=== PATIENT | male | born 1940 | race Caucasian/White ===

== ENCOUNTER → 2016-09-10 | Outpatient (CLI) | payer BC ==
[~2016-09-10] MED LIST: ASCA500 PO; ASCO500T3 PO; ASPEC81 PO; ASPI81TA28 PO; CELE1CAP30 PO; CEPH500C PO; DOCU100C31 PO; FINA5TAB PO; FLX10 PO; GLUCTAB7 PO; HYDC25 PO; HYDR12.56 PO; LACTCHW3 PO; METO100T44 PO; MULT-513 PO; OXYC-57 PO; OXYC1TAB3 PO; POLYSOL4 OPB; PRLSR20 PO; SENN8.6T94 PO; SIMV20TA2 PO; SULF800T23 PO; TMPOPS2510 OPB; TRAV0.00 OPB; VSC/10 PO
--- NOTE | 2016-09-10 11:11 | DIAGNOSTIC IMAGING REPORT ---
[facility] CLINICAL HISTORY: URINARY SYMPTOMS COMPARISON STUDY: 09/18/2007 FINDINGS: Degenerative changes are present within the spine. There is no pathologic bowel dilatation. 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 No urinary tract calculi are visualized on conventional radiographic imaging. IMPRESSION: No calculi identified. Electronically signed by: Jae Valencia M.D. 09/10/2016 11:09 AM Dictated Date/Time: 09/10/2016 11:07 AM
== END | disposition home or self-care (01) ==
LOC: C.RADBC 10:56
PROVIDERS: ATTEND Nurse Practitioner Family
DX: R39.9 Unspecified symptoms and signs involving the genitourinary system (principal)

== ENCOUNTER → 2016-10-14 | Outpatient (CLI) | payer BC | END | disposition home or self-care (01) | LOC: C.LABSPEC 17:25 | PROVIDERS: ATTEND Nurse Practitioner Family | DX: R39.9 Unspecified symptoms and signs involving the genitourinary system (principal) ==

== ENCOUNTER 2017-01-10 14:28 | Emergency (ER) | payer BC ==
[~2017-01-10] VITALS: Ht 180.3 cm; Wt 119.0 kg
[~2017-01-10 14:28] MED LIST changes: -ASCO500T3 PO; -ASPI81TA28 PO; -CELE1CAP30 PO; -CEPH500C PO; -FLX10 PO; -HYDR12.56 PO; -LACTCHW3 PO; -METO100T44 PO; +METO1TAB69 PO; -OXYC-57 PO; -OXYC1TAB3 PO; -SULF800T23 PO; -TMPOPS2510 OPB
[2017-01-10 14:38] VITALS: TEMP 37.3; Ht 180.3 cm; Wt 119.0 kg
[2017-01-10] MEDS ORDERED: ONDANSETRON INJ 2 MG/ML 2 ML VIAL IV STA (14:52)
[2017-01-10] MEDS ORDERED: SODIUM CHLORIDE 0.9% 1000ML 1,000 ML IV STA (14:52)
[2017-01-10] MEDS ORDERED: SODIUM CHLORIDE 0.9% 500ML 500 ML IV STA (14:52)
[2017-01-10] MEDS ORDERED: FENTANYL CITRATE INJ 50 MCG/1 ML 2 ML VIAL IV STA (15:00)
[2017-01-10] MEDS ORDERED: CELE1CAP30 PO (15:21)
[2017-01-10] MEDS ORDERED: FLX10 PO (15:24)
[2017-01-10] MEDS ORDERED: TMPOPS2510 OPB (15:25)
--- NOTE | 2017-01-10 15:42 | EMERGENCY ROOM VISIT NOTE ---
History Report prepared by Crow: Chery Hart Under the Supervision of: Dr. Viridiana Armando M.D. First contact with patient: 14:48 Chief Complaint: OTHER COMPLAINT Stated Complaint: NAUSEA/VOMITING History of Present Illness The patient is a 76 year old male who presents to the Emergency Room with complaints of constant nausea for the past 5 hours. The patient ate breakfast this morning and was feeling fine afterwards. He went to [employer] with his and while he was standing in the check-out line he developed diffuse abdominal pain and became very nauseated and shaky. He was able to drive home. Once he got home he was still feeling nauseated and shaky. He started feeling very weak. He then had 3 episodes of vomiting. After the third episode his nausea started to improve. His called an ambulance and the patient was brought to the ED via BLS. The patient states that he started to develop a headache in the ambulance. He is still complaining of abdominal pain but attributes this to "nerves" as he does not like being in the hospital. The patient rates his current pain as a 4/10 in severity. He does not think that he had any chest pain with his symptoms. He denies any current arm pain or jaw pain. He does report some lower back pain. The patient also denies any diarrhea or personal history of stroke. He takes a daily baby aspirin and denies any other blood thinners. The patient's daughter is concerned that he has been under more stress lately. The patient's second daughter several years ago and he and his have been caring for their 3 grandchildren. 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 A total of 10 systems reviewed and were otherwise negative. Past Medical & Surgical Medical Problems: (1) History of small bowel obstruction (2) Hx of renal calculi Family History Heart disease Hypertension Social History Smoking Status: Former Smoker Marital Status: Housing Status: lives with family Occupation Status: retired Current/Historical Medications Scheduled Ascorbic Acid (Vitamin C *), 500 MG PO QAM Aspirin Enteric Coated (Ecotrin Or Generic *), 81 MG PO QPM Celecoxib (Celecoxib), 200 MG PO BID Cephalexin Monohydrate (Keflex), 500 MG PO TID Cyclobenzaprine HCl (Cyclobenzaprine HCl), 10 MG PO QPM Finasteride (Proscar), 5 MG PO QAM Carqzirvohs-Hrivaqaiugz-Xcj C- (Glucosamine Chondroitin), 2 TAB PO QPM Hydrochlorothiazide (Hctz *), 12.5 MG PO QAM Metoprolol Succ (Toprol Xl) (Toprol-Xl ), 100 MG PO QPM Multivitamins/Minerals (Mvi With Minerals), 1 TAB PO QAM Omeprazole (Prilosec Otc *), 20 MG PO QAM Polyethylene Glycol-Propylene (Systane), 1 DROPS OPB QAM Sennosides (Sennosides), 8.6 MG PO HS Simvastatin (Zocor), 20 MG PO QPM Solifenacin Succinate (Vesicare), 10 MG PO QPM Timolol Maleate (Timolol Maleate), 1 DROP OPB QAM Allergies Coded Allergies: No Known Allergies (Verified , 01/10/17) Physical Exam Vital Signs Date Time Temp Pulse Resp B/P (MAP) Pulse Ox O2 Delivery O2 Flow Rate FiO2 01/10/17 20:26 93 16 123/63 94 01/10/17 19:32 93 01/10/17 19:19 96 16 115/66 92 Room Air 01/10/17 18:09 95 21 99/64 95 Room Air 01/10/17 17:01 95 25 104/62 93 Room Air 01/10/17 16:35 96 20 90/58 94 Room Air 01/10/17 15:27 96 01/10/17 14:38 37.3 101 23 108/77 97 Room Air Physical Exam Vital signs reviewed. General: Well-appearing elderly male, in no significant distress. HEENT: No scleral icterus, PERRLA, neck supple. Atraumatic. Cardiovascular: Regular rate and rhythm, no extra sounds. Pulmonary: Clear to auscultation bilaterally, normal work of breathing. Abdomen: Soft, nontender, nondistended, positive bowel sounds. Musculoskeletal: Atraumatic, no peripheral edema. Neurologic: Patient awake alert and oriented x 3, full strength in all 4 extremities. Cranial nerves 2 through 12 grossly intact. Skin: Warm, dry, no rash Medical Decision & Procedures ER Provider Diagnostic Interpretation: Radiology results as stated below per my review and radiologist interpretation: CT OF THE HEAD WITHOUT CONTRAST CLINICAL HISTORY: Headache. COMPARISON STUDY: MRI of the brain April 25, 2012. CT DOSE: 537.48 mGy.cm TECHNIQUE: Helical axial images of the head were obtained without IV contrast. Automated exposure control was utilized for the study. A dose lowering technique was utilized adhering to the principles of ALARA. FINDINGS: No acute intracranial hemorrhage, midline shift or mass effect is present. Ventricular system is normal. Basilar cisterns are patent. There are no extra-axial collections. White matter hypodensity suggests small vessel disease. There are no findings to suggest acute dural sinus thrombosis or acute territorial infarct. Visualized portions of the sinuses and the mastoid air cells are clear. There are no significant calvarial abnormalities. IMPRESSION: No acute intracranial findings. Electronically signed by: Tiago Guerra M.D. 01/10/2017 3:55 PM Dictated Date/Time: 01/10/2017 3:53 PM Laboratory Results 01/10/17 15:15 Red Blood Count 4.58, Mean Corpuscular Volume 88.2, Mean Corpuscular Hemoglobin 30.6, Mean Corpuscular Hemoglobin Concent 34.7, Mean Platelet Volume , Neutrophils (%) (Auto) 95.9, Lymphocytes (%) (Auto) 1.9, Monocytes (%) (Auto) 1.6, Eosinophils (%) (Auto) 0.0, Basophils (%) (Auto) 0.1, Neutrophils # (Auto) 7.59, Lymphocytes # (Auto) 0.15, Monocytes # (Auto) 0.13, Eosinophils # (Auto) 0.00, Basophils # (Auto) 0.01 01/10/17 15:15 Test 01/10/17 15:15 01/10/17 15:20 01/10/17 18:59 White Blood Count 7.92 K/uL (4.8-10.8) Red Blood Count 4.58 M/uL (4.7-6.1) Hemoglobin 14.0 g/dL (14.0-18.0) Hematocrit 40.4 % (42-52) Mean Corpuscular Volume 88.2 fL (80-100) Mean Corpuscular Hemoglobin 30.6 pg (25-34) Mean Corpuscular Hemoglobin Concent 34.7 g/dl (32-36) Platelet Count K/uL (130-400) Mean Platelet Volume fL (7.4-10.4) Neutrophils (%) (Auto) 95.9 % Lymphocytes (%) (Auto) 1.9 % Monocytes (%) (Auto) 1.6 % Eosinophils (%) (Auto) 0.0 % Basophils (%) (Auto) 0.1 % Neutrophils # (Auto) 7.59 K/uL (1.4-6.5) Lymphocytes # (Auto) 0.15 K/uL (1.2-3.4) Monocytes # (Auto) 0.13 K/uL (0.11-0.59) Eosinophils # (Auto) 0.00 K/uL (0-0.5) Basophils # (Auto) 0.01 K/uL (0-0.2) RDW Standard Deviation 45.7 fL (36.4-46.3) RDW Coefficient of Variation 14.1 % (11.5-14.5) Immature Granulocyte % (Auto) 0.5 % Immature Granulocyte # (Auto) 0.04 K/uL (0.00-0.02) Red Blood Cell Morphology Unremarkable Anion Gap 9.0 mmol/L (3-11) Est Creatinine Clear Calc Drug Dose 44.4 ml/min Estimated GFR () 40.9 Estimated GFR (Non- 35.3 BUN/Creatinine Ratio 18.0 (10-20) Calcium Level 8.7 mg/dl (8.5-10.1) Magnesium Level 1.5 mg/dl (1.8-2.4) Total Bilirubin 0.8 mg/dl (0.2-1) Direct Bilirubin 0.3 mg/dl (0-0.2) Aspartate Amino Transf (AST/SGOT) 24 U/L (15-37) Alanine Aminotransferase (ALT/SGPT) 25 U/L (12-78) Alkaline Phosphatase 59 U/L (45-117) Total Protein 6.3 gm/dl (6.4-8.2) Albumin 3.3 gm/dl (3.4-5.0) Lipase 233 U/L (73-393) Bedside Troponin I < 0.030 ng/ml (0-0.045) Urine Color YELLOW Urine Appearance CLEAR (CLEAR) Urine pH 5.0 (4.5-7.5) Urine Specific [place] 1.018 (1.000-1.030) Urine Protein NEG (NEG) Urine Glucose (UA) NEG (NEG) Urine Ketones NEG (NEG) Urine Occult Blood 2+ (NEG) Urine Nitrite POS (NEG) Urine Bilirubin NEG (NEG) Urine Urobilinogen NEG (NEG) Urine Leukocyte Esterase MODERATE (NEG) Urine WBC (Auto) 10-30 /hpf (0-5) Urine RBC (Auto) 0-4 /hpf (0-4) Urine Hyaline Casts (Auto) 0 /lpf (0-5) Urine Epithelial Cells (Auto) 10-20 /lpf (0-5) Urine Bacteria (Auto) 3+ (NEG) Laboratory results per my review. Medications Administered Medications (Trade) Dose Ordered Sig/Sienna Route Start Time Stop Time Status Last Admin Dose Admin Sodium Chloride 500 ml @ 999 mls/hr Q31M STAT IV 01/10/17 14:52 01/10/17 15:22 DC 01/10/17 15:29 999 MLS/HR Sodium Chloride 1,000 ml @ 200 mls/hr Q5H STAT IV 01/10/17 14:52 01/10/17 19:51 DC 01/10/17 16:16 200 MLS/HR Ondansetron HCl (Zofran Inj) 4 mg NOW STAT IV 01/10/17 14:52 01/10/17 14:54 DC 01/10/17 15:30 4 MG Fentanyl Citrate (Fentanyl Inj) 50 mcg NOW STAT IV 01/10/17 15:00 01/10/17 15:01 DC 01/10/17 15:30 50 MCG Hydromorphone HCl (Dilaudid Inj) 1 mg NOW STAT IV 01/10/17 16:49 01/10/17 16:50 DC 01/10/17 17:02 1 MG Acetaminophen (Tylenol Tab) 650 mg NOW STAT PO 01/10/17 19:01 01/10/17 19:02 DC 01/10/17 19:19 650 MG Ceftriaxone Sodium (Rocephin Inj) 1 gm NOW STAT IV 01/10/17 19:32 01/10/17 19:33 DC 01/10/17 19:44 1 GM ECG Indication: nausea Rate (beats per minute): 95 Rhythm: normal sinus Findings: LAFB, left axis deviation ED Course 1448: Past medical records reviewed. The patient was evaluated in room C7. A complete history and physical examination was performed. 1452: Zofran 4 mg IV, NSS 1000 ml @ 200 mls/hr IV, NSS 500 ml @ 999 mls/hr IV 1500: Fentanyl 50 mcg IV 164: Dilaudid 1 mg IV 174: I updated the patient. He is doing well and resting more comfortably. 1858: I reevaluated the patient and he is doing well. 1900: Tylenol 650 mg PO 1931: Rocephin 1 gm IV 1958: I reassessed the patient at this time. He is feeling better and resting comfortably. I discussed the results and treatment plan with the patient. I answered all pertaining questions that he had. He expressed understanding and verbalized agreement. The patient will be discharged home. Medical Decision Differential diagnosis: Etiologies such as gastroenteritis, food borne illness, infections, appendicitis , diverticulitis, inflammatory bowel disease, obstruction, GI bleed, biliary pathology, as well as others were entertained. This patient was evaluated and appeared to be in no significant distress. IV access was obtained and laboratory work was drawn. The patient was placed on the court monitor. Patient was hydrated with normal saline solution, given IV Zofran and fentanyl for complaints of headache. CT scan of the head was performed and is negative for acute intracranial abnormality. EKG reveals no evidence of acute ischemic change. Patient did require IV Dilaudid for additional pain. He complained of being hungry, was given a by mouth fluid trial of Gatorade for which he tolerated well. The patient was tolerating crackers. He was feeling improved. He was given oral Tylenol for a mild continued headache. 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 He may also be suffering from a viral illness. The patient was advised to hold the Celebrex in particular. The patient takes Prilosec daily. He'll follow-up with his PCP particular regarding the mild renal insufficiency which may also be secondary to NSAID use. He will return to the ER for worsening of symptoms or any medical concerns. Medication Reconcilliation Current Medication List: was personally reviewed by me Blood Pressure Screening Patient's blood pressure: Low blood pressure Impression Primary Impression: Renal insufficiency Additional Impressions: Urinary tract infection Headache Vomiting Scribe Attestation The scribe's documentation has been prepared under my direction and personally reviewed by me in its entirety. I confirm that the note above accurately reflects all work, treatment, procedures, and medical decision making performed by me. Departure Information Dispostion Home / Self-Care Prescriptions Cephalexin Monohydrate (Keflex) 500 Mg Cap 500 MG PO TID, #21 CAP Prov: Viridiana Armando M.D. 01/10/17 Referrals Amanuel Ellison M.D. (PCP) Forms HOME CARE DOCUMENTATION FORM, IMPORTANT VISIT INFORMATION, WORK / SCHOOL INSTRUCTIONS Patient Instructions My [facility] Additional Instructions Diagnosis: Vomiting, headache, UTI, renal insufficiency Drink plenty of clear fluids. Minimize use of Aleve, ibuprofen and Celebrex. Continue your aspirin as prescribed for now. Keflex 500 mg 3 times a day for 7 days. Start tomorrow. Follow-up with your PCP this week for reevaluation. Maintain a bland diet. Return to the ER for worsening of symptoms or any medical concerns. Problem Qualifiers Additional Impressions: Urinary tract infection Urinary tract infection type: site unspecified Hematuria presence: with hematuria Qualified Codes: N39.0 - Urinary tract infection, site not specified ; R31.9 - Hematuria, unspecified Headache Headache type: unspecified Headache chronicity pattern: acute headache Intractability: not intractable Qualified Codes: R51 - Headache Vomiting Vomiting type: unspecified Vomiting Intractability: non-intractable Nausea presence: with nausea Qualified Codes: R11.2 - Nausea with vomiting, unspecified
[2017-01-10 15:46] LABS: CALCIUM 8.7 mg/dl (8.5-10.1); CREATININE 1.8 mg/dl (0.60-1.40); MAGNESIUM 1.5 mg/dl (1.8-2.4); POTASSIUM 3.4 mmol/L (3.5-5.1)
--- NOTE | 2017-01-10 15:57 | DIAGNOSTIC IMAGING REPORT ---
CT OF THE HEAD WITHOUT CONTRAST CLINICAL HISTORY: Headache. COMPARISON STUDY: MRI of the brain April 25, 2012. CT DOSE: 537.48 mGy.cm TECHNIQUE: Helical axial images of the head were obtained without IV contrast. Automated exposure control was utilized for the study. A dose lowering technique was utilized adhering to the principles of ALARA. FINDINGS: No acute intracranial hemorrhage, midline shift or mass effect is present. Ventricular system is normal. Basilar cisterns are patent. There are no extra-axial collections. White matter hypodensity suggests small vessel disease. There are no findings to suggest acute dural sinus thrombosis or acute territorial infarct. Visualized portions of the sinuses and the mastoid air cells are clear. There are no significant calvarial abnormalities. IMPRESSION: No acute intracranial findings. Electronically signed by: Tiago Guerra M.D. 01/10/2017 3:55 PM Dictated Date/Time: 01/10/2017 3:53 PM
[2017-01-10 16:37] LABS: BASO % 0.1 %; BASO ABS # 0.01 K/uL (0-0.2); COMPLETE YES; HEMATOCRIT 40.4 % (42-52); IG% 0.5 %; LYMPH % 1.9 %; LYMPH ABS # 0.15 K/uL (1.2-3.4); MEAN CELL VOLUME 88.2 fL (80-100); MEAN CORPUSCULAR HEMOGLOBIN 30.6 pg (25-34); MEAN CORPUSCULAR HGB CONC 34.7 g/dl (32-36); MONO % 1.6 %; NEUT % 95.9 %; RED BLOOD COUNT 4.58 M/uL (4.7-6.1); WHITE BLOOD COUNT 7.92 K/uL (4.8-10.8)
[2017-01-10] MEDS ORDERED: HYDROmorphone INJ 1 MG/ML SYR IV STA (16:49)
[2017-01-10] MEDS ORDERED: ACETAMINOPHEN 325 MG TAB PO STA (19:01)
[2017-01-10 19:25] LABS: URINE APPEARANCE CLEAR (CLEAR); URINE BILIRUBIN NEG (NEG); URINE COLOR YELLOW; URINE NITRITE POS (NEG); URINE SPECIFIC GRAVITY 1.018 (1.000-1.030); UROBILINOGEN NEG (NEG); ZZUR CULT IF INDIC CLEAN CATCH YES
[2017-01-10 19:26] LABS: MANUAL MICROSCOPIC REQUIRED? NO; REVIEW REQ? NO
[2017-01-10] MEDS ORDERED: CEFTRIAXONE SOD INJ 1 GM ADDVIAL IV STA (19:32)
[2017-01-10] MEDS ORDERED: CEPH500C PO (19:36)
[2017-01-10 20:26] VITALS: BP 123/63; PULSE 93; O2SAT 94
[2017-01-11] MEDS ORDERED: ASPI81TA28 PO (13:52)
[2017-01-11] MEDS ORDERED: HYDR12.56 PO (13:52)
[2017-01-11] MEDS ORDERED: PRLSR20 PO (13:52)
[2017-01-11] MEDS ORDERED: ASCO500T3 PO (13:52)
[2017-01-16] MEDS ORDERED: SULF800T23 PO (09:46)
[2017-01-16] MEDS ORDERED: METO1TAB69 PO (09:46)
[2017-01-16] MEDS ORDERED: LACTCHW3 PO (09:46)
[2017-01-31] MEDS ORDERED: OXYC-57 PO (08:07)
== END 2017-01-10 20:28 | disposition home or self-care (01) ==
LOC: EDBD 14:28 → C.EDC 14:29
DX: N39.0 Urinary tract infection, site not specified (principal); R51 Headache; N28.9 Disorder of kidney and ureter, unspecified; Z79.82 Long term (current) use of aspirin; Z87.442 Personal history of urinary calculi; Z82.49 Family history of ischemic heart disease and other diseases of the circulatory system; Z79.899 Other long term (current) drug therapy

== ENCOUNTER 2017-01-11 11:12 | Inpatient (IN) | payer BC, OTHER ==
[2017-01-11] VITALS (15 sets, daily range): BP systolic 100–130; BP diastolic 49–83; PULSE 93–103; TEMP 37.2; O2SAT 91–97; Ht 180.3 cm; Wt 124.7 kg
[~2017-01-11] VITALS: Ht 180.3 cm; Wt 124.7 kg
[~2017-01-11 11:12] MED LIST changes: +CELE1CAP30 PO; +CEPH500C PO; -DOCU100C31 PO; +FLX10 PO; +TMPOPS2510 OPB; -TRAV0.00 OPB
[2017-01-11] MEDS ORDERED: ACETAMINOPHEN 325 MG TAB PO STA (12:21)
[2017-01-11] MEDS ORDERED: SODIUM CHLORIDE 0.9% 500ML 500 ML IV STA (12:21)
[2017-01-11] MEDS ORDERED: METOCLOPRAMIDE HCL INJ 5 MG/ML 2 ML VIAL IV STA (12:21)
--- NOTE | 2017-01-11 12:40 | DIAGNOSTIC IMAGING REPORT ---
CHEST ONE VIEW PORTABLE HISTORY: Short of breath COMPARISON: Chest 10/11/2014. FINDINGS: Bibasilar linear densities consistent with subsegmental atelectasis. The lungs are otherwise clear. The heart is normal in size. No pleural effusions. No pneumothorax. Right shoulder prosthesis. IMPRESSION: Bibasilar linear densities. This favors subsegmental atelectasis. Electronically signed by: Naeem Keith M.D. 01/11/2017 12:39 PM Dictated Date/Time: 01/11/2017 12:37 PM
--- NOTE | 2017-01-11 12:48 | EMERGENCY ROOM VISIT NOTE ---
History Report prepared by Crow: Carey Miller Under the Supervision of: Dr. Aquiles Rosenbaum M.D. First contact with patient: 11:52 Chief Complaint: HEADACHE Stated Complaint: CHILLS, BORRERO, RIB AND BACK NEAR KIDNEY AREA PAIN History of Present Illness The patient is a 76 year old male who presents to the Emergency Room with complaints of an episode of a headache starting three hours ago. The patient states he was here at the ED for similar symptoms yesterday. He states that his symptoms had resolved last night and he awoke without them this morning. He reports that they started to come back three hours ago. The patient notes that the headache is in the front of his head and at his temples. He states that he took two Tylenol with little relief. He currently rates his pain as a 7/10 in severity. The patient complains of nausea, dry heaving, chills, back pain, weakness, and shortness of breath. The patient denies any recent falls, numbness , tingling, chest pain, leg swelling, fever, and cough. The patient notes he is currently being treated for a UTI and is on a baby Aspirin daily. Source of History: patient Onset: three hours ago Position: head Symptom Intensity: 7/10 Timing: other (episode) Modifying Factors (Relieving): tylenol Associated Symptoms: + chills, + SOB, + nausea, + back pain, + weakness, No fevers, No cough, No chest pain, No numbness Note: The patient complains of dry heaving. The patient denies recent falls, tingling , and leg swelling. Review of Systems See HPI for pertinent positives and negatives. A total of ten systems were reviewed and were otherwise negative. Past Medical & Surgical Medical Problems: (1) History of small bowel obstruction (2) Hx of renal calculi (3) Sepsis Surgical Problems: (1) H/O hernia repair (2) History of cataract surgery Family History Heart disease Hypertension Social History Smoking Status: Never Smoker Alcohol Use: none Drug Use: none Marital Status: Housing Status: lives with family Occupation Status: retired Current/Historical Medications Scheduled Ascorbic Acid (Vitamin C), 500 MG PO DAILY Aspirin (Aspirin Ec), 81 MG PO QPM Cephalexin Monohydrate (Keflex), 500 MG PO TID Cyclobenzaprine HCl (Cyclobenzaprine HCl), 10 MG PO QPM Finasteride (Proscar), 5 MG PO QAM Okmsfiketvl-Pplzvqhqxqw-Sed C- (Glucosamine Chondroitin), 2 TAB PO QPM Hydrochlorothiazide (Hctz), 12.5 MG PO QAM Metoprolol Succ (Toprol Xl) (Toprol-Xl ), 100 MG PO QPM Multivitamins/Minerals (Mvi With Minerals), 1 TAB PO QAM Omeprazole (Prilosec), 20 MG PO DAILY Polyethylene Glycol-Propylene (Systane), 1 DROPS OPB QAM Sennosides (Sennosides), 8.6 MG PO HS Simvastatin (Zocor), 20 MG PO QPM Solifenacin Succinate (Vesicare), 10 MG PO QPM Timolol Maleate (Timolol Maleate), 1 DROP OPB QAM Allergies Coded Allergies: No Known Allergies (Verified , 01/11/17) Physical Exam Vital Signs Date Time Temp Pulse Resp B/P (MAP) Pulse Ox O2 Delivery O2 Flow Rate FiO2 01/11/17 17:01 106/51 01/11/17 17:00 101 98 01/11/17 16:56 106/55 01/11/17 16:55 104 98 01/11/17 16:51 104/67 01/11/17 16:50 102 97 01/11/17 16:46 112/68 01/11/17 16:45 102 98 01/11/17 16:45 37.2 99 19 110/62 97 Nasal Cannula 2.0 01/11/17 16:41 120/64 01/11/17 16:40 102 97 01/11/17 16:35 104 97/68 97 01/11/17 16:31 102/75 01/11/17 16:30 103 98 01/11/17 16:26 101 24 101/74 97 01/11/17 16:21 100 24 108/75 97 Nasal Cannula 4.0 01/11/17 16:15 100 24 107/77 97 Nasal Cannula 4.0 01/11/17 16:10 100 24 98/66 97 Nasal Cannula 4.0 01/11/17 16:00 108 24 89/63 98 Nasal Cannula 4.0 01/11/17 15:51 106 24 80/58 97 Nasal Cannula 4.0 01/11/17 15:45 107 24 84/59 100 Nasal Cannula 4.0 8/8/17 15:41 106 24 90/59 100 Nasal Cannula 4.0 /8/17 15:30 101 /8/17 15:30 98 24 79/55 97 Nasal Cannula 4.0 /8/17 15:25 102 24 77/52 98 Nasal Cannula 4.0 /8/17 15:20 102 76/49 8/8/17 15:13 99 61/41 96 Nasal Cannula 4.0 8/ 15:03 Nasal Cannula 4.0 /8/17 15:03 104 24 60/42 94 8/8/17 14:56 101 24 97/63 8/8/17 14:51 100 28 93/50 95 Room Air /8/17 14:48 102 28 82/61 96 Room Air 8/17 14:39 106 30 97/61 95 Room Air /8/17 14:25 102 28 81/58 94 Room Air //17 14:15 100 25 86/63 92 Room Air 01/11/17 14:08 98 24 81/59 95 Room Air 8/17 13:55 100 28 80/54 96 Room Air 8/17 13:45 97 29 73/51 94 Room Air /8/17 13:40 99 29 81/55 94 Room Air /8/17 13:35 99 24 82/55 96 Room Air /8/17 13:30 100 31 92/55 94 Room Air /8/17 13:27 99 26 94 01/11/ 13:23 49/29 01/11/17 13:22 104 33 94 01/11/17 13:20 75/44 17 13:17 105 32 94 8/ 13:12 103 31 94 01/11/17 13:07 110 29 96 8/ 13:04 102/62 01/11/17 13:02 99 30 93 8 13:00 96/57 01/11/17 12:57 102 31 93 8/17 12:52 105 33 93 01/11/17 12:49 83/51 01/11/ 12:47 108 28 93 01/11/17 12:42 106 30 93 01/11/17 12:37 107 30 93 01/11/17 12:32 111 25 94 01/11/17 12:27 103 29 92 01/11/17 12:22 102 28 91 01/11/17 12:17 103 28 92 01/11/17 12:12 106 39 92 01/11/17 12:07 111 26 89 01/11/17 12:02 106 26 92 01/11/17 11:57 114 36 92 01/11/17 11:52 111 32 01/11/17 11:47 111 30 01/11/17 11:42 111 32 01/11/17 11:37 113 36 01/11/17 11:35 113 01/11/17 11:32 118 22 01/11/17 11:27 112 37 01/11/17 11:24 113/72 01/11/17 11:14 37.2 119 22 130/69 95 Room Air Physical Exam GENERAL: Awake, alert, well-appearing, NAD HENT: Normocephalic, atraumatic. Dry MM. EYES: Normal conjunctiva. Sclera non-icteric. NECK: Supple. No nuchal rigidity. FROM. RESPIRATORY: Short shallow breaths, mildly tachypneic, mild left crackles at the base. no rhonchi, wheezing CARDIAC: RRR, no MRG ABDOMEN: Soft, NTND, BS+ MSK: No chest wall TTP, no LE edema. Negative Benton sign. NEURO: GCS 15, CN 2-12 intact, moves all 4s on command SKIN: No rash or jaundice noted. Multiple surgical scars consistent with prior procedures. Medical Decision & Procedures ER Provider Diagnostic Interpretation: Radiology results as stated below per my review and radiologist interpretation: CHEST ONE VIEW PORTABLE HISTORY: Short of breath COMPARISON: Chest 10/11/2014. FINDINGS: Bibasilar linear densities consistent with subsegmental atelectasis. The lungs are otherwise clear. The heart is normal in size. No pleural effusions. No pneumothorax. Right shoulder prosthesis. IMPRESSION: Bibasilar linear densities. This favors subsegmental atelectasis. Electronically signed by: Naeem Keith M.D. 01/11/2017 12:39 PM Dictated Date/Time: 01/11/2017 12:37 PM CHEST ONE VIEW PORTABLE CLINICAL HISTORY: Central Line Placement tube position COMPARISON STUDY: 01/11/2017 FINDINGS: Placement of a central line in superior vena cava. No evidence pneumothorax. Study is otherwise unchanged. IMPRESSION: Central line placed in the superior vena cava. No evidence pneumothorax. The above report was generated using voice recognition software. It may contain grammatical, syntax or spelling errors. Electronically signed by: Juanjo Velarde M.D. 01/11/2017 4:05 PM Dictated Date/Time: 01/11/2017 4:04 PM Laboratory Results Test 01/11/17 11:30 01/11/17 12:30 01/11/17 13:31 01/11/17 14:20 Total Creatine Kinase 113 U/L (39-308) Bedside Troponin I < 0.030 ng/ml (0-0.045) Venous Blood pH 7.36 (7.36-7.41) Venous Blood Partial Pressure CO2 36 mmHg (38.0-50.0) Venous Blood Partial Pressure O2 32 mmHg Venous Blood HCO3 20 mmol/L Venous Blood Oxygen Saturation < 60.0 % Venous Blood Base Excess -5.0 mEq/L Urine Color DK YELLOW Urine Appearance CLOUDY (CLEAR) Urine pH 5.0 (4.5-7.5) Urine Specific [place] 1.023 (1.000-1.030) Urine Protein 1+ (NEG) Urine Glucose (UA) NEG (NEG) Urine Ketones NEG (NEG) Urine Occult Blood 2+ (NEG) Urine Nitrite NEG (NEG) Urine Bilirubin NEG (NEG) Urine Urobilinogen NEG (NEG) Urine Leukocyte Esterase MODERATE (NEG) Urine WBC (Auto) >30 /hpf (0-5) Urine RBC (Auto) 5-10 /hpf (0-4) Urine Hyaline Casts (Auto) 1-5 /lpf (0-5) Urine Epithelial Cells (Auto) >30 /lpf (0-5) Urine Bacteria (Auto) NEG (NEG) Urine Renal Epithelial Cells 0-5 /lpf (0-5) Urine Crystals AMORPHOUS SEDIMENT (NONE Urine Pathogenic Casts /lpf (0) Test 01/11/17 15:26 01/11/17 17:01 Bedside Glucose 84 mg/dl (70-99) Bedside Lactic Acid Venous 2.65 mmol/L (0.90-1.70) Laboratory results reviewed by me Medications Administered Medications (Trade) Dose Ordered Sig/[place] Route Start Time Stop Time Status Last Admin Dose Admin Metoclopramide HCl (Reglan Inj) 10 mg NOW STAT IV 01/11/17 12:21 01/11/17 12:25 DC 01/11/17 12:33 10 MG Acetaminophen (Tylenol Tab) 650 mg NOW STAT PO 01/11/17 12:21 01/11/17 12:25 DC 01/11/17 13:02 650 MG Sodium Chloride 500 ml @ 500 mls/hr Q1H STAT IV 01/11/17 12:21 01/11/17 13:20 DC 01/11/17 12:32 500 MLS/HR Sodium Chloride 1,000 ml @ 200 mls/hr Q5H IV 01/11/17 13:15 01/11/17 18:34 DC 01/11/17 13:19 200 MLS/HR Vancomycin HCl 1000 mg/Sodium Chloride 270 ml @ 125 mls/hr NOW STAT IV 01/11/17 13:28 01/11/17 15:37 DC 01/11/17 14:38 125 MLS/HR Cefepime HCl 1000 mg/Dextrose 111.3 ml @ 200 mls/hr ONE STAT IV 01/11/17 13:28 01/11/17 14:01 DC 01/11/17 14:06 200 MLS/HR Metronidazole (Flagyl / Nss) 500 mg NOW STAT IV 01/11/17 13:28 01/11/17 13:30 DC 01/11/17 13:40 500 MG Sodium Chloride 1,000 ml @ 999 mls/hr Q1H1M IV 01/11/17 15:15 01/11/17 18:30 DC 01/11/17 15:15 999 MLS/HR Norepinephrine Bitartrate 8 mg/ Dextrose 508 ml @ 0 mls/hr Q0M STAT IV 01/11/17 15:09 01/11/17 15:10 DC 01/11/17 15:09 47 MLS/HR Lorazepam (Ativan Tab) 0.5 mg Q4H PRN PO 01/11/17 17:00 02/10/17 16:59 01/11/17 23:28 0.5 MG Morphine Sulfate (MoRPHine SULFATE INJ) 2 mg Q2H PRN IV 01/11/17 17:00 01/25/17 16:59 01/12/17 02:05 2 MG Procedure Central Venous Catheter Indication: Hypotension, Septic Shock Catheter type: Triple Lumen Location: Right IJ Verbal consent was obtained after the risks and benefits were explained, including but not limited to pneumothorax, hemothorax, vessel injury, bleeding, scarring, infection, pain, and bone/joint/nerve damage. At this time, the risks of the procedure are less than the risks of NOT performing the procedure. A time out was taken and the correct patient and site identified. The patient was placed in the Trendelenburg position and the skin was prepped in the standard fashion with chlorhexidine and full sterile drapes applied. The proper landmarks were identified with ultrasound, anesthetized with 1% lidocaine without epinephrine, and the needle was inserted through the skin in the standard fashion. The needle was carefully advanced into blood vessel lumen under ultrasound guidance. The guidewire was placed uneventfully. The vessel is dilated and the catheter was placed. It was sutured into position. There was good blood return from all ports. The patient tolerated the procedure well and there were no complications. Post procedure x-ray was normal. ECG Indication: other (headache) Rate (beats per minute): 112 Rhythm: sinus tachycardia Findings: other (normal MS QRS QTC, no STS or TWI, left anterior fasculiar block, abnormal) ED Course 1201: The patient was evaluated in room C3. A complete history and physical exam was performed. 1221: Ordered NSS 500 ml @ 500 mls/hr IV, Tylenol Tab 650 mg PO, Reglan Inj 10 mg IV. 1315: Ordered NSS 1000 ml @ 200 mls/hr IV. 1328: Ordered Flagyl/ Nss 500 mg IV, Cefepime HCl 1000 mg/ Dextrose 111.3 ml @ 200 mls/hr IV, Vancomycin HCl 1000 mg/ Sodium Chloride 270 ml @ 125 mls/hr IV. 1355: I reevaluated the patient and his symptoms are improving. He is still hypotensive and is neutropenic. 1506: I reevaluated the patient and he is feeling short of breath. The patient is on his fourth liter and is going to have a central line placed. 1508: Discussed the patient's case with Dr. Barton. The patient will be evaluated for further treatment and disposition after I discuss the case with a hospitalist. 1509: Ordered Norepinephrine Bitartrate 8 mg/ Dextrose 508 ml @ 0 mls/hr Protocol IV. 1515: Ordered NSS 1000 ml @ 999 mls/hr IV. 1639: Discussed the patient's case with Dr. Allred. The patient will be evaluated for further treatment and disposition. Medical Decision The patient is a 76 year old male who presents to the Emergency Room with complaints of an episode of a headache starting three hours ago. The patient has a history of hernia surgery and cataract surgery. Differential diagnoses anxiety, CHF, PNA, renal colic, UTI, pyelonephritis. Upon initial presentation patient does not look in a fair amount of distress, however, patient did have episodes of hypotension. Patient was given fluids and blood work was drawn in addition to cultures. Given patient's worsening blood pressure a code substance was called patient was given multiple liters of fluid without resolution of his hypotension. Patient was deemed to be in septic shock likely related to his urosepsis or pyelonephritis. Patient never had any altered mental status. Patient's lactate initially was 3.5 with a white count of 1100 and was neutropenic but without any true fever. Given the fact the patient wasn't septic shock and his blood pressure did not respond to 4 L of fluid patient had a right CVC IJ catheter placed emergently for hypotension. Patient had a repeat lactate that did not show any improvement. Patient had received all of his antibiotics. Patient was deemed very ill and required inpatient intensive care treatment. I spoke with the ICU physician in addition to the hospitalist who agreed that the patient would benefit from ICU level of care. Medication Reconcilliation Current Medication List: was personally reviewed by me Blood Pressure Screening Patient's blood pressure: Elevated blood pressure Blood pressure disposition: Referred to PCP Consults Time Called: 1353 Consulting Physician: Dr. Barton- ICU Returned Call: [phone] Discussed the patient's case with Dr. Barton. The patient will be evaluated for further treatment and disposition after I discuss the case with a hospitalist. Additional Consults: Time Called: [phone] Consulted Physician: Dr. Allred Returned Call: [phone] Additional Comments: Discussed the patient's case with Dr. Allred. The patient will be evaluated for further treatment and disposition. Impression Primary Impression: Severe sepsis Additional Impressions: Lactic acidosis Neutropenia LINDA (acute kidney injury) HTN (hypertension) Septic shock Critical Care I have personally spent greater than 82 minutes of critical care time in the direct management of this patient. This includes bedside care, interpretation of diagnostic studies, and testing, discussion with consultants, patient, and family members, and other required patient management activities. This 82 minutes is in excess of all separately billable procedures. Scribe Attestation The scribe's documentation has been prepared under my direction and personally reviewed by me in its entirety. I confirm that the note above accurately reflects all work, treatment, procedures, and medical decision making performed by me. Departure Information Dispostion Being Evaluated By Hospitalist Referrals Amanuel Ellison M.D. (PCP) Patient Instructions My [facility] Problem Qualifiers
[2017-01-11 13:00] LABS: BUN/CREATININE RATIO 13.8 (10-20); CALCIUM 8.3 mg/dl (8.5-10.1); CREATININE 2.7 mg/dl (0.60-1.40); POTASSIUM 3.7 mmol/L (3.5-5.1)
[2017-01-11 13:08] LABS: INR 1.1 (0.9-1.1); PARTIAL THROMBOPLASTIN RATIO 1.2; PROTHROMBIN TIME (PATIENT) 11.4 SECONDS (9.0-12.0)
[2017-01-11] MEDS ORDERED: SODIUM CHLORIDE 0.9% 1000ML 1,000 ML IV SCH (13:15)
[2017-01-11] MEDS ORDERED: VANCOMYCIN INJ 1,000 MG in SODIUM CHLORIDE 0.9% 250ML 250 ML IV STA (13:28)
[2017-01-11] MEDS ORDERED: CEFEPIME IV 1,000 MG in DEXTROSE 5% 100ML 100 ML IV STA (13:28)
[2017-01-11] MEDS ORDERED: METRONIDAZOLE 500MG / 100ML NSS IV STA (13:28)
[2017-01-11 13:39] LABS: HEMATOCRIT 41.1 % (42-52); MEAN CELL VOLUME 89.7 fL (80-100); MEAN CORPUSCULAR HEMOGLOBIN 30.6 pg (25-34); MEAN CORPUSCULAR HGB CONC 34.1 g/dl (32-36); MEAN PLATELET VOLUME 10.3 fL (7.4-10.4); PLATELET COUNT 68 K/uL (130-400); RED BLOOD COUNT 4.58 M/uL (4.7-6.1); WHITE BLOOD COUNT 1.15 K/uL (4.8-10.8)
[2017-01-11 13:44] LABS: VENOUS BLOOD GAS PCO2 36 mmHg (38.0-50.0); VENOUS BLOOD GAS PO2 32 mmHg
[2017-01-11 13:45] LABS: VEN BLD GAS O2 SATURATION < 60.0 %
[2017-01-11] MEDS ORDERED: ASPI81TA28 PO (13:52)
[2017-01-11] MEDS ORDERED: ASCO500T3 PO (13:52)
[2017-01-11] MEDS ORDERED: HYDR12.56 PO (13:52)
[2017-01-11] MEDS ORDERED: PRLSR20 PO (13:52)
[2017-01-11 14:16] LABS: VACUOLIZATION 2+
[2017-01-11 14:17] LABS: COMPLETE YES; LYMPH ABS # 0.19 K/uL (1.2-3.4); LYMPHOCYTE % 16.4 %; META ABS # 0.15 K/uL (0-0); METAMYELOCYTE % 12.7 %
[2017-01-11 14:38] LABS: URINE APPEARANCE CLOUDY (CLEAR); URINE BILIRUBIN NEG (NEG); URINE COLOR DK YELLOW; URINE EPITHELIAL CELL AUTO >30 /lpf (0-5); URINE NITRITE NEG (NEG); URINE SPECIFIC GRAVITY 1.023 (1.000-1.030); UROBILINOGEN NEG (NEG); ZZURINE CULT IF INDIC CATH YES
[2017-01-11 14:45] LABS: MANUAL MICROSCOPIC REQUIRED? NO; REVIEW REQ? YES
[2017-01-11] MEDS ORDERED: NOREPINEPHRINE BIT INJ 8 MG in DEXTROSE 5% 500ML 500 ML IV STA (15:09)
[2017-01-11] MEDS: SODIUM CHLORIDE 0.9% 1000ML 1,000 ML IV SCH ×4 (15:15→19:22)
--- NOTE | 2017-01-11 16:06 | DIAGNOSTIC IMAGING REPORT ---
CHEST ONE VIEW PORTABLE CLINICAL HISTORY: Central Line Placement tube position COMPARISON STUDY: 01/11/2017 FINDINGS: Placement of a central line in superior vena cava. No evidence pneumothorax. Study is otherwise unchanged. IMPRESSION: Central line placed in the superior vena cava. No evidence pneumothorax. The above report was generated using voice recognition software. It may contain grammatical, syntax or spelling errors. Electronically signed by: Juanjo Velarde M.D. 01/11/2017 4:05 PM Dictated Date/Time: 01/11/2017 4:04 PM
[2017-01-11] MEDS ORDERED: NOREPINEPHRINE BIT INJ 8 MG in DEXTROSE 5% 500ML 500 ML IV PRN (16:55)
[2017-01-11] MEDS ORDERED: LORAZEPAM 2 MG/ML 1 ML VIAL IV PRN (17:00)
[2017-01-11] MEDS ORDERED: VANCOMYCIN CONSULT ACTIVE PRN (17:15)
[2017-01-11] MEDS ORDERED: VANCOMYCIN INJ 1,750 MG in SODIUM CHLORIDE 0.9% 500ML 500 ML IV ONE (17:30)
[2017-01-11] MEDS ORDERED: LORAZEPAM INJ 0.5 MG in SYRINGE 0.75 ML IV PRN (17:45)
--- NOTE | 2017-01-11 17:46 | History and Physical ---
History & Physical Date & Time of Service: Jan 11, 2017 at 17:37 Chief Complaint: Chills, Toribio, Rib And Back Near Kidney Area Pain Primary Care Physician: Amanuel Ellison M.D. History of Present Illness Source: patient 68-year-old male who presents with sepsis. Patient was seen in the ER on January 10, diagnosed with UTI sent home on Keflex. Presents today after having vomiting at home weakness chills, found to be marked hypotensive, initially urine culture from January 10 shows gram-negative bacilli. Patient did not respond initially to volume resuscitation had elevated lactic acid and subsequently a central line was placed and instituted on levo fed. The patient is maintaining MEP greater than 65 he is awake and alert that we transferred to the ICU. His only complaints revolve around some difficulty urinating of which she does have BPH. He says it's worse over the last few days. He has no other focal signs or symptoms other than the nausea vomiting and dry heaves. His vomitus was clear mucous. He said no other changes in his bowel habits other than loss of appetite over the last 2 days. His family is present at bedside and updated the patient himself confirmed he has DO NOT RESUSCITATE Past Medical/Surgical History Medical Problems: (1) History of small bowel obstruction Status: Chronic (2) Hx of renal calculi Status: Chronic Family History Heart disease Hypertension Social History Smoking Status: Never Smoker Drug Use: none Marital Status: Occupational Status: retired Immunizations History of Influenza Vaccine: Yes Influenza Vaccine Date: Mar 31, 2008 History of Tetanus Vaccine?: Unknown History of Pneumococcal: Yes History of Hepatitis B Vaccine: No Multi-Drug Resistant Organisms History of MDRO: No Allergies Coded Allergies: No Known Allergies (Verified , 01/11/17) Home Medications Scheduled Ascorbic Acid (Vitamin C), 500 MG PO DAILY Aspirin (Aspirin Ec), 81 MG PO QPM Cephalexin Monohydrate (Keflex), 500 MG PO TID Cyclobenzaprine HCl (Cyclobenzaprine HCl), 10 MG PO QPM Finasteride (Proscar), 5 MG PO QAM Idextpfoorx-Fvqpfbykmic-Lgg C- (Glucosamine Chondroitin), 2 TAB PO QPM Hydrochlorothiazide (Hctz), 12.5 MG PO QAM Metoprolol Succ (Toprol Xl) (Toprol-Xl ), 100 MG PO QPM Multivitamins/Minerals (Mvi With Minerals), 1 TAB PO QAM Omeprazole (Prilosec), 20 MG PO DAILY Polyethylene Glycol-Propylene (Systane), 1 DROPS OPB QAM Sennosides (Sennosides), 8.6 MG PO HS Simvastatin (Zocor), 20 MG PO QPM Solifenacin Succinate (Vesicare), 10 MG PO QPM Timolol Maleate (Timolol Maleate), 1 DROP OPB QAM Review of Systems ROS: well nourished well developed No double vision blurry vision No problems with speech or swallowing No palpitations, chest pain or pressure No Wheezing was short of breath while hypotensive No abdominal pain nausea vomiting diarrhea changes in appetite or weight No burning urine but difficulty urinating and some foul smell to his urine No focal joint pain or muscle pain No skin rashes or oral lesions No unusual bruising or bleeding No focused back pain the patient has had left leg radicular numbness for a few months No changes in memory or confusion Physical Exam Vital Signs Date Time Temp Pulse Resp B/P (MAP) Pulse Ox O2 Delivery O2 Flow Rate FiO2 01/11/17 17:10 107 20 108/69 98 Nasal Cannula 2.0 01/11/17 17:06 90/56 01/11/17 17:05 106 98 01/11/17 17:01 106/51 01/11/17 17:00 101 98 01/11/17 16:56 106/55 01/11/17 16:55 104 98 01/11/17 16:51 104/67 01/11/17 16:50 102 97 01/11/17 16:46 112/68 01/11/17 16:45 102 98 01/11/17 16:41 120/64 01/11/17 16:40 102 97 01/11/17 16:35 104 97/68 97 01/11/17 16:31 102/75 01/11/17 16:30 103 98 01/11/17 16:26 101 24 101/74 97 01/11/17 16:21 100 24 108/75 97 Nasal Cannula 4.0 01/11/17 16:15 100 24 107/77 97 Nasal Cannula 4.0 01/11/17 16:10 100 24 98/66 97 Nasal Cannula 4.0 01/11/17 16:00 108 24 89/63 98 Nasal Cannula 4.0 817 15:51 106 24 80/58 97 Nasal Cannula 4.0 8/17 15:45 107 24 84/59 100 Nasal Cannula 4.0 817 15:41 106 24 90/59 100 Nasal Cannula 4.0 /8/17 15:30 101 /8/17 15:30 98 24 79/55 97 Nasal Cannula 4.0 817 15:25 102 24 77/52 98 Nasal Cannula 4.0 8/17 15:20 102 76/49 8/17 15:13 99 61/41 96 Nasal Cannula 4.0 01/11/17 15:03 Nasal Cannula 4.0 01/11/17 15:03 104 24 60/42 94 8 14:56 101 24 97/63 17 14:51 100 28 93/50 95 Room Air 8/ 14:48 102 28 82/61 96 Room Air 01/11/17 14:39 106 30 97/61 95 Room Air 01/11/17 14:25 102 28 81/58 94 Room Air 01/11/17 14:15 100 25 86/63 92 Room Air 8/17 14:08 98 24 81/59 95 Room Air 8/17 13:55 100 28 80/54 96 Room Air 01/11/ 13:45 97 29 73/51 94 Room Air 8/17 13:40 99 29 81/55 94 Room Air 8/17 13:35 99 24 82/55 96 Room Air 01/11/17 13:30 100 31 92/55 94 Room Air 01/11/17 13:27 99 26 94 8/17 13:23 49/29 01/11/17 13:22 104 33 94 /8/17 13:20 75/44 17 13:17 105 32 94 8/17 13:12 103 31 94 01/11/17 13:07 110 29 96 8 13:04 102/62 01/11/17 13:02 99 30 93 8/17 13:00 96/57 01/11/17 12:57 102 31 93 01/11/ 12:52 105 33 93 01/11/17 12:49 83/51 01/11/17 12:47 108 28 93 01/11/17 12:42 106 30 93 01/11/17 12:37 107 30 93 01/11/17 12:32 111 25 94 01/11/17 12:27 103 29 92 01/11/17 12:22 102 28 91 01/11/17 12:17 103 28 92 01/11/17 12:12 106 39 92 01/11/17 12:07 111 26 89 01/11/17 12:02 106 26 92 01/11/17 11:57 114 36 92 01/11/17 11:52 111 32 01/11/17 11:47 111 30 01/11/17 11:42 111 32 01/11/17 11:37 113 36 01/11/17 11:35 113 01/11/17 11:32 118 22 01/11/17 11:27 112 37 01/11/17 11:24 113/72 01/11/17 11:14 37.2 119 22 130/69 95 Room Air General Appearance: WD/WN, + moderate distress Head: normocephalic, atraumatic Eyes: PERRL, EOMI ENT: hearing grossly normal, pharynx normal Neck: supple, no adenopathy, thyroid normal, no JVD Respiratory/Chest: chest non-tender, lungs clear, normal breath sounds, no respiratory distress Cardiovascular: regular rate, rhythm, no murmur Abdomen/GI: normal bowel sounds, non tender, soft, + pertinent finding (mild suprapubic tenderness) Back: normal inspection, no CVA tenderness, no muscle spasm Extremities/Musculoskelatal: no pedal edema, normal range of motion, + pertinent finding (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) Neurologic/Psych: alert, oriented x 3 Skin: normal color, warm/dry, no rash Diagnostics Laboratory Results Results Past 24 Hours Test 01/11/17 11:30 01/11/17 12:30 01/11/17 13:31 01/11/17 13:39 Range/Units White Blood Count 1.15 4.8-10.8 K/uL Red Blood Count 4.58 4.7-6.1 M/uL Hemoglobin 14.0 14.0-18.0 g/dL Hematocrit 41.1 42-52 % Mean Corpuscular Volume 89.7 80-100 fL Mean Corpuscular Hemoglobin 30.6 25-34 pg Mean Corpuscular Hemoglobin Concent 34.1 32-36 g/dl Platelet Count 68 130-400 K/uL Mean Platelet Volume 10.3 7.4-10.4 fL RDW Standard Deviation 48.8 36.4-46.3 fL RDW Coefficient of Variation 15.0 11.5-14.5 % Neutrophils % (Manual) 70.0 % Lymphocytes % (Manual) 16.4 % Monocytes % (Manual) 0.9 % Metamyelocytes % 12.7 % Neutrophils # (Manual) 0.81 1.4-6.5 K/uL Total Absolute Neutrophils 0.81 1.4-6.5 K/uL Lymphocytes # (Manual) 0.19 1.2-3.4 K/uL Total Absolute Lymphocytes 0.19 1.2-3.4 K/uL Monocytes # (Manual) 0.01 0.11-0.59 K/uL Metamyelocytes # 0.15 0-0 K/uL Toxic Vacuolation 2+ Prothrombin Time 11.4 9.0-12.0 SECONDS Prothromb Time International Ratio 1.1 0.9-1.1 Activated Partial Thromboplast Time 30.2 21.0-31.0 SECONDS Partial Thromboplastin Ratio 1.2 Sodium Level 136 136-145 mmol/L Potassium Level 3.7 3.5-5.1 mmol/L Chloride Level 104 98-107 mmol/L Carbon Dioxide Level 21 21-32 mmol/L Anion Gap 11.0 3-11 mmol/L Blood Urea Nitrogen 37 7-18 mg/dl Creatinine 2.70 0.60-1.40 mg/dl Est Creatinine Clear Calc Drug Dose 29.5 ml/min Estimated GFR () 25.0 Estimated GFR (Non- 21.6 BUN/Creatinine Ratio 13.8 10-20 Random Glucose 84 70-99 mg/dl Calcium Level 8.3 8.5-10.1 mg/dl Total Creatine Kinase 113 39-308 U/L Bedside Troponin I < 0.030 0-0.045 ng/ml Venous Blood pH 7.36 7.36-7.41 Venous Blood Partial Pressure CO2 36 38.0-50.0 mmHg Venous Blood Partial Pressure O2 32 mmHg Venous Blood HCO3 20 mmol/L Venous Blood Oxygen Saturation < 60.0 % Venous Blood Base Excess -5.0 mEq/L Bedside Lactic Acid Venous 3.57 0.90-1.70 mmol/L Test 01/11/17 14:20 01/11/17 15:29 01/11/17 17:01 Range/Units Urine Color DK YELLOW Urine Appearance CLOUDY CLEAR Urine pH 5.0 4.5-7.5 Urine Specific [place] 1.023 1.000-1.030 Urine Protein 1+ NEG Urine Glucose (UA) NEG NEG Urine Ketones NEG NEG Urine Occult Blood 2+ NEG Urine Nitrite NEG NEG Urine Bilirubin NEG NEG Urine Urobilinogen NEG NEG Urine Leukocyte Esterase MODERATE NEG Urine WBC (Auto) >30 0-5 /hpf Urine RBC (Auto) 5-10 0-4 /hpf Urine Hyaline Casts (Auto) 1-5 0-5 /lpf Urine Epithelial Cells (Auto) >30 0-5 /lpf Urine Bacteria (Auto) NEG NEG Urine Renal Epithelial Cells 0-5 0-5 /lpf Urine Crystals AMORPHOUS SEDIMENT NONE PRSENT Urine Pathogenic Casts 0 /lpf Bedside Lactic Acid Venous 3.48 2.65 0.90-1.70 mmol/L Microbiology Results 01/11/17 Blood Culture, Received Pending 01/11/17 Blood Culture, Received Pending 01/11/17 Urine Culture, Received Pending Diagnostic Radiology Repeat chest x-ray shows right IJ line in good position no pneumothorax other (chest x-ray shows mild vascular congestion) other (sinus tachycardia and no acute changes) Impression Assessment and Plan 68-year-old man with sepsis from urinary source initial identification of gram- negative bacteria Patient was given vancomycin and cefepime in the ER will continue the cefepime and vancomycin likely not need to be redosed until tomorrow by the time he may have a identification of the bacteria. He was volume resuscitated will be maintained on saline at 100 hour levo fed to maintain MAP greater than 65 and a Jacobsen catheter to evaluate urine output. The intensive care unit doctor was notified upon his transfer to use ICU. The patient's lactic acid improved from 3.5 2.6 Regarding previous history of hypertension his metoprolol will be held, his timolol eyedrops will also be held. Regarding his BPH is Vesicare will be held at this time in lieu of the Jacobsen catheter Patient does not be neutropenic with an ANC of 810 and from cytopenic with a platelet count of 68 these are markedly different from his labs of January 10 therefore we'll repeat these. In the meantime we'll not employed chemoprophylaxis for DVT opting for SCDs was his platelet count is confirmed to be improved will likewise have him on neutropenic precautions unless his ANC improves Patient is a DO NOT RESUSCITATE Resuscitation Status DO NOT RESUSCITATE VTE Prophylaxis VTE Risk Assessment Done? Y/N: Yes Risk Level: Moderate Given or contraindicated: SCD's
[2017-01-11] MEDS ORDERED: CEFEPIME IV 1,000 MG in DEXTROSE 5% 100ML IV STA (18:43)
--- NOTE | 2017-01-11 18:45 | Critical Care Consultation ---
Critical Care Consultation Date of Consultation: Jan 11, 2017. Attending Physician: Dameon Allred M.D. Reason for Consultation: sepsis History of Present Illness 76, yo, m, with hx of recurrent UTI, presented to the ED on 01/10 with headache and NV. the pt was treated for UTI with Keflex and sent home, he was brought by his family today with persistent symptoms and chest pain that was resolved in the ED. he was found to have chills, fever, positive urine sediment, started on Abx in the ED with vanco and cefepime. received 4 liters of NS and started on Levo, also, given CVL right IJ placed by the ED ( appreciate it). in the ICU, he was fully mentating , pleasant , following commands , denies pain or sob, no fever, and Bp supported by 0.1 mcg/kg/min of Levo. 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 hx of HTn. took last med today. Family History Heart disease Hypertension not contributary. Social History Smoking Status: Never Smoker Drug Use: none Marital Status: Housing Status: lives with family Occupation Status: retired Allergies Coded Allergies: No Known Allergies (Verified , 01/11/17) Home Medications Scheduled Ascorbic Acid (Vitamin C), 500 MG PO DAILY Aspirin (Aspirin Ec), 81 MG PO QPM Cephalexin Monohydrate (Keflex), 500 MG PO TID Cyclobenzaprine HCl (Cyclobenzaprine HCl), 10 MG PO QPM Finasteride (Proscar), 5 MG PO QAM Vhpgmgrydhh-Rqjrrvbnmpj-Qlc C- (Glucosamine Chondroitin), 2 TAB PO QPM Hydrochlorothiazide (Hctz), 12.5 MG PO QAM Metoprolol Succ (Toprol Xl) (Toprol-Xl ), 100 MG PO QPM Multivitamins/Minerals (Mvi With Minerals), 1 TAB PO QAM Omeprazole (Prilosec), 20 MG PO DAILY Polyethylene Glycol-Propylene (Systane), 1 DROPS OPB QAM Sennosides (Sennosides), 8.6 MG PO HS Simvastatin (Zocor), 20 MG PO QPM Solifenacin Succinate (Vesicare), 10 MG PO QPM Timolol Maleate (Timolol Maleate), 1 DROP OPB QAM Current Inpatient Medications Current Inpatient Medications Medications (Trade) Dose Ordered Sig/[place] Route Start Time Stop Time Status Last Admin Dose Admin Sodium Chloride 1,000 ml @ 200 mls/hr Q5H IV 01/11/17 13:15 02/10/17 13:14 01/11/17 13:19 200 MLS/HR Sodium Chloride 1,000 ml @ 999 mls/hr Q1H1M IV 01/11/17 15:15 02/10/17 15:14 01/11/17 15:15 999 MLS/HR Finasteride (Proscar Tab) 5 mg QAM PO 01/12/17 09:00 02/11/17 08:59 UNV Acetaminophen (Tylenol Tab) 650 mg Q4H PRN PO 01/11/17 17:00 02/10/17 16:59 Lorazepam (Ativan Tab) 0.5 mg Q4H PRN PO 01/11/17 17:00 02/10/17 16:59 Lorazepam (Ativan Inj) 0.5 mg Q4H PRN IV 01/11/17 17:00 02/10/17 16:59 Norepinephrine Bitartrate 8 mg/ Dextrose 508 ml @ 0 mls/hr Q0M STAT IV 01/11/17 16:55 01/11/17 16:56 UNV Pantoprazole Sodium 40 mg/ Syringe 10 ml @ 5 mls/min DAILY IV 01/12/17 09:00 02/11/17 08:59 UNV Morphine Sulfate (MoRPHine SULFATE INJ) 2 mg Q2H PRN IV 01/11/17 17:00 01/25/17 16:59 Cefepime HCl 2000 mg/Dextrose 112.5 ml @ 200 mls/hr Q8 IV 01/11/17 22:00 01/16/17 21:59 UNV Vancomycin HCl (Consult) 1 ea UD PRN N/A 01/11/17 17:15 02/10/17 17:14 Sodium Chloride 1,000 ml @ 100 mls/hr Q10H IV 01/11/17 17:15 02/10/17 17:14 UNV Vancomycin HCl 1750 mg/Sodium Chloride 535 ml @ 200 mls/hr 1730 ONCE IV 01/11/17 17:30 01/11/17 20:10 01/11/17 17:30 200 MLS/HR Lorazepam 0.5 mg/ Syringe 1 ml @ 1 mls/min Q4H PRN IV 01/11/17 17:45 02/10/17 17:44 Review of Systems Constitutional: + fever, + chills Eyes: No worsening of vision, No eye pain, No redness, No discharge, No diplopia, No problem reported ENT: No hearing loss, No unusual epistaxis, No nasal symptoms, No sore throat, No tinnitus, No dental problems, No trouble swallowing, No problem reported Respiratory: No cough, No sputum, No wheezing, No shortness of breath, No dyspnea on exertion, No dyspnea at rest, No hemoptysis, No problem reported Cardiovascular: + chest pain, No orthopnea, No PND, No edema, No claudication, No palpitations, No problem reported Abdomen: + pain, + nausea, + vomiting, No diarrhea, No constipation, No GI bleeding, No problem reported Genitourinary - Male: + dysuria, + urinary frequency, + urinary urgency Neurologic: No memory loss, No paralysis, No weakness, No numbness/tingling, No vertigo, No balance problems, No problem reported Psychiatric: No depression symptoms, No anhedonism, No anxiety, No insomnia, No substance abuse, No problem reported Integumentary: No rash, No itch, No new/changing skin lesions, No color change , No bleeding, No problem reported Allergic / Immunologic: No environmental allergies, No seasonal allergies, No pet sensitivities, No food allergies, No hives, No frequent infections, No poor healing, No prolonged convalescence, No problem reported Physical Exam Date Time Temp Pulse Resp B/P (MAP) Pulse Ox O2 Delivery O2 Flow Rate FiO2 01/11/17 18:00 37.2 100 19 110/62 97 01/11/17 17:50 100 99/63 97 01/11/17 17:35 100 97 01/11/17 17:30 103 103/62 96 01/11/17 17:25 101 96 01/11/17 17:21 97/62 01/11/17 17:20 102 96 01/11/17 17:15 106 102/67 96 01/11/17 17:10 107 20 108/69 98 Nasal Cannula 2.0 01/11/17 17:06 90/56 01/11/17 17:05 106 98 01/11/17 17:01 106/51 01/11/17 17:00 101 98 01/11/17 16:56 106/55 01/11/17 16:55 104 98 01/11/17 16:51 104/67 01/11/17 16:50 102 97 01/11/17 16:46 112/68 01/11/17 16:45 102 98 01/11/17 16:41 120/64 01/11/17 16:40 102 97 01/11/17 16:35 104 97/68 97 01/11/17 16:31 102/75 01/11/17 16:30 103 98 01/11/17 16:26 101 24 101/74 97 01/11/17 16:21 100 24 108/75 97 Nasal Cannula 4.0 01/11/17 16:15 100 24 107/77 97 Nasal Cannula 4.0 01/11/17 16:10 100 24 98/66 97 Nasal Cannula 4.0 01/11/17 16:00 108 24 89/63 98 Nasal Cannula 4.0 01/11/17 15:51 106 24 80/58 97 Nasal Cannula 4.0 01/11/17 15:45 107 24 84/59 100 Nasal Cannula 4.0 01/11/17 15:41 106 24 90/59 100 Nasal Cannula 4.0 01/11/17 15:30 101 01/11/17 15:30 98 24 79/55 97 Nasal Cannula 4.0 01/11/17 15:25 102 24 77/52 98 Nasal Cannula 4.0 01/11/17 15:20 102 76/49 01/11/17 15:13 99 61/41 96 Nasal Cannula 4.0 01/11/17 15:03 Nasal Cannula 4.0 01/11/17 15:03 104 24 60/42 94 01/11/17 14:56 101 24 97/63 01/11/17 14:51 100 28 93/50 95 Room Air 01/11/17 14:48 102 28 82/61 96 Room Air 01/11/17 14:39 106 30 97/61 95 Room Air 01/11/17 14:25 102 28 81/58 94 Room Air 01/11/17 14:15 100 25 86/63 92 Room Air 01/11/17 14:08 98 24 81/59 95 Room Air 01/11/17 13:55 100 28 80/54 96 Room Air 01/11/17 13:45 97 29 73/51 94 Room Air 01/11/17 13:40 99 29 81/55 94 Room Air 01/11/17 13:35 99 24 82/55 96 Room Air 01/11/17 13:30 100 31 92/55 94 Room Air 01/11/17 13:27 99 26 94 01/11/17 13:23 49/29 01/11/17 13:22 104 33 94 01/11/17 13:20 75/44 01/11/17 13:17 105 32 94 01/11/17 13:12 103 31 94 01/11/17 13:07 110 29 96 01/11/17 13:04 102/62 01/11/17 13:02 99 30 93 01/11/17 13:00 96/57 01/11/17 12:57 102 31 93 01/11/17 12:52 105 33 93 01/11/17 12:49 83/51 01/11/17 12:47 108 28 93 01/11/17 12:42 106 30 93 01/11/17 12:37 107 30 93 01/11/17 12:32 111 25 94 01/11/17 12:27 103 29 92 01/11/17 12:22 102 28 91 01/11/17 12:17 103 28 92 01/11/17 12:12 106 39 92 01/11/17 12:07 111 26 89 01/11/17 12:02 106 26 92 01/11/17 11:57 114 36 92 01/11/17 11:52 111 32 01/11/17 11:47 111 30 01/11/17 11:42 111 32 01/11/17 11:37 113 36 01/11/17 11:35 113 01/11/17 11:32 118 22 01/11/17 11:27 112 37 01/11/17 11:24 113/72 01/11/17 11:14 37.2 119 22 130/69 95 Room Air General Appearance: well-appearing, WD/WN, no apparent distress Head: normocephalic, atraumatic Eyes: PERRLA, no discharge, EOMI ENT: normal ear exam, other Neck: normal range of motion, no lymphadenopathy Respiratory: breath sounds normal, clear to auscultation, clear to percussion Cardiovasular: regular rate/rhythm, normal S1S2, no M/G/R, no murmur, no gallop Abdomen: hypoactive bowel sounds, other Back: normal inspection Upper Extremities: no edema, other Lower Extremities: edema Neuro: alert, oriented x 3, normal motor exam, normal sensation Psychiatric: normal affect Laboratory Results Last 24 Hours Test 01/11/17 11:30 01/11/17 12:30 01/11/17 13:31 01/11/17 13:39 White Blood Count 1.15 K/uL Red Blood Count 4.58 M/uL Hemoglobin 14.0 g/dL Hematocrit 41.1 % Mean Corpuscular Volume 89.7 fL Mean Corpuscular Hemoglobin 30.6 pg Mean Corpuscular Hemoglobin Concent 34.1 g/dl Platelet Count 68 K/uL Mean Platelet Volume 10.3 fL RDW Standard Deviation 48.8 fL RDW Coefficient of Variation 15.0 % Neutrophils % (Manual) 70.0 % Lymphocytes % (Manual) 16.4 % Monocytes % (Manual) 0.9 % Metamyelocytes % 12.7 % Neutrophils # (Manual) 0.81 K/uL Total Absolute Neutrophils 0.81 K/uL Lymphocytes # (Manual) 0.19 K/uL Total Absolute Lymphocytes 0.19 K/uL Monocytes # (Manual) 0.01 K/uL Metamyelocytes # 0.15 K/uL Toxic Vacuolation 2+ Prothrombin Time 11.4 SECONDS Prothromb Time International Ratio 1.1 Activated Partial Thromboplast Time 30.2 SECONDS Partial Thromboplastin Ratio 1.2 Sodium Level 136 mmol/L Potassium Level 3.7 mmol/L Chloride Level 104 mmol/L Carbon Dioxide Level 21 mmol/L Anion Gap 11.0 mmol/L Blood Urea Nitrogen 37 mg/dl Creatinine 2.70 mg/dl Est Creatinine Clear Calc Drug Dose 29.5 ml/min Estimated GFR () 25.0 Estimated GFR (Non- 21.6 BUN/Creatinine Ratio 13.8 Random Glucose 84 mg/dl Calcium Level 8.3 mg/dl Total Creatine Kinase 113 U/L Bedside Troponin I < 0.030 ng/ml Venous Blood pH 7.36 Venous Blood Partial Pressure CO2 36 mmHg Venous Blood Partial Pressure O2 32 mmHg Venous Blood HCO3 20 mmol/L Venous Blood Oxygen Saturation < 60.0 % Venous Blood Base Excess -5.0 mEq/L Bedside Lactic Acid Venous 3.57 mmol/L Test 01/11/17 14:20 01/11/17 15:26 01/11/17 15:29 01/11/17 17:01 Urine Color DK YELLOW Urine Appearance CLOUDY Urine pH 5.0 Urine Specific [place] 1.023 Urine Protein 1+ Urine Glucose (UA) NEG Urine Ketones NEG Urine Occult Blood 2+ Urine Nitrite NEG Urine Bilirubin NEG Urine Urobilinogen NEG Urine Leukocyte Esterase MODERATE Urine WBC (Auto) >30 /hpf Urine RBC (Auto) 5-10 /hpf Urine Hyaline Casts (Auto) 1-5 /lpf Urine Epithelial Cells (Auto) >30 /lpf Urine Bacteria (Auto) NEG Urine Renal Epithelial Cells 0-5 /lpf Urine Crystals AMORPHOUS SEDIMENT Urine Pathogenic Casts /lpf Bedside Glucose 84 mg/dl Bedside Lactic Acid Venous 3.48 mmol/L 2.65 mmol/L Diagnostic Results abdominal ct is pending. will review, neutropenia noted but likely consumptive or lab discrepancy . Assessment & Plan 1- septic shock, due to recurrent UTI, from previous , no evidence of ESBL, mostly was E Coli with almost shetty sensitive except Gent, responding slowly to IVF, 2- Leukopenia, related to UTI, ? hydronephrosis . 3- doubt infected prosthesis. Plan: 1- CVP monitoring for IVF. 2- Cefepime , renally adjusted dose ( from previous antibiogram , the pt has great sensitivity to it. 3- urgent Ct abdomen and pelvis. r/o hydro. 4- Shetty culture. 5- repeat cbc to r/o labs discrepancy. 6- daily labs. 7- DVT and GI prophylaxis. 8- hold all his BP meds. 9- Levo for Map> 65. 10- discussed with the staff and with the pt in details. CCT 45 min.
--- NOTE | 2017-01-11 19:13 | DIAGNOSTIC IMAGING REPORT ---
ABD/PELVIS NO IV OR ORAL CONT HISTORY: 76 years-old Male hydronephrosis COMPARISON: CT abdomen and pelvis 10/18/2015 TECHNIQUE: Multiple axial CT images of the abdomen and pelvis were obtained without IV contrast. FINDINGS: There is a small right and trace left pleural effusion present. A thin-walled subpleural cyst of the right lung base is seen, 1.4 x 0.8 cm, unchanged. There is no pneumoperitoneum identified. Trace pericardial effusion is noted in addition to coronary arterial calcifications. There is a low attenuating 1.1 x 1.3 cm circumscribed lesion of the right hepatic lobe which is unchanged. A 1.0 cm low attenuating lesion of the central liver is also unchanged. These are nonspecific however would statistically favor cysts or hemangiomas. Focal area of lobulation/undulation of the posterior right hepatic lobe is again seen measuring up to 3.1 cm, less apparent than comparison study, likely of no significant etiology. There is an adherent stone along the nondependent aspect of the gallbladder lumen. Layering gallbladder sludge is present in the gallbladder lumen. There is mild amount of nonspecific pericholecystic edema/fluid. Spleen, pancreas and adrenal glands are unremarkable. Moderate amount of perinephric stranding is present bilaterally. There are multiple low attenuating lesions of the left kidney, many of which are exophytic measuring up to 3.6 x 3.2 cm suggesting cysts and appear unchanged from comparison. Largest in the right measures up to 2.1 cm. There is a 5 x 4 x 6 mm calculus of the proximal right ureter which causes mild obstructive uropathy. Jacobsen catheter is noted within a partially collapsed or bladder lumen. There is air within the urinary bladder as well, likely from instrumentation. Prostate is again enlarged measuring up to 5.7 cm transversely. Nonspecific edema is noted within the retroperitoneum. There is atherosclerotic plaquing and tortuosity of the abdominal aorta. No bulky adenopathy. A duodenal diverticulum is incidentally noted. There is no bowel obstruction. Scattered noninflamed colonic diverticula are present. Soft tissues are unremarkable. The bones are moderately demineralized. Right hip arthroplasty noted. Multilevel degenerative changes are seen throughout the spine. Hemangioma noted at the T10 level. IMPRESSION: 1. Mild right-sided obstructive uropathy secondary to a 5 x 4 x 6 mm calculus of the proximal right ureter. 2. Adherent stone along the nondependent gallbladder wall is noted in conjunction with gallbladder sludge and mild amount of pericholecystic edema. These findings could be correlated with right upper quadrant ultrasound if clinically indicated. 3. Small right and trace left pleural effusions. 4. Additional incidental findings as above. The above report was generated using voice recognition software. It may contain grammatical, syntax or spelling errors. Electronically signed by: Los Cr M.D. 01/11/2017 7:12 PM Dictated Date/Time: 01/11/2017 7:00 PM
[2017-01-11 19:45] LABS: HEMATOCRIT 34.4 % (42-52); MEAN CELL VOLUME 89.8 fL (80-100); MEAN CORPUSCULAR HEMOGLOBIN 31.1 pg (25-34); MEAN CORPUSCULAR HGB CONC 34.6 g/dl (32-36); PLATELET COUNT 55 K/uL (130-400); RED BLOOD COUNT 3.83 M/uL (4.7-6.1); WHITE BLOOD COUNT 20.03 K/uL (4.8-10.8)
[2017-01-11 19:48] LABS: COMPLETE YES; DOHLE BODIES 2+; ECHINOCYTES 1+; MYELOCYTE % 0.9 %; NEUTROPHILS % 91.2 %; OVALOCYTES 1+; PLT ESTIMATE DECREASED; VACUOLIZATION 1+
--- NOTE | 2017-01-11 19:59 | Pharmacy Progress Note ---
Pharmacy Abx Initial Consult Date of Service Jan 11, 2017. Pharmacy Dosing Scope Date of Consult: 01/11/17 Consultation requested by: Dr. Allred Pharmacy is consulted to initiate Vancomycin IV dosing therapy, order appropriate labs and adjust drug dose/frequency. Subjective The patient is a 76 year old male admitted on Jan 11, 2017 at 17:03. Objective Height (Feet): 5 Height (Inches): 11.00 Weight (Kilograms): 118.000 Vital Signs (Past 12Hrs) Vital Signs Past 12 Hours Date Time Temp Pulse Resp B/P (MAP) Pulse Ox O2 Delivery O2 Flow Rate FiO2 01/11/17 18:00 37.2 100 19 110/62 97 01/11/17 17:50 100 99/63 97 01/11/17 17:35 100 97 01/11/17 17:30 103 103/62 96 01/11/17 17:25 101 96 01/11/17 17:21 97/62 01/11/17 17:20 102 96 01/11/17 17:15 106 102/67 96 01/11/17 17:10 107 20 108/69 98 Nasal Cannula 2.0 01/11/17 17:06 90/56 01/11/17 17:05 106 98 01/11/17 17:01 106/51 01/11/17 17:00 101 98 01/11/17 16:56 106/55 01/11/17 16:55 104 98 01/11/17 16:51 104/67 01/11/17 16:50 102 97 01/11/17 16:46 112/68 01/11/17 16:45 102 98 01/11/17 16:41 120/64 01/11/17 16:40 102 97 01/11/17 16:35 104 97/68 97 01/11/17 16:31 102/75 01/11/17 16:30 103 98 01/11/17 16:26 101 24 101/74 97 01/11/17 16:21 100 24 108/75 97 Nasal Cannula 4.0 01/11/17 16:15 100 24 107/77 97 Nasal Cannula 4.0 01/11/17 16:10 100 24 98/66 97 Nasal Cannula 4.0 01/11/17 16:00 108 24 89/63 98 Nasal Cannula 4.0 01/11/17 15:51 106 24 80/58 97 Nasal Cannula 4.0 01/11/17 15:45 107 24 84/59 100 Nasal Cannula 4.0 01/11/17 15:41 106 24 90/59 100 Nasal Cannula 4.0 01/11/17 15:30 101 /8/17 15:30 98 24 79/55 97 Nasal Cannula 4.0 01/11/17 15:25 102 24 77/52 98 Nasal Cannula 4.0 01/11/17 15:20 102 76/49 01/11/17 15:13 99 61/41 96 Nasal Cannula 4.0 01/11/17 15:03 Nasal Cannula 4.0 01/11/17 15:03 104 24 60/42 94 01/11/17 14:56 101 24 97/63 01/11/17 14:51 100 28 93/50 95 Room Air 01/11/17 14:48 102 28 82/61 96 Room Air 01/11/17 14:39 106 30 97/61 95 Room Air 01/11/17 14:25 102 28 81/58 94 Room Air 01/11/17 14:15 100 25 86/63 92 Room Air 01/11/17 14:08 98 24 81/59 95 Room Air 01/11/17 13:55 100 28 80/54 96 Room Air 01/11/17 13:45 97 29 73/51 94 Room Air 01/11/17 13:40 99 29 81/55 94 Room Air 01/11/17 13:35 99 24 82/55 96 Room Air 01/11/17 13:30 100 31 92/55 94 Room Air 01/11/17 13:27 99 26 94 01/11/17 13:23 49/29 01/11/17 13:22 104 33 94 01/11/17 13:20 75/44 01/11/17 13:17 105 32 94 01/11/17 13:12 103 31 94 01/11/17 13:07 110 29 96 01/11/17 13:04 102/62 01/11/17 13:02 99 30 93 01/11/17 13:00 96/57 01/11/17 12:57 102 31 93 01/11/17 12:52 105 33 93 01/11/17 12:49 83/51 01/11/17 12:47 108 28 93 01/11/17 12:42 106 30 93 01/11/17 12:37 107 30 93 01/11/17 12:32 111 25 94 01/11/17 12:27 103 29 92 01/11/17 12:22 102 28 91 01/11/17 12:17 103 28 92 01/11/17 12:12 106 39 92 01/11/17 12:07 111 26 89 01/11/17 12:02 106 26 92 01/11/17 11:57 114 36 92 01/11/17 11:52 111 32 01/11/17 11:47 111 30 01/11/17 11:42 111 32 01/11/17 11:37 113 36 01/11/17 11:35 113 01/11/17 11:32 118 22 01/11/17 11:27 112 37 01/11/17 11:24 113/72 01/11/17 11:14 37.2 119 22 130/69 95 Room Air Lab Results (24Hrs) Laboratory Tests (24 Hours) Test 01/11/17 11:30 01/11/17 19:03 Total Creatine Kinase 113 U/L (39-308) Lactic Acid Level 2.8 mmol/L (0.4-2.0) *H Micro Results Date/Time Source Procedure Growth Status 01/11/17 13:33 Blood Blood Culture Pending Received 01/11/17 11:30 Blood Blood Culture Pending Received 01/11/17 18:45 Nasal MRSA DNA Surveillance Screen Pending Received 01/11/17 14:20 Urine,Catheterized Urine Culture Pending Received SPEC #: [id number] KAYLEY: 01/10/17 STATUS: RES REQ #: [id number] RECD: 01/10/[address]: Viridiana Armando M.D. SOURCE: UR, CC ENTR: 01/10/[address]: Amanuel Ellison M.D. [facility]: ORDERED: CULTURE URCLEAN Procedure Result Verified Site URINE CULTURE Preliminary 01/11/17-1055 Organism 1 GRAM NEGATIVE BACILLI COLONY COUNT >100,000 CFU/ml SENS SENSITIVITY TO FOLLOW Risk Factors for Resistance * History of infection with a multidrug-resistant organism * E.coli UTI (resistant to cipro, levaquin, gent, unasyn, and amp - intermediate to tobra) * Antimicrobial use within the last 90 days * given rx for Keflex in ER on 01/10 Assessment & Plan Assessment 76 year old male admitted to the ICU with sepsis secondary to recurrent UTI, preliminary urine culture from ER visit on 01/10 is growing GNB * hypotensive despite fluid resuscitation - started on norepinephrine * elevated lactic acid (3.57) - trending down * LINDA, Scr 2.7 mg/dL, baseline ~ 1.2-1.4 mg/dL Plan Cefepime + Vancomycin for treatment of sepsis, UTI Vancomycin IV * 1000 mg IV given in ER @ 1438 * Ordered additional 1750 mg IV @ 1730 (total dose = 23 mg/kg) * Further dosing will be based on random level/renal function due to LINDA * Goal trough level for sepsis : 15 to 20 mcg/mL * Random level ordered for 8/9 am * If urine is the only suspected source of infection, consider discontinuation of gram positive coverage since urine culture is growing GNB. Pt has h/o of recurrent UTI with E.coli. Cefepime - not a pharmacy consult Pharmacy will continue to follow and will adjust dose/frequency as necessary. Thank you.
--- NOTE | 2017-01-11 20:26 | Urology Consultation ---
History General Date of Service: Jan 11, 2017. Primary Care Physician: Amanuel Ellison M.D. History of Present Illness Patient is a 76-year-old white male admitted through the emergency room of urosepsis secondary to an obstructing stone in the proximal right ureter. He is currently on levophed for pressure support. He is having some mild right flank pain. Laboratory Current Inpatient Medications Medications (Trade) Dose Ordered Sig/Sienna Route Start Time Stop Time Status Last Admin Dose Admin Finasteride (Proscar Tab) 5 mg QAM PO 01/12/17 09:00 02/11/17 08:59 Acetaminophen (Tylenol Tab) 650 mg Q4H PRN PO 01/11/17 17:00 02/10/17 16:59 Lorazepam (Ativan Tab) 0.5 mg Q4H PRN PO 01/11/17 17:00 02/10/17 16:59 Lorazepam (Ativan Inj) 0.5 mg Q4H PRN IV 01/11/17 17:00 02/10/17 16:59 Norepinephrine Bitartrate 8 mg/ Dextrose 508 ml @ 0 mls/hr Q0M PRN IV 01/11/17 16:55 02/10/17 16:54 Pantoprazole Sodium 40 mg/ Syringe 10 ml @ 5 mls/min DAILY IV 01/12/17 09:00 02/11/17 08:59 Morphine Sulfate (MoRPHine SULFATE INJ) 2 mg Q2H PRN IV 01/11/17 17:00 01/25/17 16:59 Vancomycin HCl (Consult) 1 ea UD PRN N/A 01/11/17 17:15 02/10/17 17:14 Sodium Chloride 1,000 ml @ 100 mls/hr Q10H IV 01/11/17 17:15 02/10/17 17:14 01/11/17 19:22 100 MLS/HR Lorazepam 0.5 mg/ Syringe 1 ml @ 1 mls/min Q4H PRN IV 01/11/17 17:45 02/10/17 17:44 Cefepime HCl 2000 mg/Dextrose 112.5 ml @ 200 mls/hr Q24H IV 01/12/17 14:00 01/16/17 13:59 Last Vital Signs Documentation Date Time Temp Pulse Resp B/P (MAP) Pulse Ox O2 Delivery O2 Flow Rate FiO2 01/11/17 18:00 37.2 100 19 110/62 97 01/11/17 17:10 2.0 Date/Time Source Procedure Growth Status 01/11/17 13:33 Blood Blood Culture Pending Received 01/11/17 11:30 Blood Blood Culture Pending Received 01/11/17 18:45 Nasal MRSA DNA Surveillance Screen Pending Received 01/11/17 14:20 Urine,Catheterized Urine Culture Pending Received Last 24 Hours Test 01/11/17 11:30 01/11/17 12:30 01/11/17 13:31 01/11/17 13:39 White Blood Count 1.15 K/uL Red Blood Count 4.58 M/uL Hemoglobin 14.0 g/dL Hematocrit 41.1 % Mean Corpuscular Volume 89.7 fL Mean Corpuscular Hemoglobin 30.6 pg Mean Corpuscular Hemoglobin Concent 34.1 g/dl Platelet Count 68 K/uL Mean Platelet Volume 10.3 fL RDW Standard Deviation 48.8 fL RDW Coefficient of Variation 15.0 % Neutrophils % (Manual) 70.0 % Lymphocytes % (Manual) 16.4 % Monocytes % (Manual) 0.9 % Metamyelocytes % 12.7 % Neutrophils # (Manual) 0.81 K/uL Total Absolute Neutrophils 0.81 K/uL Lymphocytes # (Manual) 0.19 K/uL Total Absolute Lymphocytes 0.19 K/uL Monocytes # (Manual) 0.01 K/uL Metamyelocytes # 0.15 K/uL Toxic Vacuolation 2+ Prothrombin Time 11.4 SECONDS Prothromb Time International Ratio 1.1 Activated Partial Thromboplast Time 30.2 SECONDS Partial Thromboplastin Ratio 1.2 Sodium Level 136 mmol/L Potassium Level 3.7 mmol/L Chloride Level 104 mmol/L Carbon Dioxide Level 21 mmol/L Anion Gap 11.0 mmol/L Blood Urea Nitrogen 37 mg/dl Creatinine 2.70 mg/dl Est Creatinine Clear Calc Drug Dose 29.5 ml/min Estimated GFR () 25.0 Estimated GFR (Non- 21.6 BUN/Creatinine Ratio 13.8 Random Glucose 84 mg/dl Calcium Level 8.3 mg/dl Total Creatine Kinase 113 U/L Bedside Troponin I < 0.030 ng/ml Venous Blood pH 7.36 Venous Blood Partial Pressure CO2 36 mmHg Venous Blood Partial Pressure O2 32 mmHg Venous Blood HCO3 20 mmol/L Venous Blood Oxygen Saturation < 60.0 % Venous Blood Base Excess -5.0 mEq/L Bedside Lactic Acid Venous 3.57 mmol/L Test 01/11/17 14:20 01/11/17 15:26 01/11/17 15:29 01/11/17 17:01 Urine Color DK YELLOW Urine Appearance CLOUDY Urine pH 5.0 Urine Specific [place] 1.023 Urine Protein 1+ Urine Glucose (UA) NEG Urine Ketones NEG Urine Occult Blood 2+ Urine Nitrite NEG Urine Bilirubin NEG Urine Urobilinogen NEG Urine Leukocyte Esterase MODERATE Urine WBC (Auto) >30 /hpf Urine RBC (Auto) 5-10 /hpf Urine Hyaline Casts (Auto) 1-5 /lpf Urine Epithelial Cells (Auto) >30 /lpf Urine Bacteria (Auto) NEG Urine Renal Epithelial Cells 0-5 /lpf Urine Crystals AMORPHOUS SEDIMENT Urine Pathogenic Casts /lpf Bedside Glucose 84 mg/dl Bedside Lactic Acid Venous 3.48 mmol/L 2.65 mmol/L Test 01/11/17 19:03 White Blood Count 20.03 K/uL Red Blood Count 3.83 M/uL Hemoglobin 11.9 g/dL Hematocrit 34.4 % Mean Corpuscular Volume 89.8 fL Mean Corpuscular Hemoglobin 31.1 pg Mean Corpuscular Hemoglobin Concent 34.6 g/dl Platelet Count 55 K/uL Mean Platelet Volume 10.0 fL RDW Standard Deviation 49.4 fL RDW Coefficient of Variation 15.1 % Neutrophils % (Manual) 91.2 % Lymphocytes % (Manual) 0.0 % Monocytes % (Manual) 0.9 % Metamyelocytes % 7.0 % Myelocytes % 0.9 % Neutrophils # (Manual) 18.27 K/uL Total Absolute Neutrophils 18.27 K/uL Total Absolute Lymphocytes 0.00 K/uL Monocytes # (Manual) 0.18 K/uL Metamyelocytes # 1.40 K/uL Myelocytes # 0.18 K/uL Toxic Vacuolation 1+ Dohle Bodies 2+ Platelet Estimate DECREASED Ovalocytes 1+ Echinocytes 1+ Lactic Acid Level 2.8 mmol/L 8-Hour Column 01/11/17 01/12/17 01/12/17 16:00 00:00 08:00 Intake Total 4700 ml 500 ml Output Total 100 ml 200 ml Balance 4600 ml 300 ml 24-Hour Column 01/12/17 08:00 Intake Total 5200 ml Output Total 300 ml Balance 4900 ml Labs were reviewed and are within normal limits unless listed below. Labs are available in the chart and at [facility] Problem List Medical Problems: (1) LINDA (acute kidney injury) Status: Acute (2) Headache Status: Acute (3) HTN (hypertension) Status: Acute (4) Hx of renal calculi Status: Chronic (5) Lactic acidosis Status: Acute (6) Neutropenia Status: Acute (7) Renal insufficiency Status: Acute (8) Severe sepsis Status: Acute (9) Urinary tract infection Status: Acute (10) Vomiting Status: Acute Family History Heart disease Hypertension Social History Hx Tobacco Use In Past Year?: No (QUIT 48 YEARS AGO) Marital status: Occupation status: retired Immunizations History of Influenza Vaccine: Yes Influenza Vaccine Date: Mar 31, 2008 History of Tetanus Vaccine?: Unknown History of Pneumococcal: Yes History of Hepatitis B Vaccine: No History of MDRO No Allergies Coded Allergies: No Known Allergies (Verified , 01/11/17) Medications Home Medications: Home Meds and Scripts Medications Dose Route/Sig Max Daily Dose Days Date Category Vitamin C (Ascorbic Acid) 500 Mg Tab 500 Mg PO DAILY 01/11/17 Reported Aspirin Ec (Aspirin) 81 Mg Tab 81 Mg PO QPM 01/11/17 Reported Hctz (Hydrochlorothiazide) 12.5 Mg Cap 12.5 Mg PO QAM 01/11/17 Reported Prilosec (Omeprazole) 20 Mg Capcr 20 Mg PO DAILY 01/11/17 Reported Keflex (Cephalexin Monohydrate) 500 Mg Cap 500 Mg PO TID 01/10/17 Rx Timolol Maleate 148 Drops/10 Ml Soln 1 Drop OPB QAM 01/10/17 Reported Cyclobenzaprine HCl 10 Mg Tab 10 Mg PO QPM 01/10/17 Reported Systane (Polyethylene Glycol-Propylene) 1 Alana Alana 1 Drops OPB QAM 02/18/16 Reported Glucosamine Chondroitin (Jvkitudapzf-Ihsyxfcslil-Nkj C-) 1 Tab Tab 2 Tab PO QPM 10/11/14 Reported Sennosides 8.6 Mg Tab 8.6 Mg PO HS 10/11/14 Reported Zocor (Simvastatin) 20 Mg Tab 20 Mg PO QPM 10/11/14 Reported Vesicare (Solifenacin Succinate) 10 Mg Tab 10 Mg PO QPM 06/06/12 Reported Proscar (Finasteride) 5 Mg Tab 5 Mg PO QAM 02/16/09 Reported Mvi With Minerals (Multivitamins/Minerals) Tab 1 Tab PO QAM 02/16/09 Reported Toprol-Xl (Metoprolol Succinate) 100 Mg Tabcr 100 Mg PO QPM 02/16/09 Reported Inpatient Medications: Current Inpatient Medications Medications (Trade) Dose Ordered Sig/Sienna Route Start Time Stop Time Status Last Admin Dose Admin Finasteride (Proscar Tab) 5 mg QAM PO 01/12/17 09:00 02/11/17 08:59 Acetaminophen (Tylenol Tab) 650 mg Q4H PRN PO 01/11/17 17:00 02/10/17 16:59 Lorazepam (Ativan Tab) 0.5 mg Q4H PRN PO 01/11/17 17:00 02/10/17 16:59 Lorazepam (Ativan Inj) 0.5 mg Q4H PRN IV 01/11/17 17:00 02/10/17 16:59 Norepinephrine Bitartrate 8 mg/ Dextrose 508 ml @ 0 mls/hr Q0M PRN IV 01/11/17 16:55 02/10/17 16:54 Pantoprazole Sodium 40 mg/ Syringe 10 ml @ 5 mls/min DAILY IV 01/12/17 09:00 02/11/17 08:59 Morphine Sulfate (MoRPHine SULFATE INJ) 2 mg Q2H PRN IV 01/11/17 17:00 01/25/17 16:59 Vancomycin HCl (Consult) 1 ea UD PRN N/A 01/11/17 17:15 02/10/17 17:14 Sodium Chloride 1,000 ml @ 100 mls/hr Q10H IV 01/11/17 17:15 02/10/17 17:14 01/11/17 19:22 100 MLS/HR Lorazepam 0.5 mg/ Syringe 1 ml @ 1 mls/min Q4H PRN IV 01/11/17 17:45 02/10/17 17:44 Cefepime HCl 2000 mg/Dextrose 112.5 ml @ 200 mls/hr Q24H IV 01/12/17 14:00 01/16/17 13:59 Review of Systems Review of Systems Additional Comments: Review of systems were reviewed from his admitting history and physical Physical Exam Vital Signs: Vital Signs Past 12 Hours Date Time Temp Pulse Resp B/P (MAP) Pulse Ox O2 Delivery O2 Flow Rate FiO2 01/11/17 18:00 37.2 100 19 110/62 97 01/11/17 17:50 100 99/63 97 01/11/17 17:35 100 97 01/11/17 17:30 103 103/62 96 01/11/17 17:25 101 96 01/11/17 17:21 97/62 01/11/17 17:20 102 96 01/11/17 17:15 106 102/67 96 01/11/17 17:10 107 20 108/69 98 Nasal Cannula 2.0 01/11/17 17:06 90/56 01/11/17 17:05 106 98 01/11/17 17:01 106/51 01/11/17 17:00 101 98 01/11/17 16:56 106/55 01/11/17 16:55 104 98 01/11/17 16:51 104/67 01/11/17 16:50 102 97 01/11/17 16:46 112/68 01/11/17 16:45 102 98 01/11/17 16:45 37.2 99 19 110/62 97 Nasal Cannula 2.0 01/11/17 16:41 120/64 01/11/17 16:40 102 97 01/11/17 16:35 104 97/68 97 01/11/17 16:31 102/75 01/11/17 16:30 103 98 01/11/17 16:26 101 24 101/74 97 01/11/17 16:21 100 24 108/75 97 Nasal Cannula 4.0 01/11/17 16:15 100 24 107/77 97 Nasal Cannula 4.0 01/11/17 16:10 100 24 98/66 97 Nasal Cannula 4.0 01/11/17 16:00 108 24 89/63 98 Nasal Cannula 4.0 01/11/17 15:51 106 24 80/58 97 Nasal Cannula 4.0 01/11/17 15:45 107 24 84/59 100 Nasal Cannula 4.0 01/11/17 15:41 106 24 90/59 100 Nasal Cannula 4.0 01/11/17 15:30 101 01/11/17 15:30 98 24 79/55 97 Nasal Cannula 4.0 8/8/17 15:25 102 24 77/52 98 Nasal Cannula 4.0 8/8/17 15:20 102 76/49 8/8/17 15:13 99 61/41 96 Nasal Cannula 4.0 /8/17 15:03 Nasal Cannula 4.0 8/8/17 15:03 104 24 60/42 94 8/8/17 14:56 101 24 97/63 8/8/17 14:51 100 28 93/50 95 Room Air 8/8/17 14:48 102 28 82/61 96 Room Air 8/8/17 14:39 106 30 97/61 95 Room Air 8/8/17 14:25 102 28 81/58 94 Room Air /8/17 14:15 100 25 86/63 92 Room Air /8/17 14:08 98 24 81/59 95 Room Air 8/8/17 13:55 100 28 80/54 96 Room Air /8/17 13:45 97 29 73/51 94 Room Air 8/8/17 13:40 99 29 81/55 94 Room Air 8/8/17 13:35 99 24 82/55 96 Room Air 8/8/17 13:30 100 31 92/55 94 Room Air /8/17 13:27 99 26 94 /8/17 13:23 49/29 01/11/17 13:22 104 33 94 /8/17 13:20 75/44 /8/17 13:17 105 32 94 /8/17 13:12 103 31 94 8/17 13:07 110 29 96 8/17 13:04 102/62 8/17 13:02 99 30 93 8/8/17 13:00 96/57 8/17 12:57 102 31 93 /8/17 12:52 105 33 93 /8/17 12:49 83/51 8/17 12:47 108 28 93 /8/17 12:42 106 30 93 8/8/17 12:37 107 30 93 /8/17 12:32 111 25 94 /8/17 12:27 103 29 92 /8/17 12:22 102 28 91 8/17 12:17 103 28 92 8/8/17 12:12 106 39 92 8/8/17 12:07 111 26 89 01/11/17 12:02 106 26 92 01/11/17 11:57 114 36 92 01/11/17 11:52 111 32 01/11/17 11:47 111 30 01/11/17 11:42 111 32 01/11/17 11:37 113 36 01/11/17 11:35 113 01/11/17 11:32 118 22 01/11/17 11:27 112 37 01/11/17 11:24 113/72 01/11/17 11:14 37.2 119 22 130/69 95 Room Air Physical Exam: General Appearance: WD/WN, no apparent distress ENT: hearing grossly normal Neck: no adenopathy Respiratory/Chest: chest non-tender, normal breath sounds, no respiratory distress, no accessory muscle use Cardiovascular: regular rate, rhythm Skin: normal color, warm/dry Assessment & Plan Assessment & Plan Assessment Urosepsis secondary to obstructing right ureteral stone Discussed options including observation which I would not recommend Procedure the operative room for stent placement He transferred to another facility for nephrostomy tube Patient would like to have it attempted stent placement so he'll be taken to the operating room tonight for emergent stent placement the procedure was described in detail including the risks of bleeding infection injury to surrounding structures failure to get a stent and requiring transfer for nephrostomy tube and anesthetic risks all of his questions were answered and he would like to proceed
[2017-01-11] MEDS ORDERED: NURSING VERBAL MED ORDER ONE (20:30)
[2017-01-11] MEDS ORDERED: MIDAZOLAM HCL 1 MG/ML 2ML VIAL ONE (20:32)
[2017-01-11] MEDS ORDERED: ETOMIDATE 2 MG/ML 20 ML VIAL IV ONE (20:32)
[2017-01-11] MEDS ORDERED: FENTANYL CITRATE INJ 50 MCG/1 ML 2 ML VIAL ONE (20:32)
[2017-01-11] MEDS ORDERED: CONRAY 30% 150ML BOTTLE ONE (21:41)
[2017-01-11] MEDS ORDERED: CEFEPIME IV 2,000 MG in DEXTROSE 5% 100ML 100 ML IV SCH (22:00)
--- NOTE | 2017-01-11 22:20 | [facility] Operative Report ---
Operative Report Operative Date Jan 11, 2017. Pre-Operative Diagnosis Urosepsis secondary to obstructing right ureteral stone Post-Operative Diagnosis Urosepsis secondary to obstructing right ureteral stone Procedure(s) Performed cystoscopy; rigth ureteral stent placement; and retrograde Surgeon Dr. Ramos Manager Of Financial Surgeon(s) none Estimated Blood Loss 0mL Findings Cystoscopic exam showed a normal anterior urethra prostatic was moderately obstructing with kissing lateral lobes and elevated median lobe bladder showed 2 + trabeculation with cellules right ureter was tortuous in the distal portion with a lot of J hooking there was mild hydronephrosis Specimens none per surgeon Drains [id number] RIGHT STENT Anesthesia GENERAL Complication(s) None Disposition Surgical ICU Indications 76-year-old white male with a proximal obstructing right ureteral stone and urosepsis Description of Procedure Patient was brought to the operating room and placed on the operating table in the supine position after the induction of an adequate general anesthetic and appropriate timeout patient was placed in the dorsolithotomy position lower abdomen and genitalia were prepped with Hibiclens and draped in a sterile fashion. Using a 22 [place] cystoscope routine cystoscopic exam was performed the above-noted findings with 30 and 70 lenses next a 0.038 guidewire was passed into the distal right ureter and over this a 5 [place] open-ended catheter was advanced patient had some J hooking of his ureter. Contrast was injected up the right ureter to confirm placement within the ureter which was confirmed the guidewire was then advanced through the open-ended catheter up the right ureter to position the renal pelvis confirmed by fluoroscopy. The open-ended catheter was removed and a 6 [place] multi-link stent was passed up the right ureter under fluoroscopic guidance to position the renal pelvis confirmed by fluoroscopy the guidewire was removed and there was a good curl at the bladder level. Cystoscope and sheath removed Jacobsen cath inserted and hooked to gravity drainage. All needle sponges counts are correct end of the case. The patient tolerated the procedure well and was taken to the ICU in stable condition I attest to the content of the Intraoperative Record and any orders documented therein. Any exceptions are noted below.
--- NOTE | 2017-01-11 22:45 | DIAGNOSTIC IMAGING REPORT ---
RETROGRADE INCLUDES KUB HISTORY: 76 years-old Male RT STENT CYSTO COMPARISON: CT abdomen and pelvis of same day TECHNIQUE: 2 spot fluoroscopic images of the right upper abdomen were obtained utilizing 58.6 seconds of fluoroscopy time. FINDINGS: Guidewire or stent is present within the right renal pelvis and imaged right ureter. Renal collecting system is opacified with contrast. The previously noted calculus of the proximal right ureter is not definitely seen on these images. IMPRESSION: Status post retrograde cystourethrogram as above. Please see procedural report for further details. The above report was generated using voice recognition software. It may contain grammatical, syntax or spelling errors. Electronically signed by: Los Cr M.D. 01/11/2017 10:44 PM Dictated Date/Time: 01/11/2017 10:41 PM
[2017-01-11] MEDS: MoRPHine SULFATE 2 MG/ML CARP IV PRN (23:27)
[2017-01-11] MEDS: LORAZEPAM 0.5 MG TAB PO PRN (23:28)
--- NOTE | 2017-01-11 23:54 | Anesthesiology Progress Note ---
Anesthesia Post Op Note Date & Time Jan 11, 2017 at 23:53 Vital Signs Pain Intensity: 5.0 Vital Signs Past 12 Hours Date Time Temp Pulse Resp B/P (MAP) Pulse Ox O2 Delivery O2 Flow Rate FiO2 01/11/17 23:45 95 20 120/75 (84) 93 01/11/17 23:30 97 31 120/75 (84) 91 01/11/17 23:15 94 26 108/49 01/11/17 23:00 98 36 118/76 (92) 93 01/11/17 22:41 122/84 01/11/17 22:40 99 24 01/11/17 22:40 98 24 92 01/11/17 22:38 36.7 95 22 141/93 94 Oxymask 4 01/11/17 22:36 141/93 01/11/17 22:35 96 28 94 01/11/17 22:35 96 28 01/11/17 22:31 145/98 01/11/17 22:31 36.6 103 22 145/98 95 Oxymask 8 01/11/17 22:30 104 23 01/11/17 22:30 100 23 94 01/11/17 22:25 96 22 130/96 94 01/11/17 22:25 97 22 01/11/17 22:21 128/80 01/11/17 22:20 101 22 01/11/17 22:20 98 24 93 01/11/17 22:18 136/92 01/11/17 22:16 139/90 01/11/17 22:15 92 22 01/11/17 22:15 93 Oxymask 8 01/11/17 22:15 97 31 89 01/11/17 22:11 149/90 01/11/17 22:10 26 01/11/17 22:10 103 26 01/11/17 22:08 153/98 01/11/17 22:05 36.7 106 24 136/89 89 Oxymask 4 01/11/17 20:30 93 24 123/83 (100) 01/11/17 20:15 96 24 130/79 (93) 96 01/11/17 20:00 102 24 100/65 (70) 93 01/11/17 20:00 Nasal Cannula 2.0 01/11/17 19:45 93 26 110/73 (85) 94 8/8/17 19:31 97 24 125/76 (99) 95 88/17 19:30 100 28 94 8/17 19:16 101 27 108/66 (75) 95 8/17 19:15 97 24 8/17 19:02 103 24 116/68 (80) 93 8/17 18:00 37.2 100 19 110/62 97 8/17 17:50 100 99/63 97 8/17 17:35 100 97 8/17 17:30 103 103/62 96 8/17 17:25 101 96 8/17 17:21 97/62 01/11/17 17:20 102 96 17 17:15 106 102/67 96 01/11/17 17:10 107 20 108/69 98 Nasal Cannula 2.0 01/11/17 17:06 90/56 01/11/17 17:05 106 98 17 17:01 106/51 17 17:00 101 98 17 16:56 106/55 17 16:55 104 98 17 16:51 104/67 01/11/17 16:50 102 97 17 16:46 112/68 17 16:45 102 98 17 16:45 37.2 99 19 110/62 97 Nasal Cannula 2.0 17 16:41 120/64 01/11/17 16:40 102 97 17 16:35 104 97/68 97 817 16:31 102/75 17 16:30 103 98 8/17 16:26 101 24 101/74 97 8/17 16:21 100 24 108/75 97 Nasal Cannula 4.0 17 16:15 100 24 107/77 97 Nasal Cannula 4.0 17 16:10 100 24 98/66 97 Nasal Cannula 4.0 8/17 16:00 108 24 89/63 98 Nasal Cannula 4.0 8/17 15:51 106 24 80/58 97 Nasal Cannula 4.0 17 15:45 107 24 84/59 100 Nasal Cannula 4.0 8/8/17 15:41 106 24 90/59 100 Nasal Cannula 4.0 8/8/17 15:30 101 8/8/17 15:30 98 24 79/55 97 Nasal Cannula 4.0 8/8/17 15:25 102 24 77/52 98 Nasal Cannula 4.0 /8/17 15:20 102 76/49 8/8/17 15:13 99 61/41 96 Nasal Cannula 4.0 /8/17 15:03 Nasal Cannula 4.0 /8/17 15:03 104 24 60/42 94 8/8/17 14:56 101 24 97/63 /8/17 14:51 100 28 93/50 95 Room Air /8/17 14:48 102 28 82/61 96 Room Air 8/17 14:39 106 30 97/61 95 Room Air /8/17 14:25 102 28 81/58 94 Room Air /8/17 14:15 100 25 86/63 92 Room Air /8/17 14:08 98 24 81/59 95 Room Air /8/17 13:55 100 28 80/54 96 Room Air /8/17 13:45 97 29 73/51 94 Room Air /8/17 13:40 99 29 81/55 94 Room Air /8/17 13:35 99 24 82/55 96 Room Air /8/17 13:30 100 31 92/55 94 Room Air /8/17 13:27 99 26 94 8/17 13:23 49/29 01/11/17 13:22 104 33 94 8/17 13:20 75/44 01/11/17 13:17 105 32 94 8/17 13:12 103 31 94 8/17 13:07 110 29 96 8/17 13:04 102/62 01/11/ 13:02 99 30 93 /8/ 13:00 96/57 01/11/17 12:57 102 31 93 8/17 12:52 105 33 93 8/17 12:49 83/51 01/11/17 12:47 108 28 93 8/17 12:42 106 30 93 8/17 12:37 107 30 93 01/11/ 12:32 111 25 94 01/11/17 12:27 103 29 92 01/11/17 12:22 102 28 91 01/11/17 12:17 103 28 92 01/11/17 12:12 106 39 92 01/11/17 12:07 111 26 89 01/11/17 12:02 106 26 92 01/11/17 11:57 114 36 92 Notes Mental Status: alert / awake / arousable, participated in evaluation Pt Amnestic to Procedure: Yes Nausea / Vomiting: adequately controlled Pain: adequately controlled Airway Patency, RR, SpO2: stable & adequate BP & HR: stable & adequate Hydration State: stable & adequate Anesthetic Complications: no major complications apparent doing well. still on levophed per ICU team. Awake, VSS
[2017-01-12] VITALS (16 sets, daily range): BP systolic 103–137; BP diastolic 63–88; PULSE 82–102; TEMP 36.7–37; O2SAT 91–97
[2017-01-12] MEDS ORDERED: NURSING VERBAL MED ORDER ONE (02:00)
[2017-01-12] MEDS: MoRPHine SULFATE 2 MG/ML CARP IV PRN (02:05)
[2017-01-12] MEDS ORDERED: NITROGLYCERIN 0.4 MG SL PER TAB CHARGE SL PRN (02:15)
[2017-01-12] MEDS: SODIUM CHLORIDE 0.9% 1000ML 1,000 ML IV SCH ×3 (03:15→19:16)
[2017-01-12 05:30] LABS: HEMATOCRIT 32.7 % (42-52); MEAN CELL VOLUME 90.6 fL (80-100); MEAN CORPUSCULAR HGB CONC 34.3 g/dl (32-36); RED BLOOD COUNT 3.61 M/uL (4.7-6.1); WHITE BLOOD COUNT 17.22 K/uL (4.8-10.8)
[2017-01-12 05:31] LABS: MEAN PLATELET VOLUME 10.1 fL (7.4-10.4); PLATELET COUNT 43 K/uL (130-400)
[2017-01-12 05:44] LABS: INR 1.2 (0.9-1.1); PARTIAL THROMBOPLASTIN RATIO 1.4; PROTHROMBIN TIME (PATIENT) 13.2 SECONDS (9.0-12.0)
[2017-01-12 06:10] LABS: ALB/GLOB RATIO 0.7 (0.9-2); BUN/CREATININE RATIO 15.9 (10-20); CREATININE 2.6 mg/dl (0.60-1.40); POTASSIUM 3.7 mmol/L (3.5-5.1)
[2017-01-12 06:21] LABS: CALCIUM 6.9 mg/dl (8.5-10.1)
[2017-01-12 06:24] LABS: BASO ABS # 0.15 K/uL (0-0.2); BASOPHIL % 0.9 % (0-2); COMPLETE YES; DOHLE BODIES 2+; ECHINOCYTES 1+; LYMPH ABS # 0.45 K/uL (1.2-3.4); LYMPHOCYTE % 2.6 %; NEUTROPHILS % 94.7 %; VACUOLIZATION 2+
[2017-01-12] MEDS: FINASTERIDE 5 MG TAB PO SCH (08:03)
[2017-01-12] MEDS: PANTOprazole INJ 40 MG in SYRINGE 0 ML IV SCH (08:03)
--- NOTE | 2017-01-12 08:19 | Progress Note ---
Subjective Date of Service: Jan 12, 2017. (Michaela Wright CRNP) Subjective Pt evaluation today including: conversation w/ patient, chart review, lab review Voiding: posada catheter in place (patent, draining clear, yellow urine with some sediment) 76 yo male s/p right ureteral stent placement last evening for suspected sepsis and hypotension. Pt reports he feels tired this morning. Denies n/v. Noted some chest pain earlier this morning. Improved with nitroglycerin. Reports some SOB as well. On nasal cannula O2. [employer] aware. BP of 188/66 this morning. Remains on Levophed. Pt reports some back discomfort when he feels as though he needs to void. No previous hx of stones or stent placement. White count improved slightly overnight to 17.22 from 20.03 yesterday. Cr improved slightly since stent placement to 2.6 from 2.7. Blood and urine cultures pending. (Michaela Wright CRNP) Problem List Medical Problems: (1) LINDA (acute kidney injury) Status: Acute (2) Headache Status: Acute (3) HTN (hypertension) Status: Acute (4) Hx of renal calculi Status: Chronic (5) Lactic acidosis Status: Acute (6) Neutropenia Status: Acute (7) Renal insufficiency Status: Acute (8) Severe sepsis Status: Acute (9) Urinary tract infection Status: Acute (10) Vomiting Status: Acute (Michaela Wright CRNP) Review of Systems Constitutional: No fever, No chills Respiratory: + see HPI, + shortness of breath Cardiac: No chest pain Abdomen: No pain, No nausea, No vomiting Male : No hematuria Heme: No abnormal bleeding/bruising (Michaela Wright CRNP) Objective Vital Signs Date Time Temp Pulse Resp B/P (MAP) Pulse Ox O2 Delivery O2 Flow Rate FiO2 01/12/17 06:00 96 26 118/66 (83) 93 Nasal Cannula 01/12/17 04:00 36.8 94 25 106/63 (77) 91 Nasal Cannula 4.0 01/12/17 04:00 94 Nasal Cannula 4.0 01/12/17 02:00 92 23 112/69 (83) 93 Nasal Cannula 4.0 01/12/17 01:00 96 29 111/74 (83) 94 01/12/17 00:45 96 29 107/72 (81) 93 01/12/17 00:30 96 31 119/77 (83) 94 01/12/17 00:16 96 33 103/78 (84) 94 01/12/17 00:15 97 35 94 01/12/17 00:01 36.8 95 26 123/77 (92) 93 Nasal Cannula 4.0 01/12/17 00:00 95 31 123/77 (94) 93 01/11/17 23:59 94 Nasal Cannula 4.0 01/11/17 23:45 95 20 120/75 (84) 93 01/11/17 23:30 97 31 120/75 (84) 91 01/11/17 23:15 94 26 108/49 01/11/17 23:00 98 36 118/76 (92) 93 01/11/17 22:41 122/84 01/11/17 22:40 99 24 01/11/17 22:40 98 24 92 01/11/17 22:38 36.7 95 22 141/93 94 Oxymask 4 01/11/17 22:36 141/93 01/11/17 22:35 96 28 94 01/11/17 22:35 96 28 01/11/17 22:31 145/98 01/11/17 22:31 36.6 103 22 145/98 95 Oxymask 8 01/11/17 22:30 104 23 01/11/17 22:30 100 23 94 01/11/17 22:25 96 22 130/96 94 01/11/17 22:25 97 22 01/11/17 22:21 128/80 01/11/17 22:20 101 22 01/11/17 22:20 98 24 93 01/11/17 22:18 136/92 01/11/17 22:16 139/90 01/11/17 22:15 92 22 01/11/17 22:15 93 Oxymask 8 01/11/17 22:15 97 31 89 01/11/17 22:11 149/90 01/11/17 22:10 26 01/11/17 22:10 103 26 01/11/17 22:08 153/98 01/11/17 22:05 36.7 106 24 136/89 89 Oxymask 4 01/11/17 20:30 93 24 123/83 (100) 8/8/17 20:15 96 24 130/79 (93) 96 88/17 20:00 102 24 100/65 (70) 93 8/17 20:00 Nasal Cannula 2.0 01/11/17 19:45 93 26 110/73 (85) 94 88/17 19:31 97 24 125/76 (99) 95 88/17 19:30 100 28 94 8/17 19:16 101 27 108/66 (75) 95 8/17 19:15 97 24 8/17 19:02 103 24 116/68 (80) 93 8/17 18:00 37.2 100 19 110/62 97 8/17 17:50 100 99/63 97 01/11/17 17:35 100 97 01/11/17 17:30 103 103/62 96 01/11/17 17:25 101 96 01/11/17 17:21 97/62 17 17:20 102 96 01/11/17 17:15 106 102/67 96 17 17:10 107 20 108/69 98 Nasal Cannula 2.0 17 17:06 90/56 01/11/17 17:05 106 98 01/11/17 17:01 106/51 17 17:00 101 98 17 16:56 106/55 01/11/17 16:55 104 98 17 16:51 104/67 01/11/17 16:50 102 97 8/17 16:46 112/68 01/11/17 16:45 102 98 01/11/17 16:45 37.2 99 19 110/62 97 Nasal Cannula 2.0 17 16:41 120/64 8/17 16:40 102 97 8/17 16:35 104 97/68 97 8/17 16:31 102/75 8/17 16:30 103 98 8/17 16:26 101 24 101/74 97 8/17 16:21 100 24 108/75 97 Nasal Cannula 4.0 8/17 16:15 100 24 107/77 97 Nasal Cannula 4.0 8/17 16:10 100 24 98/66 97 Nasal Cannula 4.0 01/11/17 16:00 108 24 89/63 98 Nasal Cannula 4.0 01/11/17 15:51 106 24 80/58 97 Nasal Cannula 4.0 01/11/17 15:45 107 24 84/59 100 Nasal Cannula 4.0 01/11/17 15:41 106 24 90/59 100 Nasal Cannula 4.0 01/11/17 15:30 101 01/11/17 15:30 98 24 79/55 97 Nasal Cannula 4.0 01/11/17 15:25 102 24 77/52 98 Nasal Cannula 4.0 01/11/17 15:20 102 76/49 01/11/17 15:13 99 61/41 96 Nasal Cannula 4.0 01/11/17 15:03 Nasal Cannula 4.0 01/11/17 15:03 104 24 60/42 94 01/11/17 14:56 101 24 97/63 01/11/17 14:51 100 28 93/50 95 Room Air 01/11/17 14:48 102 28 82/61 96 Room Air 01/11/17 14:39 106 30 97/61 95 Room Air 01/11/17 14:25 102 28 81/58 94 Room Air 01/11/17 14:15 100 25 86/63 92 Room Air 01/11/17 14:08 98 24 81/59 95 Room Air 01/11/17 13:55 100 28 80/54 96 Room Air 01/11/17 13:45 97 29 73/51 94 Room Air 01/11/17 13:40 99 29 81/55 94 Room Air 01/11/17 13:35 99 24 82/55 96 Room Air 01/11/17 13:30 100 31 92/55 94 Room Air 01/11/17 13:27 99 26 94 01/11/17 13:23 49/29 01/11/17 13:22 104 33 94 01/11/17 13:20 75/44 01/11/17 13:17 105 32 94 01/11/17 13:12 103 31 94 01/11/17 13:07 110 29 96 01/11/17 13:04 102/62 01/11/17 13:02 99 30 93 01/11/17 13:00 96/57 01/11/17 12:57 102 31 93 01/11/17 12:52 105 33 93 01/11/17 12:49 83/51 01/11/17 12:47 108 28 93 01/11/17 12:42 106 30 93 01/11/17 12:37 107 30 93 01/11/17 12:32 111 25 94 01/11/17 12:27 103 29 92 01/11/17 12:22 102 28 91 01/11/17 12:17 103 28 92 01/11/17 12:12 106 39 92 01/11/17 12:07 111 26 89 01/11/17 12:02 106 26 92 01/11/17 11:57 114 36 92 01/11/17 11:52 111 32 01/11/17 11:47 111 30 01/11/17 11:42 111 32 01/11/17 11:37 113 36 01/11/17 11:35 113 01/11/17 11:32 118 22 01/11/17 11:27 112 37 01/11/17 11:24 113/72 01/11/17 11:14 37.2 119 22 130/69 95 Room Air (Michaela Wright CRNP) Physical Exam General Appearance: no apparent distress Eyes: normal inspection ENT: hearing grossly normal Neck: no JVD Respiratory/Chest: no respiratory distress, no accessory muscle use Cardiovascular: no JVD Extremities: normal inspection Neurologic/Psychiatric: alert, normal mood/affect, oriented x 3 Skin: normal color (Michaela Wright CRNP) Laboratory Results Last 24 Hours Test 01/11/17 11:30 01/11/17 12:30 01/11/17 13:31 01/11/17 13:39 White Blood Count 1.15 K/uL Red Blood Count 4.58 M/uL Hemoglobin 14.0 g/dL Hematocrit 41.1 % Mean Corpuscular Volume 89.7 fL Mean Corpuscular Hemoglobin 30.6 pg Mean Corpuscular Hemoglobin Concent 34.1 g/dl Platelet Count 68 K/uL Mean Platelet Volume 10.3 fL RDW Standard Deviation 48.8 fL RDW Coefficient of Variation 15.0 % Neutrophils % (Manual) 70.0 % Lymphocytes % (Manual) 16.4 % Monocytes % (Manual) 0.9 % Metamyelocytes % 12.7 % Neutrophils # (Manual) 0.81 K/uL Total Absolute Neutrophils 0.81 K/uL Lymphocytes # (Manual) 0.19 K/uL Total Absolute Lymphocytes 0.19 K/uL Monocytes # (Manual) 0.01 K/uL Metamyelocytes # 0.15 K/uL Toxic Vacuolation 2+ Prothrombin Time 11.4 SECONDS Prothromb Time International Ratio 1.1 Activated Partial Thromboplast Time 30.2 SECONDS Partial Thromboplastin Ratio 1.2 Sodium Level 136 mmol/L Potassium Level 3.7 mmol/L Chloride Level 104 mmol/L Carbon Dioxide Level 21 mmol/L Anion Gap 11.0 mmol/L Blood Urea Nitrogen 37 mg/dl Creatinine 2.70 mg/dl Est Creatinine Clear Calc Drug Dose 29.5 ml/min Estimated GFR () 25.0 Estimated GFR (Non- 21.6 BUN/Creatinine Ratio 13.8 Random Glucose 84 mg/dl Calcium Level 8.3 mg/dl Total Creatine Kinase 113 U/L Bedside Troponin I < 0.030 ng/ml Venous Blood pH 7.36 Venous Blood Partial Pressure CO2 36 mmHg Venous Blood Partial Pressure O2 32 mmHg Venous Blood HCO3 20 mmol/L Venous Blood Oxygen Saturation < 60.0 % Venous Blood Base Excess -5.0 mEq/L Bedside Lactic Acid Venous 3.57 mmol/L Test 01/11/17 14:20 01/11/17 15:26 01/11/17 15:29 01/11/17 17:01 Urine Color DK YELLOW Urine Appearance CLOUDY Urine pH 5.0 Urine Specific [place] 1.023 Urine Protein 1+ Urine Glucose (UA) NEG Urine Ketones NEG Urine Occult Blood 2+ Urine Nitrite NEG Urine Bilirubin NEG Urine Urobilinogen NEG Urine Leukocyte Esterase MODERATE Urine WBC (Auto) >30 /hpf Urine RBC (Auto) 5-10 /hpf Urine Hyaline Casts (Auto) 1-5 /lpf Urine Epithelial Cells (Auto) >30 /lpf Urine Bacteria (Auto) NEG Urine Renal Epithelial Cells 0-5 /lpf Urine Crystals AMORPHOUS SEDIMENT Urine Pathogenic Casts /lpf Bedside Glucose 84 mg/dl Bedside Lactic Acid Venous 3.48 mmol/L 2.65 mmol/L Test 01/11/17 19:03 01/12/17 00:45 01/12/17 05:20 01/12/17 05:21 White Blood Count 20.03 K/uL 17.22 K/uL Red Blood Count 3.83 M/uL 3.61 M/uL Hemoglobin 11.9 g/dL 11.2 g/dL Hematocrit 34.4 % 32.7 % Mean Corpuscular Volume 89.8 fL 90.6 fL Mean Corpuscular Hemoglobin 31.1 pg 31.0 pg Mean Corpuscular Hemoglobin Concent 34.6 g/dl 34.3 g/dl Platelet Count 55 K/uL 43 K/uL Mean Platelet Volume 10.0 fL 10.1 fL RDW Standard Deviation 49.4 fL 51.6 fL RDW Coefficient of Variation 15.1 % 15.5 % Neutrophils % (Manual) 91.2 % 94.7 % Lymphocytes % (Manual) 0.0 % 2.6 % Monocytes % (Manual) 0.9 % 1.8 % Metamyelocytes % 7.0 % Myelocytes % 0.9 % Neutrophils # (Manual) 18.27 K/uL 16.31 K/uL Total Absolute Neutrophils 18.27 K/uL 16.31 K/uL Total Absolute Lymphocytes 0.00 K/uL 0.45 K/uL Monocytes # (Manual) 0.18 K/uL 0.31 K/uL Metamyelocytes # 1.40 K/uL Myelocytes # 0.18 K/uL Toxic Vacuolation 1+ 2+ Dohle Bodies 2+ 2+ Platelet Estimate DECREASED Ovalocytes 1+ Echinocytes 1+ 1+ Lactic Acid Level 2.8 mmol/L Troponin I 0.269 ng/ml Prothrombin Time 13.2 SECONDS Prothromb Time International Ratio 1.2 Activated Partial Thromboplast Time 36.9 SECONDS Partial Thromboplastin Ratio 1.4 Basophils % (Manual) 0.9 % Lymphocytes # (Manual) 0.45 K/uL Basophils # (Manual) 0.15 K/uL Sodium Level 142 mmol/L Potassium Level 3.7 mmol/L Chloride Level 112 mmol/L Carbon Dioxide Level 21 mmol/L Anion Gap 9.0 mmol/L Blood Urea Nitrogen 41 mg/dl Creatinine 2.60 mg/dl Est Creatinine Clear Calc Drug Dose 30.6 ml/min Estimated GFR () 26.2 Estimated GFR (Non- 22.6 BUN/Creatinine Ratio 15.9 Random Glucose 80 mg/dl Calcium Level 6.9 mg/dl Total Bilirubin 1.7 mg/dl Aspartate Amino Transf (AST/SGOT) 20 U/L Alanine Aminotransferase (ALT/SGPT) 18 U/L Alkaline Phosphatase 70 U/L Total Protein 5.4 gm/dl Albumin 2.3 gm/dl Globulin 3.1 gm/dl Albumin/Globulin Ratio 0.7 Random Vancomycin Level 16.9 mcg/ml (Michaela Wright CRNP) Assessment and Plan POD #1 s/p right ureteral stent placement for sepsis Continue IV abx pending culture sensitivities. TOV in 1-2 days prior to d/c home. Will plan for definitive management of stone as an outpatient once his infection has been adequately treated. Will continue to follow along with primary service at this time. Continued [facility] stay due to: multiple IV medications needed (iMchaela Wright CRNP) Pt seen and examined States he feels better since stent placed Agree with above (Samy Ramos MD)
--- NOTE | 2017-01-12 11:56 | Clinical Documentation Query ---
LAURA Ryder : CLINICAL DOCUMENTATION QUERY QUERY 1 OF 2 Patient is a 68 year old male admitted for "sepsis from urinary source". Patient was fluid resuscitated, administered IV antibiotics, cultured, and has required vasopressor support to maintain MAP > 65 mmHg. Central line placed in ED. He is being monitored in ICU with cardiac hardwire, serial labs, vitals, ongoing antibiotics, and Levophed. Consider documentation as suggested below in order to capture the severity of illness and risk of mortality associated with ICU admission requiring vasopressor support. In your clinical opinion is this patient being managed for: ( ) Septic shock due to UTI ( ) Other explanation of clinical findings (Please Explain) ( ) Unable to determine (Please Define) ( ) Need to Discuss ( ) Not Agree The medical record reflects the following clinical findings, treatment, and risk factors. Clinical Indicators: As above Treatment:Patient was fluid resuscitated, administered IV antibiotics, cultured, and has required vasopressor support to maintain MAP > 65 mmHg. Central line placed in ED. He is being monitored in ICU with cardiac hardwire, serial labs, vitals, ongoing antibiotics, and Levophed. Risk Factors: obstructing right ureteral stone QUERY 2 OF 2 Admission BUN, creatinine, and estimated GFR were 37 mg/dl, 2.70 mg/dl, and 22 ml/min. Historical EMR review demonstrates an estimated GFR range of 40-60 ml/min from 09/03/14 up to present admission. As appropriate, consider clarificaiton as suggested below. Thank you. In your clinical opinion is this patient being managed for: ( ) LINDA (POA) on CKD III ( ) Other explanation of clinical findings (Please Explain) ( ) Unable to determine (Please Define) ( ) Need to Discuss ( ) Not Agree The medical record reflects the following clinical findings, treatment, and risk factors. Clinical Indicators: As above Treatment: IVF, serial chemistries Risk Factors: Septic shock Please clarify and document your clinical opinion in the progress notes and discharge summary. Terms such as "probable", "suspected", "likely", "questionable", "possible", or "still to be ruled out" are acceptable. IF IN AGREEMENT, YOU MUST DOCUMENT ABOVE DIAGNOSTIC STATEMENT IN DAILY PROGRESS NOTES AND DISCHARGE SUMMARY. This document is not part of the patient's record. Thank You, Jose Luis Velazquez RN [phone]
--- NOTE | 2017-01-12 12:12 | Critical Care Progress Note ---
Critical Care Progress Note Date of Service Jan 12, 2017. ICU Day ICU Day Number: [address] Barton Subjective [place] urine overnight. Patient feeling better in general. He reports urethral discomfort with catheterization however he denies abdominal pain, flank pain, N/ V chills. Objective GENERAL: alert, well appearing, well nourished, no distress EYE EXAM: normal conjunctiva, PERRL and EOM's grossly intact OROPHARYNX: no exudate, no erythema, lips, buccal mucosa, and tongue normal and mucous membranes are moist LUNGS: Clear to auscultation. Normal chest wall mechanics HEART: no murmurs, S1 normal and S2 normal ABDOMEN: abdomen soft, non-tender, normo-active bowel sounds, no masses, no rebound or guarding. SKIN: no rashes and no bruising UPPER EXTREMITIES: upper extremities are grossly normal. LOWER EXTREMITIES: No pitting edema. NEURO EXAM: Normal sensorium, cranial nerves II-XII grossly intact, normal speech, no gross weakness of arms, no gross weakness of legs. 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 This favors subsegmental atelectasis. Respiratory prophylaxis: Albuterol Cardiovascular: CV drips: Norepi Rhythm: Sinus EKG Sinus tachycardia, L Ant. Fascicular block Elevated Troponin: likely secondary to septic shock, Renal insufficiency Fluids/Renal: Sepsis in setting of Rt obstructing ureteral stone s/p cystoscopy /stent placement IV Fluids: IV NS 100mls/hr 5.93 L in, 1L out, Net Urine: Increased output today, UO improved but not at .5 ml.kg.hr Jacobsen: Present Cr: 2.6 secondary to obstructive ureteral stone, Continue to follow PRP GI/Nutrition: Feeding: AHA Diet Prophylaxis: On PPI (Protonix) Bowel movements: None since arrival. denies constipation Endocrine: Last 24 hour glucose: Ranging 80 to 84 Insulin protocol: Yes; Drip: NO Hematology: Hemoglobin 11.2 DVT prophylaxis: Heparin 5000 3 times a day Infectious Disease/Immunology: Sepsis in setting of UTI Urine cx's , Blood cx's pending Tmax: 37.0 Antimicrobials: Vancomycin d/c'd Cefepime Day 2 Cultures: Blood: pending Urine: pending attending note, seen , examined separately, chart reviewed with the staff on rounds. 76, m, hx of nephrolithiasis , presented with septic shock requiring Levo and Abx, found to have kidney stones and taken by urology for ureteral stent placement. improved overnight dramatically, now minimally sob , no abdominal or chest pain, off pressors. on IVF, tolerating oral intake. PE: VSS, low grade fever, no JVP, S1S2 RRR, lungs are clear, abdomen is benign, no edema. Imaging and labs reviewed, with Positive GNR in the blood. A/P: 1- sepsis secondary to infected kidney stone. 2- hx of HTN. 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 Plan: 1- continue Cefepime. 2- IVF. 3- oral intake. 4- although trop is elevated this is likely in the face of worsening renal function. 5- DVT prophylaxis. 6- appreciate urology input. 7- disposition plan per Dr. Allred, much appreciated. CCT 35 min. Consults & Procedures Consultants: Urology Procedures: s/p cystoscopy, stenting Data Medications: Current Inpatient Medications Medications (Trade) Dose Ordered Sig/[place] Route Start Time Stop Time Status Last Admin Dose Admin Finasteride (Proscar Tab) 5 mg QAM PO 01/12/17 09:00 02/11/17 08:59 01/12/17 08:03 5 MG Acetaminophen (Tylenol Tab) 650 mg Q4H PRN PO 01/11/17 17:00 02/10/17 16:59 Lorazepam (Ativan Tab) 0.5 mg Q4H PRN PO 01/11/17 17:00 02/10/17 16:59 01/11/17 23:28 0.5 MG Lorazepam (Ativan Inj) 0.5 mg Q4H PRN IV 01/11/17 17:00 02/10/17 16:59 Norepinephrine Bitartrate 8 mg/ Dextrose 508 ml @ 0 mls/hr Q0M PRN IV 01/11/17 16:55 02/10/17 16:54 Pantoprazole Sodium 40 mg/ Syringe 10 ml @ 5 mls/min DAILY IV 01/12/17 09:00 02/11/17 08:59 01/12/17 08:03 5 MLS/MIN Morphine Sulfate (MoRPHine SULFATE INJ) 2 mg Q2H PRN IV 01/11/17 17:00 01/25/17 16:59 01/12/17 02:05 2 MG Sodium Chloride 1,000 ml @ 100 mls/hr Q10H IV 01/11/17 17:15 02/10/17 17:14 01/12/17 08:04 100 MLS/HR Lorazepam 0.5 mg/ Syringe 1 ml @ 1 mls/min Q4H PRN IV 01/11/17 17:45 02/10/17 17:44 Cefepime HCl 2000 mg/Dextrose 112.5 ml @ 200 mls/hr Q24H IV 01/12/17 14:00 01/16/17 13:59 Heparin Sodium (Porcine) (Heparin 10 Unit/ ml 5 ml Flush) 5 ml PRN PRN FLUSH 01/11/17 23:45 02/10/17 23:44 Nitroglycerin (Nitrostat Tab) 0.4 mg UD PRN SL 01/12/17 02:15 02/11/17 02:14 01/12/17 02:39 0.4 MG Vital Signs: Date Time Temp Pulse Resp B/P (MAP) Pulse Ox O2 Delivery O2 Flow Rate FiO2 01/12/17 10:00 89 28 92 01/12/17 08:00 94 Nasal Cannula 4.0 01/12/17 08:00 37.0 102 18 107/67 (80) 97 Nasal Cannula 4.0 01/12/17 06:00 96 26 118/66 (83) 93 Nasal Cannula 01/12/17 04:00 36.8 94 25 106/63 (77) 91 Nasal Cannula 4.0 01/12/17 04:00 94 Nasal Cannula 4.0 01/12/17 02:00 92 23 112/69 (83) 93 Nasal Cannula 4.0 01/12/17 01:00 96 29 111/74 (83) 94 01/12/17 00:45 96 29 107/72 (81) 93 01/12/17 00:30 96 31 119/77 (83) 94 01/12/17 00:16 96 33 103/78 (84) 94 01/12/17 00:15 97 35 94 01/12/17 00:01 36.8 95 26 123/77 (92) 93 Nasal Cannula 4.0 01/12/17 00:00 95 31 123/77 (94) 93 01/11/17 23:59 94 Nasal Cannula 4.0 01/11/17 23:45 95 20 120/75 (84) 93 01/11/17 23:30 97 31 120/75 (84) 91 01/11/17 23:15 94 26 108/49 01/11/17 23:00 98 36 118/76 (92) 93 01/11/17 22:41 122/84 01/11/17 22:40 99 24 01/11/17 22:40 98 24 92 01/11/17 22:38 36.7 95 22 141/93 94 Oxymask 4 01/11/17 22:36 141/93 01/11/17 22:35 96 28 94 01/11/17 22:35 96 28 01/11/17 22:31 145/98 01/11/17 22:31 36.6 103 22 145/98 95 Oxymask 8 01/11/17 22:30 104 23 01/11/17 22:30 100 23 94 01/11/17 22:25 96 22 130/96 94 01/11/17 22:25 97 22 01/11/17 22:21 128/80 01/11/17 22:20 101 22 01/11/17 22:20 98 24 93 01/11/17 22:18 136/92 01/11/17 22:16 139/90 01/11/17 22:15 92 22 01/11/17 22:15 93 Oxymask 8 01/11/17 22:15 97 31 89 01/11/17 22:11 149/90 01/11/17 22:10 26 01/11/17 22:10 103 26 01/11/17 22:08 153/98 01/11/17 22:05 36.7 106 24 136/89 89 Oxymask 4 01/11/17 20:30 93 24 123/83 (100) 01/11/17 20:15 96 24 130/79 (93) 96 8/8/17 20:00 102 24 100/65 (70) 93 8/17 20:00 Nasal Cannula 2.0 17 19:45 93 26 110/73 (85) 94 8/17 19:31 97 24 125/76 (99) 95 8/17 19:30 100 28 94 8/17 19:16 101 27 108/66 (75) 95 8/17 19:15 97 24 01/11/17 19:02 103 24 116/68 (80) 93 8/17 18:00 37.2 100 19 110/62 97 8/17 17:50 100 99/63 97 17 17:35 100 97 17 17:30 103 103/62 96 17 17:25 101 96 01/11/17 17:21 97/62 17 17:20 102 96 17 17:15 106 102/67 96 17 17:10 107 20 108/69 98 Nasal Cannula 2.0 17 17:06 90/56 17 17:05 106 98 17 17:01 106/51 17 17:00 101 98 17 16:56 106/55 01/11/17 16:55 104 98 17 16:51 104/67 17 16:50 102 97 17 16:46 112/68 17 16:45 102 98 17 16:45 37.2 99 19 110/62 97 Nasal Cannula 2.0 17 16:41 120/64 17 16:40 102 97 817 16:35 104 97/68 97 8/17 16:31 102/75 17 16:30 103 98 8/17 16:26 101 24 101/74 97 8/17 16:21 100 24 108/75 97 Nasal Cannula 4.0 17 16:15 100 24 107/77 97 Nasal Cannula 4.0 17 16:10 100 24 98/66 97 Nasal Cannula 4.0 17 16:00 108 24 89/63 98 Nasal Cannula 4.0 817 15:51 106 24 80/58 97 Nasal Cannula 4.0 8/17 15:45 107 24 84/59 100 Nasal Cannula 4.0 817 15:41 106 24 90/59 100 Nasal Cannula 4.0 /8/17 15:30 101 /8/17 15:30 98 24 79/55 97 Nasal Cannula 4.0 817 15:25 102 24 77/52 98 Nasal Cannula 4.0 8/17 15:20 102 76/49 8/17 15:13 99 61/41 96 Nasal Cannula 4.0 01/11/17 15:03 Nasal Cannula 4.0 01/11/17 15:03 104 24 60/42 94 8 14:56 101 24 97/63 17 14:51 100 28 93/50 95 Room Air 8/ 14:48 102 28 82/61 96 Room Air 01/11/17 14:39 106 30 97/61 95 Room Air 01/11/17 14:25 102 28 81/58 94 Room Air 01/11/17 14:15 100 25 86/63 92 Room Air 8/17 14:08 98 24 81/59 95 Room Air 8/17 13:55 100 28 80/54 96 Room Air 01/11/ 13:45 97 29 73/51 94 Room Air 8/17 13:40 99 29 81/55 94 Room Air 8/17 13:35 99 24 82/55 96 Room Air 01/11/17 13:30 100 31 92/55 94 Room Air 01/11/17 13:27 99 26 94 8/17 13:23 49/29 01/11/17 13:22 104 33 94 /8/17 13:20 75/44 17 13:17 105 32 94 8/17 13:12 103 31 94 01/11/17 13:07 110 29 96 8 13:04 102/62 01/11/17 13:02 99 30 93 8/17 13:00 96/57 01/11/17 12:57 102 31 93 01/11/ 12:52 105 33 93 01/11/17 12:49 83/51 01/11/17 12:47 108 28 93 01/11/17 12:42 106 30 93 01/11/17 12:37 107 30 93 01/11/17 12:32 111 25 94 01/11/17 12:27 103 29 92 01/11/17 12:22 102 28 91 01/11/17 12:17 103 28 92 Laboratory Results: Last 24 Hours Test 01/11/17 12:30 01/11/17 13:31 01/11/17 13:39 01/11/17 14:20 Bedside Troponin I < 0.030 ng/ml Venous Blood pH 7.36 Venous Blood Partial Pressure CO2 36 mmHg Venous Blood Partial Pressure O2 32 mmHg Venous Blood HCO3 20 mmol/L Venous Blood Oxygen Saturation < 60.0 % Venous Blood Base Excess -5.0 mEq/L Bedside Lactic Acid Venous 3.57 mmol/L Urine Color DK YELLOW Urine Appearance CLOUDY Urine pH 5.0 Urine Specific [place] 1.023 Urine Protein 1+ Urine Glucose (UA) NEG Urine Ketones NEG Urine Occult Blood 2+ Urine Nitrite NEG Urine Bilirubin NEG Urine Urobilinogen NEG Urine Leukocyte Esterase MODERATE Urine WBC (Auto) >30 /hpf Urine RBC (Auto) 5-10 /hpf Urine Hyaline Casts (Auto) 1-5 /lpf Urine Epithelial Cells (Auto) >30 /lpf Urine Bacteria (Auto) NEG Urine Renal Epithelial Cells 0-5 /lpf Urine Crystals AMORPHOUS SEDIMENT Urine Pathogenic Casts /lpf Test 01/11/17 15:26 01/11/17 15:29 01/11/17 17:01 01/11/17 19:03 Bedside Glucose 84 mg/dl Bedside Lactic Acid Venous 3.48 mmol/L 2.65 mmol/L White Blood Count 20.03 K/uL Red Blood Count 3.83 M/uL Hemoglobin 11.9 g/dL Hematocrit 34.4 % Mean Corpuscular Volume 89.8 fL Mean Corpuscular Hemoglobin 31.1 pg Mean Corpuscular Hemoglobin Concent 34.6 g/dl Platelet Count 55 K/uL Mean Platelet Volume 10.0 fL RDW Standard Deviation 49.4 fL RDW Coefficient of Variation 15.1 % Neutrophils % (Manual) 91.2 % Lymphocytes % (Manual) 0.0 % Monocytes % (Manual) 0.9 % Metamyelocytes % 7.0 % Myelocytes % 0.9 % Neutrophils # (Manual) 18.27 K/uL Total Absolute Neutrophils 18.27 K/uL Total Absolute Lymphocytes 0.00 K/uL Monocytes # (Manual) 0.18 K/uL Metamyelocytes # 1.40 K/uL Myelocytes # 0.18 K/uL Toxic Vacuolation 1+ Dohle Bodies 2+ Platelet Estimate DECREASED Ovalocytes 1+ Echinocytes 1+ Lactic Acid Level 2.8 mmol/L Test 01/12/17 00:45 01/12/17 05:20 01/12/17 05:21 01/12/17 09:15 Troponin I 0.269 ng/ml 0.389 ng/ml Prothrombin Time 13.2 SECONDS Prothromb Time International Ratio 1.2 Activated Partial Thromboplast Time 36.9 SECONDS Partial Thromboplastin Ratio 1.4 White Blood Count 17.22 K/uL Red Blood Count 3.61 M/uL Hemoglobin 11.2 g/dL Hematocrit 32.7 % Mean Corpuscular Volume 90.6 fL Mean Corpuscular Hemoglobin 31.0 pg Mean Corpuscular Hemoglobin Concent 34.3 g/dl Platelet Count 43 K/uL Mean Platelet Volume 10.1 fL RDW Standard Deviation 51.6 fL RDW Coefficient of Variation 15.5 % Neutrophils % (Manual) 94.7 % Lymphocytes % (Manual) 2.6 % Monocytes % (Manual) 1.8 % Basophils % (Manual) 0.9 % Neutrophils # (Manual) 16.31 K/uL Total Absolute Neutrophils 16.31 K/uL Lymphocytes # (Manual) 0.45 K/uL Total Absolute Lymphocytes 0.45 K/uL Monocytes # (Manual) 0.31 K/uL Basophils # (Manual) 0.15 K/uL Toxic Vacuolation 2+ Dohle Bodies 2+ Echinocytes 1+ Sodium Level 142 mmol/L Potassium Level 3.7 mmol/L Chloride Level 112 mmol/L Carbon Dioxide Level 21 mmol/L Anion Gap 9.0 mmol/L Blood Urea Nitrogen 41 mg/dl Creatinine 2.60 mg/dl Est Creatinine Clear Calc Drug Dose 30.6 ml/min Estimated GFR () 26.2 Estimated GFR (Non- 22.6 BUN/Creatinine Ratio 15.9 Random Glucose 80 mg/dl Calcium Level 6.9 mg/dl Total Bilirubin 1.7 mg/dl Aspartate Amino Transf (AST/SGOT) 20 U/L Alanine Aminotransferase (ALT/SGPT) 18 U/L Alkaline Phosphatase 70 U/L Total Protein 5.4 gm/dl Albumin 2.3 gm/dl Globulin 3.1 gm/dl Albumin/Globulin Ratio 0.7 Random Vancomycin Level 16.9 mcg/ml Resident Tracking Resident Involvement: Resident Care Provided Care Provided: Adult Hospital Medicine
[2017-01-12] MEDS: CEFEPIME IV 2,000 MG in DEXTROSE 5% 100ML 100 ML IV SCH (13:59)
[2017-01-12] MEDS ORDERED: FONDAPARINUX 2.5 MG/0.5 ML SYR SQ SCH (16:45)
--- NOTE | 2017-01-12 17:55 | Progress Note ---
Subjective Date of Service: Jan 12, 2017. Subjective pt is much improved, no real complaints, some flank pain Problem List Medical Problems: (1) LINDA (acute kidney injury) Status: Acute (2) Headache Status: Acute (3) HTN (hypertension) Status: Acute (4) Hx of renal calculi Status: Chronic (5) Lactic acidosis Status: Acute (6) Neutropenia Status: Acute (7) Renal insufficiency Status: Acute (8) Septic shock Status: Acute (9) Severe sepsis Status: Acute (10) Urinary tract infection Status: Acute (11) Vomiting Status: Acute Review of Systems Constitutional: No fever, No chills Respiratory: No cough, No sputum Cardiac: No chest pain, No orthopnea, No edema Abdomen: No pain, No nausea, No vomiting, No diarrhea Male : No dysuria, No urinary frequency Objective Vital Signs Date Time Temp Pulse Resp B/P (MAP) Pulse Ox O2 Delivery O2 Flow Rate FiO2 01/12/17 15:30 Nasal Cannula 4.0 01/12/17 12:00 94 Nasal Cannula 4.0 01/12/17 12:00 36.9 82 20 111/79 (90) 92 Nasal Cannula 4.0 01/12/17 10:00 89 28 92 01/12/17 08:00 94 Nasal Cannula 4.0 01/12/17 08:00 37.0 102 18 107/67 (80) 97 Nasal Cannula 4.0 01/12/17 06:00 96 26 118/66 (83) 93 Nasal Cannula 01/12/17 04:00 36.8 94 25 106/63 (77) 91 Nasal Cannula 4.0 01/12/17 04:00 94 Nasal Cannula 4.0 01/12/17 02:00 92 23 112/69 (83) 93 Nasal Cannula 4.0 01/12/17 01:00 96 29 111/74 (83) 94 01/12/17 00:45 96 29 107/72 (81) 93 01/12/17 00:30 96 31 119/77 (83) 94 01/12/17 00:16 96 33 103/78 (84) 94 01/12/17 00:15 97 35 94 01/12/17 00:01 36.8 95 26 123/77 (92) 93 Nasal Cannula 4.0 01/12/17 00:00 95 31 123/77 (94) 93 01/11/17 23:59 94 Nasal Cannula 4.0 01/11/17 23:45 95 20 120/75 (84) 93 01/11/17 23:30 97 31 120/75 (84) 91 01/11/17 23:15 94 26 108/49 01/11/17 23:00 98 36 118/76 (92) 93 01/11/17 22:41 122/84 01/11/17 22:40 99 24 01/11/17 22:40 98 24 92 01/11/17 22:38 36.7 95 22 141/93 94 Oxymask 4 01/11/17 22:36 141/93 01/11/17 22:35 96 28 94 01/11/17 22:35 96 28 01/11/17 22:31 145/98 01/11/17 22:31 36.6 103 22 145/98 95 Oxymask 8 01/11/17 22:30 104 23 01/11/17 22:30 100 23 94 01/11/17 22:25 96 22 130/96 94 01/11/17 22:25 97 22 01/11/17 22:21 128/80 01/11/17 22:20 101 22 01/11/17 22:20 98 24 93 01/11/17 22:18 136/92 01/11/17 22:16 139/90 01/11/17 22:15 92 22 01/11/17 22:15 93 Oxymask 8 01/11/17 22:15 97 31 89 01/11/17 22:11 149/90 01/11/17 22:10 26 01/11/17 22:10 103 26 01/11/17 22:08 153/98 01/11/17 22:05 36.7 106 24 136/89 89 Oxymask 4 01/11/17 20:30 93 24 123/83 (100) 01/11/17 20:15 96 24 130/79 (93) 96 01/11/17 20:00 102 24 100/65 (70) 93 01/11/17 20:00 Nasal Cannula 2.0 01/11/17 19:45 93 26 110/73 (85) 94 01/11/17 19:31 97 24 125/76 (99) 95 01/11/17 19:30 100 28 94 01/11/17 19:16 101 27 108/66 (75) 95 01/11/17 19:15 97 24 01/11/17 19:02 103 24 116/68 (80) 93 01/11/17 18:00 37.2 100 19 110/62 97 Physical Exam General Appearance: WD/WN, + mild distress Neck: supple, no JVD Respiratory/Chest: chest non-tender, lungs clear, normal breath sounds, no respiratory distress Cardiovascular: regular rate, rhythm, no edema, no murmur Abdomen: normal bowel sounds, soft Neurologic/Psychiatric: alert, oriented x 3 Laboratory Results Last 24 Hours Test 01/11/17 19:03 01/12/17 00:45 01/12/17 05:20 01/12/17 05:21 White Blood Count 20.03 K/uL 17.22 K/uL Red Blood Count 3.83 M/uL 3.61 M/uL Hemoglobin 11.9 g/dL 11.2 g/dL Hematocrit 34.4 % 32.7 % Mean Corpuscular Volume 89.8 fL 90.6 fL Mean Corpuscular Hemoglobin 31.1 pg 31.0 pg Mean Corpuscular Hemoglobin Concent 34.6 g/dl 34.3 g/dl Platelet Count 55 K/uL 43 K/uL Mean Platelet Volume 10.0 fL 10.1 fL RDW Standard Deviation 49.4 fL 51.6 fL RDW Coefficient of Variation 15.1 % 15.5 % Neutrophils % (Manual) 91.2 % 94.7 % Lymphocytes % (Manual) 0.0 % 2.6 % Monocytes % (Manual) 0.9 % 1.8 % Metamyelocytes % 7.0 % Myelocytes % 0.9 % Neutrophils # (Manual) 18.27 K/uL 16.31 K/uL Total Absolute Neutrophils 18.27 K/uL 16.31 K/uL Total Absolute Lymphocytes 0.00 K/uL 0.45 K/uL Monocytes # (Manual) 0.18 K/uL 0.31 K/uL Metamyelocytes # 1.40 K/uL Myelocytes # 0.18 K/uL Toxic Vacuolation 1+ 2+ Dohle Bodies 2+ 2+ Platelet Estimate DECREASED Ovalocytes 1+ Echinocytes 1+ 1+ Lactic Acid Level 2.8 mmol/L Troponin I 0.269 ng/ml Prothrombin Time 13.2 SECONDS Prothromb Time International Ratio 1.2 Activated Partial Thromboplast Time 36.9 SECONDS Partial Thromboplastin Ratio 1.4 Basophils % (Manual) 0.9 % Lymphocytes # (Manual) 0.45 K/uL Basophils # (Manual) 0.15 K/uL Sodium Level 142 mmol/L Potassium Level 3.7 mmol/L Chloride Level 112 mmol/L Carbon Dioxide Level 21 mmol/L Anion Gap 9.0 mmol/L Blood Urea Nitrogen 41 mg/dl Creatinine 2.60 mg/dl Est Creatinine Clear Calc Drug Dose 30.6 ml/min Estimated GFR () 26.2 Estimated GFR (Non- 22.6 BUN/Creatinine Ratio 15.9 Random Glucose 80 mg/dl Calcium Level 6.9 mg/dl Total Bilirubin 1.7 mg/dl Aspartate Amino Transf (AST/SGOT) 20 U/L Alanine Aminotransferase (ALT/SGPT) 18 U/L Alkaline Phosphatase 70 U/L Total Protein 5.4 gm/dl Albumin 2.3 gm/dl Globulin 3.1 gm/dl Albumin/Globulin Ratio 0.7 Random Vancomycin Level 16.9 mcg/ml Test 01/12/17 09:15 Troponin I 0.389 ng/ml Assessment and Plan 68-year-old man with sepsic shock from urinary source initial identification of gram-negative bacteria sepsis from e coli urinary source associated with obstructive uropathy, s/p ureteral stent, cefepime renal dosing Regarding previous history of hypertension continue to hold his metoprolol and timolol eyedrops will look to restart soon Elevated troponin without chest pian, likely supply demand will trend linda associate with shock maybe atn, hydrate and renal dose medications Regarding his BPH continue Jacobsen catheter Pt's WBC did improve, he remains with some thrombocytopenia will follow Patient is a DO NOT RESUSCITATE Continued [facility] stay due to: multiple IV medications needed
[2017-01-12] MEDS ORDERED: HEPARIN SOD 5000 UNIT/0.5 ML CARP SQ SCH (21:00)
[2017-01-13] VITALS (8 sets, daily range): BP systolic 114–174; BP diastolic 60–96; PULSE 100–119; TEMP 36.5–37.3; O2SAT 94–97
[2017-01-13] MEDS: SODIUM CHLORIDE 0.9% 1000ML 1,000 ML IV SCH (05:17)
[2017-01-13 05:51] LABS: HEMATOCRIT 33.2 % (42-52); MEAN CORPUSCULAR HGB CONC 33.7 g/dl (32-36); RED BLOOD COUNT 3.73 M/uL (4.7-6.1); WHITE BLOOD COUNT 16.77 K/uL (4.8-10.8)
[2017-01-13 05:52] LABS: MEAN PLATELET VOLUME 9.9 fL (7.4-10.4); PLATELET COUNT 51 K/uL (130-400)
[2017-01-13 06:03] LABS: PARTIAL THROMBOPLASTIN RATIO 1.3; PROTHROMBIN TIME (PATIENT) 11.1 SECONDS (9.0-12.0)
[2017-01-13 06:18] LABS: BASO % 0.1 %; BASO ABS # 0.01 K/uL (0-0.2); COMPLETE YES; DOHLE BODIES 1+; ECHINOCYTES 1+; EOS % 0.3 %; IG% 0.5 %; LYMPH % 2.7 %; LYMPH ABS # 0.46 K/uL (1.2-3.4); MONO % 3.2 %; NEUT % 93.2 %
[2017-01-13 06:36] LABS: ALB/GLOB RATIO 0.6 (0.9-2); BUN/CREATININE RATIO 20.2 (10-20); CALCIUM 7.4 mg/dl (8.5-10.1); CREATININE 1.8 mg/dl (0.60-1.40); POTASSIUM 3.1 mmol/L (3.5-5.1)
[2017-01-13] MEDS ORDERED: FUROSEMIDE INJ 10 MG in SYRINGE 0 ML IV ONE (09:30)
[2017-01-13] MEDS: METOPROLOL TARTRATE 25 MG TAB PO SCH ×2 (10:15→19:32)
[2017-01-13] MEDS: FINASTERIDE 5 MG TAB PO SCH (10:16)
[2017-01-13] MEDS: POTASSIUM CHLR 10 MEQ / WTR 10 MEQ in PREMIXED WATER 100 ML IV SCH ×2 (10:16→11:54)
[2017-01-13] MEDS: ENOXAPARIN 30 MG/0.3 ML SYR SQ SCH (10:22)
[2017-01-13] MEDS: PANTOprazole INJ 40 MG in SYRINGE 0 ML IV SCH (10:32)
[2017-01-13] MEDS: CEFEPIME IV 2,000 MG in DEXTROSE 5% 100ML 100 ML IV SCH (14:36)
--- NOTE | 2017-01-13 14:56 | Progress Note ---
Subjective Date of Service: Jan 13, 2017. Subjective Pt evaluation today including: conversation w/ patient, chart review, lab review Voiding: posada catheter in place (patent, draining clear, yellow urine) 76 yo male s/p right ureteral stent for right ureteral stone with suspected sepsis. Pt reporting he feels much improved this afternoon. Denies pain. Denies n/v. Posada remains in place draining clear, yellow urine. UC&S preliminarily growing 10,000 colonies of gram negative bacilli. He remains on cefepime. Cr has improved to 1.8 from 2.6 yesterday. White count slightly improved to 16.77. He has been afebrile for 24hrs. Problem List Medical Problems: (1) LINDA (acute kidney injury) Status: Acute (2) Headache Status: Acute (3) HTN (hypertension) Status: Acute (4) Hx of renal calculi Status: Chronic (5) Lactic acidosis Status: Acute (6) Neutropenia Status: Acute (7) Renal insufficiency Status: Acute (8) Septic shock Status: Acute (9) Severe sepsis Status: Acute (10) Urinary tract infection Status: Acute (11) Vomiting Status: Acute Review of Systems Constitutional: No fever, No chills Respiratory: No shortness of breath Cardiac: No chest pain Abdomen: No pain, No nausea, No vomiting Male : No hematuria Heme: No abnormal bleeding/bruising Objective Vital Signs Date Time Temp Pulse Resp B/P (MAP) Pulse Ox O2 Delivery O2 Flow Rate FiO2 01/13/17 13:41 36.5 101 20 139/68 (91) 97 Nasal Cannula 2.0 01/13/17 12:00 Nasal Cannula 4.0 01/13/17 12:00 36.9 119 28 114/72 (86) 96 Nasal Cannula 4.0 01/13/17 08:00 96 Nasal Cannula 3.0 01/13/17 04:00 96 Nasal Cannula 3.0 01/13/17 04:00 36.9 119 28 114/72 (86) 96 Nasal Cannula 3.0 01/12/17 23:59 36.8 87 24 137/88 (104) 96 Nasal Cannula 4.0 01/12/17 23:59 96 Nasal Cannula 4.0 01/12/17 20:00 36.7 92 22 123/78 (93) 96 Nasal Cannula 4.0 01/12/17 20:00 Nasal Cannula 4.0 01/12/17 15:30 Nasal Cannula 4.0 01/12/17 15:30 36.7 88 20 135/84 (101) 96 Nasal Cannula 4.0 Physical Exam General Appearance: no apparent distress, + obese Eyes: normal inspection ENT: hearing grossly normal Neck: no JVD Respiratory/Chest: no respiratory distress, no accessory muscle use Cardiovascular: no JVD Extremities: normal inspection Neurologic/Psychiatric: alert, normal mood/affect, oriented x 3 Skin: normal color Laboratory Results Last 24 Hours Test 01/13/17 05:39 White Blood Count 16.77 K/uL Red Blood Count 3.73 M/uL Hemoglobin 11.2 g/dL Hematocrit 33.2 % Mean Corpuscular Volume 89.0 fL Mean Corpuscular Hemoglobin 30.0 pg Mean Corpuscular Hemoglobin Concent 33.7 g/dl Platelet Count 51 K/uL Mean Platelet Volume 9.9 fL Neutrophils (%) (Auto) 93.2 % Lymphocytes (%) (Auto) 2.7 % Monocytes (%) (Auto) 3.2 % Eosinophils (%) (Auto) 0.3 % Basophils (%) (Auto) 0.1 % Neutrophils # (Auto) 15.63 K/uL Lymphocytes # (Auto) 0.46 K/uL Monocytes # (Auto) 0.54 K/uL Eosinophils # (Auto) 0.05 K/uL Basophils # (Auto) 0.01 K/uL RDW Standard Deviation 50.3 fL RDW Coefficient of Variation 15.5 % Immature Granulocyte % (Auto) 0.5 % Immature Granulocyte # (Auto) 0.08 K/uL Dohle Bodies 1+ Echinocytes 1+ Prothrombin Time 11.1 SECONDS Prothromb Time International Ratio 1.0 Activated Partial Thromboplast Time 34.5 SECONDS Partial Thromboplastin Ratio 1.3 Sodium Level 142 mmol/L Potassium Level 3.1 mmol/L Chloride Level 112 mmol/L Carbon Dioxide Level 22 mmol/L Anion Gap 8.0 mmol/L Blood Urea Nitrogen 36 mg/dl Creatinine 1.80 mg/dl Est Creatinine Clear Calc Drug Dose 45.4 ml/min Estimated GFR () 40.9 Estimated GFR (Non- 35.3 BUN/Creatinine Ratio 20.2 Random Glucose 93 mg/dl Calcium Level 7.4 mg/dl Total Bilirubin 1.0 mg/dl Aspartate Amino Transf (AST/SGOT) 20 U/L Alanine Aminotransferase (ALT/SGPT) 17 U/L Alkaline Phosphatase 94 U/L Troponin I 0.163 ng/ml Total Protein 5.3 gm/dl Albumin 1.9 gm/dl Globulin 3.4 gm/dl Albumin/Globulin Ratio 0.6 Assessment and Plan POD #2 s/p right ureteral stent placement for sepsis AFVSS. BP has stabilized. No longer on Levophed. Continue IV abx pending culture sensitivities. Would then transition to 14 days of Bactrim or Cipro if sensitive. TOV in 1-2 days prior to d/c home. Will plan for definitive management of stone as an outpatient once his infection has been adequately treated. Will check a KUB while inpatient to see if ESWL can possibly be performed. Pt scheduled to f/u with Britta FELICIANO as an outpatient next week. Will keep as scheduled. Will continue to follow along with primary service at this time. Continued [facility] stay due to: multiple IV medications needed
[2017-01-13] MEDS: [UNRECOGNIZED DRUG - REMARK] SCH (16:00)
--- NOTE | 2017-01-13 16:00 | DIAGNOSTIC IMAGING REPORT ---
KUB CLINICAL HISTORY: right ureteral stone nephrocalcinosis. Stent. COMPARISON STUDY: 09/10/2016. CT 01/11/2017 FINDINGS: Placement of a right ureteral stent. A urinary tract calcification is not identified. Nonobstructive bowel pattern. IMPRESSION: Right ureteral stent. No well-defined calcification within the urinary tracts based on this exam. The above report was generated using voice recognition software. It may contain grammatical, syntax or spelling errors. Electronically signed by: Juanjo Velarde M.D. 01/13/2017 3:59 PM Dictated Date/Time: 01/13/2017 3:57 PM
--- NOTE | 2017-01-13 18:25 | Progress Note ---
Subjective Date of Service: Jan 13, 2017. Subjective pt feels fatigued and tired today, is in agreement that may need PT after discharge, improving renal function. some tachycardia that maybe secondary to b tennille withdrawal Problem List Medical Problems: (1) LINDA (acute kidney injury) Status: Acute (2) Headache Status: Acute (3) HTN (hypertension) Status: Acute (4) Hx of renal calculi Status: Chronic (5) Lactic acidosis Status: Acute (6) Neutropenia Status: Acute (7) Renal insufficiency Status: Acute (8) Septic shock Status: Acute (9) Severe sepsis Status: Acute (10) Urinary tract infection Status: Acute (11) Vomiting Status: Acute Review of Systems Constitutional: + weakness, + fatigue, No fever, No chills Respiratory: + shortness of breath, No cough, No sputum, No wheezing Cardiac: No chest pain, No edema Abdomen: No pain, No nausea, No diarrhea Musculoskeletal: + muscle pain, No joint pain Objective Vital Signs Date Time Temp Pulse Resp B/P (MAP) Pulse Ox O2 Delivery O2 Flow Rate FiO2 01/13/17 16:00 94 Nasal Cannula 2.0 01/13/17 15:00 37.3 18 174/60 (98) 97 01/13/17 13:41 36.5 101 20 139/68 (91) 97 Nasal Cannula 2.0 01/13/17 12:00 Nasal Cannula 4.0 01/13/17 12:00 36.9 119 28 114/72 (86) 96 Nasal Cannula 4.0 01/13/17 08:00 96 Nasal Cannula 3.0 01/13/17 04:00 96 Nasal Cannula 3.0 01/13/17 04:00 36.9 119 28 114/72 (86) 96 Nasal Cannula 3.0 01/12/17 23:59 36.8 87 24 137/88 (104) 96 Nasal Cannula 4.0 01/12/17 23:59 96 Nasal Cannula 4.0 01/12/17 20:00 36.7 92 22 123/78 (93) 96 Nasal Cannula 4.0 01/12/17 20:00 Nasal Cannula 4.0 Physical Exam General Appearance: WD/WN, + mild distress Neck: supple, + JVD Respiratory/Chest: chest non-tender, + decreased breath sounds, + accessory muscle use, + rales Cardiovascular: regular rate, rhythm, no murmur Abdomen: normal bowel sounds, non tender, soft Laboratory Results Last 24 Hours Test 01/13/17 05:39 White Blood Count 16.77 K/uL Red Blood Count 3.73 M/uL Hemoglobin 11.2 g/dL Hematocrit 33.2 % Mean Corpuscular Volume 89.0 fL Mean Corpuscular Hemoglobin 30.0 pg Mean Corpuscular Hemoglobin Concent 33.7 g/dl Platelet Count 51 K/uL Mean Platelet Volume 9.9 fL Neutrophils (%) (Auto) 93.2 % Lymphocytes (%) (Auto) 2.7 % Monocytes (%) (Auto) 3.2 % Eosinophils (%) (Auto) 0.3 % Basophils (%) (Auto) 0.1 % Neutrophils # (Auto) 15.63 K/uL Lymphocytes # (Auto) 0.46 K/uL Monocytes # (Auto) 0.54 K/uL Eosinophils # (Auto) 0.05 K/uL Basophils # (Auto) 0.01 K/uL RDW Standard Deviation 50.3 fL RDW Coefficient of Variation 15.5 % Immature Granulocyte % (Auto) 0.5 % Immature Granulocyte # (Auto) 0.08 K/uL Dohle Bodies 1+ Echinocytes 1+ Prothrombin Time 11.1 SECONDS Prothromb Time International Ratio 1.0 Activated Partial Thromboplast Time 34.5 SECONDS Partial Thromboplastin Ratio 1.3 Sodium Level 142 mmol/L Potassium Level 3.1 mmol/L Chloride Level 112 mmol/L Carbon Dioxide Level 22 mmol/L Anion Gap 8.0 mmol/L Blood Urea Nitrogen 36 mg/dl Creatinine 1.80 mg/dl Est Creatinine Clear Calc Drug Dose 45.4 ml/min Estimated GFR () 40.9 Estimated GFR (Non- 35.3 BUN/Creatinine Ratio 20.2 Random Glucose 93 mg/dl Calcium Level 7.4 mg/dl Total Bilirubin 1.0 mg/dl Aspartate Amino Transf (AST/SGOT) 20 U/L Alanine Aminotransferase (ALT/SGPT) 17 U/L Alkaline Phosphatase 94 U/L Troponin I 0.163 ng/ml Total Protein 5.3 gm/dl Albumin 1.9 gm/dl Globulin 3.4 gm/dl Albumin/Globulin Ratio 0.6 Assessment and Plan 68-year-old man with septic shock from urinary source initial identification of gram-negative bacteria sepsis from e coli urinary source associated with obstructive uropathy, s/p ureteral stent, cefepime renal dosing Regarding previous history of hypertension with current tachycardiam restart metoprolol at lower dose and timolol eyedrops will restart mild diastolic heart failure, low dose lasix, restart b tennille Elevated troponin without chest moore, supply demand trending downward linda associate with shock maybe atn, improving Regarding his BPH continue Jacobsen catheter, restart vesicare when available Pt's WBC did improve, he contineus to be thrombocytopenia will follow Patient is a DO NOT RESUSCITATE Continued [facility] stay due to: multiple IV medications needed
[2017-01-13] MEDS: SIMVASTATIN 20 MG TAB PO SCH (19:33)
[2017-01-13] MEDS: SENNA 8.6 MG TAB PO SCH (19:33)
[2017-01-13] MEDS: POTASSIUM CHLORIDE 20 MEQ TABCR PO SCH (19:33)
[2017-01-13] MEDS: ASPIRIN 81 MG ECTAB PO SCH (19:33)
[2017-01-13] MEDS: LORAZEPAM 0.5 MG TAB PO PRN (21:15)
[2017-01-14] VITALS (12 sets, daily range): BP systolic 137–170; BP diastolic 87–106; PULSE 81–100; TEMP 36.6–38; O2SAT 91–95
[2017-01-14] MEDS: LORAZEPAM 0.5 MG TAB PO PRN ×2 (01:42→22:44)
[2017-01-14] MEDS: ACETAMINOPHEN 325 MG TAB PO PRN ×2 (01:42→19:50)
[2017-01-14 05:28] LABS: HEMATOCRIT 33.8 % (42-52); MEAN CELL VOLUME 88.7 fL (80-100); MEAN CORPUSCULAR HEMOGLOBIN 30.4 pg (25-34); MEAN CORPUSCULAR HGB CONC 34.3 g/dl (32-36); RED BLOOD COUNT 3.81 M/uL (4.7-6.1); WHITE BLOOD COUNT 9.98 K/uL (4.8-10.8)
[2017-01-14 05:37] LABS: PLATELET COUNT 63 K/uL (130-400)
[2017-01-14 05:40] LABS: PROTHROMBIN TIME (PATIENT) 10.3 SECONDS (9.0-12.0)
[2017-01-14 06:06] LABS: CALCIUM 7.7 mg/dl (8.5-10.1); CREATININE 1.4 mg/dl (0.60-1.40); MAGNESIUM 1.6 mg/dl (1.8-2.4); POTASSIUM 3.4 mmol/L (3.5-5.1)
[2017-01-14 06:19] LABS: COMPLETE YES; DOHLE BODIES 1+; ECHINOCYTES 1+; EOSINOPHIL % 1.7 %; LYMPH ABS # 0.43 K/uL (1.2-3.4); LYMPHOCYTE % 4.3 %; NEUTROPHILS % 90.5 %
[2017-01-14] MEDS: PANTOprazole INJ 40 MG in SYRINGE 0 ML IV SCH (07:51)
[2017-01-14] MEDS: [UNRECOGNIZED DRUG - REMARK] SCH ×3 (07:51→22:41)
[2017-01-14] MEDS: FINASTERIDE 5 MG TAB PO SCH (07:52)
[2017-01-14] MEDS: ENOXAPARIN 30 MG/0.3 ML SYR SQ SCH (07:52)
[2017-01-14] MEDS: POTASSIUM CHLORIDE 20 MEQ TABCR PO SCH ×2 (07:52→19:50)
[2017-01-14] MEDS: TIMOLOL MALEATE 0.25% OP SOLN 5 ML BTL OPB SCH (07:52)
[2017-01-14] MEDS: METOPROLOL TARTRATE 25 MG TAB PO SCH ×2 (09:22→19:51)
[2017-01-14] MEDS ORDERED: MAGNESIUM SULFATE 1GM / D5W 1 GM in PREMIXED IN D5W 100 ML IV ONE (09:30)
[2017-01-14] MEDS ORDERED: POTASSIUM CHLORIDE 20 MEQ TABCR PO STA (09:57)
--- NOTE | 2017-01-14 11:31 | Progress Note ---
Subjective Date of Service: Jan 14, 2017. Subjective Pt evaluation today including: conversation w/ patient, conversation w/ family , physical exam, chart review, lab review 76 year old male s/p stent placement for urosepsis. Pt reports he feels very week. This is his biggest complaint. Physical therapy is working with him but he has been somewhat unsteady. May need rehab. PT to assess today. He is tolerating stent. Not overly bothered with stent discomfort. Tolerating diet. Reviewed KUB images- unable to visual stone along side the stent which is noted in good placement. Passed his TOV this am. Remains afebrile. VSS White count and creatinine have normalized. He is on IV cefepime. Urine culture positive for EColi. Problem List Medical Problems: (1) LINDA (acute kidney injury) Status: Acute (2) Headache Status: Acute (3) HTN (hypertension) Status: Acute (4) Hx of renal calculi Status: Chronic (5) Lactic acidosis Status: Acute (6) Neutropenia Status: Acute (7) Renal insufficiency Status: Acute (8) Septic shock Status: Acute (9) Severe sepsis Status: Acute (10) Urinary tract infection Status: Acute (11) Vomiting Status: Acute Review of Systems Constitutional: No fever, No chills ENT: No hearing loss Respiratory: No cough, No shortness of breath Cardiac: No chest pain Abdomen: No nausea Male : No dysuria Heme: No abnormal bleeding/bruising Endo: + fatigue Objective Vital Signs Date Time Temp Pulse Resp B/P (MAP) Pulse Ox O2 Delivery O2 Flow Rate FiO2 01/14/17 08:00 94 Nasal Cannula 2.0 01/14/17 07:53 36.9 90 22 141/87 (105) 94 01/14/17 04:05 95 Nasal Cannula 2.0 01/14/17 03:45 37.1 98 20 149/98 (115) 95 Nasal Cannula 3.0 01/14/17 00:10 95 Nasal Cannula 2.0 01/14/17 00:05 37.8 100 24 155/106 (122) 95 Nasal Cannula 2.0 170/101 (124) 01/13/17 20:00 96 Nasal Cannula 2.0 01/13/17 19:10 37.0 100 20 153/96 (115) 96 Nasal Cannula 2.0 01/13/17 16:00 94 Nasal Cannula 2.0 01/13/17 15:00 37.3 18 174/60 (98) 97 01/13/17 13:41 36.5 101 20 139/68 (91) 97 Nasal Cannula 2.0 01/13/17 12:00 Nasal Cannula 4.0 01/13/17 12:00 36.9 119 28 114/72 (86) 96 Nasal Cannula 4.0 Physical Exam General Appearance: WD/WN, no apparent distress ENT: hearing grossly normal Respiratory/Chest: no respiratory distress, no accessory muscle use Extremities: no pedal edema, no calf tenderness Neurologic/Psychiatric: alert, normal mood/affect, oriented x 3 Skin: normal color Laboratory Results Last 24 Hours Test 01/14/17 04:50 White Blood Count 9.98 K/uL Red Blood Count 3.81 M/uL Hemoglobin 11.6 g/dL Hematocrit 33.8 % Mean Corpuscular Volume 88.7 fL Mean Corpuscular Hemoglobin 30.4 pg Mean Corpuscular Hemoglobin Concent 34.3 g/dl Platelet Count 63 K/uL Mean Platelet Volume 10.0 fL RDW Standard Deviation 50.1 fL RDW Coefficient of Variation 15.6 % Neutrophils % (Manual) 90.5 % Lymphocytes % (Manual) 4.3 % Monocytes % (Manual) 3.5 % Eosinophils % (Manual) 1.7 % Neutrophils # (Manual) 9.03 K/uL Total Absolute Neutrophils 9.03 K/uL Lymphocytes # (Manual) 0.43 K/uL Total Absolute Lymphocytes 0.43 K/uL Monocytes # (Manual) 0.35 K/uL Eosinophils # (Manual) 0.17 K/uL Dohle Bodies 1+ Echinocytes 1+ Prothrombin Time 10.3 SECONDS Prothromb Time International Ratio 1.0 Sodium Level 142 mmol/L Potassium Level 3.4 mmol/L Chloride Level 112 mmol/L Carbon Dioxide Level 23 mmol/L Anion Gap 7.0 mmol/L Blood Urea Nitrogen 29 mg/dl Creatinine 1.40 mg/dl Est Creatinine Clear Calc Drug Dose 58.4 ml/min Estimated GFR () 55.4 Estimated GFR (Non- 47.8 BUN/Creatinine Ratio 21.0 Random Glucose 98 mg/dl Calcium Level 7.7 mg/dl Magnesium Level 1.6 mg/dl Assessment and Plan urosepsis urine culture positive for EColi- Currently on IV cefepime. Recommend sending home on 10-14 days of oral antibx such as Bactrim. KUB reviewed personally. Unable to visualize stone along course of ureter. Will most likely need to consider URS w/ LL to treat stone in the future as outpt. He has appt in our office on Tuesday. he will keep this unless he is d/c to rehab - if so we will reschedule to discuss surgical intervention. Ok to d/c from urology standpoint. Please recall prn issues. Thanks for the opportunity to participate in this pt's care. Continued [facility] stay due to: multiple IV medications needed
--- NOTE | 2017-01-14 12:09 | Clinical Documentation Query ---
MS. DESHPANDESIERRA : CLINICAL DOCUMENTATION QUERY Patient is a 68 year old male admitted for "sepsis from urinary source" per attending and "urosepsis" per healthcare management consultant. Patient was fluid resuscitated, administered IV antibiotics, cultured, and has required vasopressor support to maintain MAP > 65 mmHg. Central line placed in ED. He was monitored in ICU with cardiac hardwire, serial labs, vitals, ongoing antibiotics, and Levophed. Consider documentation as suggested below in order to capture the severity of illness and risk of mortality associated with ICU admission requiring vasopressor support. Urosepsis, in ICD-10 coding language, equates to nothing more than a UTI. The severity of illness associated with a diagnosis within the family of "sepsis" is ultimately lost. In your clinical opinion was this patient being managed for: ( ) Septic shock due to UTI, POA, resolved ( ) Other explanation of clinical findings (Please Explain) ( ) Unable to determine (Please Define) ( ) Need to Discuss ( ) Not Agree The medical record reflects the following clinical findings, treatment, and risk factors. Clinical Indicators: As above Treatment:Patient was fluid resuscitated, administered IV antibiotics, cultured, and has required vasopressor support to maintain MAP > 65 mmHg. Central line placed in ED. He was monitored in ICU with cardiac hardwire, serial labs, vitals, ongoing antibiotics, and Levophed. Cystoscopy. Right ureteral stent placement Risk Factors: obstructing right ureteral stone Please clarify and document your clinical opinion in the progress notes and discharge summary. Terms such as "probable", "suspected", "likely", "questionable", "possible", or "still to be ruled out" are acceptable. IF IN AGREEMENT, YOU MUST DOCUMENT ABOVE DIAGNOSTIC STATEMENT IN DAILY PROGRESS NOTES AND DISCHARGE SUMMARY. This document is not part of the patient's record. Thank You, Jose Luis Velazquez, RN [phone]
[2017-01-14] MEDS: CEFEPIME IV 2,000 MG in DEXTROSE 5% 100ML 100 ML IV SCH (14:04)
[2017-01-14] MEDS: SIMVASTATIN 20 MG TAB PO SCH (19:50)
[2017-01-14] MEDS: ASPIRIN 81 MG ECTAB PO SCH (19:50)
[2017-01-14] MEDS: SENNA 8.6 MG TAB PO SCH (19:50)
[2017-01-15] VITALS (9 sets, daily range): BP systolic 134–167; BP diastolic 83–102; PULSE 78–87; TEMP 36.7–38; O2SAT 93–95
[2017-01-15] MEDS: ACETAMINOPHEN 325 MG TAB PO PRN ×2 (04:03→19:59)
[2017-01-15 04:57] LABS: MEAN CELL VOLUME 88.1 fL (80-100); MEAN CORPUSCULAR HEMOGLOBIN 29.5 pg (25-34); MEAN CORPUSCULAR HGB CONC 33.5 g/dl (32-36); WHITE BLOOD COUNT 9.62 K/uL (4.8-10.8)
[2017-01-15 05:03] LABS: MEAN PLATELET VOLUME 9.7 fL (7.4-10.4); PLATELET COUNT 73 K/uL (130-400)
[2017-01-15 05:07] LABS: PROTHROMBIN TIME (PATIENT) 10.3 SECONDS (9.0-12.0)
[2017-01-15 05:28] LABS: BUN/CREATININE RATIO 18.4 (10-20); CALCIUM 8.3 mg/dl (8.5-10.1); CREATININE 1.3 mg/dl (0.60-1.40); POTASSIUM 3.8 mmol/L (3.5-5.1)
[2017-01-15 05:48] LABS: COMPLETE YES; DOHLE BODIES 1+; ECHINOCYTES 1+; EOSINOPHIL % 2.6 %; LYMPH ABS # 0.59 K/uL (1.2-3.4); LYMPHOCYTE % 6.1 %; META ABS # 0.09 K/uL (0-0); METAMYELOCYTE % 0.9 %; NEUTROPHILS % 83.4 %
[2017-01-15] MEDS: [UNRECOGNIZED DRUG - REMARK] SCH ×3 (07:44→22:50)
[2017-01-15] MEDS: METOPROLOL TARTRATE 25 MG TAB PO SCH (07:45)
[2017-01-15] MEDS: TIMOLOL MALEATE 0.25% OP SOLN 5 ML BTL OPB SCH (07:45)
[2017-01-15] MEDS: FINASTERIDE 5 MG TAB PO SCH (07:46)
[2017-01-15] MEDS: ENOXAPARIN 30 MG/0.3 ML SYR SQ SCH (07:46)
[2017-01-15] MEDS: PANTOprazole INJ 40 MG in SYRINGE 0 ML IV SCH (07:50)
--- NOTE | 2017-01-15 10:30 | Progress Note ---
Subjective Date of Service: Jan 15, 2017. Subjective Pt evaluation today including: conversation w/ patient Voiding: no voiding problems Improved voiding. Problem List Medical Problems: (1) LINDA (acute kidney injury) Status: Acute (2) Headache Status: Acute (3) HTN (hypertension) Status: Acute (4) Hx of renal calculi Status: Chronic (5) Lactic acidosis Status: Acute (6) Neutropenia Status: Acute (7) Renal insufficiency Status: Acute (8) Septic shock Status: Acute (9) Severe sepsis Status: Acute (10) Urinary tract infection Status: Acute (11) Vomiting Status: Acute Review of Systems All Other Systems: Reviewed and Negative (Patient weak, but improving. No other complaints. ) Objective Vital Signs Date Time Temp Pulse Resp B/P (MAP) Pulse Ox O2 Delivery O2 Flow Rate FiO2 01/15/17 08:00 Room Air 01/15/17 07:28 37.1 80 20 167/102 (123) 93 Room Air 01/15/17 05:30 37.0 01/15/17 04:13 Room Air 01/15/17 04:00 38.0 87 22 155/98 (117) 94 Room Air 01/15/17 00:00 37.3 81 18 139/95 (110) 95 Room Air 01/15/17 00:00 Room Air 01/14/17 21:30 36.7 01/14/17 20:00 Room Air 01/14/17 18:54 38.0 89 22 162/91 (114) 91 Room Air 01/14/17 16:00 94 Nasal Cannula 2.0 01/14/17 15:22 37.4 84 18 152/90 (110) 94 Nasal Cannula 01/14/17 12:00 94 Nasal Cannula 2.0 01/14/17 11:46 36.6 81 20 137/96 (110) 95 Room Air Physical Exam General Appearance: WD/WN Eyes: normal inspection ENT: normal ENT inspection Neck: supple Respiratory/Chest: chest non-tender, no accessory muscle use Cardiovascular: regular rate, rhythm Abdomen: non tender Extremities: normal range of motion Neurologic/Psychiatric: capacity planning analyst II-XII nml as tested Skin: normal color Laboratory Results Last 24 Hours Test 01/15/17 04:36 01/15/17 06:30 White Blood Count 9.62 K/uL Red Blood Count 4.20 M/uL Hemoglobin 12.4 g/dL Hematocrit 37.0 % Mean Corpuscular Volume 88.1 fL Mean Corpuscular Hemoglobin 29.5 pg Mean Corpuscular Hemoglobin Concent 33.5 g/dl Platelet Count 73 K/uL Mean Platelet Volume 9.7 fL RDW Standard Deviation 49.1 fL RDW Coefficient of Variation 15.2 % Neutrophils % (Manual) 83.4 % Lymphocytes % (Manual) 6.1 % Monocytes % (Manual) 7.0 % Eosinophils % (Manual) 2.6 % Metamyelocytes % 0.9 % Neutrophils # (Manual) 8.02 K/uL Total Absolute Neutrophils 8.02 K/uL Lymphocytes # (Manual) 0.59 K/uL Total Absolute Lymphocytes 0.59 K/uL Monocytes # (Manual) 0.67 K/uL Eosinophils # (Manual) 0.25 K/uL Metamyelocytes # 0.09 K/uL Dohle Bodies 1+ Echinocytes 1+ Prothrombin Time 10.3 SECONDS Prothromb Time International Ratio 1.0 Sodium Level 139 mmol/L Potassium Level 3.8 mmol/L Chloride Level 109 mmol/L Carbon Dioxide Level 23 mmol/L Anion Gap 7.0 mmol/L Blood Urea Nitrogen 24 mg/dl Creatinine 1.30 mg/dl Est Creatinine Clear Calc Drug Dose 62.9 ml/min Estimated GFR () 60.6 Estimated GFR (Non- 52.3 BUN/Creatinine Ratio 18.4 Random Glucose 125 mg/dl Calcium Level 8.3 mg/dl Bedside Glucose 111 mg/dl Assessment and Plan UTI with sepsis Patient continues to have weakness, but states improved over last day. Ambulating. Improving diet. Voiding without trouble. Denies hematuria at this time. Denies fevers. Will follow and plan to continue monitoring unless change in patient condition. Patient has follow up in place. Continued [facility] stay due to: multiple IV medications needed
[2017-01-15] MEDS: CEFEPIME IV 2,000 MG in DEXTROSE 5% 100ML 100 ML IV SCH (14:44)
--- NOTE | 2017-01-15 18:50 | Progress Note ---
Subjective Date of Service: Jan 15, 2017. Subjective Pt evaluation today including: conversation w/ patient, conversation w/ family (, daughter at bedside), physical exam, chart review, lab review, review of studies (CT abd/pelvis), review of inpatient medication list Pain: denies dysuria, flank pain, back pain PO Intake: improved Voiding: no voiding problems tele with occasional run of a. flutter he "feels good" feels stronger with more energy and better appetite no urinary symptoms walking well in hallways low-grade temp last evening noted by staff Problem List Medical Problems: (1) LINDA (acute kidney injury) Status: Acute (2) Headache Status: Acute (3) HTN (hypertension) Status: Acute (4) Hx of renal calculi Status: Chronic (5) Lactic acidosis Status: Acute (6) Neutropenia Status: Acute (7) Renal insufficiency Status: Acute (8) Septic shock Status: Acute (9) Severe sepsis Status: Acute (10) Urinary tract infection Status: Acute (11) Vomiting Status: Acute Review of Systems Respiratory: No shortness of breath Cardiac: No chest pain Abdomen: No pain Objective Vital Signs Date Time Temp Pulse Resp B/P (MAP) Pulse Ox O2 Delivery O2 Flow Rate FiO2 01/15/17 16:00 Room Air 01/15/17 15:09 37.5 84 18 162/97 (118) 93 Room Air 01/15/17 12:00 Room Air 01/15/17 11:19 36.7 78 20 134/83 (100) 95 Room Air 01/15/17 08:00 Room Air 01/15/17 07:28 37.1 80 20 167/102 (123) 93 Room Air 01/15/17 05:30 37.0 01/15/17 04:13 Room Air 01/15/17 04:00 38.0 87 22 155/98 (117) 94 Room Air 01/15/17 00:00 37.3 81 18 139/95 (110) 95 Room Air 01/15/17 00:00 Room Air 01/14/17 21:30 36.7 01/14/17 20:00 Room Air 01/14/17 18:54 38.0 89 22 162/91 (114) 91 Room Air Physical Exam General Appearance: no apparent distress ENT: pharynx normal Neck: no JVD Respiratory/Chest: lungs clear, no respiratory distress, no accessory muscle use Cardiovascular: regular rate, rhythm, no gallop, no murmur Abdomen: normal bowel sounds, non tender, soft, no organomegaly Extremities: no pedal edema Neurologic/Psychiatric: alert, oriented x 3 Skin: + pertinent finding (right IJ CVC clean) Laboratory Results Last 24 Hours Test 01/15/17 04:36 01/15/17 06:30 White Blood Count 9.62 K/uL Red Blood Count 4.20 M/uL Hemoglobin 12.4 g/dL Hematocrit 37.0 % Mean Corpuscular Volume 88.1 fL Mean Corpuscular Hemoglobin 29.5 pg Mean Corpuscular Hemoglobin Concent 33.5 g/dl Platelet Count 73 K/uL Mean Platelet Volume 9.7 fL RDW Standard Deviation 49.1 fL RDW Coefficient of Variation 15.2 % Neutrophils % (Manual) 83.4 % Lymphocytes % (Manual) 6.1 % Monocytes % (Manual) 7.0 % Eosinophils % (Manual) 2.6 % Metamyelocytes % 0.9 % Neutrophils # (Manual) 8.02 K/uL Total Absolute Neutrophils 8.02 K/uL Lymphocytes # (Manual) 0.59 K/uL Total Absolute Lymphocytes 0.59 K/uL Monocytes # (Manual) 0.67 K/uL Eosinophils # (Manual) 0.25 K/uL Metamyelocytes # 0.09 K/uL Dohle Bodies 1+ Echinocytes 1+ Prothrombin Time 10.3 SECONDS Prothromb Time International Ratio 1.0 Sodium Level 139 mmol/L Potassium Level 3.8 mmol/L Chloride Level 109 mmol/L Carbon Dioxide Level 23 mmol/L Anion Gap 7.0 mmol/L Blood Urea Nitrogen 24 mg/dl Creatinine 1.30 mg/dl Est Creatinine Clear Calc Drug Dose 62.9 ml/min Estimated GFR () 60.6 Estimated GFR (Non- 52.3 BUN/Creatinine Ratio 18.4 Random Glucose 125 mg/dl Calcium Level 8.3 mg/dl Bedside Glucose 111 mg/dl Assessment and Plan 76yo male: 1. septic shock 2nd to UTI in setting of obstructing renal stone - former resolved. 2. e. coli UTI - clinically resolving; day #5 of cefepime; consider transition to PO bactrim tomorrow for total 14 days. 3. obstructing renal stone on right - s/p emergent stent placement earlier this stay - no symptoms. Will need stone removal and stent retrieval after discharge. 4. thrombocytopenia - 2nd to #1 - resolving; cbc am. 5. sepsis-associated ATN - resolved. 6. intermittent a. flutter - beta tennille; observe. 7. DVT proph - lovenox. 8. BPH - finasteride. 9. HTN - uncontrolled - increase metoprolol to 25 BID anticipate d/c in am if temps are normal and feeling well will not need inpatient rehab Continued [facility] stay due to: multiple IV medications needed Discharge planning: home
[2017-01-15] MEDS: ASPIRIN 81 MG ECTAB PO SCH (19:59)
[2017-01-15] MEDS: SENNA 8.6 MG TAB PO SCH (20:00)
[2017-01-15] MEDS: SIMVASTATIN 20 MG TAB PO SCH (20:00)
[2017-01-15] MEDS ORDERED: METOPROLOL TARTRATE 25 MG TAB PO SCH (21:00)
[2017-01-16 04:15] VITALS: BP 157/93; PULSE 84; TEMP 37.3; O2SAT 93
[2017-01-16 06:35] LABS: HEMATOCRIT 35.3 % (42-52); MEAN CELL VOLUME 89.1 fL (80-100); MEAN CORPUSCULAR HEMOGLOBIN 30.6 pg (25-34); MEAN CORPUSCULAR HGB CONC 34.3 g/dl (32-36); RED BLOOD COUNT 3.96 M/uL (4.7-6.1); WHITE BLOOD COUNT 8.34 K/uL (4.8-10.8)
[2017-01-16 07:04] LABS: BUN/CREATININE RATIO 20.9 (10-20); CALCIUM 8.3 mg/dl (8.5-10.1); CREATININE 1.2 mg/dl (0.60-1.40); MAGNESIUM 1.6 mg/dl (1.8-2.4); POTASSIUM 3.7 mmol/L (3.5-5.1)
[2017-01-16 07:13] LABS: MEAN PLATELET VOLUME 9.4 fL (7.4-10.4); PLATELET COUNT 83 K/uL (130-400)
[2017-01-16 07:21] LABS: BASO % 0.1 %; BASO ABS # 0.01 K/uL (0-0.2); COMPLETE YES; ECHINOCYTES 1+; EOS % 1.7 %; IG% 5.5 %; LYMPH % 8.4 %; MONO % 13.4 %; NEUT % 70.9 %
[2017-01-16] MEDS: [UNRECOGNIZED DRUG - REMARK] SCH ×2 (07:27→08:03)
[2017-01-16 07:37] VITALS: BP 152/101; PULSE 81; TEMP 37.3; O2SAT 93
[2017-01-16] MEDS: FINASTERIDE 5 MG TAB PO SCH (07:53)
[2017-01-16] MEDS: ENOXAPARIN 30 MG/0.3 ML SYR SQ SCH (07:54)
[2017-01-16] MEDS: TIMOLOL MALEATE 0.25% OP SOLN 5 ML BTL OPB SCH (07:54)
[2017-01-16] MEDS: MAGNESIUM SULFATE 1GM / D5W 1 GM in PREMIXED IN D5W 100 ML IV SCH ×2 (08:03→09:01)
[2017-01-16] MEDS ORDERED: METOPROLOL TARTRATE 50 MG TAB PO SCH (09:00)
[2017-01-16] MEDS ORDERED: SULF800T23 PO (09:46)
[2017-01-16] MEDS ORDERED: METO1TAB69 PO (09:46)
[2017-01-16] MEDS ORDERED: LACTCHW3 PO (09:46)
[2017-01-16] MEDS ORDERED: CEFTRIAXONE SOD INJ 1 GM in DEXTROSE 5% ADD-VANTAGE 50ML 50 ML IV SCH (10:00)
--- NOTE | 2017-01-16 10:03 | Discharge Instructions ---
Discharge Instructions Date of Service Jan 16, 2017. Admission Reason for Admission: Sepsis Discharge Discharge Diagnosis / Problem: septic shock due to e. coli UTI and obstructing kidney stone Discharge Goals Goal(s): Improve disease control, Learn about illness, Diagnostic testing, Therapeutic intervention Activity Recommendations Activity Limitations: as noted below For the next 1-2 weeks please perform "light" duty - no heavy exertional activity such as yard work, heavy household duties, lifting over 20 pounds, going to the gym, etc. Home PT and OT will come to your home to do therapy. Light walks and light chores are fine. Instructions / Follow-Up Instructions / Follow-Up From Dr. Krishnan - 1. For your urinary tract infection - * take 8 days of bactrim (sulfa drug) starting TOMORROW AM on 01/17/17 * take 10 days of "lactinex" (probiotics) to prevent diarrhea from the bactrim 2. For your kidney stone/stent - * please see [facility] THIS WEEK to coordinate the stone removal and retrieval of the stent 3. Please note that we have made the following changes to your blood pressure pills - * Please cut in half the dose of your toprol xl (metoprolol) from 100mg to 50mg daily * we may need to go back to the larger dose in the near future * Please HOLD the HCTZ (hydrochlorothiazide) for now 4. Do NOT take any [id number] motrin, ibuprofen, naprosyn, alleve, goodie powders, BC powders, or aspirin since your platelets have not returned to normal AND because of your upcoming urological procedures. TYLENOL IS OK for minor aches and pains. 5. Return to [facility] if you have any of the following - * fever over 101 degrees * worsening/recurrent back pain, flank pain, or abdominal pain * vomiting, severe diarrhea, or inability to eat/drink 6. Rash on your back - * you may use [id number] maximum strength hydrocortisone 1% up to three times a day for about 1 week to the rash * this is a common rash in the hospital - often due to irritation from the bed sheets 7. Right neck dressing - * please leave the dressing on for 2 days; keep it clean and dry. * you may shower at this time but keep the dressing covered and dry. 8. See Dr. Ellison, your family doctor, THIS WEEK. Current Hospital Diet Patient's current hospital diet: AHA Diet (Heart Healthy) Discharge Diet Recommended Diet: AHA Diet (Heart Healthy) Procedures Procedures Performed: 1. cystoscopy; right ureteral stent placement. 2. CAT scan of abdomen showing an obstructing (blocking) kidney stone. It also showed "sludge" in your gall bladder. Pending Studies Studies pending at discharge: no Medical Emergencies . Who to Call and When: Medical Emergencies: If at any time you feel your situation is an emergency, please call 911 immediately. . Non-Emergent Contact Non-Emergency issues call your: Urologist Call Non-Emergent contact if: temperature is above 101, your pain is not controlled, your pain is worsening, your pain is unusual for you, your pain is concerning you, you have any medication questions . . "Provider Documentation" section prepared by Osman Krishnan. . VTE Core Measure Inpt VTE Proph given/why not?: SCD's
[2017-01-16 10:32] VITALS: BP 152/101; PULSE 81; TEMP 37.3; O2SAT 93
--- NOTE | 2017-01-16 16:15 | Discharge Summary ---
Discharge Summary Date of Service Jan 16, 2017. Discharge Summary Admission Date: Jan 11, 2017 at 17:03 Discharge Date: Jan 16, 2017 Discharge Disposition: Home with services Principal Diagnosis: septic shock 2nd to e coli UTI Problems/Secondary Diagnoses: 1. obstructing right-sided kidney stone s/p emergent stent placement 2. sepsis-associated ATN / acute kidney injury - resolved 3. thrombocytopenia - resolving; 2nd to sepsis 4. hypokalemia - resolved 5. hypomagnesemia - resolving 6. BPH 7. HTN 8. hyperlipidemia 9. glaucoma 10. probable short runs of atrial tachycardia seen on telemetry - asymptomatic 11. +troponin - likely myocardial demand ischemia in the setting of septic shock Immunizations: Have You Had Influenza Vaccine: Yes Influenza Vaccine Date: Mar 31, 2008 History of Tetanus Vaccine?: Unknown History of Pneumococcal: Yes History of Hepatitis B Vaccine: No Procedures: 1. CT abd/pelvis - IMPRESSION: 1. Mild right-sided obstructive uropathy secondary to a 5 x 4 x 6 mm calculus of the proximal right ureter. 2. Adherent stone along the nondependent gallbladder wall is noted in conjunction with gallbladder sludge and mild amount of pericholecystic edema. These findings could be correlated with right upper quadrant ultrasound if clinically indicated. 3. Small right and trace left pleural effusions. 2. right IJ Central venous catheter 3. cystoscopy, right ureteral stent placement, and retrograde pyelogram - Samy Ramos MD Consultations: critical care - Siddharth Barton MD urology - Samy Ramos MD PT, OT Medication Reconciliation New Medications: Lactobacillus (Lactinex) Chw 3 TAB PO TID for 10 Days, #90 CHW 0 Refills Sulfa/Trimethoprim (Bactrim Ds 800MG/160MG) Tab 1 TAB PO BID for 8 Days, #16 TAB 0 Refills start AM of 01/17/17 Changed Medications: Metoprolol Succ (Toprol Xl) (Toprol-Xl ) 100 Mg Tabcr 0.5 TAB PO QPM, #30 TAB 2 Refills (Changed from: 100 MG; Refills: 0) Continued Medications: Ascorbic Acid (Vitamin C) 500 Mg Tab 500 MG PO DAILY Cyclobenzaprine HCl (Cyclobenzaprine HCl) 10 Mg Tab 10 MG PO QPM Finasteride (Proscar) 5 Mg Tab 5 MG PO QAM Kfxttavophp-Ohdwvkjuxsh-Xep C- (Glucosamine Chondroitin) 1 Tab Tab 2 TAB PO QPM Multivitamins/Minerals (Mvi With Minerals) Tab 1 TAB PO QAM, 0 Refills Omeprazole (Prilosec) 20 Mg Capcr 20 MG PO DAILY Polyethylene Glycol-Propylene (Systane) 1 Alana Alana 1 DROPS OPB QAM, #30 ML 5 Refills Sennosides (Sennosides) 8.6 Mg Tab 8.6 MG PO HS Simvastatin (Zocor) 20 Mg Tab 20 MG PO QPM, TAB Solifenacin Succinate (Vesicare) 10 Mg Tab 10 MG PO QPM, TAB Timolol Maleate (Timolol Maleate) 148 Drops/10 Ml Soln 1 DROP OPB QAM, #5 Discontinued Medications: Aspirin (Aspirin Ec) 81 Mg Tab 81 MG PO QPM Cephalexin Monohydrate (Keflex) 500 Mg Cap 500 MG PO TID, #21 CAP Hydrochlorothiazide (Hctz) 12.5 Mg Cap 12.5 MG PO QAM, TAB Referrals At Discharge Follow up Referrals: Urologist Referral - 01/17/17 with Samy Ramos MD Discharge Exam Physical Exam: General Appearance: WD/WN, no apparent distress, + obese ENT: pharynx normal Neck: no JVD Respiratory/Chest: lungs clear, no respiratory distress, no accessory muscle use Cardiovascular: regular rate, rhythm, no gallop, no murmur, normal peripheral pulses Abdomen / GI: normal bowel sounds, non tender, soft, no organomegaly Extremities: no pedal edema Neurologic/Psychiatric: alert, oriented x 3 Hospital Course HISTORY OF PRESENT ILLNESS: 68-year-old male with prior history of kidney stones who presented with sepsis. Patient was seen in the ER on January 10, diagnosed with UTI, and sent home on Keflex. He presented 24 hours later on 01/11/17 after having emesis, weakness, anorexia, and chills at home. He also reported voiding difficulty for a few days. When he came back to the ER on January 11 he was markedly hypotensive and had elevated lactic acid level. He was given copious volume resuscitation, IV antibiotics were given for his UTI/sepsis, and a central line was placed. Pressors were instituted a short time later for refractory hypotension. He was admitted to the ICU and underwent CT of the abdomen & pelvis demonstrating an obstructing right-sided kidney stone. HOSPITAL COURSE: Due to the obstructing renal stone in the setting of his septic shock an urgent consult was placed to urology. Dr. Samy Ramos from [facility] brought Mr. Parikh to the OR on the night of hospital day #1 and emergently performed cystoscopy with right- sided stent placement. Post-operatively the patient's clinical course improved with resolution of hypotension, weaning off of pressors, and improvement in his renal function. He was transitioned from ICU to the telemetry unit. Urine culture ultimately grew MDR e. coli. The patient completed, in total, 6 days of IV antibiotic therapy. He will be transitioned to oral bactrim for 8 additional days following discharge. Of note - blood cultures were negative during this stay. The patient's renal function returned to normal with creatinine of 1.2 on day of discharge. Peak creatinine was 2.7. All electrolyte abnormalities were corrected as necessary. Other issues addressed - 1. thrombocytopenia - was due to his severe sepsis. Lowest count was 43 and platelets were 83 on day of discharge. He was advised to hold all NSAIDs including aspirin. He will need a repeat CBC within 3-5 days for stability and to ensure normalization of the platelet count. 2. HTN - his beta tennille and HCTZ were held most of his stay. At discharge he was advised to resume the metoprolol xl but at HALF his normal dose. His BPs will need to be followed and his BP meds adjusted as needed. 3. Right IJ central line was removed prior to discharge and site was intact. He was advised to keep the area covered, clean, and dry for 48 hours. The patient has scheduled follow[facility]. Timing of stone removal and stent retrieval will be discussed at that visit. Total Time Spent: Greater than 30 minutes This includes examination of the patient, discharge planning, medication reconciliation, and communication with other providers. Discharge Instructions Please refer to the electronic Patient Visit Report (Discharge Instructions) for additional information. Follow[facility]. [facility] on Tuesday01/17/[address] Amanuel Ellison, PCP, within 5 days Additional Copies To aSmy Ramos MD; Amanuel Ellison M.D.
[2017-01-31] MEDS ORDERED: OXYC-57 PO (08:07)
== END 2017-01-16 11:50 | disposition home health service (06) | DRG 871 ==
LOC: C.EDB 11:14 → C.MSICU 17:03 → ENRESERV 17:19 → C.2E 01-13 13:36
PROVIDERS: ADMIT Internal Medicine; ATTEND Internal Medicine
PROC: 0T9680Z Drainage of Right Ureter with Drainage Device, Via Natural or Artificial Opening Endoscopic (ICD-10-PCS; principal; 2017-01-11 20:25)
PROC: 0TJB8ZZ Inspection of Bladder, Via Natural or Artificial Opening Endoscopic (ICD-10-PCS; principal; 2017-01-11 20:25)
DX: R65.21 Severe sepsis with septic shock (principal); N39.0 Urinary tract infection, site not specified; N17.9 Acute kidney failure, unspecified; N18.3 Chronic kidney disease, stage 3 (moderate); D70.9 Neutropenia, unspecified; I12.9 Hypertensive chronic kidney disease with stage 1 through stage 4 chronic kidney disease, or unspecified chronic kidney disease; E87.6 Hypokalemia; E83.42 Hypomagnesemia; N40.0 Benign prostatic hyperplasia without lower urinary tract symptoms; Z79.82 Long term (current) use of aspirin; Z82.49 Family history of ischemic heart disease and other diseases of the circulatory system; R51 Headache; N28.9 Disorder of kidney and ureter, unspecified; Z87.442 Personal history of urinary calculi; Z79.899 Other long term (current) drug therapy

== ENCOUNTER → 2017-01-20 | Outpatient (CLI) | payer BC ==
[~2017-01-20] MED LIST changes: -ASCA500 PO; +ASCO500T3 PO; -ASPEC81 PO; -CELE1CAP30 PO; -CEPH500C PO; -HYDC25 PO; +LACTCHW3 PO; +OXYC-57 PO; +OXYC1TAB3 PO; +SULF800T23 PO
[2017-01-20 11:57] LABS: BASO % 0.6 %; BASO ABS # 0.04 K/uL (0-0.2); COMPLETE YES; EOS % 0.9 %; HEMATOCRIT 39.2 % (42-52); IG% 2.8 %; LYMPH % 17.2 %; LYMPH ABS # 1.17 K/uL (1.2-3.4); MEAN CELL VOLUME 89.3 fL (80-100); MEAN CORPUSCULAR HEMOGLOBIN 30.5 pg (25-34); MEAN CORPUSCULAR HGB CONC 34.2 g/dl (32-36); MEAN PLATELET VOLUME 9.4 fL (7.4-10.4); MONO % 7.5 %; PLATELET COUNT 260 K/uL (130-400); RED BLOOD COUNT 4.39 M/uL (4.7-6.1); WHITE BLOOD COUNT 6.79 K/uL (4.8-10.8)
== END | disposition home or self-care (01) ==
LOC: C.LAB1850 10:20
PROVIDERS: ATTEND Physician Assistant Medical
DX: D69.6 Thrombocytopenia, unspecified (principal); E83.42 Hypomagnesemia

== ENCOUNTER 2017-01-29 08:14 | Emergency (ER) | payer BC ==
[~2017-01-29] VITALS: Ht 180.3 cm; Wt 111.3 kg
[~2017-01-29 08:14] MED LIST changes: -OXYC-57 PO; -OXYC1TAB3 PO; -POLYSOL4 OPB; -SENN8.6T94 PO; -TMPOPS2510 OPB
[2017-01-29 08:21] VITALS: TEMP 36.8; Ht 180.3 cm; Wt 111.3 kg
--- NOTE | 2017-01-29 08:45 | EMERGENCY ROOM VISIT NOTE ---
History Report prepared by Crow: Umang Paul Under the Supervision of: Dr. Viridiana Armando M.D. First contact with patient: 08:23 Chief Complaint: ARM PAIN Stated Complaint: PAIN AND SWOLLEN L ARM History of Present Illness The patient is a 76 year old male who presents to the Emergency Room with complaints of constant, left wrist pain beginning last evening. The patient states that he was helping with an [employer] project yesterday, and he does not remember doing anything to he. He reports that he picked up a shovel a few times, but mainly watched. The patient notes that he woke up throughout the night with pain and edema. He reports that he has a history of terrible arthritis, and he sees [facility]. He denies beginning on blood thinners and having a fever. The patient states that he was discharged from [facility] 13 days ago. Source of History: patient Onset: last evening Position: wrist (left) Timing: constant Associated Symptoms: No fevers Note: Associated symptoms: edema to his wrist Review of Systems See HPI for pertinent positives & negatives. A total of 6 systems reviewed and were otherwise negative. Past Medical & Surgical Medical Problems: (1) History of small bowel obstruction (2) Hx of renal calculi (3) Kidney stone (4) Sepsis Surgical Problems: (1) H/O hernia repair (2) History of cataract surgery Family History Heart disease Hypertension Social History Smoking Status: Former Smoker Alcohol Use: none Drug Use: none Marital Status: Housing Status: lives with family Occupation Status: retired Current/Historical Medications Scheduled Ascorbic Acid (Vitamin C), 500 MG PO QAM Cyclobenzaprine HCl (Cyclobenzaprine HCl), 10 MG PO QPM Finasteride (Proscar), 5 MG PO QAM Ethxfyypmlb-Jrxkfjbbywy-Qve C- (Glucosamine Chondroitin), 2 TAB PO QPM Metoprolol Succ (Toprol Xl) (Toprol-Xl ), 0.5 TAB PO QPM Multivitamins/Minerals (Mvi With Minerals), 1 TAB PO QAM Omeprazole (Prilosec), 20 MG PO QAM Simvastatin (Zocor), 20 MG PO QPM Solifenacin Succinate (Vesicare), 10 MG PO QPM Scheduled PRN Oxycodone Immediate Rel Tab (Roxicodone Ir), 5 MG PO Q6H PRN for Pain Allergies Coded Allergies: No Known Allergies (Verified , 01/29/17) Physical Exam Vital Signs Date Time Temp Pulse Resp B/P (MAP) Pulse Ox O2 Delivery O2 Flow Rate FiO2 01/29/17 10:23 78 18 145/100 98 01/29/17 08:21 36.8 92 18 143/84 95 Room Air Physical Exam Vital signs reviewed. General: Well-appearing, 76 year old male, in no significant distress. Musculoskeletal: Edema to the dorsum of the left wrist, pain with flexion, tenderness to palpation over the left thenar eminence, tenderness to palpation over the the left distal radius. Neurologic: Patient awake alert and oriented x 3. Skin: Warm, dry, no rash Medical Decision & Procedures ER Provider Diagnostic Interpretation: X-ray results as stated below per interpretation by me and the radiologist: LEFT WRIST MIN 3 VIEWS ROUTINE CLINICAL HISTORY: 76 years-old Male presenting with L wrist pain, swelling. TECHNIQUE: Frontal, bilateral oblique and lateral views of the left wrist were obtained. COMPARISON: None. FINDINGS: Widening of the scapholunate interval with proximal displacement of the capitate. Evidence of significant joint loss in the radiocarpal articulation with the scaphoid. Subchondral sclerosis and cystic change evident both in the scaphoid and in the radius. The scaphoid is slightly tilted more pole are then normal. The lunate, however, maintains grossly normal angulation. Osseous fragmentation along the radial aspect of the distal scaphoid likely degenerative in etiology either rising from the scaphoid, radial styloid, or adjacent soft tissues. Degenerative change noted at the first carpometacarpal articulation, first metacarpophalangeal joint as well as suspected at the articulation of the hamate and triquetrum. 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 Additional degenerative changes as above. Electronically signed by: Vitaly Villareal M.D. 01/29/2017 9:12 AM Dictated Date/Time: 01/29/2017 9:07 AM Laboratory Results 01/29/17 08:45 Red Blood Count 4.40, Mean Corpuscular Volume 90.7, Mean Corpuscular Hemoglobin 30.2, Mean Corpuscular Hemoglobin Concent 33.3, Mean Platelet Volume 9.4, Neutrophils (%) (Auto) 74.2, Lymphocytes (%) (Auto) 15.8, Monocytes (%) (Auto) 8.1, Eosinophils (%) (Auto) 0.6, Basophils (%) (Auto) 0.6, Neutrophils # (Auto) 6.66, Lymphocytes # (Auto) 1.42, Monocytes # (Auto) 0.73, Eosinophils # (Auto) 0.05, Basophils # (Auto) 0.05 01/29/17 08:45 Test 01/29/17 08:45 White Blood Count 8.97 K/uL (4.8-10.8) Red Blood Count 4.40 M/uL (4.7-6.1) Hemoglobin 13.3 g/dL (14.0-18.0) Hematocrit 39.9 % (42-52) Mean Corpuscular Volume 90.7 fL (80-100) Mean Corpuscular Hemoglobin 30.2 pg (25-34) Mean Corpuscular Hemoglobin Concent 33.3 g/dl (32-36) Platelet Count 197 K/uL (130-400) Mean Platelet Volume 9.4 fL (7.4-10.4) Neutrophils (%) (Auto) 74.2 % Lymphocytes (%) (Auto) 15.8 % Monocytes (%) (Auto) 8.1 % Eosinophils (%) (Auto) 0.6 % Basophils (%) (Auto) 0.6 % Neutrophils # (Auto) 6.66 K/uL (1.4-6.5) Lymphocytes # (Auto) 1.42 K/uL (1.2-3.4) Monocytes # (Auto) 0.73 K/uL (0.11-0.59) Eosinophils # (Auto) 0.05 K/uL (0-0.5) Basophils # (Auto) 0.05 K/uL (0-0.2) RDW Standard Deviation 47.9 fL (36.4-46.3) RDW Coefficient of Variation 14.4 % (11.5-14.5) Immature Granulocyte % (Auto) 0.7 % Immature Granulocyte # (Auto) 0.06 K/uL (0.00-0.02) Erythrocyte Sedimentation Rate 43 mm/hr (0-14) Anion Gap 6.0 mmol/L (3-11) Est Creatinine Clear Calc Drug Dose 51.5 ml/min Estimated GFR () 51.0 Estimated GFR (Non- 44.0 BUN/Creatinine Ratio 19.3 (10-20) Uric Acid 6.5 mg/dl (2.6-7.2) Calcium Level 9.1 mg/dl (8.5-10.1) C-Reactive Protein 1.54 mg/dl (0-0.29) Chemistry Specimen Hemolysis Lyme Disease IgG Antibody POS (NEG) Laboratory results per my review. Medications Administered Medications (Trade) Dose Ordered Sig/Sienna Route Start Time Stop Time Status Last Admin Dose Admin Oxycodone/ Acetaminophen (Percocet 5-325mg Tab) 1 tab NOW ONCE PO 01/29/17 10:15 01/29/17 10:16 DC 01/29/17 10:19 1 TAB ED Course 0830: Past medical records reviewed. The patient was evaluated in room A03. A complete history and physical examination was performed. 1011: Upon reevaluation, the patient is resting. He states that he would like something for pain. I discussed findings with him. He verbalized agreement of the treatment plan. The patient will be discharged home once he receives his medication. 1015: Ordered Oxycodone/Acetaminophen 1tab PO Medical Decision Differential diagnosis: Etiologies such as fracture, dislocation, neurovascular compromise, compartment syndrome, soft tissue injury, as well as others were entertained. This patient was evaluated and appeared to be in no significant distress. Physical examination reveals swelling over the dorsum of the wrist. There is significant degenerative change noted on the x-ray. The patient was helping do some landscaping yesterday and may have aggravated the wrist. He also has recently been admitted for sepsis has been on multiple antibiotics. While I was possibility that this is traumatic, I felt more likely an overuse versus a reactive arthritis. Lyme titer is pending. Patient's sedimentation rate and CRP are both elevated with a white count is normal. Patient was placed in a wrist lacer. He was advised to follow-up with his orthopedic surgeon within the next week. I am unable to prescribe NSAIDs as he is due to have a urologic procedure done within the next several days. He was given a prescription for OxyIR at discharge, asked not to drive on this medication. He will otherwise use Tylenol for pain. Patient will ice and elevate and return to the emergency department for worsening of symptoms or any medical concerns. Medication Reconcilliation Current Medication List: was personally reviewed by me Blood Pressure Screening Patient's blood pressure: Elevated blood pressure Blood pressure disposition: Elevated BP felt to be situational Impression Primary Impression: Swelling of joint, wrist, left Scribe Attestation The scribe's documentation has been prepared under my direction and personally reviewed by me in its entirety. I confirm that the note above accurately reflects all work, treatment, procedures, and medical decision making performed by me. Departure Information Dispostion Home / Self-Care Prescriptions Oxycodone Immediate Rel Tab (ROXICODONE IR) 5 Mg Tab 5 MG PO Q6H Y for Pain, #20 TAB Prov: Viridiana Armando M.D. 01/29/17 Referrals Amanuel Ellison M.D. (PCP) Forms HOME CARE DOCUMENTATION FORM, IMPORTANT VISIT INFORMATION Patient Instructions My [facility] Additional Instructions Diagnosis: Left wrist swelling Tylenol 650 mg every 6 hours as needed for pain Oxy IR 5 mg every 6 hours as needed for severe pain, do not drive on this medication. Wear immobilizer during the day, it maybe removed for sleep and showers. Avoid repetitive movements with left left hand. Ice and elevate several times a day for the next 24-48 hours. Follow up with orthopaedics this week for reevaluation. Return to the ED for worsening of symptoms or any medical concerns.
--- NOTE | 2017-01-29 09:14 | DIAGNOSTIC IMAGING REPORT ---
LEFT WRIST MIN 3 VIEWS ROUTINE CLINICAL HISTORY: 76 years-old Male presenting with L wrist pain, swelling. TECHNIQUE: Frontal, bilateral oblique and lateral views of the left wrist were obtained. COMPARISON: None. FINDINGS: Widening of the scapholunate interval with proximal displacement of the capitate. Evidence of significant joint loss in the radiocarpal articulation with the scaphoid. Subchondral sclerosis and cystic change evident both in the scaphoid and in the radius. The scaphoid is slightly tilted more pole are then normal. The lunate, however, maintains grossly normal angulation. Osseous fragmentation along the radial aspect of the distal scaphoid likely degenerative in etiology either rising from the scaphoid, radial styloid, or adjacent soft tissues. Degenerative change noted at the first carpometacarpal articulation, first metacarpophalangeal joint as well as suspected at the articulation of the hamate and triquetrum. 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 Additional degenerative changes as above. Electronically signed by: Vitaly Villareal M.D. 01/29/2017 9:12 AM Dictated Date/Time: 01/29/2017 9:07 AM
[2017-01-29 09:21] LABS: BASO % 0.6 %; BASO ABS # 0.05 K/uL (0-0.2); COMPLETE YES; EOS % 0.6 %; HEMATOCRIT 39.9 % (42-52); IG% 0.7 %; LYMPH % 15.8 %; LYMPH ABS # 1.42 K/uL (1.2-3.4); MEAN CELL VOLUME 90.7 fL (80-100); MEAN CORPUSCULAR HEMOGLOBIN 30.2 pg (25-34); MEAN CORPUSCULAR HGB CONC 33.3 g/dl (32-36); MEAN PLATELET VOLUME 9.4 fL (7.4-10.4); MONO % 8.1 %; NEUT % 74.2 %; PLATELET COUNT 197 K/uL (130-400); WHITE BLOOD COUNT 8.97 K/uL (4.8-10.8)
[2017-01-29 09:32] LABS: BUN/CREATININE RATIO 19.3 (10-20); C-REACTIVE PROTEIN 1.54 mg/dl (0-0.29); CALCIUM 9.1 mg/dl (8.5-10.1); CREATININE 1.5 mg/dl (0.60-1.40); POTASSIUM 4.4 mmol/L (3.5-5.1); URIC ACID 6.5 mg/dl (2.6-7.2)
[2017-01-29] MEDS ORDERED: OXYC1TAB3 PO (10:14)
[2017-01-29] MEDS ORDERED: OXYCODONE/ACETAMINOPHEN 5-325 TAB PO ONE (10:15)
[2017-01-29 10:23] VITALS: BP 145/100; PULSE 78; O2SAT 98
[2017-01-29 11:10] LABS: LYME DISEASE AB IGM NEG (NEG)
[2017-01-29 11:12] LABS: LYME DISEASE AB IGG POS (NEG)
[2017-01-31] MEDS ORDERED: OXYC-57 PO (08:07)
[2017-02-05 11:08] LABS: 18KDIGG BAND NONREACTIVE (NONREACTIVE); 23KDIGG BAND REACTIVE (NONREACTIVE); 23KDIGM BAND NONREACTIVE (NONREACTIVE); 28KDIGG BAND NONREACTIVE (NONREACTIVE); 30KDIGG BAND NONREACTIVE (NONREACTIVE); 39KDIGG BAND NONREACTIVE (NONREACTIVE); 39KDIGM BAND NONREACTIVE (NONREACTIVE); 41KDIGG BAND REACTIVE (NONREACTIVE); 41KDIGM BAND NONREACTIVE (NONREACTIVE); 45KDIGG BAND NONREACTIVE (NONREACTIVE); 58KDIGG BAND REACTIVE (NONREACTIVE); 66KDIGG BAND NONREACTIVE (NONREACTIVE); 93KDIGG BAND NONREACTIVE (NONREACTIVE)
== END 2017-01-29 10:23 | disposition home or self-care (01) ==
LOC: C.EDB 08:14 → C.EDA 10:23
DX: M25.432 Effusion, left wrist (principal); Z87.442 Personal history of urinary calculi; Z82.49 Family history of ischemic heart disease and other diseases of the circulatory system; Z87.891 Personal history of nicotine dependence; Z79.899 Other long term (current) drug therapy

== ENCOUNTER 2017-01-31 04:59 | Day surgery (SDC) | payer BC, OTHER ==
[2017-01-20 12:47] VITALS: BMI 36.0
[~2017-01-31] VITALS: Ht 180.3 cm; Wt 114.0 kg
[~2017-01-31 04:59] MED LIST changes: -LACTCHW3 PO; +OXYC1TAB3 PO; -SULF800T23 PO
[2017-01-31] MEDS ORDERED: OXYC1TAB3 PO (05:38)
[2017-01-31 05:47] VITALS: BP 135/86; PULSE 89; TEMP 37; O2SAT 95; Ht 180.3 cm; Wt 114.0 kg
[2017-01-31] MEDS ORDERED: LACTATED RINGER'S 1000ML 1,000 ML IV SCH (06:00)
[2017-01-31] MEDS ORDERED: CIPROFLOXACIN / D5W 400 MG IV SCH (06:00)
[2017-01-31] MEDS ORDERED: MIDAZOLAM HCL 1 MG/ML 2ML VIAL ONE (06:41)
[2017-01-31] MEDS ORDERED: FENTANYL CITRATE INJ 50 MCG/1 ML 2 ML VIAL ONE ×2 (06:41→07:30)
[2017-01-31] MEDS ORDERED: LIDOCAINE HCL 2% 2 ML VIAL (20MG/ML) ONE (06:41)
[2017-01-31] MEDS ORDERED: PROPOFOL IV EMULSION 10 MG/ML 20 ML VIAL IV ONE ×2 (06:41→07:29)
--- NOTE | 2017-01-31 06:53 | History & Physical Bridge Note ---
H&P Re-Evaluation Bridge Note: I have examined the patient, reviewed the History & Physical and in the interval since the performance of the History & Physical I have noted the following changes of clinical significance: No changes noted
[2017-01-31] MEDS ORDERED: CONRAY 30% 150ML BOTTLE ONE (07:27)
[2017-01-31] MEDS ORDERED: ONDANSETRON INJ 2 MG/ML 2 ML VIAL ONE (07:29)
[2017-01-31] MEDS ORDERED: OXYC-57 PO (08:07)
--- NOTE | 2017-01-31 08:08 | Discharge Instructions ---
Discharge Instructions Date of Service Jan 31, 2017. Visit Reason for Visit: Stones; N20.0 Discharge Discharge Diagnosis / Problem: stone Discharge Goals Goal(s): Therapeutic intervention Activity Recommendations Activity Limitations: resume your previous activity (take it easy today) Anesthesia . Post Anesthesia Instructions: If you have had General Anesthesia or IV Sedation: * Do not drive today. * Resume driving when surgeon permits. * Do not make important decisions or sign legal documents today. * Call surgeon for: 1. Temperature elevations greater than 101 degrees F. 2. Uncontrollable pain. 3. Excessive bleeding. 4. Persistent nausea and vomiting. 5. Medication intolerance (nausea, vomiting or rash). * For nausea and vomiting use only clear liquids such as: tea, soda, bouillon until nausea subsides, then gradually increase diet as tolerated. * If you have any concerns or questions, call your surgeon's office. If physician is unavailable and it is an emergency, call 911 or go to the nearest emergency room. . Diet Recommendations Recommended Home Diet: resume previous diet Procedures Procedures Performed: Cystoscopy, Ureteroscopy, Retrograde Pyelogram, Laser Lithotripsy; Right Stent Exchange Pending Studies Studies pending at discharge: no Medical Emergencies . Who to Call and When: Medical Emergencies: If at any time you feel your situation is an emergency, please call 911 immediately. . Non-Emergent Contact Non-Emergency issues call your: Urologist Call Non-Emergent contact if: temperature is above 101.5, your pain is not controlled . . "Provider Documentation" section prepared by Samy Ramos. . [place] Drug Monitoring Program Search Results: patient reviewed within database
[2017-01-31] MEDS ORDERED: OXYCODONE/ACETAMINOPHEN 5-325 TAB PO PRN (08:15)
--- NOTE | 2017-01-31 08:21 | DIAGNOSTIC IMAGING REPORT ---
RETROGRADE INCLUDES KUB HISTORY: RIGHT LASER/LITHOTRIPSY AND STENT FLUOROSCOPY TIME: 41 seconds FINDINGS: 5 fluoroscopic spot images were submitted for review. Guidewire placed in the right ureter in a retrograde fashion and followed by injection of contrast. This is followed by placement of a right ureteral stent. IMPRESSION: Fluoroscopy provided for right ureteral stent placement. Electronically signed by: Naeem Keith M.D. 01/31/2017 8:19 AM Dictated Date/Time: 01/31/2017 8:18 AM
[2017-01-31] MEDS ORDERED: ATROPINE SULFATE 0.1 MG/ML 5ML SYR IV PRN (08:30)
[2017-01-31] MEDS ORDERED: EpHEDrine SULFATE INJ 50 MG/ML AMP IV PRN (08:30)
--- NOTE | 2017-01-31 08:35 | Anesthesiology Progress Note ---
Anesthesia Post Op Note Date & Time Jan 31, 2017 at 08:35 Vital Signs Pain Intensity: 0 Vital Signs Past 12 Hours Date Time Temp Pulse Resp B/P (MAP) Pulse Ox O2 Delivery O2 Flow Rate FiO2 01/31/17 08:30 81 16 122/80 96 Room Air 01/31/17 08:20 88 16 134/87 95 Room Air 01/31/17 08:10 77 16 138/83 100 Mask 10 01/31/17 08:01 37.2 89 16 141/89 100 Mask 10 01/31/17 05:47 37 89 20 135/86 (102) 95 Room Air Notes Mental Status: alert / awake / arousable, participated in evaluation Pt Amnestic to Procedure: Yes Nausea / Vomiting: adequately controlled Pain: adequately controlled Airway Patency, RR, SpO2: stable & adequate BP & HR: stable & adequate Hydration State: stable & adequate Anesthetic Complications: no major complications apparent
--- NOTE | 2017-01-31 08:48 | [facility] Operative Report ---
Operative Report Operative Date Jan 31, 2017. Pre-Operative Diagnosis Right Renal Pelvic Stone Post-Operative Diagnosis Right Renal Pelvic Stone Procedure(s) Performed Cystoscopy, Ureteroscopy, Retrograde Pyelogram, Laser Lithotripsy; Right Stent Exchange Surgeon Dr. Samy Ramos Blower And Compressor Assembler Surgeon(s) Dr. Maicol Rodrigues Estimated Blood Loss 0ML Findings Cystoscopic exam showed a normal anterior urethra. Prostatic fossa was moderately obstructing with an elevated median lobe kissing lateral lobes bladder showed some edema from the previously placed stent. There were no bladder tumors seen. Ureteroscopy confirmed a stone in the lower pole of the right kidney Specimens none per surgeons Dr. Ramos and Dr. Rodrigues Drains 6 New Zealander by multilength right ureteral stent Anesthesia Gen. Complication(s) None Disposition Recovery Room / PACU Indications Patient is a 76-year-old white male who is admitted to the hospital with urosepsis secondary to an obstructing stone. He had a right stent placed. His sepsis was treated and he was discharged home. He is being brought in now for treatment of the stone. Description of Procedure After the induction of an adequate general anesthetic and appropriate timeout patient was laced in the dorsal lithotomy position. Lower abdomen and genitalia were prepped with Hibiclens and draped in a sterile fashion. Next using a 22 [place] Zealander cystoscope routine cystoscopic exam was performed and then the previously placed stent was grasped and brought out to the meatus. Through this previously placed stent a 0.03 guidewire was passed up the right ureter until position in the pelvis under fluoroscopic guidance. The old stent was removed. Next using a 5 [place]ander Pollack catheter a right retrograde was performed and then through this a second point of 3 guidewire was passed up the right ureter to position in the renal pelvis again under fluoroscopic guidance. Cystoscope was removed along with the Pollack catheter flexible ureteroscope was then passed over a guidewire and fluoroscopic guidance and direct vision until position in the renal pelvis. Ureteroscopy was performed showing the stone in the lower pole calyx. Next using a 200 holmium laser fiber stone was fragmented into multiple small pieces. After fragmenting the stone into pieces small enough to pass the ureteroscope was removed. The guidewire was rethreaded through the cystoscope and a 6 [place] by multilength stent was passed up the right ureter under fluoroscopic guidance to position the renal pelvis guidewire was removed there was good curl at the bladder level. Patient' s bladder was then drained cystoscope and sheath were removed. All needle sponge and instrument counts were correct at the end of the case. Patient tolerated the procedure well and was taken to the recovery room in stable condition I attest to the content of the Intraoperative Record and any orders documented therein. Any exceptions are noted below.
[2017-01-31 09:10] VITALS: BP 139/73; PULSE 79; TEMP 36.8; O2SAT 97
[2017-01-31] MEDS ORDERED: PHENYLEPHRINE 100MCG/ML 5ML SYR ONE (09:32)
[2017-01-31 09:38] VITALS: BP 139/73; PULSE 83; O2SAT 95
[2017-01-31 09:55] VITALS: BP 128/74; PULSE 91; TEMP 36.5; O2SAT 96
== END 2017-01-31 10:00 | disposition home or self-care (01) ==
LOC: C.ACU 04:59
PROVIDERS: ATTEND Urology
DX: N20.0 Calculus of kidney (principal); N40.0 Benign prostatic hyperplasia without lower urinary tract symptoms; I10 Essential (primary) hypertension; E78.5 Hyperlipidemia, unspecified; K21.9 Gastro-esophageal reflux disease without esophagitis; H40.9 Unspecified glaucoma; Z79.899 Other long term (current) drug therapy

== ENCOUNTER → 2017-03-01 | Outpatient (CLI) | payer BC ==
[~2017-03-01] MED LIST changes: +OXYC-57 PO
--- NOTE | 2017-03-01 12:45 | DIAGNOSTIC IMAGING REPORT ---
KUB CLINICAL HISTORY: N20.0 [id number] nephrocalcinosis COMPARISON STUDY: 01/13/2017 FINDINGS: Interval removal of the right ureteral stent. No significant nephrocalcinosis. Nonobstructive bowel pattern. Posterior right hip arthroplasty. IMPRESSION: Interval removal of the right ureteral stent. No current evidence for nephrocalcinosis. The above report was generated using voice recognition software. It may contain grammatical, syntax or spelling errors. Electronically signed by: Juanjo Velarde M.D. 03/01/2017 12:44 PM Dictated Date/Time: 03/01/2017 12:37 PM
== END | disposition home or self-care (01) ==
LOC: C.RADBC 12:21
PROVIDERS: ATTEND Urology
DX: N20.0 Calculus of kidney (principal)

== ENCOUNTER → 2017-06-24 | Outpatient (CLI) | payer BC ==
[~2017-06-24] MED LIST changes: +METO100T44 PO; -METO1TAB69 PO
[2017-06-24 10:55] LABS: BASO % 0.5 %; BASO ABS # 0.03 K/uL (0-0.2); EOS % 2.2 %; EOS ABS # 0.13 K/uL (0-0.5); HEMATOCRIT 43.5 % (42-52); HEMOGLOBIN 15.2 g/dL (14.0-18.0); IG# 0.02 K/uL (0.00-0.02); LYMPH % 22.9 %; LYMPH ABS # 1.38 K/uL (1.2-3.4); MEAN CELL VOLUME 90.4 fL (80-100); MEAN CORPUSCULAR HEMOGLOBIN 31.6 pg (25-34); MEAN CORPUSCULAR HGB CONC 34.9 g/dl (32-36); MEAN PLATELET VOLUME 10.2 fL (7.4-10.4); NEUT % 64.1 %; NEUT ABS # 3.87 K/uL (1.4-6.5); PLATELET COUNT 163 K/uL (130-400); RED CELL DISTRIBUTION WIDTH CV 14.2 % (11.5-14.5); RED CELL DISTRIBUTION WIDTH SD 46.5 fL (36.4-46.3); WHITE BLOOD COUNT 6.03 K/uL (4.8-10.8)
[2017-06-24 11:18] LABS: ALBUMIN 3.7 gm/dl (3.4-5.0); ALT/SGPT 23 U/L (12-78); BLOOD UREA NITROGEN 34 mg/dl (7-18); CARBON DIOXIDE 25 mmol/L (21-32); CHOLESTEROL 166 mg/dl (0-200); CREATININE 1.32 mg/dl (0.60-1.40); GLUCOSE 105 mg/dl (70-99); POTASSIUM 3.9 mmol/L (3.5-5.1); SODIUM 141 mmol/L (136-145)
[2017-06-24 11:28] LABS: ALKALINE PHOSPHATASE 48 U/L (45-117); AST/SGOT 19 U/L (15-37); LDL CHOLESTEROL CALCULATED 78 mg/dl
== END | disposition home or self-care (01) ==
LOC: C.LABBC 08:37
PROVIDERS: ATTEND Internal Medicine Pulmonary Disease
DX: E78.5 Hyperlipidemia, unspecified (principal); I10 Essential (primary) hypertension; N40.1 Benign prostatic hyperplasia with lower urinary tract symptoms; M15.9 Polyosteoarthritis, unspecified; J06.9 Acute upper respiratory infection, unspecified

== ENCOUNTER → 2018-01-02 | Outpatient (CLI) | payer BC ==
[~2018-01-02] MED LIST changes: +METO50TA8 PO; -OXYC-57 PO; +OXYC-90 PO; -OXYC1TAB3 PO
--- NOTE | 2018-01-02 12:51 | DIAGNOSTIC IMAGING REPORT ---
MRI LUMBAR SPINE W/O CONTRAST CLINICAL HISTORY: M48.061,M51.36 BILATERAL LEG RADICULOPATHY. TECHNIQUE: Sagittal and axial T1, T2 and STIR images were obtained. COMPARISON STUDY: Conventional radiographic study the lumbar spine dated 12/21/2017 OBSERVATIONS: The vertebral bodies and posterior elements appear intact. There is no abnormal bony signal present to suggest a marrow replacement process. L1-2: There is a mild circumferential disc bulge. There is no significant spinal or foraminal stenosis L2-3: There is a circumferential disc bulge. There is facet joint arthropathy. There is mild to moderate spinal stenosis. There is mild bilateral foraminal narrowing. L3-4: There is a circumferential disc bulge. There is facet joint ligamentous hypertrophy. There is moderate to severe spinal stenosis. There is mild bilateral foraminal narrowing. L4-5: There is a circumferential disc bulge. There is mild spinal stenosis. There is minor foraminal narrowing. L5-S1: There is a circumferential disc bulge. There is facet joint arthropathy. There is no significant spinal stenosis. There is left-sided foraminal narrowing. The conus medullaris and cauda equina appear normal. There is right psoas atrophy. IMPRESSION: 1. Moderate multilevel spondylitic changes. 2. Mild spinal stenosis the L4-5 level, mild to moderate spinal stenosis the L2-3 level, and moderate to severe spinal stenosis at the L3-4 level. Electronically signed by: Jae Valencia M.D. 01/02/2018 12:50 PM Dictated Date/Time: 01/02/2018 12:43 PM
== END | disposition home or self-care (01) ==
LOC: C.MRIBC 11:34
PROVIDERS: ATTEND Orthopaedic Surgery Orthopaedic Surgery of the Spine
DX: M48.061 Spinal stenosis, lumbar region without neurogenic claudication (principal); M51.36 Other intervertebral disc degeneration, lumbar region

== ENCOUNTER → 2018-01-17 | Outpatient (CLI) | payer BC ==
[~2018-01-17] MED LIST changes: +ASPI-232 PO; +CLB/200 PO; +DOCU100C31 PO; +HYDR12.56 PO; -METO100T44 PO; +POLY335019 PO; +POLYSOL4 OP
[2018-01-17 12:19] LABS: BASO % 0.4 %; BASO ABS # 0.02 K/uL (0-0.2); EOS % 1.6 %; EOS ABS # 0.08 K/uL (0-0.5); HEMATOCRIT 43.3 % (42-52); IG# 0.03 K/uL (0.00-0.02); LYMPH ABS # 1.05 K/uL (1.2-3.4); MEAN CELL VOLUME 89.5 fL (80-100); MEAN CORPUSCULAR HGB CONC 34.6 g/dl (32-36); MEAN PLATELET VOLUME 9.6 fL (7.4-10.4); MONO ABS # 0.55 K/uL (0.11-0.59); NEUT % 65.4 %; NEUT ABS # 3.28 K/uL (1.4-6.5); PLATELET COUNT 148 K/uL (130-400); RED CELL DISTRIBUTION WIDTH CV 13.6 % (11.5-14.5); RED CELL DISTRIBUTION WIDTH SD 44.4 fL (36.4-46.3); WHITE BLOOD COUNT 5.01 K/uL (4.8-10.8)
[2018-01-17 12:20] LABS: PTT PATIENT 24.3 SECONDS (21.0-31.0)
--- NOTE | 2018-01-17 12:35 | DIAGNOSTIC IMAGING REPORT ---
TWO VIEW CHEST CLINICAL HISTORY: Preoperative examination. FINDINGS: PA and lateral chest radiographs are compared to study dated 01/11/2017. The heart is top normal for projection. The distal contour is within normal limits. Chronic interstitial thickening similar to previous. There is bibasilar scarring/atelectasis. No airspace consolidation or pleural effusion is identified. There is no pneumothorax. The skeletal structures are osteopenic. A right shoulder arthroplasty is in place. IMPRESSION: No active disease in the chest. Electronically signed by: Mathieu Sweeney M.D. 01/17/2018 12:33 PM Dictated Date/Time: 01/17/2018 12:33 PM
[2018-01-17 13:07] LABS: BLOOD UREA NITROGEN 28 mg/dl (7-18); CALCIUM 8.7 mg/dl (8.5-10.1); CARBON DIOXIDE 24 mmol/L (21-32); CREATININE 1.48 mg/dl (0.60-1.40); GLUCOSE 109 mg/dl (70-99); SODIUM 137 mmol/L (136-145)
== END | disposition home or self-care (01) ==
LOC: C.CPL 11:17
PROVIDERS: ATTEND Orthopaedic Surgery Orthopaedic Surgery of the Spine
DX: Z01.810 Encounter for preprocedural cardiovascular examination (principal); Z01.818 Encounter for other preprocedural examination

== ENCOUNTER 2023-01-03 06:14 | Observation (INO) ==
--- NOTE | 2022-11-23 14:10 | PAT Medication Instructions ---
Medication Instructions Date of Service November 23, 2022 Home Medications Medication Instructions Recorded metoprolol succinate 100 mg 100 mg PO DAILY #90 tabs 01/11/22 tablet,extended release 24 hr hydrocortisone 2.5 % topical cream See Rx Instructions .Route 02/11/22 with perineal applicator .COMPLEX #30 grams hydrochlorothiazide 12.5 mg tablet 12.5 mg PO DAILY #90 tabs 02/15/22 omeprazole 20 mg tablet,delayed 20 mg PO QAM #90 tabs 04/19/22 release calcitriol 0.25 mcg capsule 0.25 mcg PO .COMPLEX #36 caps 05/11/22 simvastatin 20 mg tablet 20 mg PO PM #90 tabs 09/29/22 solifenacin 10 mg tablet (Vesicare) 10 mg PO QPM #90 tabs 09/29/22 finasteride 5 mg tablet See Rx Instructions .Route 10/19/22 .COMPLEX #90 tabs multivitamin 1 cap PO QAM glucosamine 375 ag-qorjwtzez-oal no1 500 mg-C 15 mg-ana 0.5 mg tablet (Gluco wnxeqy-Aplttzxahuk-AHO Complex) 2 tab PO QPM ascorbic acid (vitamin C) 500 mg tablet (Vitamin C) 500 mg PO QAM aspirin 81 mg chewable tablet 81 mg PO QPM docusate sodium 100 mg tablet 100 mg PO QPM polyethylene glycol 3350 17 gram/dose oral powder (Miralax) 1 dose PO QPM brinzolamide 1 %-brimonidine 0.2 % eye drops,suspension (Simbrinza) 1 drp ophthalmic (eye) BID metoprolol succinate 100 mg tablet,extended release 24 hr 100 mg PO DAILY ] hydrocortisone 2.5 % topical cream with perineal applicator See Rx Instructions hydrochlorothiazide 12.5 mg tablet 12.5 mg PO DAILY peg 400-propylene glycol 0.4 %-0.3 % eye drops (Systane (propylene glycol)) 1 drp ophthalmic (eye) BID omeprazole 20 mg tablet,delayed release 20 mg PO QAM calcitriol 0.25 mcg capsule 0.25 mcg PO simvastatin 20 mg tablet 20 mg PO PM solifenacin 10 mg tablet (Vesicare) 10 mg PO QPM finasteride 5 mg tablet See Rx Instructions Continue as directed metoprolol succinate 100 mg tablet,extended release 24 hr 100 mg PO DAILY STOP taking 2 weeks before surgery glucosamine 375 dj-xpurlkqeg-qgl no1 500 mg-C 15 mg-ana 0.5 mg tablet (Vughihnpxaf-Wwcklszfsqn-WWQ Complex) 2 tab PO QPM STOP taking 24 hours before surgery hydrocortisone 2.5 % topical cream with perineal applicator See Rx Instructions DO NOT take the morning of surgery multivitamin 1 cap PO QAM ascorbic acid (vitamin C) 500 mg tablet (Vitamin C) 500 mg PO QAM hydrochlorothiazide 12.5 mg tablet 12.5 mg PO DAILY calcitriol 0.25 mcg capsule 0.25 mcg PO Take morning of surgery With a small sip of water, OTHERWISE NOTHING TO EAT OR DRINK AFTER MIDNIGHT: brinzolamide 1 %-brimonidine 0.2 % eye drops,suspension (Simbrinza) 1 drp ophthalmic (eye) BID peg 400-propylene glycol 0.4 %-0.3 % eye drops (Systane (propylene glycol)) 1 drp ophthalmic (eye) BID omeprazole 20 mg tablet,delayed release 20 mg PO QAM finasteride 5 mg tablet See Rx Instructions Take evening before surgery aspirin 81 mg chewable tablet 81 mg PO QPM (unless surgeon directed otherwise) docusate sodium 100 mg tablet 100 mg PO QPM polyethylene glycol 3350 17 gram/dose oral powder (Miralax) 1 dose PO QPM brinzolamide 1 %-brimonidine 0.2 % eye drops,suspension (Simbrinza) 1 drp ophthalmic (eye) BID peg 400-propylene glycol 0.4 %-0.3 % eye drops (Systane (propylene glycol)) 1 drp ophthalmic (eye) BID simvastatin 20 mg tablet 20 mg PO PM solifenacin 10 mg tablet (Vesicare) 10 mg PO QPM Other Notes If you have any questions please call us at [phone] or [phone] or [phone] or [phone]
--- NOTE | 2022-12-02 11:48 | Anesthesiology Consultation ---
Date of Service December 02, 2022 Assessment & Plan (1) Encounter for pre-operative examination: - possible difficult intubation: cervical spine degenerative disc disease with occasional neck discomfort with extension. Denies discomfort upon this action in PAT clinic today. Outpatient joint assessment: Patient is currently scheduled for inpatient pathway. If re-evaluated pending system levels during current pandemic/surgeon requests outpatient pathway, patient is acceptable candidate for outpatient joint program from anesthesia standpoint pending surgeon's office assessment of pt motivation/support/completion of same day joint program preop requirements. Chart Review Chart Review: Acceptable Risk for Surgery and Patient seen in Pre Admission Testing Teaching & Discussion Pre-Anesthesia Teaching/Discussion Notes: Instructed NPO after midnight before surgery, except medications with 15 cc of water. Medication instructions provided according to the PAT guidelines. History Surgery Operation Date: 01/03/23 07:15 Proposed Procedures p Left Reverse Total Shoulder Arthroplasty - Jose Luis Encarnacion DO Height/Weight Height: 5 ft 11 in Weight: 116.9 kg Allergies Allergy/AdvReac Type Severity Reaction Status Date / Time No Known Drug Allergies Allergy Verified 11/23/22 10:10 Medications Home Medications Medication Instructions Recorded Confirmed Last Taken multivitamin 1 cap PO QAM ##0 02/16/09 11/23/22 02/08/18 08:00 glucosamine 375 sx-kkizpdyse-bka 2 tab PO QPM ##0 10/11/14 11/23/22 01/26/18 no1 500 mg-C 15 mg-ana 0.5 mg tablet (Xqifyhfojgu-Hoduwrqmpxq-RIK Complex) ascorbic acid (vitamin C) 500 mg 500 mg PO QAM ##0 01/11/17 11/23/22 02/07/18 08:00 tablet (Vitamin C) aspirin 81 mg chewable tablet 81 mg PO QPM ##0 01/17/18 11/23/22 02/08/18 18:00 docusate sodium 100 mg tablet 100 mg PO QPM ##0 01/17/18 11/23/22 02/08/18 22:30 polyethylene glycol 3350 17 1 dose PO QPM ##0 01/17/18 11/23/22 02/08/18 21:30 gram/dose oral powder (Miralax) brinzolamide 1 %-brimonidine 0.2 % 1 drp ophthalmic (eye) BID 02/05/21 11/23/22 Unknown eye drops,suspension (Simbrinza) hydrocortisone 2.5 % topical cream See Rx Instructions .Route 02/11/22 11/23/22 Unknown with perineal applicator .COMPLEX #30 grams hydrochlorothiazide 12.5 mg tablet 12.5 mg PO DAILY #90 tabs 02/15/22 11/23/22 Unknown peg 400-propylene glycol 0.4 %-0.3 1 drp ophthalmic (eye) BID #0 mL 03/08/22 11/23/22 Unknown % eye drops (Systane (propylene glycol)) omeprazole 20 mg tablet,delayed 20 mg PO QAM #90 tabs 04/19/22 11/23/22 Unknown release calcitriol 0.25 mcg capsule 0.25 mcg PO .COMPLEX #36 caps 05/11/22 11/23/22 Unknown simvastatin 20 mg tablet 20 mg PO PM #90 tabs 09/29/22 11/23/22 Unknown solifenacin 10 mg tablet (Vesicare) 10 mg PO QPM #90 tabs 09/29/22 11/23/22 Unknown finasteride 5 mg tablet See Rx Instructions .Route 10/19/22 11/23/22 Unknown .COMPLEX #90 tabs metoprolol succinate 100 mg 100 mg PO QPM 12/02/22 12/02/22 Unknown tablet,extended release 24 hr Past Medical History Medical History (Updated 12/02/22 @ 12:03 by Eli Hudson PA-C) Bowel obstruction 2006, pt believes no surgical intervention was needed BPH (benign prostatic hyperplasia) Chronic kidney disease follows w/ Dr Sawyer GERD (gastroesophageal reflux disease) controlled, stable per pt Glaucoma s/p surgical intervention bilat H/O degenerative disc disease cervical spine History of blood transfusion left hip replacement Hyperlipidemia Hypertension controlled, stable per pt Kidney stone Hx of sepsis d/t obstructing stone 01/2017 Mild Creatinine increase Low back pain Obesity Patient denies h/o stroke, seizures, heart attack, heart failure, DM, or blood clots. Exercise / Class Metabolic Activity II 4-5 Yardwork/Stairs/Walk up hill (denies chest discomfort or shortness of breath with 1 FOS) Past Family History Family History Mother Tuberculosis Sister Breast cancer Father Cardiac disorder Myocardial infarction Brother Dementia Denies family history of Ovarian cancer Prostate cancer Colorectal cancer Past Surgical History Surgical History (Updated 12/02/22 @ 12:03 by Eli Hudson PA-C) H/O hernia repair left 1995, right 1997 H/O removal of cyst mandibular cyst removed 1975 History of carpal tunnel release of both wrists 1994 L, 1996 R History of cataract surgery RIGHT AND LEFT History of decompression of median nerve pt unsure which side History of laminectomy L2-L4 02/09/1818 Grade 2 view, MAC 3, ETT 8. 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 Patient denies chest pain, shortness of breath, dyspnea on exertion, fever, chills, cough, wheezing, or palpitations. Physical Exam Vital Signs Vitals BP 128/82 P 79 TEMP 98.1 SP02 96% on RA RESP 18 Physical Full cervical extension range of motion without pain TMD 3.5 finger breadths Mallampati Score 3 Dentition: edentulous, full upper and lower dentures Lungs: normal respiratory effort. Good air movement, clear throughout to auscultation, no adventitious breath sounds Cardiac: regular rate and rhythm, no murmurs noted Carotid arteries: negative bruit bilat Lab Results Anesthesia Preop Results Results Anesthesia Widget: WBC 5.72 K/ul (4.8-10.8) 12/02/22 Hgb 14.6 g/dl (14.0-18.0) 12/02/22 Hct 43.2 % (42.0-52.0) 12/02/22 Plt 152 K/uL (130-400) 12/02/22 Na 139 mmol/L (136-145) 12/02/22 K 4.3 mmol/L (3.5-5.1) 12/02/22 Cl 107 mmol/L (98-107) 12/02/22 CO2 28 mmol/L (21-32) 12/02/22 BUN 26 mg/dl (6-23) H 12/02/22 Creat 1.40 mg/dl (0.6-1.4) 12/02/22 Glucose Level 106 mg/dl (70-99(Fasting)) H 12/02/22 PT 10.6 Seconds (9.0-12.0) 12/02/22 PTT 26.6 Seconds (21.0-31.0) 12/02/22 INR 1.0 (0.9-1.1) 12/02/22 Blood Type AB Positive 12/02/22 Antibody Screen NEGATIVE 12/02/22 Testing Electrocardiogram Date: 12/02/22 Sinus rhythm with PACs, rate 73 bpm Left anterior fascicular block Chest X-Ray Date: 12/02/22 Right shoulder arthroplasty is seen COVID-19 Risk Screen Screening Information COVID-19 Screen Date: 12/02/22 Exposure 21 Days Family/Household +COVID Last 21 Days: No Exposure 10 Days Any COVID Exposure Last 10 Days: No Symptoms Last 10 Days Experienced COVID Sx Last 10 Days: No + COVID 0-90 Days COVID + in Last 0-90 Days: No
--- NOTE | 2022-12-30 10:19 | History & Physical Report ---
Date of Service December 30, 2022 Assessment & Plan (1) Rotator cuff arthropathy of left shoulder: We will proceed with a left reverse shoulder arthroplasty. Postoperatively he will be placed in a sling and kept overnight in the hospital for postop medical management. He plans to use energy physical therapy upon discharge. History of Present Illness Chief Complaint: Cuff tear arthropathy of the left shoulder. Primary Care Provider: Amanuel Ellison MD Rene is a pleasant 81-year-old male who has been dealing with chronic increasing left shoulder pain and weakness. He has a history of a left shoulder rotator cuff repair done by in 2004. Unfortunately, he hasgone on todevelop increased pain and weakness of the left shoulder. He recently had x- rays at an outside institution, which showed sings of rotator cuff arthroplasty.. His shoulder hurts him all the time. He has had injections in the past with minimal relief. He also has a history of a right reverse shoulder arthroplasty done by Dr. Strickland in 2014. He has fairly poor function with that. After failed extensive conservative treatment with his left shoulder, he has elected proceed with a left reverse shoulder arthroplasty. Allergies Allergy/AdvReac Type Severity Reaction Status Date / Time No Known Drug Allergies Allergy Verified 12/22/22 14:20 Home Medications Medication Instructions Recorded Confirmed Type multivitamin 1 cap PO QAM ##0 02/16/09 12/22/22 History glucosamine 375 pd-ikcggdmsk-hrj 2 tab PO QPM ##0 10/11/14 12/22/22 History no1 500 mg-C 15 mg-ana 0.5 mg tablet (Ybpehqtrwci-Mqhkyvgezpu-XNP Complex) ascorbic acid (vitamin C) 500 mg 500 mg PO QAM ##0 01/11/17 12/22/22 History tablet (Vitamin C) aspirin 81 mg chewable tablet 81 mg PO QPM ##0 01/17/18 12/22/22 History docusate sodium 100 mg tablet 100 mg PO QPM ##0 01/17/18 12/22/22 History polyethylene glycol 3350 17 1 dose PO QPM ##0 01/17/18 12/22/22 History gram/dose oral powder (Miralax) brinzolamide 1 %-brimonidine 0.2 % 1 drp ophthalmic (eye) BID 02/05/21 12/22/22 History eye drops,suspension (Simbrinza) hydrochlorothiazide 12.5 mg tablet 12.5 mg PO DAILY #90 tabs 02/15/22 12/22/22 Rx peg 400-propylene glycol 0.4 %-0.3 1 drp ophthalmic (eye) BID #0 mL 03/08/22 12/22/22 History % eye drops (Systane (propylene glycol)) omeprazole 20 mg tablet,delayed 20 mg PO QAM #90 tabs 04/19/22 12/22/22 Rx release calcitriol 0.25 mcg capsule 0.25 mcg PO .COMPLEX #36 caps 05/11/22 12/22/22 Rx simvastatin 20 mg tablet 20 mg PO PM #90 tabs 09/29/22 12/22/22 Rx solifenacin 10 mg tablet (Vesicare) 10 mg PO QPM #90 tabs 09/29/22 12/22/22 Rx finasteride 5 mg tablet See Rx Instructions .Route 10/19/22 12/22/22 Rx .COMPLEX #90 tabs metoprolol succinate 100 mg 100 mg PO QPM 12/02/22 12/22/22 History tablet,extended release 24 hr hydrocortisone 2.5 % topical cream See Rx Instructions .Route 12/13/22 12/22/22 Rx with perineal applicator .COMPLEX #30 grams Past Med/Surg History Medical History Bowel obstruction 2006, pt believes no surgical intervention was needed BPH (benign prostatic hyperplasia) Chronic kidney disease follows w/ Dr [place] GERD (gastroesophageal reflux disease) controlled, stable per pt Glaucoma s/p surgical intervention bilat H/O degenerative disc disease cervical spine History of blood transfusion left hip replacement Hyperlipidemia Hypertension controlled, stable per pt Kidney stone Hx of sepsis d/t obstructing stone 01/2017 Mild Creatinine increase Low back pain Obesity Surgical History H/O hernia repair left 1995, right 1997 H/O removal of cyst mandibular cyst removed 1974 History of carpal tunnel release of both wrists 1994 L, 1996 R History of cataract surgery RIGHT AND LEFT History of decompression of median nerve pt unsure which side History of laminectomy L2-L4 02/09/1818 Grade 2 view, MAC 3, ETT 8. History of total right hip arthroplasty 2001 Hx of arthroscopy of shoulder L, 2004; R, 2000 Hx of colonoscopy (2004) Hx of cystoscopy Hx of foot surgery RIGHT FOOT RECONSTRUCTION 2016 Hx of repair of rotator cuff R, likely 2000 Hx of tonsillectomy Hx of total shoulder replacement RIGHT 2015 Family History Mother Tuberculosis Sister Breast cancer Father Cardiac disorder Myocardial infarction Brother Dementia Denies family history of Ovarian cancer Prostate cancer Colorectal cancer Social History Smoking Status: Former smoker Tobacco Type: Cigarettes Age Started Using Tobacco: 17; Age Quit Using Tobacco: 30; packs per day: 2; Cigarettes Per Day: QUIT 51 YEARS AGO 2PPD WHILE IN SERVICE; Second Hand Exposure: No; Do You Dip or Chew Tobacco: No; Hx Alcohol Use: No Hx Substance Use: No Preferred Language: Jamaican Communication Ability: Effective Visual Impairment: Limited Hearing Ability: Normal Clinic Cma Required: No Beliefs That Will Affect Care: None marital status: Current Living Situation: Spouse Current Living Situation Comment: Spouse and Legal guardian of 2 grandsons current occupational status: retired 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 Feels Safe at Home: Yes Childhood Exposure to Second-Hand Smoke: Yes Diet: regular caffeine: Yes (one cup of coffee each day) during the past year weight has: decreased > 10 lbs Dental Care, Regularly: No Physical Activity Frequency: Daily Seatbelt Use: always Sunscreen Use: Yes (sometimes ) Assistive Devices: Denture - Upper, Denture - Lower and Glasses Review of Systems All systems reviewed & are unremarkable except as noted in HPI & below. Physical Exam On physical examination of his left shoulder, he has decreased range of motion. He has only 80 degrees forward elevation 80 degrees of abduction. He has 3 out of 5 motor strength throughout.. Constitutional WD/WN, vitals as above Eyes PERRL, conjunctivae normal, anicteric sclerae ENMT external ear and nose normal, oropharynx normal Neck trachea midline, no thyromegaly Respiratory normal respiratory effort, lungs clear to auscultation Cardiovascular RRR, no murmur, no edema Gastrointestinal (Abdomen) normal bowel sounds, soft, nontender, no hepatosplenomegaly Skin no rashes, warm and dry Psychiatric A+Ox3, euthymic affect Results & Data Results & Data Laboratory Results . Diagnostic Findings X-rays of the left shoulder show superior migration of the humeral head of the glenoid. 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 PG Care Time/CCT Total # of Minutes Spent Total Time Spent with Patient: Total time spent is greater than 50% in coordination of care (as documented) at patient's floor/unit and/or counseling patient: Coding Level of Care Code None Diagnoses Rotator cuff arthropathy of left shoulder M12.812
[~2023-01-03 06:14] MED LIST changes: +ACETAMINOPHEN 500 MG TAB PO SCH; -ASCO500T3 PO; -ASPI-232 PO; -CLB/200 PO; -DOCU100C31 PO; +FAMOTIDINE 20 MG TAB PO SCH; -FINA5TAB PO; -FLX10 PO; +GABAPENTIN 300 MG CAP PO SCH; -GLUCTAB7 PO; -HYDR12.56 PO; +LR 15ML/HR IV SCH; +LR 60ML/HR IV SCH; -METO50TA8 PO; -MULT-513 PO; +ORTHO JOINT MIX INFIL SCH; -OXYC-90 PO; -POLY335019 PO; -POLYSOL4 OP; -PRLSR20 PO; -SIMV20TA2 PO; +TRANEXAMIC ACID 1,000 MG **IV Intra-op IV SCH; +TRANEXAMIC ACID 1,000 MG **IV Pre-op IV SCH; -VSC/10 PO; +ceFAZolin 2000MG 2,000 MG/15 ML SYR IV SCH; +dexAMETHasone 4 MG TAB PO SCH
[2023-01-03] MEDS ORDERED: BUPIVACAINE 0.5 % 5 MG/1 ML PF 10ML VIAL ONE (06:24)
--- NOTE | 2023-01-03 08:00 | History & Physical Bridge Note ---
Date of Service January 03, 2023 History & Physical Bridge Note I have examined the patient, reviewed the History & Physical and in the interval since the performance of the History & Physical I have noted the following changes of clinical significance: no changes noted
[2023-01-03] MEDS ORDERED: fentaNYL citrate PF 100 MCG/2 ML VIAL ONE (08:04)
[2023-01-03] MEDS ORDERED: MIDAZOLAM HCL 1 MG/ML 2ML VIAL ONE (08:04)
[2023-01-03] MEDS ORDERED: MEPERIDINE HCL 25 MG/ML CARP/VIAL IV PRN (08:17)
[2023-01-03] MEDS ORDERED: ONDANSETRON INJ 2 MG/ML 2 ML VIAL IV PRN ×2 (08:17→12:14)
[2023-01-03] MEDS ORDERED: fentaNYL citrate PF 100 MCG/2 ML VIAL IV PRN (08:17)
[2023-01-03] MEDS ORDERED: ATROPINE SULFATE 0.1 MG/ML 10ML SYR IV PRN (08:17)
[2023-01-03] MEDS ORDERED: ePHEDrine sulfate 50 MG/ML AMP IV PRN (08:17)
[2023-01-03] MEDS ORDERED: LABETALOL HCL IV 5 MG/ML 20ML IV PRN (08:17)
[2023-01-03] MEDS ORDERED: MoRPHine SULFATE 10 MG/ML CARP/VIAL IV PRN (08:17)
[2023-01-03] MEDS ORDERED: ORTHO JOINT ANESTHETIC ONE (08:56)
[2023-01-03] MEDS ORDERED: hydrALAZINE HCL 20 MG/ML VIAL ONE (09:21)
[2023-01-03] MEDS ORDERED: ONDANSETRON INJ 2 MG/ML 2 ML VIAL ONE (09:54)
[2023-01-03] MEDS ORDERED: PROPOFOL IV EMULSION 10 MG/ML 20 ML VIAL IV ONE (09:54)
--- NOTE | 2023-01-03 10:11 | Operative Report ---
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 long head of the biceps tendon I identified the patient and participated in the time-out.: Yes Procedure Operation Date: 01/03/23 09:00 Actual Procedures p Left Reverse Total Shoulder Arthroplasty(Left) with open biceps tenodesis as a distinct and separate procedure (modifier 59)- Jose Luis Encarnacion DO Surgeon Jose Luis Encarnacion DO Composition Weatherboard Installer Jose Luis Kinsey PA-C Estimated Blood Loss 300 Findings Consistent with Post-Op Diagnosis Specimens Left humeral head Description of Procedure A CPT code modifier 59: The long head of the biceps tendon was enlarged and inflamed consistent with tendinopathy. A tenodesis was opted. This was a separate and distinct portion of the procedure. For these reasons, a CPT code modifier 59 will be added to this case. Implants used: I used a [employer] Comprehensive reverse total shoulder arthroplasty system with a size 15 press fit micro humeral stem, a +6 offset humeral tray and a standard humeral bearing, a 25 mm small augment baseplate with a 6.5 mm central screw and superior and inferior locking screws, and a size 40 mm eccentric glenosphere. Babar arrived at [facility] for the above procedure. He was seen in the preoperative holding area and the operative extremity was identified and signed. He was given a preoperative antibiotic, TXA, and an interscalene nerve block. He was taken back to the operating room, laid on table in supine position, and put under general anesthesia. He was then put into the beachchair position. The shoulder was then prepped and draped in sterile fashion. A timeout was done and the patient and the operative extremity was properly identified. A deltopectoral approach was used. Dissection was taken down through the fascia and the deltoid was retracted laterally and the conjoined tendon was retracted medially. The anterior shoulder was exposed. The biceps groove was opened up and the biceps tendon was examined extensively. The biceps tendon demonstrated enlargement and inflammatory changes consistent with longstanding inflammation in the context of osteoarthritis and cuff arthropathy. The long head of the biceps tendon was then tenodesed to the upper border of the pectoralis major. This was a separate and distinct portion of the procedure. The subscapularis was then directly released off the lesser tuberosity with a peel technique. The inferior capsule was released and the humeral head was dislocated. A canal finding reamer was sent down the center of the humeral canal. Sequential reaming up to a size 15 reamer was done. Off that reamer, a proximal humeral resection guide was placed. The proximal humerus was resected at 135 of inclination and 25 of retroversion. Osteophytes were then removed and the glenoid was exposed. Time was spent doing a complete capsular and labral release. The glenoid guide was then placed in the inferior aspect of the glenoid. A 3.2 mm Steinmann pin was then placed into the glenoid vault at 10 of inclination. The glenoid baseplate was then reamed. The final size 25 mm small augment baseplate was then impacted in the place. A 6.5 mm central screw was then placed followed by superior and inferior locking screws. A 40 mm eccentric glenosphere was then impacted into place. Surrounding soft tissues were then injected with 100 cc an orthopedic pain control cocktail. The proximal humerus was then exposed. Sequential broaching of the humerus up to a size 15 broach wa s done. Off that broach a +6 offset humeral tray was trialed. The shoulder was then reduced, brought through a full range of motion, and felt to be stable. The shoulder was then dislocated and the broach was removed. The final size 15 micro press-fit humeral stem was then impacted into place. A standard humeral bearing was then snapped onto a +6 offset humeral tray. The humeral tray was then impacted onto the humeral stem. The shoulder was once again reduced, brought through a full range of motion, and felt to be stable. The subscapularis was then tenodesed back to the lesser tuberosity with transosseous FiberWire sutures and side to side sutures with the arm in 45 of external rotation. A dilute betadyne lavage was then done for 3 minutes. The joint was then irrigated with normal saline solution. Hemostasis was obtained. The interval was closed with 2-0 Vicryl suture. The skin was then closed with 2-0 Vicryl and mary. A Silverlon dressing was placed and the arm was rested in a regular arm sling. He was then extubated and transferred to a hospital bed. He taken to the postanesthesia care unit in stable condition. He tolerated the procedure well. Jose Luis Kinsey PA-C, was present for the entire procedure. He was critical for patient positioning, prepping, draping, retraction exposure, wound closure and application of sterile dressing. I attest to the content of the Intraoperative Record and any orders documented therein. Any exceptions are noted below.
--- NOTE | 2023-01-03 11:29 | Anesthesiology Progress Note ---
Date of Service January 03, 2023 Anesthesia Post Procedure Vital Signs Vital Signs: Temp Pulse Resp BP Pulse Ox O2 Del Method O2 Flow Rate 01/03/23 11:10 36.4 C L 80 18 132/81 95 Nasal Cannula 2 01/03/23 11:00 80 18 129/82 96 Nasal Cannula 2 01/03/23 10:50 90 18 107/82 96 Oxymask 5 01/03/23 10:40 77 18 157/80 H 96 Oxymask 5 01/03/23 10:32 36.2 C L 77 18 144/77 H 96 Oxymask 5 01/03/23 06:45 36.7 C 74 20 179/102 H 96 Room Air Transfer of Care Handoff Completed per policy Notes Mental Status: alert / awake / arousable Patient Amnestic to Procedure: Yes Nausea / Vomiting: adequately controlled Pain: adequately controlled Airway Patency, RR, SpO2: stable & adequate BP & HR: stable & adequate Hydration State: stable & adequate Anesthetic Complications: no major complications apparent and Pt Satisfied with anesthetic care
[2023-01-03] MEDS ORDERED: NALOXONE HCL 0.4 MG/1 ML VIAL/CARP IV PRN (12:14)
[2023-01-03] MEDS ORDERED: HYDROCORTISONE HC 2.5% CRM 30GM TUBE EXT PRN (12:14)
[2023-01-03] MEDS ORDERED: oxyCODONE HCL IR 5 MG TAB (IMMEDIATE RELEASE) PO PRN (12:14)
[2023-01-03] MEDS ORDERED: bisacodyL 10 MG SUPP PR PRN (12:14)
[2023-01-03] MEDS ORDERED: CALCITRIOL 0.25 MCG CAPSULE PO SCH (12:14)
[2023-01-03] MEDS ORDERED: HYDROmorphone INJ 0.5 MG/0.5 ML SYR IV PRN (12:14)
[2023-01-03] MEDS ORDERED: MAGNESIUM HYDROXIDE SUSP 30 ML UDC PO PRN (12:14)
[2023-01-03] MEDS ORDERED: METOCLOPRAMIDE HCL INJ 5 MG/ML 2 ML VIAL IV PRN (12:14)
[2023-01-03] MEDS: SODIUM CHLORIDE 0.9% 1000ML 1,000 ML IV SCH ×2 (12:26→22:05)
[2023-01-03] MEDS: FINASTERIDE 5 MG TAB PO SCH (13:21)
[2023-01-03] MEDS: KETOROLAC TROMETHAMINE 15 MG/ML VIAL IV SCH ×3 (13:24→23:55)
[2023-01-03] MEDS: ACETAMINOPHEN 500 MG TAB PO SCH ×2 (13:25→22:05)
--- NOTE | 2023-01-03 13:56 | XRay Report ---
XR shoulder LT min 2V routine CLINICAL HISTORY: Post shoulder surgery COMPARISON: Left shoulder radiographs September 27, 2022. FINDINGS: Alignment of the reverse total left shoulder arthroplasty is anatomic. There is no peripro sthetic fracture. There are no unexpected radiopaque foreign bodies. Skin mary are present. IMPRESSION: Expected findings following reverse total left shoulder arthroplasty. ACT 112: Negative or not required by law. Electronically signed by: Tiago Guerra M.D. 01/03/2023 1:55 PM
[2023-01-03] MEDS: ceFAZolin 2000MG 2,000 MG/15 ML SYR IV SCH ×2 (16:06→23:54)
[2023-01-03] MEDS: DOCUSATE SODIUM 100 MG CAP PO SCH (20:26)
[2023-01-03] MEDS: BRINZOLAMIDE/BRIMONIDINE TART 119 DROPS/8 ML BTL OP SCH (20:27)
[2023-01-03] MEDS ORDERED: METOPROLOL SUCC 50MG EXT REL TAB PO SCH (21:00)
[2023-01-03] MEDS ORDERED: ASPIRIN 81 MG CHEW PO SCH (21:00)
[2023-01-03] MEDS ORDERED: OXYBUTYNIN CHLORIDE XL 5 MG TABCR PO SCH (21:00)
[2023-01-03] MEDS ORDERED: SIMVASTATIN 20 MG TAB PO SCH (21:00)
[2023-01-03] MEDS ORDERED: SENNA 8.6 MG TAB PO SCH (21:00)
[2023-01-04] MEDS: KETOROLAC TROMETHAMINE 15 MG/ML VIAL IV SCH (05:18)
[2023-01-04] MEDS: ACETAMINOPHEN 500 MG TAB PO SCH (05:18)
--- NOTE | 2023-01-04 07:10 | Orthopedic Progress Note ---
Date of Service January 04, 2023 Assessment & Plan (1) Status post reverse total replacement of left shoulder: Overall he is doing well. He is not having much pain in the left shoulder. He will be seen by physical therapy today for ambulation and range of motion exercises. The nursing staff can change the dressing. He can be discharged home later today. He will follow-up with orthopedics in 2 weeks. Matt López was seen and examined at bedside this morning. Overall he is doing very well. Is not having much pain in the left shoulder. He was able to get some sleep last night. He has no complaints.. Review of Systems All systems reviewed & are unremarkable except as noted in HPI & below. Physical Exam On physical examination of left shoulder, the dressing has a little bit of drainage coming out under his armpit. He has full motion of his hand and his wrist. He is wearing his sling as instructed.. Results & Data Results & Data Laboratory Results . Diagnostic Findings Postoperative x-rays of the left shoulder show the prosthesis to be in anatomic alignment without any evidence of fracture complication, or loosening. PG Care Time/CCT Total # of Minutes Spent Total Time Spent with Patient: Total time spent is greater than 50% in coordination of care (as documented) at patient's floor/unit and/or counseling patient: Coding Level of Care Code 10299 Post Operative Follow-Up Diagnoses Status post reverse total replacement of left shoulder Z96.612
--- NOTE | 2023-01-04 07:12 | Discharge Summary ---
Date of Service January 04, 2023 Admission HPI (Per Admitting) Rene is a pleasant 81-year-old male who has been dealing with chronic increasing left shoulder pain and weakness. He has a history of a left shoulder rotator cuff repair done by in 2004. Unfortunately, he hasgone on todevelop increased pain and weakness of the left shoulder. He recently had x- rays at an outside institution, which showed sings of rotator cuff arthroplasty.. His shoulder hurts him all the time. He has had injections in the past with minimal relief. He also has a history of a right reverse shoulder arthroplasty done by Dr. Strickland in 2014. He has fairly poor function with that. After failed extensive conservative treatment with his left shoulder, he has elected proceed with a left reverse shoulder arthroplasty. Admission Exam (Per Admitting) On physical examination of his left shoulder, he has decreased range of motion. He has only 80 degrees forward elevation 80 degrees of abduction. He has 3 out of 5 motor strength throughout.. Principal Diagnosis Same as "Discharge Diagnosis" noted below under Discharge Instructions. Discharge Exam On physical examination of left shoulder, the dressing has a little bit of drainage coming out under his armpit. He has full motion of his hand and his wrist. He is wearing his sling as instructed.. Discharge Data Procedures Performed Operation Date: 01/03/23 09:00 Actual Procedures p Left Reverse Total Shoulder Arthroplasty(Left) - Jose Luis Encarnacion DO Ordered Studies 01/03/23 05:00 US - OR guided needle placemen Routine Hospital Course (1) Status post reverse total replacement of left shoulder: On January 03, 2023 Rene arrived at [facility] and underwent a left reverse shoulder replacement without complication. He had a general anesthetic and a left interscalene nerve block. Postoperatively he was placed in an arm sling and transferred to the general orthopedic floors. His hospital course was uneventful. On postop day #1, his vital signs were stable and his pain was well controlled. He was able to participate well with physical therapy doing am bulation and range of motion exercises. He was then discharged home. He will follow-up with orthopedics in 2 weeks. PG Care Time/CCT Total # of Minutes Spent Total Time Spent with Patient: Total time spent is greater than 50% in coordination of care (as documented) at patient's floor/unit and/or counseling patient: Discharge Plan Discharge Items Patient Disposition: Home - Home Health Services Reason For Visit: DJD Left Shoulder Discharge Diagnosis: Left reverse shoulder replacement Activity: Per Instructions section Non-emergency contact: Surgeon Call non-emergency contact if: your wound has increased redness and your wound has increased drainage Follow-up/Referrals: Amanuel Ellison MD [Primary Care Provider] - Diet: Regular Addtl Attending Provider Instructions: Activity and Therapy Recommendations: * If you are using [facility] then therapy will be provided at your home until they feel you have accomplished all of your goals. * If you are using [facility] then Physical Therapy will be provided until they feel you are ready to start Outpatient Physical Therapy. * If you are not using home therapy then Outpatient Physical Therapy should start about 3-5 days from your day of surgery. Therapy will last about 8-12 weeks * Wear your sling for 3 weeks, unless otherwise instructed. You may remove your sling to shower and to dress, but otherwise, you should be in your sling at all times, including while sleeping * The shoulder replacement is very stable and you can use your hand while in the sling * You were shown a series of exercises in the hospital. Do these exercises daily including the exercises you were shown in physical therapy. Medications: * Narcotic You will likely be sent home from the hospital with a prescription for the narcotic pain medication that worked best throughout your stay. * Other medications may be prescribed for specific circumstances. If you have any questions, please call the office at . * Resume previous home medications unless otherwise instructed Dressing Care: Leave the Silverlon dressing in place for 7 days. After 7 days you may remove the dressing. If the incision is not draining then you may leave the mary open to air. If there is a little bit of drainage or if the mary are getting stuck on your clothing then cover the incision with a dry dressing. The mary will be removed at your 2 week follow-up appointment. Showering: You may shower with the Silverlon dressing in place. Do not let the shower spray hit the dressing directly. Pat the Silverlon dressing dry. If the dressing becomes wet underneath, then simply remove the dressing. Keep the incision dry until you are 7 days out from the day of surgery. After 7 days you may remove the Silverlon dressing and shower with the mary exposed. Let soapy water run over the mary and pat them dry. Do not scrub or soak the incision. Things To Watch For: * Drainage from the incision site that occurs more than one week after your surgery. * Increased redness at the incision site. * Fever above 102 degrees Fahrenheit. * Unusual chest pain or shortness of breath. * Call [facility] at with any of the above problems Follow-Up Visit: Follow-up with Dr. Encarnacion's PA (Jose Luis Kinsey) 2-3 weeks after your day of surgery. He will remove your mary and answer any questions. If you have any additional questions or concerns, Dr Encarnacion is usually in the office at the same time and will be available An appointment was probably scheduled when you signed-up for surgery in the office. If you have any questions call More detailed instructions as well as Frequently Asked Questions were provided in a folder by our office when you signed-up for surgery. Please review these instructions when you get home. If you have any further questions or concerns, please feel free to call the office at [phone] Pending Studies at Discharge: No Stand-Alone Forms: My [facility], Smoking Cessation Medications and DC Order Prescriptions: New oxycodone 5 mg Tablet 5 mg PO Q4H PRN (Reason: pain) Qty: 30 0RF Continued multivitamin Capsule 1 cap PO QAM Qty: 0 Evigatgkzfw-Kfzkl-GKT Complex [id number] mg Tablet 2 tab PO QPM Qty: 0 Rx Instructions: UNKNOWN DOSE ascorbic acid (vitamin C) [Vitamin C] 500 mg Tablet 500 mg PO QAM Qty: 0 aspirin 81 mg Tablet,Chewable 81 mg PO QPM Qty: 0 polyethylene glycol 3350 [Miralax] 17 gram/dose Powder 1 dose PO QPM Qty: 0 docusate sodium 100 mg Tablet 100 mg PO QPM Qty: 0 hydrochlorothiazide 12.5 mg tablet 12.5 mg PO DAILY Qty: 90 3RF Systane (propylene glycol) 0.4-0.3 % drops 1 drp OPHTHALMIC (EYE) BID Qty: 0 omeprazole 20 mg tablet,delayed release (DR/EC) 20 mg PO QAM Qty: 90 3RF calcitriol 0.25 mcg capsule 0.25 mcg PO .COMPLEX Qty: 36 3RF Rx Instructions: 0.25 mcg PO every tuesday, tuesday, tuesday; simvastatin 20 mg tablet 20 mg PO PM Qty: 90 3RF solifenacin [Vesicare] 10 mg tablet 10 mg PO QPM Qty: 90 3RF finasteride 5 mg tablet See Rx Instructions .ROUTE .COMPLEX Qty: 90 3RF Dose Instruction: TAKE 1 TABLET BY MOUTH DAILY IN THE MORNING Rx Instructions: TAKE 1 TABLET BY MOUTH DAILY IN THE MORNING hydrocortisone 2.5 % cream with perineal applicator See Rx Instructions .ROUTE .COMPLEX Qty: 30 5RF Dose Instruction: APPLY RECTALLY DAILY NEEDED FOR HEMORRHOIDS DIRECTED Rx Instructions: APPLY RECTALLY DAILY NEEDED FOR HEMORRHOIDS DIRECTED Simbrinza 1-0.2 % drops,suspension 1 drp OP BID metoprolol succinate 100 mg tablet extended release 24 hr 100 mg PO QPM Admission Data Admit Date/Time: 01/03/23 10:34 Attending Provider: Jose Luis Encarnacion Admit Provider: Jose Luis Encarnacion Primary Care Provider: Amanuel Ellison
[2023-01-04] MEDS ORDERED: dexAMETHasone 4 MG TAB PO SCH (08:00)
[2023-01-04] MEDS: FINASTERIDE 5 MG TAB PO SCH (08:55)
[2023-01-04] MEDS: BRINZOLAMIDE/BRIMONIDINE TART 119 DROPS/8 ML BTL OP SCH (08:56)
[2023-01-04] MEDS ORDERED: MULTIVITAMIN TAB PO SCH (09:00)
[2023-01-04] MEDS ORDERED: hydroCHLOROthiazide 25 MG TAB PO SCH (09:00)
[2023-01-04] MEDS: DOCUSATE SODIUM 100 MG CAP PO SCH (09:55)
== END 2023-01-04 12:17 | disposition home health service (06) ==
LOC: 3W 06:14 → ASU 06:14
DX: Z79.82 Long term (current) use of aspirin; H40.9 Unspecified glaucoma; Z87.891 Personal history of nicotine dependence; I12.9 Hypertensive chronic kidney disease with stage 1 through stage 4 chronic kidney disease, or unspecified chronic kidney disease; M12.812 Other specific arthropathies, not elsewhere classified, left shoulder; E78.5 Hyperlipidemia, unspecified; N18.9 Chronic kidney disease, unspecified; Z79.899 Other long term (current) drug therapy; K21.9 Gastro-esophageal reflux disease without esophagitis

== ENCOUNTER 2023-02-06 21:34 | Observation (INO) ==
[2023-02-06 22:34] LABS: Hematocrit (blood only) 33.8 % (42.0-52.0); Hemoglobin 11.1 g/dl (14.0-18.0); Mean Corpuscular Hemoglobin 29.9 pg (25.0-34.0); Mean Corpuscular Hgb Conc 32.8 g/dL (32.0-36.0); Mean Corpuscular Volume 91.1 fL (80.0-100.0); Mean Platelet Volume 10.3 fL (9.4-12.4); Platelet Count 187 K/uL (130-400); RDW Coefficient of Variation 14.8 % (11.5-14.5); Red Blood Count 3.71 M/uL (4.70-6.10); White Blood Count 10.58 K/ul (4.8-10.8)
[2023-02-06 22:54] LABS: Albumin Globulin Ratio 1.9 (0.9-2); Albumin Level 3.9 gm/dl (3.4-5.0); BUN Creatinine Ratio 43.8 (10-20); Bilirubin,Total 0.4 mg/dl (0.2-1.0); Calcium 9.6 mg/dl (8.6-10.3); Creatinine Clr Calc Pharmacy 55.4 ml/min; Est GFR (African American) 59.2 ml/min; Est GFR (Non-African American) 51.1 ml/min; Globulin 2.1 gm/dl (2.5-4.0); Potassium 3.7 mmol/L (3.5-5.1)
[2023-02-06 23:01] LABS: Troponin I High Sensitivity 7.6 pg/ml (0-20)
[2023-02-06 23:12] LABS: INR 0.9 (0.9-1.1); Partial Thromboplastin Ratio 0.9; Partial Thromboplastin Time 24.8 Seconds (21.0-31.0); Prothrombin Time 10.4 Seconds (9.0-12.0)
[2023-02-07] MEDS ORDERED: PANTOprazole 80 MG in DEXTROSE 5% 100 ML IV ONE (00:54)
[2023-02-07] MEDS ORDERED: SODIUM CHLORIDE 0.9% 500 ML IV ONE (00:54)
[2023-02-07] MEDS ORDERED: PANTOprazole 80 MG in DEXTROSE 5% 100 ML IV STA (00:54)
--- NOTE | 2023-02-07 00:57 | Emergency Department Note ---
Impression & Plan Acute upper gastrointestinal bleeding, Anemia ED Provider Note Name: ARNULFO MONTANO Age: 82 Sex: M Arrives Via: Walk-In Informant: Patient, ED Provider: Rivera Muñoz MD Chief Complaint: Lightheadedness Impression: As per impression above Medical Decision Making: An 82-year-old gentleman with a history of hyperlipidemia, hypertension, BPH arrives for evaluation of lightheadedness with standing and then black/bloody stools this afternoon. On evaluation patient is bit on the pale side though otherwise looks well. He does have heme positive black stools on rectal exam. Hemoglobin has dropped from his baseline and his BUN is significantly elevated. He is given a small bolus of fluid. There is no indication for transfusion at this time. He is on aspirin 81 mg daily as his only blood thinner. He has not been taking any NSAIDs. Did recently just have left shoulder surgery. He was given an empiric IV Protonix and will be hospitalized given his age amount of blood drop. Prior Medical Record and Triage/Nursing Notes reviewed by Me External chart reviewed by me including recent hospitalization records Differentials:Upper GI bleed, lower GI bleed, diverticulitis, anemia, bleeding dyscrasia, electrolyte imbalance, ACS, PE, many other pathologies considered. Vital Signs: reviewed and remarkable for no significant abnormalities Interventions: NS Bolus 500 mL IV, Protonix 80 mg IV Labs:Reviewed and remarkable for anemia EKG:As per my interpretation. Indication lightheadedness. Sinus rhythm at 95 bpm with multiple PACs/PVCs. He has a bifascicular block. QTc of 490. When compared to EKG from December 02, 2022 rate has increased the PVCs are new and he has a increased intraventricular block consistent with addition of right bundle fern block. Cardiac/Tele Monitoring: Cardiac Monitoring: An Order was placed for continuous cardiac monitoring. The monitor shows a rate of 90 with a normal sinus rhythm. Consults:Dr Ramón KOENIG Hospitalist Plan: Disposition:Hospitalization. Condition: Good History of Present Illness:82-year-old male arrives for evaluation of illness. Patient notes for the last days getting lightheaded and dizzy when he stands up. No specific spinning that he is feels he is about to pass out. He sits down things get better. This evening he noted that he was started to have black stools. Denies any specific abdominal pain some mild nausea earlier today. Has not been taking any NSAIDs. Does take aspirin once daily. He had surgery on his left shoulder about 4 weeks ago without problem. Denies any falls, trauma, injuries. Does not take any blood thinners other than aspirin. No previous abdominal bleeding. Is adamant no abdominal pain. Does have a history of hemorrhoids but denies any red blood in stool. Past History:See Below Home Medications:See Below Allergies:See Below Vitals:Blood Pressure: 138/82, Pulse 105, RR 16, T 36.8C, O2 97% on RA Physical Exam: GENERAL: Patient is dehydrated appearing and in mild distress. EYES: No scleral icterus, unremarkable pupils. Pale conjunctiva RESPIRATORY: No dyspnea. Clear to auscultation and equal bilaterally. No wheeze, no rhonchi. CARDIOVASCULAR: Regular rate and rhythm.No murmurs, rubs, gallops appreciated. GASTROINTESTINAL: Abdomen soft, non-tender, no peritonitis.Bowel sounds positive.No masses appreciated. BACK: No midline tenderness, no CVA tenderness RECTAL: Small hemorrhoids noted. Dark black heme positive stool on rectal exam. No tenderness palpation EXTREMITIES: Normal motion all extremities, no cyanosis, no edema. NEUROLOGIC: Alert and oriented, no focal neurologic deficit appreciated SKIN: No rash, no jaundice, no diaphoresis. PSYCH: Appropriate GCS: 15 ED Course: Times/Reassessments: Patient is stable no distress he is comfortable with plan for hospitalization Rivera Muñoz MD Past Med/Surg History Medical History Bowel obstruction BPH (benign prostatic hyperplasia) Chronic kidney disease GERD (gastroesophageal reflux disease) Glaucoma H/O degenerative disc disease History of blood transfusion Hyperlipidemia Hypertension Kidney stone Low back pain Obesity Surgical History H/O hernia repair H/O removal of cyst History of carpal tunnel release of both wrists History of cataract surgery History of decompression of median nerve History of laminectomy History of total right hip arthroplasty Hx of arthroscopy of shoulder Hx of colonoscopy (2004) Hx of cystoscopy Hx of foot surgery Hx of repair of rotator cuff Hx of tonsillectomy Hx of total shoulder replacement Family History Mother Tuberculosis Sister Breast cancer Father Cardiac disorder Myocardial infarction Brother Dementia Denies family history of Ovarian cancer Prostate cancer Colorectal cancer Social History Smoking Status: Never smoker Tobacco Type: Cigarettes Age Started Using Tobacco: 17; Age Quit Using Tobacco: 30; packs per day: 2; Cigarettes Per Day: QUIT 51 YEARS AGO 2PPD WHILE IN SERVICE; Second Hand Exposure: No; Do You Dip or Chew Tobacco: No; Hx Alcohol Use: No Hx Substance Use: No Preferred Language: Latvian Communication Ability: Effective Visual Impairment: Limited Hearing Ability: Normal Infantry Unit Leader Required: No Beliefs That Will Affect Care: None marital status: Current Living Situation: Spouse Current Living Situation Comment: Spouse and Legal guardian of 2 grandsons current occupational status: retired 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 Feels Safe at Home: Yes Childhood Exposure to Second-Hand Smoke: Yes Diet: regular caffeine: Yes (one cup of coffee each day) during the past year weight has: decreased > 10 lbs Dental Care, Regularly: No Physical Activity Frequency: Daily Seatbelt Use: always Sunscreen Use: Yes (sometimes ) Assistive Devices: None Allergies Allergies Allergy/AdvReac Type Severity Reaction Status Date / Time No Known Drug Allergies Allergy 0 Verified 02/07/23 02:02 Home Meds Home Medications Medication Instructions Recorded Confirmed multivitamin 1 cap PO QAM ##0 02/16/09 02/07/23 glucosamine 375 ah-ogfgbmyzp-ull 2 tab PO QPM ##0 10/11/14 02/07/23 no1 500 mg-C 15 mg-ana 0.5 mg tablet (Rydjxvzcwtl-Oyaajcwhqpw-GLH Complex) ascorbic acid (vitamin C) 500 mg 500 mg PO QAM ##0 01/11/17 02/07/23 tablet (Vitamin C) aspirin 81 mg chewable tablet 81 mg PO QPM ##0 01/17/18 02/07/23 docusate sodium 100 mg tablet 100 mg PO QPM ##0 01/17/18 02/07/23 polyethylene glycol 3350 17 1 dose PO QPM ##0 01/17/18 02/07/23 gram/dose oral powder (Miralax) brinzolamide 1 %-brimonidine 0.2 % 1 drp OPR TID 02/05/21 02/07/23 eye drops,suspension (Simbrinza) peg 400-propylene glycol 0.4 %-0.3 1 drp OPL BID #0 mL 03/08/22 02/07/23 % eye drops (Systane (propylene glycol)) acetaminophen 500 mg tablet 1,000 mg PO HS 02/07/23 02/07/23 (Tylenol Extra Strength) calcitriol 0.25 mcg capsule 0.25 mcg PO 3XWK 02/07/23 02/07/23 finasteride 5 mg tablet 5 mg PO QAM 02/07/23 02/07/23 Previous Rx's Medication Instructions Recorded hydrochlorothiazide 12.5 mg tablet 12.5 mg PO DAILY #90 tabs 02/15/22 omeprazole 20 mg tablet,delayed 20 mg PO QAM #90 tabs 04/19/22 release simvastatin 20 mg tablet 20 mg PO PM #90 tabs 09/29/22 solifenacin 10 mg tablet (Vesicare) 10 mg PO QPM #90 tabs 09/29/22 hydrocortisone 2.5 % topical cream See Rx Instructions .Route 12/13/22 with perineal applicator .COMPLEX #30 grams metoprolol succinate 100 mg 100 mg PO QPM #90 tabs 02/04/23 tablet,extended release 24 hr Results & Data (ED) Vital Signs Vital Signs - 24 hr 02/06/23 21:38 02/07/23 01:28 Temperature 36.8 C Temperature Source Temporal Artery Scan Pulse Rate 105 H Pulse Rate [Apical] 84 Respiratory Rate 16 20 Respiratory Effort / Characteristics Non-Labored Spontaneous Respiratory Depth Normal Blood Pressure 138/82 Blood Pressure [Left Arm] 123/77 Blood Pressure Mean 100 Blood Pressure Mean [Left Arm] 92 Pulse Oximetry 97 95 Oxygen Delivery Method Room Air Sepsis Recent Fever Within 48 Hours No Sepsis New/Unexplained Change in Mental Status N/A Sepsis Action Taken by Nursing No Action Required Laboratory Data 02/06/23 21:53 02/06/23 21:53 Lab Results 02/06/23 02/06/23 02/06/23 Range/Units 21:53 21:53 21:53 WBC 10.58 (4.8-10.8) K/ul RBC 3.71 L (4.70-6.10) M/uL Hgb 11.1 L (14.0-18.0) g/dl Hct 33.8 L (42.0-52.0) % MCV 91.1 (80.0-100.0) fL MCH 29.9 (25.0-34.0) pg MCHC 32.8 (32.0-36.0) g/dL RDW Std Deviation 49.0 H (36.4-46.3) fL RDW Coeff of Sharon 14.8 H (11.5-14.5) % Plt Count 187 (130-400) K/uL MPV 10.3 (9.4-12.4) fL PT 10.4 (9.0-12.0) Seconds INR 0.9 (0.9-1.1) APTT 24.8 (21.0-31.0) Seconds PTT Ratio 0.9 Sodium 137 (136-145) mmol/L Potassium 3.7 (3.5-5.1) mmol/L Chloride 104 (98-107) mmol/L Carbon Dioxide 25 (21-32) mmol/L Anion Gap 8 (3-11) BUN 56 H (6-23) mg/dl Creatinine 1.28 (0.6-1.4) mg/dl Est Cr Clr Drug Dosing 55.4 ml/min Est GFR ( Amer) 59.2 ml/min Est GFR (Non-Af Amer) 51.1 ml/min BUN/Creatinine Ratio 43.8 H (10-20) Glucose 128 H (70-99(Fasting)) mg/dl Calcium 9.6 (8.6-10.3) mg/dl Total Bilirubin 0.4 (0.2-1.0) mg/dl AST 14 (13-39) U/L ALT 9 (7-52) U/L Alkaline Phosphatase 55 (34-104) U/L Troponin I High Sens 7.6 (0-20) pg/ml Total Protein 6.0 (6.0-8.3) gm/dl Albumin 3.9 (3.4-5.0) gm/dl Globulin 2.1 L (2.5-4.0) gm/dl Albumin/Globulin Ratio 1.9 (0.9-2) Blood Type Antibody Screen 02/06/23 Range/Units 22:25 WBC (4.8-10.8) K/ul RBC (4.70-6.10) M/uL Hgb (14.0-18.0) g/dl Hct (42.0-52.0) % MCV (80.0-100.0) fL MCH (25.0-34.0) pg MCHC (32.0-36.0) g/dL RDW Std Deviation (36.4-46.3) fL RDW Coeff of Sharon (11.5-14.5) % Plt Count (130-400) K/uL MPV (9.4-12.4) fL PT (9.0-12.0) Seconds INR (0.9-1.1) APTT (21.0-31.0) Seconds PTT Ratio Sodium (136-145) mmol/L Potassium (3.5-5.1) mmol/L Chloride (98-107) mmol/L Carbon Dioxide (21-32) mmol/L Anion Gap (3-11) BUN (6-23) mg/dl Creatinine (0.6-1.4) mg/dl Est Cr Clr Drug Dosing ml/min Est GFR ( Amer) ml/min Est GFR (Non-Af Amer) ml/min BUN/Creatinine Ratio (10-20) Glucose (70-99(Fasting)) mg/dl Calcium (8.6-10.3) mg/dl Total Bilirubin (0.2-1.0) mg/dl AST (13-39) U/L ALT (7-52) U/L Alkaline Phosphatase (34-104) U/L Troponin I High Sens (0-20) pg/ml Total Protein (6.0-8.3) gm/dl Albumin (3.4-5.0) gm/dl Globulin (2.5-4.0) gm/dl Albumin/Globulin Ratio (0.9-2) Blood Type AB Positive Antibody Screen NEGATIVE Administered Medications Pantoprazole Sodium 40 mg/ (Dextrose) 100 mls @ 20 mls/hr IV Q5H CAMERON Stop: 03/09/23 01:14 Last Admin: 02/07/23 01:26 Dose: 8 mg/hr, 20 mls/hr Documented By: ARI Lactated Ringer's (Lr) 1,000 mls @ 125 mls/hr IV .Q8H CAMERON Stop: 02/07/23 20:22 Last Admin: 02/07/23 04:38 Dose: 125 mls/hr Documented By: ARI Discontinued Medications Pantoprazole Sodium 80 mg/ (Dextrose) 120 mls @ 480 mls/hr IV ONE STA Stop: 02/07/23 01:08 Last Admin: 02/07/23 01:53 Dose: Not Given Documented By: ARI Pantoprazole Sodium 80 mg/ (Dextrose) 120 mls @ 400 mls/hr IV NOW ONE Stop: 02/07/23 01:11 Last Infusion: 02/07/23 01:54 Dose: 0 mls/hr Documented By: Admin: 02/07/23 01:20 Dose: 400 mls/hr Documented By: ARI Sodium Chloride (Nss) 500 mls @ 999 mls/hr IV .Q31M ONE Stop: 02/07/23 01:24 Last Infusion: 02/07/23 01:55 Dose: 0 mls/hr Documented By: Admin: 02/07/23 01:23 Dose: 999 mls/hr Documented By: ARI Discharge Plan Visit Data Chief Complaint: Illness Stated Complaint: LOSS OF BALANCE ED Provider: Rivera Muñoz Discharge Problem: Acute upper gastrointestinal bleeding, Anemia Patient Disposition: Admitted As Inpatient Discharge Instructions Interventions: ED Discharge Assessment Last Done: 02/07/23 04:23 Anemia Qualifiers: Anemia type: other cause Other causes of anemia: acute posthemorrhagic Qualified Code(s): D62 - Acute posthemorrhagic anemia
[2023-02-07] MEDS: PANTOprazole 40 MG in DEXTROSE 5% 100 ML IV SCH ×5 (01:26→22:47)
--- NOTE | 2023-02-07 01:38 | History & Physical Report ---
Date of Service February 07, 2023 Assessment & Plan (1) Melena: Plan: -Hemoglobin 15.0 on December 14, now 11.1 in setting of melena yesterday. -Blood work otherwise unremarkable, vital signs stable. -No NSAID use but had recent shoulder surgery in early January in addition to aspirin use. -Started on pantoprazole bolus and drip in the ED, will continue on admission. -Consulted GI for potential upper GI bleed, will appreciate recs. -Will keep patient NPO for potential endoscopy. -Type and screen ordered, follow H&H with AM CBC. -Admit to PCU. (2) BPH with obstruction/lower urinary tract symptoms: Plan: -continue home solifenacin, finasteride (3) Hypertension: Plan: -continue home metoprolol, hydrochlorothiazide. (4) Chronic kidney disease: Plan: -Avoid nephrotoxic agents if possible. Creatinine at baseline. (5) Hyperlipidemia: Plan: -continue home simvastatin. Plan F/E/N/GI: NPO for potential EGD. DVT Prophylaxis: SCDs Code status: Full code. Dispo: PCU for further monitoring. History of Present Illness Chief Complaint: weak, hematochezia Primary Care Provider: Amanuel Ellison MD Babar is an 82 year old male with PmHx HTN, HLD, CKD, glaucoma, DJD, BPH, nephrolithiasis coming in to the emergency department for weakness and black, tarry stools. Patient states that for the past 3-4 days he's been feeling weaker and generally off. He then started to experience some dizziness over the past few days and noticed earlier yesterday that he had dark, tarry stools. He talked to his [employer] friend who is a retired doctor about it and they told him to go to the emergency room for further evaluation. He denies any fevers, chills, shortness of breath, chest pain, abdominal pain, nausea, vomiting, cough. He has not had melena before. He states he had a history of ulcers 30-40 years ago but has not had any issues since then. Patient does not use any NSAID products however uses aspirin. In the ED his hemoglobin was 11.1, coag studies normal, CMP unremarkable. He was started on a pantoprazole bolus and drip and given 500cc NSS bolus. Allergies Allergy/AdvReac Type Severity Reaction Status Date / Time No Known Drug Allergies Allergy 0 Verified 02/07/23 02:02 Home Medications Medication Instructions Recorded Confirmed Type multivitamin 1 cap PO QAM ##0 02/16/09 02/07/23 History glucosamine 375 uh-sjqfhergt-mxq 2 tab PO QPM ##0 10/11/14 02/07/23 History no1 500 mg-C 15 mg-ana 0.5 mg tablet (Pdymrqiifzm-Rrhsqbbelai-[facility] Complex) ascorbic acid (vitamin C) 500 mg 500 mg PO QAM ##0 01/11/17 02/07/23 History tablet (Vitamin C) aspirin 81 mg chewable tablet 81 mg PO QPM ##0 01/17/18 02/07/23 History docusate sodium 100 mg tablet 100 mg PO QPM ##0 01/17/18 02/07/23 History polyethylene glycol 3350 17 1 dose PO QPM ##0 01/17/18 02/07/23 History gram/dose oral powder (Miralax) brinzolamide 1 %-brimonidine 0.2 % 1 drp OPR TID 02/05/21 02/07/23 History eye drops,suspension (Simbrinza) hydrochlorothiazide 12.5 mg tablet 12.5 mg PO DAILY #90 tabs 02/15/22 02/07/23 Rx peg 400-propylene glycol 0.4 %-0.3 1 drp OPL BID #0 mL 03/08/22 02/07/23 History % eye drops (Systane (propylene glycol)) omeprazole 20 mg tablet,delayed 20 mg PO QAM #90 tabs 04/19/22 02/07/23 Rx release simvastatin 20 mg tablet 20 mg PO PM #90 tabs 09/29/22 02/07/23 Rx solifenacin 10 mg tablet (Vesicare) 10 mg PO QPM #90 tabs 09/29/22 02/07/23 Rx hydrocortisone 2.5 % topical cream See Rx Instructions .Route 12/13/22 02/07/23 Rx with perineal applicator .COMPLEX #30 grams metoprolol succinate 100 mg 100 mg PO QPM #90 tabs 02/04/23 02/07/23 Rx tablet,extended release 24 hr acetaminophen 500 mg tablet 1,000 mg PO HS 02/07/23 02/07/23 History (Tylenol Extra Strength) calcitriol 0.25 mcg capsule 0.25 mcg PO 3XWK 02/07/23 02/07/23 History finasteride 5 mg tablet 5 mg PO QAM 02/07/23 02/07/23 History Past Med/Surg History Medical History Bowel obstruction BPH (benign prostatic hyperplasia) Chronic kidney disease GERD (gastroesophageal reflux disease) Glaucoma H/O degenerative disc disease History of blood transfusion Hyperlipidemia Hypertension Kidney stone Low back pain Obesity Surgical History H/O hernia repair H/O removal of cyst History of carpal tunnel release of both wrists History of cataract surgery History of decompression of median nerve History of laminectomy History of total right hip arthroplasty Hx of arthroscopy of shoulder Hx of colonoscopy (2004) Hx of cystoscopy Hx of foot surgery Hx of repair of rotator cuff Hx of tonsillectomy Hx of total shoulder replacement Family History Mother Tuberculosis Sister Breast cancer Father Cardiac disorder Myocardial infarction Brother Dementia Denies family history of Ovarian cancer Prostate cancer Colorectal cancer Social History Smoking Status: Never smoker Tobacco Type: Cigarettes Age Started Using Tobacco: 17; Age Quit Using Tobacco: 30; packs per day: 2; Cigarettes Per Day: QUIT 51 YEARS AGO 2PPD WHILE IN SERVICE; Second Hand Exposure: No; Do You Dip or Chew Tobacco: No; Hx Alcohol Use: No Hx Substance Use: No Preferred Language: German Communication Ability: Effective Visual Impairment: Limited Hearing Ability: Normal Shell Grader Required: No Beliefs That Will Affect Care: None marital status: Current Living Situation: Spouse Current Living Situation Comment: Spouse and Legal guardian of 2 grandsons current occupational status: retired 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 Feels Safe at Home: Yes Childhood Exposure to Second-Hand Smoke: Yes Diet: regular caffeine: Yes (one cup of coffee each day) during the past year weight has: decreased > 10 lbs Dental Care, Regularly: No Physical Activity Frequency: Daily Seatbelt Use: always Sunscreen Use: Yes (sometimes ) Assistive Devices: None Review of Systems Review of Systems: As per HPI. Physical Exam Constitutional: WD/WN, vitals as above Eyes: PERRL, conjunctivae normal, anicteric sclerae Respiratory: normal respiratory effort, lungs clear to auscultation Cardiovascular: RRR, no murmur, no edema Gastrointestinal (Abdomen): normal bowel sounds, soft, nontender, no hepatosplenomegaly Skin: no rashes, warm and dry Psychiatric: A+Ox3, euthymic affect Results & Data Results & Data Vital Signs (Past 12 Hours) Vital Signs Temp Pulse Pulse Resp BP BP Pulse Ox 02/07/23 01:28 84 20 123/77 95 02/06/23 21:38 36.8 C 105 H 16 138/82 97 O2 Del Method 02/07/23 01:28 02/06/23 21:38 Room Air Supervising Physician Co-Signing Physician Notes Attending addendum: I have physically seen this patient, have supervised the medical residents activities, and agree with the H&P unless as otherwise noted. Assessment and Plan: Symptomatic anemia/likely upper GI bleed- The patient will be admitted to telemetry for serial cardiac enzymes, serial EKG's, cardiac rhythm monitoring and a 2-D echocardiogram with Dopplers. N.p.o. except essential medications Hemoglobin 11.1 on admission, with base 15.0 Given pantoprazole 80 mg IV in ED, and continued Protonix drip H&H every 6 hours Type and screen No history of alcohol use No history of NSAID use Patient does report history of peptic ulcer disease when he first moved to [place] about 47 years ago, had an EGD at that time Consult gastroenterology Hypertension- Hold metoprolol succinate, HCTZ due to relatively low blood pressure Of note, patient does not take aspirin regularly as as noted in med rec Remaining orders and notations as noted Resident Activity Tracking Resident Involvement: Resident Care Provided Care Provided: Adult Hospital Medicine
[2023-02-07] MEDS ORDERED: ONDANSETRON INJ 2 MG/ML 2 ML VIAL IV PRN ×2 (04:23→14:43)
[2023-02-07] MEDS ORDERED: ACETAMINOPHEN 325 MG TAB PO PRN (04:23)
[2023-02-07] MEDS: LACTATED RINGER'S 1,000 ML IV SCH ×2 (04:38→13:08)
--- NOTE | 2023-02-07 05:32 | Billing Data ---
Date of Service February 07, 2023 Coding Level of Care Code 93239 INT INP/OBS CARE
[2023-02-07 05:36] LABS: Basophils # (auto) 0.05 K/uL (0.00-0.20); Basophils % (auto) 0.7 %; Eosinophils # (auto) 0.18 K/uL (0.00-0.50); Eosinophils % (auto) 2.4 %; Hematocrit (blood only) 28.8 % (42.0-52.0); Hemoglobin 9.4 g/dl (14.0-18.0); Immature Granulocytes # (auto) 0.08 K/uL (0.01-0.20); Immature Granulocytes % (auto) 1.1 %; Lymphocytes # (auto) 1.44 K/uL (1.20-3.40); Lymphocytes % (auto) 19.5 %; Mean Corpuscular Hemoglobin 29.9 pg (25.0-34.0); Mean Corpuscular Hgb Conc 32.6 g/dL (32.0-36.0); Mean Corpuscular Volume 91.7 fL (80.0-100.0); Mean Platelet Volume 10.1 fL (9.4-12.4); Monocytes # (auto) 0.77 K/uL (0.11-0.59); Monocytes % (auto) 10.4 %; Neutrophils # (auto) 4.86 K/uL (1.40-6.50); Neutrophils % (auto) 65.9 %; Platelet Count 150 K/uL (130-400); RDW Coefficient of Variation 14.9 % (11.5-14.5); RDW Standard Deviation 49.6 fL (36.4-46.3); Red Blood Count 3.14 M/uL (4.70-6.10); White Blood Count 7.38 K/ul (4.8-10.8)
[2023-02-07 05:42] LABS: Albumin Level 3.3 gm/dl (3.4-5.0); BUN Creatinine Ratio 42.6 (10-20); Calcium 8.7 mg/dl (8.6-10.3); Creatinine Clr Calc Pharmacy 58.1 ml/min; Est GFR (African American) 62.7 ml/min; Est GFR (Non-African American) 54.1 ml/min; Phosphorus 3.9 mg/dl (2.5-4.9); Potassium 3.6 mmol/L (3.5-5.1)
[2023-02-07] MEDS: FINASTERIDE 5 MG TAB PO SCH (08:44)
[2023-02-07] MEDS: hydroCHLOROthiazide 25 MG TAB PO SCH (08:44)
--- NOTE | 2023-02-07 09:08 | Hospitalist Progress Note ---
Date of Service February 07, 2023 Assessment & Plan (1) Melena: Plan: -Hemoglobin 15.0 on December 14, now 11.1 ->9.4-> 10.0 -No NSAID use but had recent shoulder surgery in early January in addition to aspirin use. -Started on pantoprazole bolus and drip in the ED, will continue on admission. -Consulted GI for potential upper GI bleed, possible endoscopy (2) BPH with obstruction/lower urinary tract symptoms: Plan: -continue home solifenacin, finasteride (3) Hypertension: Plan: -continue home metoprolol, hydrochlorothiazide. (4) Chronic kidney disease: Plan: -Avoid nephrotoxic agents if possible. Creatinine at baseline. (5) Hyperlipidemia: Plan: -continue home simvastatin. Plan DVT Prophylaxis: SCDs Code status: Full code. Admission and Anticipated Discharge Date Admission Date: February 07, 2023 Subjective Pt offers no complaints or problems, has not had a colonoscopy for years, did have history of hemorrhoids in the past with one admission for bleeding Physical Exam Physical Exam: pt is hemodynamically stable abdomen exam is normal did not do rectal exam Results & Data Results & Data Vital Signs (Past 12 Hours) Vital Signs Temp Pulse Pulse Resp BP BP Pulse Ox 02/07/23 07:30 97.9 F 75 16 127/87 96 02/07/23 04:41 77 02/07/23 00:50 86 02/07/23 04:30 02/07/23 04:30 79 16 109/71 96 02/07/23 01:28 84 20 123/77 95 02/06/23 21:38 98.2 F 105 H 16 138/82 97 Pulse Ox O2 Del Method O2 Del Method 02/07/23 07:30 Room Air 02/07/23 04:41 02/07/23 00:50 02/07/23 04:30 96 Room Air 02/07/23 04:30 Room Air 02/07/23 01:28 02/06/23 21:38 Room Air PG Care Time/CCT Total # of Minutes Spent Total Time Spent with Patient: Total time spent is greater than 50% in coordination of care (as documented) at patient's floor/unit and/or counseling patient: Coding Level of Care Code 82617 SUB INP/OBS CARE 2/35MIN Diagnoses Melena K92.1 BPH with obstruction/lower urinary tract symptoms N40.1; N13.8 Hypertension I10 Chronic kidney disease N18.9 Hyperlipidemia E78.5
--- NOTE | 2023-02-07 13:55 | Gastrointestinal Consultation ---
Date of Consultation February 07, 2023 Assessment & Plan (1) Melena: Plan suspect possible ulcer bleeding or AVM as cause of melena recs: Proceed with EGD. risks/benefits and procedure discussed with patient, who agrees to proceed NPO continue PPI BID Thank you for allowing me to participate in the care of this patient. History of Present Illness Attending Physician: Dameon Allred MD History of Present Illness 82 yo male with hx HTN, CKD, glaucoma, DJD here with weakness and melena. Notes weakness lately and dizziness and dark tarry stools. Has hx PUD 30 plus years ago. denies NSAID use and no current alcohol use. labs reviewed. BUN elevated, hgb 10 currently was normal in december. Allergies Allergy/AdvReac Type Severity Reaction Status Date / Time No Known Drug Allergies Allergy 0 Verified 02/07/23 02:02 Home Medications Medication Instructions Recorded Confirmed Type multivitamin 1 cap PO QAM ##0 02/16/09 02/07/23 History glucosamine 375 ca-htkfkxoub-twy 2 tab PO QPM ##0 10/11/14 02/07/23 History no1 500 mg-C 15 mg-ana 0.5 mg tablet (Emzgdxfchwj-Rtrmeuoxxzq-PAH Complex) ascorbic acid (vitamin C) 500 mg 500 mg PO QAM ##0 01/11/17 02/07/23 History tablet (Vitamin C) aspirin 81 mg chewable tablet 81 mg PO QPM ##0 01/17/18 02/07/23 History docusate sodium 100 mg tablet 100 mg PO QPM ##0 01/17/18 02/07/23 History polyethylene glycol 3350 17 1 dose PO QPM ##0 01/17/18 02/07/23 History gram/dose oral powder (Miralax) brinzolamide 1 %-brimonidine 0.2 % 1 drp OPR TID 02/05/21 02/07/23 History eye drops,suspension (Simbrinza) hydrochlorothiazide 12.5 mg tablet 12.5 mg PO DAILY #90 tabs 02/15/22 02/07/23 Rx peg 400-propylene glycol 0.4 %-0.3 1 drp OPL BID #0 mL 03/08/22 02/07/23 History % eye drops (Systane (propylene glycol)) omeprazole 20 mg tablet,delayed 20 mg PO QAM #90 tabs 04/19/22 02/07/23 Rx release simvastatin 20 mg tablet 20 mg PO PM #90 tabs 09/29/22 02/07/23 Rx solifenacin 10 mg tablet (Vesicare) 10 mg PO QPM #90 tabs 09/29/22 02/07/23 Rx hydrocortisone 2.5 % topical cream See Rx Instructions .Route 12/13/22 02/07/23 Rx with perineal applicator .COMPLEX #30 grams metoprolol succinate 100 mg 100 mg PO QPM #90 tabs 02/04/23 02/07/23 Rx tablet,extended release 24 hr acetaminophen 500 mg tablet 1,000 mg PO HS 02/07/23 02/07/23 History (Tylenol Extra Strength) calcitriol 0.25 mcg capsule 0.25 mcg PO 3XWK 02/07/23 02/07/23 History finasteride 5 mg tablet 5 mg PO QAM 02/07/23 02/07/23 History Patient History Medical History Bowel obstruction 2006, pt believes no surgical intervention was needed BPH (benign prostatic hyperplasia) Chronic kidney disease follows w/ Dr Sawyer GERD (gastroesophageal reflux disease) controlled, stable per pt Glaucoma s/p surgical intervention bilat H/O degenerative disc disease cervical spine History of blood transfusion left hip replacement Hyperlipidemia Hypertension controlled, stable per pt Kidney stone Hx of sepsis d/t obstructing stone 01/2017 Mild Creatinine increase Low back pain Obesity Surgical History H/O hernia repair left 1995, right 1997 H/O removal of cyst mandibular cyst removed 1974 History of carpal tunnel release of both wrists 1994 L, 1997 R History of cataract surgery RIGHT AND LEFT History of decompression of median nerve pt unsure which side History of laminectomy L2-L4 02/09/1818 Grade 2 view, MAC 3, ETT 8. History of total right hip arthroplasty 2000 Hx of arthroscopy of shoulder L, 2003; R, 2000 Hx of colonoscopy (2004) Hx of cystoscopy Hx of foot surgery RIGHT FOOT RECONSTRUCTION 2016 Hx of repair of rotator cuff R, likely 2000 Hx of tonsillectomy Hx of total shoulder replacement RIGHT 2014 Family History Mother Tuberculosis Sister Breast cancer Father Cardiac disorder Myocardial infarction Brother Dementia Denies family history of Ovarian cancer Prostate cancer Colorectal cancer Social History Smoking Status: Never smoker Tobacco Type: Cigarettes Age Started Using Tobacco: 17; Age Quit Using Tobacco: 30; packs per day: 2; Cigarettes Per Day: QUIT 51 YEARS AGO 2PPD WHILE IN SERVICE; Second Hand Exposure: No; Do You Dip or Chew Tobacco: No; Hx Alcohol Use: No Hx Substance Use: No Preferred Language: Estonian Communication Ability: Effective Visual Impairment: Limited Hearing Ability: Normal Follow Up Clerk Required: No Beliefs That Will Affect Care: None marital status: Current Living Situation: Spouse Current Living Situation Comment: Spouse and Legal guardian of 2 grandsons current occupational status: retired 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 Feels Safe at Home: Yes Childhood Exposure to Second-Hand Smoke: Yes Diet: regular caffeine: Yes (one cup of coffee each day) during the past year weight has: decreased > 10 lbs Dental Care, Regularly: No Physical Activity Frequency: Daily Seatbelt Use: always Sunscreen Use: Yes (sometimes ) Assistive Devices: None Review of Systems Constitutional: no fever, no chills and no weight loss Eyes: as per Subjective / HPI Ear, Nose, Mouth, Throat: as per Subjective / HPI Respiratory: no dyspnea and no dyspnea on exertion Cardiovascular: no chest pain and no palpitations Gastrointestinal: as per Subjective / HPI Musculoskeletal: no joint pain and no swelling Integumentary: no rash and no lesions Neurologic: no numbness and no paresthesia Psychiatric: no depression and no anxiety Endocrine: no fatigue Hematologic / Lymphatic: no easy bleeding and no easy bruising Physical Exam Constitutional: WD/WN, vitals as above Eyes: EOM intact bilaterally Neck: normal visual inspection Respiratory: normal respiratory effort, lungs clear to auscultation Cardiovascular: RRR, no murmur, no edema Gastrointestinal (Abdomen): Inspection/Auscultation: abdomen normal to inspection; abdomen not distended Percussion/Palpation: abdomen soft; abdomen nontender and no hepatosplenomegaly Musculoskeletal: Head/Neck/Chest: normocephalic and head atraumatic Extremities: no cyanosis Skin: no rashes, warm and dry Neurologic: moves all extremities Psychiatric: Orientation: alert and cooperative Affect: euthymic affect Results & Data Vital Signs (Past 12 Hours) Vital Signs Temp Pulse Pulse Resp BP Pulse Ox Pulse Ox 02/07/23 07:30 36.6 C 75 16 127/87 96 02/07/23 04:41 77 02/07/23 04:30 96 02/07/23 04:30 79 16 109/71 96 O2 Del Method O2 Del Method 02/07/23 07:30 Room Air 02/07/23 04:41 02/07/23 04:30 Room Air 02/07/23 04:30 Room Air PG Care Time/CCT Total # of Minutes Spent Total Time Spent with Patient: Total time spent is greater than 50% in coordination of care (as documented) at patient's floor/unit and/or counseling patient: Coding Level of Care Code 12184 INT INP/OBS CARE 3/75MIN Diagnoses Melena K92.1
--- NOTE | 2023-02-07 14:05 | Anesthesiology Consultation ---
Date of Service February 07, 2023 Assessment & Plan Chart Review Chart Review: entry specialists initiated History Surgery Operation Date: 02/07/23 14:30 Proposed Procedures p EGD Hemostasis - Kevin Hernandez MD Height/Weight Height: 5 ft 11 in Weight: 115 kg Allergies Allergy/AdvReac Type Severity Reaction Status Date / Time No Known Drug Allergies Allergy 0 Verified 02/07/23 02:02 Medications Home Medications Medication Instructions Recorded Confirmed Last Taken multivitamin 1 cap PO QAM ##0 02/16/09 02/07/23 01/01/23 08:00 glucosamine 375 es-krotecngg-fjr 2 tab PO QPM ##0 10/11/14 02/07/23 12/20/22 no1 500 mg-C 15 mg-ana 0.5 mg tablet (Piwfzsoifml-Aaelsbtyduc-VQD Complex) ascorbic acid (vitamin C) 500 mg 500 mg PO QAM ##0 01/11/17 02/07/23 01/01/23 08:00 tablet (Vitamin C) aspirin 81 mg chewable tablet 81 mg PO QPM ##0 01/17/18 02/07/23 02/06/23 17:30 docusate sodium 100 mg tablet 100 mg PO QPM ##0 01/17/18 02/07/23 01/01/23 22:00 polyethylene glycol 3350 17 1 dose PO QPM ##0 01/17/18 02/07/23 01/01/23 20:00 gram/dose oral powder (Miralax) brinzolamide 1 %-brimonidine 0.2 % 1 drp OPR TID 02/05/21 02/07/23 02/06/23 17:30 eye drops,suspension (Simbrinza) hydrochlorothiazide 12.5 mg tablet 12.5 mg PO DAILY #90 tabs 02/15/22 02/07/23 02/06/23 08:00 peg 400-propylene glycol 0.4 %-0.3 1 drp OPL BID #0 mL 03/08/22 02/07/23 02/06/23 17:30 % eye drops (Systane (propylene glycol)) omeprazole 20 mg tablet,delayed 20 mg PO QAM #90 tabs 04/19/22 02/07/23 02/06/23 08:00 release simvastatin 20 mg tablet 20 mg PO PM #90 tabs 09/29/22 02/07/23 02/06/23 17:30 solifenacin 10 mg tablet (Vesicare) 10 mg PO QPM #90 tabs 09/29/22 02/07/23 02/05/23 17:30 hydrocortisone 2.5 % topical cream See Rx Instructions .Route 12/13/22 02/07/23 01/01/23 08:00 with perineal applicator .COMPLEX #30 grams metoprolol succinate 100 mg 100 mg PO QPM #90 tabs 02/04/23 02/07/23 02/06/23 17:30 tablet,extended release 24 hr acetaminophen 500 mg tablet 1,000 mg PO HS 02/07/23 02/07/23 Unknown (Tylenol Extra Strength) calcitriol 0.25 mcg capsule 0.25 mcg PO 3XWK 02/07/23 02/07/23 Unknown finasteride 5 mg tablet 5 mg PO QAM 02/07/23 02/07/23 02/06/23 08:00 Active Medications Generic Name Dose Route Start Last Admin Trade Name Freq PRN Reason Stop Dose Admin Finasteride 5 mg 02/07/23 09:00 02/07/23 08:44 Finasteride 5 Mg Tab PO 03/09/23 08:59 5 mg QAM CAMERON Administration Hydrochlorothiazide 12.5 mg 02/07/23 09:00 02/07/23 08:44 Hydrochlorothiazide 25 Mg Tab PO 03/09/23 08:59 12.5 mg DAILY CAMERON Administration Pantoprazole Sodium 40 mg/ 100 mls @ 20 mls/hr 02/07/23 01:15 02/07/23 11:43 Dextrose IV 03/09/23 01:14 8 mg/hr Q5H CAMERON 20 mls/hr Administration 8 MG/HR Lactated Ringer's 1,000 mls @ 125 mls/hr 02/07/23 04:23 02/07/23 13:08 Lr IV 02/07/23 20:22 125 mls/hr .Q8H CAMERON Administration Past Medical History Medical History Bowel obstruction 2006, pt believes no surgical intervention was needed BPH (benign prostatic hyperplasia) Chronic kidney disease follows w/ Dr Sawyer GERD (gastroesophageal reflux disease) controlled, stable per pt Glaucoma s/p surgical intervention bilat H/O degenerative disc disease cervical spine History of blood transfusion left hip replacement Hyperlipidemia Hypertension controlled, stable per pt Kidney stone Hx of sepsis d/t obstructing stone 01/2017 Mild Creatinine increase Low back pain Obesity Past Family History Family History Mother Tuberculosis Sister Breast cancer Father Cardiac disorder Myocardial infarction Brother Dementia Denies family history of Ovarian cancer Prostate cancer Colorectal cancer Past Surgical History Surgical History H/O hernia repair left 1995, right 1997 H/O removal of cyst mandibular cyst removed 1974 History of carpal tunnel release of both wrists 1994 L, 1996 R History of cataract surgery RIGHT AND LEFT History of decompression of median nerve pt unsure which side History of laminectomy L2-L4 02/09/1818 Grade 2 view, MAC 3, ETT 8. 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 IN SERVICE Do You Dip or Chew Tobacco: No Hx Alcohol Use: No Hx Substance Use: No substance use type: does not use Physical Exam Vital Signs Last Vital Signs Temp 97.9 F 02/07/23 07:30 Pulse 75 02/07/23 07:30 Resp 16 02/07/23 07:30 BP 127/87 02/07/23 07:30 Pulse Ox 96 02/07/23 07:30 O2 Del Method Room Air 02/07/23 07:30 Testing Laboratory Results 02/07/23 10:49 02/07/23 04:43 PT 10.4 Seconds (9.0-12.0) 02/06/23 21:53 INR 0.9 (0.9-1.1) 02/06/23 21:53 APTT 24.8 Seconds (21.0-31.0) 02/06/23 21:53 Blood Type AB Positive 02/06/23 22:25 Antibody Screen NEGATIVE 02/06/23 22:25 Electrocardiogram Date: 02/06/23 Sinus rhythm with occasional, rate 95 bpm Premature ventricular complexes and Premature atrial complexes Right bundle branch block Left anterior fascicular block Bifascicular block Abnormal ECG When compared with ECG of 02-DEC-2022 12:31, Premature ventricular complexes are now Present Right bundle branch block is now Present
[2023-02-07] MEDS ORDERED: fentaNYL citrate PF 100 MCG/2 ML VIAL IV PRN (14:43)
[2023-02-07] MEDS ORDERED: ePHEDrine sulfate 50 MG/ML AMP IV PRN (14:43)
[2023-02-07] MEDS ORDERED: ATROPINE SULFATE 0.1 MG/ML 10ML SYR IV PRN (14:43)
[2023-02-07] MEDS ORDERED: PROPOFOL IV EMULSION 10 MG/ML 20 ML VIAL IV ONE (14:55)
[2023-02-07] MEDS ORDERED: GLYCOPYRROLATE 0.2 MG/ML VIAL ONE (14:55)
[2023-02-07] MEDS ORDERED: LIDOCAINE 2% 2 ML VIAL/AMP(20MG/ML) INFIL ONE (14:55)
[2023-02-07] MEDS ORDERED: ONDANSETRON INJ 2 MG/ML 2 ML VIAL ONE (14:55)
--- NOTE | 2023-02-07 16:03 | Procedure Note ---
Procedure Note Date of Service February 07, 2023 Note Gi brief procedure note post op note egd findings: normal stomach, esophagus, duodenum, no blood throughout recs: d/c ppi supportive care, IVFs advance diet as tolerated trend h/h colonoscopy as an outpatient Thank you for allowing me to participate in the care of this patient Kevin Hernandez MD Gastroenterology Coding
--- NOTE | 2023-02-07 16:04 | GI REPORT ---
Patient Name: Babar Parikh Procedure Date: 02/07/2023 3:10 PM Date of : 1940 Admit Type: Inpatient Age: 82 Gender: Male Attending MD: Kevin Hernandez MD, Procedure: Upper GI endoscopy Providers: Kevin Hernandez MD Referring MD: Amanuel Ellison Indications: Melena Medicines: Monitored Anesthesia Care Complications: No immediate complications. Estimated blood loss: None. Estimated Blood Loss: Estimated blood loss: none. Procedure: Pre-Anesthesia Assessment: - Prior Anticoagulants: The patient has taken no anticoagulant or antiplatelet agents. - ASA Grade Assessment: II - A patient with mild systemic disease. After obtaining informed consent, the endoscope was passed under direct vision. Throughout the procedure, the patient's blood pressure, pulse, and oxygen saturations were monitored continuously. The Endoscope was introduced through the mouth, and advanced to the second part of duodenum. The upper GI endoscopy was accomplished without difficulty. The patient tolerated the procedure well. Findings: The examined esophagus was normal. The entire examined stomach was normal. The duodenal bulb and second portion of the duodenum were normal. Impression: - Normal esophagus. - Normal stomach. - Normal duodenal bulb and second portion of the duodenum. - No specimens collected. Recommendation: - Return patient to [facility] for ongoing care. discontinue ppi supportive care, IVFs advance diet as tolerated trend h/h colonoscopy as an outpatient Kevin Hernandez MD 02/07/2023 4:04:21 PM This report has been signed electronically. Note Initiated On: 02/07/2023 3:10 PM Number of Addenda: 0 I attest to the content of the Intraoperative Record and orders documented therein, exceptions below {[id number]}
--- NOTE | 2023-02-07 16:10 | Anesthesiology Progress Note ---
Date of Service February 07, 2023 Anesthesia Post Procedure Vital Signs Vital Signs: Temp Pulse Pulse Resp BP BP Pulse Ox 02/07/23 15:00 86 16 123/72 99 02/07/23 15:12 75 16 118/87 96 02/07/23 07:30 97.9 F 75 16 127/87 96 02/07/23 04:41 77 02/07/23 00:50 86 02/07/23 04:30 02/07/23 04:30 79 16 109/71 96 02/07/23 01:28 84 20 123/77 95 02/06/23 21:38 98.2 F 105 H 16 138/82 97 Pulse Ox O2 Del Method O2 Del Method 02/07/23 15:00 Room Air 02/07/23 15:12 Room Air 02/07/23 07:30 Room Air 02/07/23 04:41 02/07/23 00:50 02/07/23 04:30 96 Room Air 02/07/23 04:30 Room Air 02/07/23 01:28 02/06/23 21:38 Room Air Transfer of Care Handoff Completed per policy Notes Mental Status: alert / awake / arousable and participated in evaluation Patient Amnestic to Procedure: Yes Nausea / Vomiting: adequately controlled Pain: adequately controlled Airway Patency, RR, SpO2: stable & adequate BP & HR: stable & adequate Hydration State: stable & adequate Anesthetic Complications: no major complications apparent and Pt Satisfied with anesthetic care
[2023-02-07] MEDS ORDERED: SIMVASTATIN 20 MG TAB PO SCH (21:00)
[2023-02-07] MEDS ORDERED: METOPROLOL SUCC 50MG EXT REL TAB PO SCH (21:00)
[2023-02-07] MEDS ORDERED: OXYBUTYNIN CHLORIDE XL 5 MG TABCR PO SCH (21:00)
--- NOTE | 2023-02-07 23:32 | Electrocardiogram Report ---
Test Reason : Blood Pressure : / mmHG Vent. Rate : 095 BPM Atrial Rate : 095 BPM P-R Int : 128 ms QRS Dur : 128 ms QT Int : 390 ms P-R-T Axes : -02 -63 024 degrees QTc Int : 490 ms Sinus rhythm with occasional Premature atrial complexes Right bundle branch block Left anterior fascicular block Bifascicular block Abnormal ECG When compared with ECG of 02-DEC-2022 12:31, Right bundle branch block is now Present Confirmed by Charlie Rouse ([id number]) on 02/07/2023 11:32:18 PM Referred By: Amanuel Ellison Confirmed By:Charlie Rouse
[2023-02-08] MEDS: PANTOprazole 40 MG in DEXTROSE 5% 100 ML IV SCH ×2 (04:37→08:27)
[2023-02-08 06:32] LABS: Basophils # (auto) 0.05 K/uL (0.00-0.20); Basophils % (auto) 0.9 %; Eosinophils # (auto) 0.24 K/uL (0.00-0.50); Eosinophils % (auto) 4.5 %; Hematocrit (blood only) 28.2 % (42.0-52.0); Hemoglobin 9.2 g/dl (14.0-18.0); Immature Granulocytes # (auto) 0.06 K/uL (0.01-0.20); Immature Granulocytes % (auto) 1.1 %; Lymphocytes # (auto) 1.12 K/uL (1.20-3.40); Lymphocytes % (auto) 21.1 %; Mean Corpuscular Hemoglobin 30.2 pg (25.0-34.0); Mean Corpuscular Hgb Conc 32.6 g/dL (32.0-36.0); Mean Corpuscular Volume 92.5 fL (80.0-100.0); Mean Platelet Volume 9.9 fL (9.4-12.4); Monocytes # (auto) 0.55 K/uL (0.11-0.59); Monocytes % (auto) 10.4 %; Neutrophils # (auto) 3.29 K/uL (1.40-6.50); Platelet Count 147 K/uL (130-400); RDW Coefficient of Variation 15.2 % (11.5-14.5); RDW Standard Deviation 50.4 fL (36.4-46.3); Red Blood Count 3.05 M/uL (4.70-6.10); White Blood Count 5.31 K/ul (4.8-10.8)
[2023-02-08 06:45] LABS: Albumin Level 3.3 gm/dl (3.4-5.0); BUN Creatinine Ratio 23.2 (10-20); Calcium 8.8 mg/dl (8.6-10.3); Creatinine Clr Calc Pharmacy 50.2 ml/min; Est GFR (African American) 52.2 ml/min; Phosphorus 4.2 mg/dl (2.5-4.9); Potassium 4.3 mmol/L (3.5-5.1)
[2023-02-08] MEDS: hydroCHLOROthiazide 25 MG TAB PO SCH (08:35)
[2023-02-08] MEDS: FINASTERIDE 5 MG TAB PO SCH (08:35)
[2023-02-08] MEDS ORDERED: POLYETHYLENE (MIRALAX) 17 GM PACK PO ONE (09:57)
--- NOTE | 2023-02-08 13:50 | Hospitalist Progress Note ---
Date of Service February 08, 2023 Assessment & Plan (1) Melena: Plan: -Hemoglobin 15.0 on December 14, now 11.1 ->9.4-> 10.0 now 9.6 this is acute blood loss anemia -No NSAID use but had recent shoulder surgery in early January in addition to aspirin use. -On discharge will return to outpatient omeprazole, recommend stopping vitamin C -Consulted GI for potential upper GI bleed, upper endoscopy did not reveal source of bleeding. Patient will have outpatient colonoscopy. Patient is hemodynamically stable awaiting a bowel movement before discharging home (2) BPH with obstruction/lower urinary tract symptoms: Plan: -continue home solifenacin, finasteride (3) Hypertension: Plan: -continue home metoprolol, hydrochlorothiazide. (4) Chronic kidney disease: Plan: -Avoid nephrotoxic agents if possible. Creatinine at baseline. (5) Hyperlipidemia: Plan: -continue home simvastatin. Plan Code status: Full code. Admission and Anticipated Discharge Date Admission Date: February 07, 2023 Subjective Pt offers no complaints or problems, has not had a colonoscopy for years, did have history of hemorrhoids in the past with one admission for bleeding Endoscopy performed 02/08 is without stigmata of bleeding or ulcers Patient has not had a bowel movement since his initial presentation Physical Exam Physical Exam: pt is hemodynamically stable abdomen exam is normal did not do rectal exam Results & Data Results & Data Vital Signs (Past 12 Hours) Vital Signs Temp Pulse Pulse Resp BP Pulse Ox O2 Del Method 02/08/23 10:50 98.1 F 80 20 126/79 97 Room Air 02/08/23 09:46 74 02/08/23 07:26 97.7 F 71 18 118/72 94 Room Air 02/08/23 03:00 97.7 F 76 19 146/80 H 95 Room Air PG Care Time/CCT Total # of Minutes Spent Total Time Spent with Patient: Total time spent is greater than 50% in coordination of care (as documented) at patient's floor/unit and/or counseling patient: Coding Level of Care Code 13064 SUB INP/OBS CARE 2/35MIN Diagnoses Melena K92.1 BPH with obstruction/lower urinary tract symptoms N40.1; N13.8 Hypertension I10 Chronic kidney disease N18.9 Hyperlipidemia E78.5
--- NOTE | 2023-02-08 13:57 | Discharge Summary ---
Date of Service February 08, 2023 Admission HPI Per Admitting Provider Babar is an 82 year old male with PmHx HTN, HLD, CKD, glaucoma, DJD, BPH, nephrolithiasis coming in to the emergency department for weakness and black, tarry stools. Patient states that for the past 3-4 days he's been feeling weaker and generally off. He then started to experience some dizziness over the past few days and noticed earlier yesterday that he had dark, tarry stools. He talked to his Jewish friend who is a retired doctor about it and they told him to go to the emergency room for further evaluation. He denies any fevers, chills, shortness of breath, chest pain, abdominal pain, nausea, vomiting, cough. He has not had melena before. He states he had a history of ulcers 30-40 years ago but has not had any issues since then. Patient does not use any NSAID products however uses aspirin. In the ED his hemoglobin was 11.1, coag studies normal, CMP unremarkable. He was started on a pantoprazole bolus and drip and given 500cc NSS bolus. Principal Diagnosis acute blood loss anemia, suspect lower gi bleed Discharge Exam awake and alert, no abdominal pain Discharge Data Allergies Allergy/AdvReac Type Severity Reaction Status Date / Time No Known Drug Allergies Allergy 0 Verified 02/07/23 02:02 Consultations 02/07/23 01:07 ED Decision to Admit Stat 02/07/23 04:23 Consult Gastroenterology Routine Procedures Performed Operation Date: 02/07/23 14:30 Actual Procedures p EGD Hemostasis - Kevin Hernandez MD Hospital Course (1) Melena: -Hemoglobin 15.0 on December 14, now 11.1 ->9.4-> 10.0 now 9.6 this is acute blood loss anemia -No NSAID use but had recent shoulder surgery in early January in addition to aspirin use. -On discharge will return to outpatient omeprazole, recommend stopping vitamin C -Consulted GI for potential upper GI bleed, upper endoscopy did not reveal source of bleeding. Patient will have outpatient colonoscopy. since is painless suspect this is hemorrhoidal, avm seems to be self limited Patient is hemodynamically stable did have a bowel movement before discharging home (2) BPH with obstruction/lower urinary tract symptoms: -continue home solifenacin, finasteride (3) Hypertension: -continue home metoprolol, hydrochlorothiazide. (4) Chronic kidney disease: -Avoid nephrotoxic agents if possible. Creatinine at baseline. (5) Hyperlipidemia: -continue home simvastatin. Plan Code status: Full code. Total Time Total Time Spent Total Time Spent (In Minutes): It required greater than 30 minutes to prepare this patient for discharge Discharge Plan Discharge Items Patient Disposition: Home - Self-Care Reason For Visit: MELENA, DIZZINESS Discharge Diagnosis: rectal bleeding-normal upper endoscope blood loss anemia Activity: Resume your previous activity Non-emergency contact: Primary Care Provider Call non-emergency contact if: your symptoms worsen Follow-up/Referrals: Amanuel Ellison MD [Primary Care Provider] - Diet: Regular Addtl Attending Provider Instructions: Eat a health diet, you may consider taking iron supplements every other day or joe a multiple vitamin with iron daily follow up with your PCP to help schedule for an outpt Colonoscopy in the near future if your symptoms recur please return Pending Studies at Discharge: No Stand-Alone Forms: My Sayah, Smoking Cessation Medications and DC Order Prescriptions: Continued multivitamin Capsule 1 cap PO QAM Qty: 0 Oicxyhynpnt-Dqqaz-MLH Complex 055-832-08-0.5 mg Tablet 2 tab PO QPM Qty: 0 Rx Instructions: UNKNOWN DOSE polyethylene glycol 3350 [Miralax] 17 gram/dose Powder 1 dose PO QPM Qty: 0 docusate sodium 100 mg Tablet 100 mg PO QPM Qty: 0 hydrochlorothiazide 12.5 mg tablet 12.5 mg PO DAILY Qty: 90 3RF Systane (propylene glycol) 0.4-0.3 % drops 1 drp OPL BID Qty: 0 omeprazole 20 mg tablet,delayed release (DR/EC) 20 mg PO QAM Qty: 90 3RF simvastatin 20 mg tablet 20 mg PO PM Qty: 90 3RF solifenacin [Vesicare] 10 mg tablet 10 mg PO QPM Qty: 90 3RF hydrocortisone 2.5 % cream with perineal applicator See Rx Instructions .ROUTE .COMPLEX Qty: 30 5RF Dose Instruction: APPLY RECTALLY DAILY NEEDED FOR HEMORRHOIDS DIRECTED Rx Instructions: APPLY RECTALLY DAILY NEEDED FOR HEMORRHOIDS DIRECTED metoprolol succinate 100 mg tablet extended release 24 hr 100 mg PO QPM Qty: 90 3RF Simbrinza 1-0.2 % drops,suspension 1 drp OPR TID acetaminophen [Tylenol Extra Strength] 500 mg Tablet 1,000 mg PO HS calcitriol 0.25 mcg capsule 0.25 mcg PO 3XWK Rx Instructions: 0.25 mcg PO every tuesday, tuesday, tuesday; finasteride 5 mg tablet 5 mg PO QAM Rx Instructions: TAKE 1 TABLET BY MOUTH DAILY IN THE MORNING Held aspirin 81 mg Tablet,Chewable 81 mg PO QPM Qty: 0 Hold Instructions: Resume on 02/14/23. Discontinued ascorbic acid (vitamin C) [Vitamin C] 500 mg Tablet 500 mg PO QAM Qty: 0 Discharge Orders: Discharge Order (Routine); Ordered 02/08/23 Ordered By: Dameon Allred Admission Data Admit Date/Time: 02/07/23 02:18 Attending Provider: Dameon Allred Admit Provider: Armando Gaming Primary Care Provider: Amanuel Ellison Other Providers: Ronal Melgar ; Kevin Hernandez Coding Level of Care Code 27008 INP/OBS DISCH >30 MIN Diagnoses Melena K92.1 BPH with obstruction/lower urinary tract symptoms N40.1; N13.8 Hypertension I10 Chronic kidney disease N18.9 Hyperlipidemia E78.5
== END 2023-02-08 15:07 | disposition home or self-care (01) ==
LOC: ED 21:34 → SUATTDRO 02-07 02:18 → INTOOBSV 02-07 02:18 → EDINP 02-07 02:18 → 2S 02-07 16:58

== ENCOUNTER 2023-10-24 11:14 | Observation (INO) ==
--- NOTE | 2023-09-21 13:26 | PAT Medication Instructions ---
Medication Instructions Date of Service September 21, 2023 Home Medications Medication Instructions Recorded solifenacin 10 mg tablet (Vesicare) 10 mg PO QPM #90 tabs 09/29/22 metoprolol succinate 100 mg 100 mg PO QPM #90 tabs 02/04/23 tablet,extended release 24 hr hydrochlorothiazide 12.5 mg tablet 12.5 mg PO QAM #90 tabs 03/08/23 omeprazole 20 mg tablet,delayed 20 mg PO QAM #90 tabs 05/02/23 release calcitriol 0.25 mcg capsule 0.25 mcg PO 3XWK #36 caps 05/09/23 Medication List: multivitamin 1 cap PO QAM glucosamine 375 fw-dflocytfv-hyx no1 500 mg-C 15 mg-ana 0.5 mg tablet (Doqwycmyutg-Thajbxewido-DYI Complex) 2 tab PO QPM docusate sodium 100 mg tablet 100 mg PO QPM polyethylene glycol 3350 17 gram/dose oral powder (Miralax) 1 dose PO QPM brinzolamide 1 %-brimonidine 0.2 % eye drops,suspension (Simbrinza) 1 drp OPR BID peg 400-propylene glycol 0.4 %-0.3 % eye drops (Systane (propylene glycol)) 1 drp OPL BID PRN Dry Eyes solifenacin 10 mg tablet (Vesicare) 10 mg PO QPM metoprolol succinate 100 mg tablet,extended release 24 hr 100 mg PO QPM acetaminophen 500 mg tablet (Tylenol Extra Strength) 650 mg PO HS finasteride 5 mg tablet 5 mg PO QAM simvastatin 20 mg tablet 20 mg PO QPM hydrocortisone 2.5 % topical cream with perineal applicator 1 applic topical DAILY PRN Itching hydrochlorothiazide 12.5 mg tablet 12.5 mg PO QAM omeprazole 20 mg tablet,delayed release 20 mg PO QAM calcitriol 0.25 mcg capsule 0.25 mcg PO 3XWK sodium chloride 0.65 % nasal spray aerosol (Saline Mist) 1 spray intranasal Q4H PRN MEDICATION INSTRUCTIONS: Continue as directed brinzolamide 1 %-brimonidine 0.2 % eye drops,suspension (Simbrinza) 1 drp OPR BID sodium chloride 0.65 % nasal spray aerosol (Saline Mist) 1 spray intranasal Q4H PRN peg 400-propylene glycol 0.4 %-0.3 % eye drops (Systane (propylene glycol)) 1 drp OPL BID PRN Dry Eyes hydrocortisone 2.5 % topical cream with perineal applicator 1 applic topical DAILY PRN Itching STOP taking 2 weeks before surgery glucosamine 375 ti-qpvsifeeo-hxr no1 500 mg-C 15 mg-ana 0.5 mg tablet (Iwodapjzndn-Lhasvgkkzbe-ZHR Complex) 2 tab PO QPM DO NOT take the morning of surgery calcitriol 0.25 mcg capsule 0.25 mcg PO 3XWK hydrochlorothiazide 12.5 mg tablet 12.5 mg PO QAM multivitamin 1 cap PO QAM Take morning of surgery With a small sip of water, OTHERWISE NOTHING TO EAT OR DRINK AFTER MIDNIGHT: omeprazole 20 mg tablet,delayed release 20 mg PO QAM finasteride 5 mg tablet 5 mg PO QAM Take evening before surgery simvastatin 20 mg tablet 20 mg PO QPM docusate sodium 100 mg tablet 100 mg PO QPM polyethylene glycol 3350 17 gram/dose oral powder (Miralax) 1 dose PO QPM solifenacin 10 mg tablet (Vesicare) 10 mg PO QPM metoprolol succinate 100 mg tablet,extended release 24 hr 100 mg PO QPM acetaminophen 500 mg tablet (Tylenol Extra Strength) 650 mg PO HS Other Notes If you have any questions please call us at [phone] or [phone] or [phone] or [phone]
--- NOTE | 2023-09-28 11:14 | Anesthesiology Consultation ---
Date of Service September 28, 2023 Assessment & Plan (1) Encounter for pre-operative examination: Chart Review Chart Review: Acceptable Risk for Surgery and Patient seen in Pre Admission Testing - Patient is NOT an ideal OPJ candidate (currently 23 hour obs) Per PAT appt on 09/28/23, no recent illness/disease exposures, illness related symptoms, or recent illness/disease positive tests. Will leave to surgeon's discretion if preop Covid testing needed Left Reverse Total Shoulder Arthroplasty 01/03/23= Done under [facility] with LMA #5. Atraumatic attempt x 1 Teaching & Discussion Pre-Anesthesia Teaching/Discussion Notes: Instructed NPO after midnight before surgery,except medications with 15 cc of water. Medication instructions provided according to the [facility] guidelines. History Surgery Operation Date: 10/24/23 10:20 Proposed Procedures p Right Total Knee Arthroplasty - Jose Luis Encarnacion DO Height/Weight Height: 5 ft 10.5 in Weight: 121.6 kg Allergies Allergy/AdvReac Type Severity Reaction Status Date / Time No Known Drug Allergies Allergy Verified 09/15/23 13:42 Medications Home Medications Medication Instructions Recorded Confirmed Last Taken multivitamin 1 cap PO QAM ##0 02/16/09 09/15/23 02/27/23 glucosamine 375 sa-wsvmdgncl-unm 2 tab PO QPM ##0 10/11/14 09/15/23 02/26/23 no1 500 mg-C 15 mg-ana 0.5 mg tablet (Qqjlmbqjsrb-Ztbjnvfbwaf-CKR Complex) docusate sodium 100 mg tablet 100 mg PO QPM ##0 01/17/18 09/15/23 02/26/23 polyethylene glycol 3350 17 1 dose PO QPM ##0 01/17/18 09/15/23 02/26/23 gram/dose oral powder (Miralax) brinzolamide 1 %-brimonidine 0.2 % 1 drp OPR BID 02/05/21 09/15/23 02/27/23 eye drops,suspension (Simbrinza) peg 400-propylene glycol 0.4 %-0.3 1 drp OPL BID PRN Dry Eyes #0 mL 03/08/22 07/06/23 02/26/23 % eye drops (Systane (propylene glycol)) solifenacin 10 mg tablet (Vesicare) 10 mg PO QPM #90 tabs 09/29/22 09/15/23 02/26/23 metoprolol succinate 100 mg 100 mg PO QPM #90 tabs 02/04/23 09/15/23 02/26/23 tablet,extended release 24 hr acetaminophen 500 mg tablet 650 mg PO HS 02/07/23 09/15/23 02/26/23 (Tylenol Extra Strength) finasteride 5 mg tablet 5 mg PO QAM 02/07/23 09/15/23 02/27/23 simvastatin 20 mg tablet 20 mg PO QPM 02/10/23 09/15/23 02/26/23 hydrocortisone 2.5 % topical cream 1 applic topical DAILY PRN Itching 02/27/23 09/15/23 02/27/23 with perineal applicator hydrochlorothiazide 12.5 mg tablet 12.5 mg PO QAM #90 tabs 03/08/23 09/15/23 Unknown omeprazole 20 mg tablet,delayed 20 mg PO QAM #90 tabs 05/02/23 09/15/23 Unknown release calcitriol 0.25 mcg capsule 0.25 mcg PO 3XWK #36 caps 05/09/23 09/15/23 Unknown sodium chloride 0.65 % nasal spray 1 spray intranasal Q4H PRN 06/22/23 07/06/23 Unknown aerosol (Saline Mist) Past Medical History Medical History BPH (benign prostatic hyperplasia) Chronic kidney disease follows w/ Dr Sawyer Stable per patient GERD (gastroesophageal reflux disease) controlled, stable per pt H/O degenerative disc disease cervical spine, has full ROM History of blood transfusion (~2000) left hip replacement Hx of glaucoma s/p surgical intervention bilaterally no current issues Hx of intestinal obstruction (~2006) no surgical intervention per pt. Hx of septic shock (~2016) admit to [facility] x 6 days, kidney stone Hx of upper gastrointestinal hemorrhage (~02/2023) admit to [facility], EGD & Colon, per pt. source not found no current issues Hyperlipidemia Hypertension controlled, stable per pt Obesity Exercise / Class Metabolic Activity III < 4 Walking/Shop/Light housework (one flight of stairs - no chest pain, mild SOB ) Past Family History Family History Mother Tuberculosis Sister Breast cancer Father Cardiac disorder Myocardial infarction Brother Dementia Denies family history of Ovarian cancer Prostate cancer Colorectal cancer Past Surgical History Surgical History H/O hernia repair left 1995, right 1997 H/O removal of cyst (~1974) mandibular History of carpal tunnel release of both wrists 1994 L, 1996 R History of esophagogastroduodenoscopy (EGD) History of laminectomy L2-L4 02/09/1818 Grade 2 view, MAC 3, ETT 8. History of reverse total replacement of left shoulder joint (~01/03/23) History of total right hip arthroplasty (~2000) Hx of arthroscopy of shoulder L, 2003; R, 1999 Hx of bilateral cataract extraction Hx of colonoscopy with polypectomy Hx of cystoscopy Hx of foot surgery (~2015) rt foot reconstruction Hx of repair of rotator cuff R, likely 1999 Hx of tonsillectomy Hx of total shoulder replacement RIGHT 2014 LEFT 2022 Past Anesthesia History No Hx of Anesthesia Complications and No Family Hx of Anesthesia Complications History of PONV No Hx of PONV, No Hx of Motion Sickness and Other (vertigo - chronic hx- no aggravation with an anesthesia so far ) Social History Smoking Status: Former smoker Smoking cigarettes per day: 1 PPD Do You Dip or Chew Tobacco: No Smoking End Date: quit 54 years ago Hx Alcohol Use: No Hx Substance Use: No substance use type: does not use Review of Systems Patient denies chest pain, shortness of breath at rest, cough, wheezing, palpitations. No hx of seizures, stroke, [place], apnea/snoring. No hx of blood clots Physical Exam Vital Signs VITALS BP 148/93 P 72 TEMP 97.9 SP02 94% RESP 16 Constitutional no acute distress ENMT Mouth: no TMJ clicking Thyromental Distance: > or= 3.5 Finger Breadths (3.5) Mallampati Class: I Full dentures on top and bottom Neck neck extension not limited Respiratory normal respiratory effort; no respiratory distress Auscultation: lungs clear to auscultation bilaterally; no wheezes Cardiovascular Rate/Rhythm: regular rate and regular rhythm Heart Sounds: no murmur Vessels: no carotid bruit Musculoskeletal Spine: no pain with cervical ROM Extremities: extremities normal to inspection Psychiatric Orientation: alert Lab Results Anesthesia Preop Results Results Anesthesia Widget: WBC 4.83 K/ul (4.8-10.8) 09/28/23 Hgb 14.4 g/dl (14.0-18.0) 09/28/23 Hct 42.3 % (42.0-52.0) 09/28/23 Plt 146 K/uL (130-400) 09/28/23 Na 140 mmol/L (136-145) 09/28/23 K 4.3 mmol/L (3.5-5.1) 09/28/23 Cl 108 mmol/L (98-107) H 09/28/23 CO2 26 mmol/L (21-32) 09/28/23 BUN 30 mg/dl (6-23) H 09/28/23 Creat 1.30 mg/dl (0.6-1.4) 09/28/23 Glucose Level 107 mg/dl (70-99(Fasting)) H 09/28/23 PT 10.6 Seconds (9.0-12.0) 09/28/23 PTT 27 Seconds (21-31) 09/28/23 INR 1.0 (0.9-1.1) 09/28/23 Blood Type AB Positive 09/28/23 Antibody Screen NEGATIVE 09/28/23 Testing Electrocardiogram Date: 09/28/23 Findings: + NSR @ (70bpm ) Left axis deviation RBBB When compared to EKG from Jun 03, 2023- no significant change was found per cardio Chest X-Ray Date: 06/03/23 Findings: + NAD FINDINGS: A PA chest radiograph is compared to study dated 02/27/2023. The cardiomediastinal silhouette is unremarkable. There is mild bibasilar scarring/ atelectasis. The lungs and pleural spaces are otherwise clear. No pneumothorax is seen. The skeletal structures are osteopenic. The bony thorax is grossly intact. Bilateral shoulder arthroplasties are in place.
--- NOTE | 2023-10-24 10:50 | History & Physical Bridge Note ---
Date of Service October 24, 2023 History & Physical Bridge Note I have examined the patient, reviewed the History & Physical and in the interval since the performance of the History & Physical I have noted the following changes of clinical significance: no changes noted
[~2023-10-24 11:14] MED LIST changes: -ACETAMINOPHEN 500 MG TAB PO SCH; +BUPIVACAINE 0.25% PF 30 ML VIAL ONE; +BUPIVACAINE 0.5 % 5 MG/1 ML PF 10ML VIAL ONE; +DEXAMETHASONE SOD INJ 4 MG/ML VIAL ONE; +EPINEPHrine INJ 1 MG/ML AMP ONE; -FAMOTIDINE 20 MG TAB PO SCH; -GABAPENTIN 300 MG CAP PO SCH; -LR 15ML/HR IV SCH; -LR 60ML/HR IV SCH; -ORTHO JOINT MIX INFIL SCH; -TRANEXAMIC ACID 1,000 MG **IV Intra-op IV SCH; -TRANEXAMIC ACID 1,000 MG **IV Pre-op IV SCH; -ceFAZolin 2000MG 2,000 MG/15 ML SYR IV SCH; -dexAMETHasone 4 MG TAB PO SCH
[2023-10-24] MEDS ORDERED: ATROPINE SULFATE 0.1 MG/ML 10ML SYR IV PRN (11:39)
[2023-10-24] MEDS ORDERED: fentaNYL citrate PF 100 MCG/2 ML VIAL IV PRN (11:39)
[2023-10-24] MEDS ORDERED: ONDANSETRON INJ 2 MG/ML 2 ML VIAL IV PRN ×2 (11:39→16:06)
[2023-10-24] MEDS ORDERED: PROMETHAZINE HCL 6.25 MG in SODIUM CHLORIDE 0.9% 50 ML IV PRN (11:39)
[2023-10-24] MEDS ORDERED: ePHEDrine sulfate 50 MG/ML AMP IV PRN (11:39)
[2023-10-24] MEDS: LR 500ML BOLUS, THEN 15ML/HR IV SCH (12:15)
[2023-10-24] MEDS: ACETAMINOPHEN 500 MG TAB PO SCH ×2 (12:16→21:46)
[2023-10-24] MEDS: GABAPENTIN 300 MG CAP PO SCH (12:16)
[2023-10-24] MEDS: FAMOTIDINE 20 MG TAB PO SCH (12:16)
[2023-10-24] MEDS: dexAMETHasone**PF** 10 MG/ML VIAL IV SCH (12:16)
[2023-10-24] MEDS: LR 60ML/HR IV SCH (12:16)
[2023-10-24] MEDS ORDERED: fentaNYL citrate PF 100 MCG/2 ML VIAL ONE (12:50)
[2023-10-24] MEDS ORDERED: MIDAZOLAM HCL 1 MG/ML 2ML VIAL ONE (12:50)
[2023-10-24] MEDS ORDERED: PROPOFOL IV EMULSION 10 MG/ML 20 ML VIAL IV ONE ×2 (12:53→14:00)
[2023-10-24] MEDS: TRANEXAMIC ACID 1,000 MG **IV Pre-op IV SCH (13:04)
[2023-10-24] MEDS: ceFAZolin 3000MG 3,000 MG/72.5 ML BAG IV SCH (13:26)
[2023-10-24] MEDS ORDERED: DEXAMETHASONE SOD INJ 4 MG/ML VIAL ONE (13:36)
[2023-10-24] MEDS ORDERED: ONDANSETRON INJ 2 MG/ML 2 ML VIAL ONE (13:36)
[2023-10-24] MEDS: ORTHO JOINT ANESTHETIC ONE (14:05)
[2023-10-24] MEDS: ROPIV 0.5% 246mg, Ketorolac 30mg, EPINEPHrine 0.5mg in NSS INFIL SCH (14:05)
[2023-10-24] MEDS: TRANEXAMIC ACID 1,000 MG **IV Intra-op IV SCH (14:29)
--- NOTE | 2023-10-24 14:38 | Operative Report ---
PG Post Operative Report Pre & Post Diagnosis Operation Date: 10/24/23 13:40 Pre-Op Diagnosis: Osteoarthritis of Right Knee Post-Op Diagnosis: Osteoarthritis of Right Knee I identified the patient and participated in the time-out.: Yes Procedure Operation Date: 10/24/23 13:40 Actual Procedures p Right Total Knee Arthroplasty, Cemented(Right) - Jose Luis Encarnacion DO Surgeon Jose Luis Encarnacion DO [employer] Jose Luis Kinsey PA-C Estimated Blood Loss 30 Findings Consistent with Post-Op Diagnosis Specimens Right femoral and tibial bone Description of Procedure Implants used: I used a Zan Persona total knee arthroplasty system with a size 12 standard PS femur, H tibia, 34 oval patella, and a size 10 CPS polyethylene bearing. All components were cemented in place with Biomet cement. Babar arrived [facility] for the above procedure. He was seen in the preoperative holding area and the operative extremity was identified and signed. He was given a preoperative antibiotic, TXA, a spinal anesthetic and an adductor nerve block. He was taken back to the operating room and laid on the table in supine position. He was given basic sedation. The operative knee was then prepped and draped in sterile fashion. A timeout was done, and the patient and the operative extremity was properly identified. A midline incision was made directly over the patella. Dissection was taken down to the extensor mechanism. A medial parapatellar arthrotomy was used. The medial retinaculum was released and the fat pad was mostly excised. The knee was flexed and the ACL, PCL, and meniscus were removed. A drill was sent down the center of the femoral canal followed by an intramedullary senthil. Off that senthil a distal femoral cutting block was placed. 9 mm was resected off the distal femur at 5 of valgus. A posterior referencing AP sizing guide was then placed on the distal femur. The femur measured to be a size 12. 2 drill holes were placed in 3 of external rotation. A 4-in-1 cutting block was then impacted into place. Anterior, posterior, and chamfer cuts were then made. The proximal tibia was then exposed. An external tibial alignment guide was placed. A tibial cut guide was then anchored in place and the proximal tibia was then resected. The posterior aspect of the knee was then opened up and any additional meniscus fragments and osteophytes were removed. The tibia measured to be a size H. The tibial plate was then placed in the appropriate rotation and the tibia was drilled and punched. Trial components were then placed. I used a size 10 CPS polyethylene insert. The knee was brought through a full range of motion and felt to be stable. The peg holes for the femoral component were then drilled. The patella was then everted and 9 mm was resected off the posterior aspect of the patella. The patella measured to be a size 34 oval. 3 peg holes were then drilled. A trial patella was placed. The knee was once again brought through a full range of motion and felt to be stable. Trial components were then removed. The surrounding soft tissues were injected with 100 cc of an orthopedic pain control cocktail. All components were then cemented into place with Biomet cement. The final polyethylene insert was then snapped into place. Once cement was dry the tourniquet was deflated. Hemostasis was obtained. A dilute betadyne lavage was then done for 3 minutes. The joint was then irrigated with normal saline solution. The medial parap atellar arthrotomy was then closed with #1 Vicryl suture. The skin was closed with 2-0 Vicryl, 3-0V lock suture, and mary. A soft compressive dressing was placed. He was then transferred to a hospital bed and taken to the postanesthesia care unit in stable condition. He tolerated the procedure well. Jose Luis Kinsey PA-C, was present for the entire procedure. He was critical for patient positioning, prepping, draping, retraction exposure, wound closure and application of sterile dressing. I attest to the content of the Intraoperative Record and any orders documented t herein. Any exceptions are noted below.
--- NOTE | 2023-10-24 15:15 | XRay Report ---
XR knee RT 1 or 2V routine CLINICAL HISTORY: Surgical Post Op TECHNIQUE: 2 views of the right knee were obtained. Comparison: Comparison is made to knee radiographs 08/23/2023 FINDINGS: Patient is status post total knee arthroplasty with expected postsurgical changes including soft tiss ue swelling and subcutaneous emphysema. No periarticular lucency or hardware fracture is seen. IMPRESSION: Expected postoperative appearance status post placement of total knee arthroplasty. ACT 112: Negative or not required by law. Electronically signed by: Jean-Paul Oneal M.D. 10/24/2023 3:14 PM
--- NOTE | 2023-10-24 16:01 | Anesthesiology Progress Note ---
Date of Service October 24, 2023 Anesthesia Post Procedure Vital Signs Vital Signs: Temp Pulse Pulse Resp BP BP Pulse Ox 10/24/23 15:50 77 22 157/98 H 96 10/24/23 15:40 75 16 148/82 H 97 10/24/23 15:30 36.3 C L 74 19 145/88 H 93 10/24/23 15:20 81 17 140/86 92 10/24/23 15:10 74 13 136/86 95 10/24/23 15:00 74 16 132/83 100 10/24/23 14:53 36.1 C L 76 15 120/86 97 10/24/23 11:56 36.6 C 67 20 155/93 H 95 O2 Del Method O2 Flow Rate 10/24/23 15:50 Room Air 10/24/23 15:40 Room Air 10/24/23 15:30 Room Air 10/24/23 15:20 Room Air 10/24/23 15:10 Room Air 10/24/23 15:00 Oxymask 5 10/24/23 14:53 Oxymask 5 10/24/23 11:56 Room Air Transfer of Care Handoff Completed per policy Notes Mental Status: alert / awake / arousable and participated in evaluation Patient Amnestic to Procedure: Yes Nausea / Vomiting: adequately controlled Pain: adequately controlled Airway Patency, RR, SpO2: stable & adequate BP & HR: stable & adequate Hydration State: stable & adequate Anesthetic Complications: no major complications apparent
[2023-10-24] MEDS ORDERED: HYDROCORTISONE HC 2.5% CRM 30GM TUBE EXT PRN (16:06)
[2023-10-24] MEDS ORDERED: METOCLOPRAMIDE HCL INJ 5 MG/ML 2 ML VIAL IV PRN (16:06)
[2023-10-24] MEDS ORDERED: bisacodyL 10 MG SUPP PR PRN (16:06)
[2023-10-24] MEDS ORDERED: MAGNESIUM HYDROXIDE SUSP 30 ML UDC PO PRN (16:06)
[2023-10-24] MEDS ORDERED: SODIUM CHLORIDE 0.65% NA SOLN 45 ML (OCEAN) PRN (16:06)
[2023-10-24] MEDS ORDERED: NALOXONE HCL 0.4 MG/1 ML VIAL/CARP IV PRN (16:06)
[2023-10-24] MEDS ORDERED: HYDROmorphone INJ 0.5 MG/0.5 ML SYR IV PRN (16:06)
[2023-10-24] MEDS: SODIUM CHLORIDE 0.9% 1,000 ML IV SCH (16:30)
[2023-10-24] MEDS: oxyCODONE HCL IR 5 MG TAB (IMMEDIATE RELEASE) PO PRN (18:18)
[2023-10-24] MEDS: oxyBUTYnin chloride 5 MG TAB PO SCH (21:44)
[2023-10-24] MEDS: DOCUSATE SODIUM 100 MG CAP PO SCH (21:44)
[2023-10-24] MEDS: METOPROLOL SUCC 50MG EXT REL TAB PO SCH (21:44)
[2023-10-24] MEDS: POLYETHYLENE (MIRALAX) 17 GM PACK PO SCH (21:44)
[2023-10-24] MEDS: SENNA 8.6 MG TAB PO SCH (21:44)
[2023-10-24] MEDS: SIMVASTATIN 20 MG TAB PO SCH (21:45)
[2023-10-24] MEDS: BRINZOLAMIDE/BRIMONIDINE TART 119 DROPS/8 ML BTL OPR SCH (21:45)
[2023-10-24] MEDS: ASPIRIN 81 MG ECTAB PO SCH (21:45)
[2023-10-24] MEDS: ceFAZolin 2000MG 2,000 MG/15 ML SYR IV SCH (22:42)
--- NOTE | 2023-10-25 06:43 | Orthopedic Progress Note ---
Date of Service October 25, 2023 Assessment & Plan (1) Status post right knee replacement: Overall he is doing very well. He is not having much pain in the right knee. He will be seen by physical therapy today for ambulation and range of motion exercises. He is on aspirin for DVT prophylaxis. He can be discharged home later today. He will follow-up orthopedics in 2 weeks. Matt Eckert was seen and examined at bedside this morning. Overall he is doing well. He is not having much pain in the right knee. He has been up and ambulating to the bathroom. He has no complaints.. Review of Systems All systems reviewed & are unremarkable except as noted in HPI & below. Physical Exam On physical examination of the right knee, the dressing is clean and dry. His legs out full extension. He has active dorsiflexion plantarflexion of the right ankle.. Results & Data Results & Data Laboratory Results . Diagnostic Findings Postoperative x-rays of the right knee show the prosthesis to be in anatomic alignment without any evidence of fracture, desiccation, or loosening.. PG Care Time/CCT Total # of Minutes Spent Total Time Spent with Patient: Total time spent is greater than 50% in coordination of care (as documented) at patient's floor/unit and/or counseling patient: Coding Level of Care Code 94372 Post Operative Follow-Up Diagnoses Status post right knee replacement Z96.651
--- NOTE | 2023-10-25 06:44 | Discharge Summary ---
Date of Service October 25, 2023 Principal Diagnosis Same as "Discharge Diagnosis" noted below under Discharge Instructions. Discharge Exam On physical examination of the right knee, the dressing is clean and dry. His legs out full extension. He has active dorsiflexion plantarflexion of the right ankle.. Discharge Data Procedures Performed Operation Date: 10/24/23 13:40 Actual Procedures p Right Total Knee Arthroplasty, Cemented(Right) - Jose Luis Encarnacion DO Ordered Studies 10/24/23 05:00 US - OR guided needle placemen Routine Hospital Course (1) Status post right knee replacement: On October 24, 2023 Rene arrived at [facility] and underwent a right knee replacement without complication. He had a spinal anesthetic. Postoperatively he was started on aspirin for DVT prophylaxis and transferred to the general orthopedic floors. His hospital course was uneventful. On postop day #1, his vital signs were stable and his pain was well-controlled. He was able to participate well with physical therapy doing ambulation and range of motion exercises. He was then discharged home. He will follow-up with orthopedics in 2 weeks. PG Care Time/CCT Total # of Minutes Spent Total Time Spent with Patient: Total time spent is greater than 50% in coordination of care (as documented) at patient's floor/unit and/or counseling patient: Discharge Plan Discharge Items Patient Disposition: Home - Self-Care Reason For Visit: POST OP Discharge Diagnosis: Right knee replacement Activity: Per Instructions section Non-emergency contact: Surgeon Call non-emergency contact if: your wound has increased redness and your wound has increased drainage Follow-up/Referrals: July Ordonez DO [Primary Care Provider] - Diet: Regular Addtl Attending Provider Instructions: Activity and Therapy Recommendations: * If you are using [facility] then therapy will be provided at your home until they feel you have accomplished all of your goals. * If you are using [facility] then Physical Therapy will be provided until they feel you are ready to start Outpatient Physical Therapy. * If you are not using home therapy then Outpatient Physical Therapy should start about 3-5 days from your day of surgery. Therapy will last about 6-10 weeks * It is important not to put a pillow under your knee when you are relaxing or sleeping. It is just as important to make sure you are getting your knee perfectly straight as it is to regain your knee bend. * You were shown a series of exercises in the hospital. Do these exercises three times each day including the exercises you were shown in physical therapy. * Get up and walk several times each day. For the first four weeks, try not to stand or walk for more than one hour at a time. If you do stand or walk for more than one hour, you will not hurt anything, but your leg will likely swell. * As you feel comfortable, you may change from the walker or crutches to a cane and then to independent walking. Medications: * Narcotic You will likely be sent home from the hospital with a prescription for the narcotic pain medication that worked best throughout your stay. * Cefadroxil -take the antibiotic twice a day for 10 days to help with infection * Aspirin Most patients will be required to take Aspirin 81mg twice a day for 6 weeks after surgery. This is obtained [id number] and a prescription is not necessary. * Other medications may be prescribed for specific circumstances. If you have any questions, please call the office at . * Resume previous home medications unless otherwise instructed TEDs/Elastic Stockings: The white elastic stockings help limit swelling and prevent blood clots from forming in your legs.~ The more you wear them, the more they work. Wear them for six weeks. Dressing Care: The dressing can be changed after physical therapy on postop day #1. Daily dry dressing changes for a few days, especially if the incision is still draining some. If the incision is not draining then you may leave the mary open to air. If there is a little bit of drainage or if the mary are getting stuck on your clothing then cover the incision with a dry dressing. The mary will be removed at your 2 week follow-up appointment. Showering: You may shower 5 days from the day of surgery as long as the incision is no longer draining. You may shower with the mary exposed. Let soapy water run over the mary and pat them dry. Do not scrub or soak the incision. Things To Watch For: * Drainage from the incision site that occurs more than one week after your surgery. * Increased redness at the incision site. * Fever above 102 degrees Fahrenheit. * Unusual chest pain or shortness of breath. * Call [facility] at with any of the above problems Follow-Up Visit: Follow-up with Dr. Encarnacion's PA (Jose Luis Kinsey) 2-3 weeks after your day of surgery. He will remove your mary and answer any questions. If you have any additional questions or concerns, Dr Encarnacion is usually in the office at the same time and will be available An appointment was probably scheduled when you signed-up for surgery in the office. If you have any questions call Office Instructions: More detailed instructions as well as Frequently Asked Questions were provided in a folder by our office when you signed-up for surgery. Please review these instructions when you get home. If you have any further questions or concerns, please feel free to call the office at [phone] Pending Studies at Discharge: No Stand-Alone Forms: My [facility] Medications and DC Order Prescriptions: New cefadroxil 500 mg capsule 500 mg PO BID 10 Days Qty: 20 0RF aspirin [Adult Aspirin Regimen] 81 mg tablet,delayed release (DR/EC) 81 mg PO BID Qty: 84 0RF oxycodone 5 mg tablet 5 mg PO Q6H PRN (Reason: pain) Qty: 30 0RF Continued multivitamin Capsule 1 cap PO QAM Qty: 0 [id number] Complex 081-212-01-0.5 mg Tablet 2 tab PO QPM Qty: 0 polyethylene glycol 3350 [Miralax] 17 gram/dose Powder 1 dose PO QPM Qty: 0 docusate sodium 100 mg Tablet 100 mg PO QPM Qty: 0 Systane (propylene glycol) 0.4-0.3 % drops 1 drp OPL BID PRN (Reason: Dry Eyes) Qty: 0 solifenacin [Vesicare] 10 mg tablet 10 mg PO QPM Qty: 90 3RF metoprolol succinate 100 mg tablet extended release 24 hr 100 mg PO QPM Qty: 90 3RF hydrochlorothiazide 12.5 mg tablet 12.5 mg PO QAM Qty: 90 3RF omeprazole 20 mg tablet,delayed release (DR/EC) 20 mg PO QAM Qty: 90 3RF calcitriol 0.25 mcg capsule 0.25 mcg PO 3XWK Qty: 36 3RF Rx Instructions: 0.25 mcg PO every tuesday, tuesday, tuesday; Saline Mist 0.65 % aerosol,spray 1 spray intranasal Q4H PRN (Reason: Cold Symptoms) Simbrinza 1-0.2 % drops,suspension 1 drp OPR BID acetaminophen [Tylenol Extra Strength] 500 mg Tablet 650 mg PO HS finasteride [Proscar] 5 mg tablet 5 mg PO QAM Rx Instructions: TAKE 1 TABLET BY MOUTH DAILY IN THE MORNING simvastatin 20 mg tablet 20 mg PO QPM hydrocortisone 2.5 % cream with perineal applicator 1 applic topical DAILY PRN (Reason: Itching) Rx Instructions: APPLY RECTALLY DAILY NEEDED FOR HEMORRHOIDS DIRECTED Discharge Orders: Discharge Order (Routine); Ordered 10/25/23 Ordered By: Jose Luis Encarnacion Admission Data Admit Date/Time: 10/24/23 14:52 Attending Provider: Jose Luis Encarnacion Admit Provider: Jose Luis Encarnacion Primary Care Provider: July Ordonez
[2023-10-25] MEDS: dexAMETHasone 4 MG TAB PO SCH (07:45)
[2023-10-25] MEDS: hydroCHLOROthiazide 25 MG TAB PO SCH (07:46)
[2023-10-25] MEDS: FINASTERIDE 5 MG TAB PO SCH (07:46)
[2023-10-25] MEDS: MULTIVITAMIN TAB PO SCH (07:47)
== END 2023-10-25 11:46 | disposition home or self-care (01) ==
LOC: 3N 11:14 → ASU 11:14
DX: E66.9 Obesity, unspecified; Z87.891 Personal history of nicotine dependence; Z68.36 Body mass index [BMI] 36.0-36.9, adult; M17.11 Unilateral primary osteoarthritis, right knee; I10 Essential (primary) hypertension; Z79.899 Other long term (current) drug therapy

== ENCOUNTER 2024-01-31 09:03 | Inpatient (IN) ==
--- NOTE | 2024-01-31 09:16 | Emergency Department Note ---
Impression & Plan Pulmonary emboli, Pulmonary infarction, Left-sided chest pain ED Provider Note NAME: ARNULFO MONTANO AGE: 83 SEX: M : 1940 ARRIVES VIA: Walk-In INFORMANT: Patient ED PROVIDER(S): Xu Buckley MD CHIEF COMPLAINT: Chest pain, cough PLAN: Disposition: Admit MEDICAL DECISION MAKING: The patient is a pleasant 83-year-old gentleman with a past medical history of BPH, CKD, hypertension, hyperlipidemia who presents to the emergency department via walk-in clinic by his for evaluation of left-sided chest pain that began last night and lasted an hour or so and then developed dry cough that has persisted into today. Patient has any return of his chest pain. He denies any fevers, nausea, vomiting, diarrhea or urinary symptoms. Patient reports he has had generalized weakness/fatigue for over 2 months and has discussed with his primary care doctor and has started vitamin supplementation. On evaluation patient is no distress, afebrile with heart in the 90s and blood pressure 140s/70s and otherwise stable vital signs. He appears clinically dry. He has intermittent wheezes of bilateral lower lung simeon and is otherwise clear with normal respiratory effort. EKG without overt acute ischemia. CXR and adjacent demonstrates blunting of the left costophrenic angle is in the chest. Atelectasis/trace of pleural effusion, better characterized on CT of the chest. WBC and platelets within normal limits. H/H similar to prior. Chemistry without metabolic acidosis. Cr 1.2 similar to prior in setting of CKD. Electrolytes and LFTs without significant abnormality. HS troponin 7.4, within normal limits. Lipase is normal. Respiratory bio fire was negative. CTA of the chest was performed and demonstrates bilateral lower lobe lobar, segmental and subsegmental pulmonary emboli with likely bilateral basilar pulmonary infarcts. Trace pleural effusions present. Findings reviewed the patient and family at the bedside. Patient reports knee replacement in October of this year when he was on prophylactic aspirin at the time and completed his rehab therapy as expected. They agree with plan for admission and further management. Patient does report a remote history of peptic ulcer but has had no recurrence subsequently. He denies any other recent history of bleeding. Will proceed with treatment with heparin bolus and drip at this time. Case was discussed with RITA Everett PAC, with Dr. Ibrahim, [facility] hospitalist who will evaluate the patient for admission. Triage Nursing notes reviewed and agree them. Prior/external medical records reviewed Vital Signs: reviewed Differential diagnosis: Cardiac ischemia, aortic dissection, pulmonary embolism, pneumothorax, pneumonia, pericarditis, myocarditis, esophageal rupture, GERD, cholecystitis, pancreatitis, musculoskeletal, as well as other pathologies. ER treatment provided: See below. Diagnostics interpreted by me: ECG: Normal sinus rhythm, 88 bpm, no ectopy, right bundle branch block, left anterior block, no overt constipation of present QTc 469 QRS 142. Cardiac Monitoring: An order for continuous cardiac monitoring was placed and demonstrated Normal sinus rhythm, 88 bpm, no ectopy. Laboratory studies: See below Imaging studies: See below Consultation(s): Naeem Almendarez, [facility] PAC, with Dr. Ibrahim [facility] hospitalist HPI: The patient is a pleasant 83-year-old gentleman with a past medical history of BPH, CKD, hypertension, hyperlipidemia who presents to the emergency department via walk-in clinic by his for evaluation of left-sided chest pain that began last night and lasted an hour or so and then developed dry cough that has persisted into today. Patient has any return of his chest pain. He denies any fevers, nausea, vomiting, diarrhea or urinary symptoms. Patient reports he has had generalized weakness/fatigue for over 2 months and has discussed with his primary care doctor and has started vitamin supplementation. ROS: See above HPI for pertinent positives & negatives. A total of 10 systems reviewed and were otherwise negative. VITALS:See Below PHYSICAL EXAMINATION: GENERAL: Awake, alert, in no distress HENT: Normocephalic, atraumatic. Oropharynx with dry mucous membranes and otherwise unremarkable. EYES: Normal conjunctiva. Sclera non-icteric. NECK: Supple. No nuchal rigidity. FROM. No JVD. RESPIRATORY: Intermittent wheezes of bilateral lower lung simeon and is otherwise clear with normal respiratory effort. CARDIAC: Regular rate, normal rhythm. Extremities warm and well perfused. Pulses equal. ABDOMEN: Soft, non-distended. No tenderness to palpation. No rebound or guarding. No masses. RECTAL: Deferred. MUSCULOSKELETAL: Chest examination reveals no tenderness. The back is symmetrical on inspection without obvious abnormality. There is no CVA tenderness to palpation. No joint edema. LOWER EXTREMITIES: Calves are equal size bilaterally and non-tender. Mild BLE edema. No discoloration. NEURO: Normal sensorium. No sensory or motor deficits noted. SKIN: No rash or jaundice noted. ED COURSE: Critical Care: I have personally spent greater than 35 minutes of critical care time in the direct management of this patient. This includes bedside care, interpretation of diagnostic studies, and testing, discussion with consultants, patient, and family members, and other required patient management activities. This 35 minutes is in excess of all separately billable procedures. Xu Buckley MD Past Med/Surg History Problem List (Updated 01/31/24 @ 20:39 by Xu Buckley MD) Left-sided chest pain (Acute) Pulmonary infarction (Acute) Pulmonary emboli (Acute) Status post right knee replacement (~10/2023) Osteoarthritis of right knee Lower extremity edema Trigger finger of left hand BPH with obstruction/lower urinary tract symptoms (Acute) Degenerative joint disease, multiple joints on both sides of body (Acute) Disc degeneration, lumbar (Acute) Glaucoma (Acute) s/p surgical intervention bilat Insomnia (Acute) Nephrolithiasis (Acute) Solitary thyroid nodule (Acute) Osteoarthritis Hypertension controlled, stable per pt Chronic kidney disease (Acute) follows w/ Dr Sawyer Stable per patient Obesity Hyperlipidemia Medical History Hx of intestinal obstruction (~2006) no surgical intervention per pt. Hx of glaucoma s/p surgical intervention bilaterally no current issues Hx of upper gastrointestinal hemorrhage (~02/2023) admit to [facility], EGD & Colon, per pt. source not found no current issues Hx of septic shock (~2016) admit to [facility] x 6 days, kidney stone History of blood transfusion (~2000) left hip replacement H/O degenerative disc disease cervical spine, has full ROM BPH (benign prostatic hyperplasia) GERD (gastroesophageal reflux disease) controlled, stable per pt Surgical History Hx of bilateral cataract extraction Hx of colonoscopy with polypectomy History of esophagogastroduodenoscopy (EGD) History of reverse total replacement of left shoulder joint (~01/03/23) H/O removal of cyst (~1974) mandibular History of laminectomy L2-L4 02/09/1818 Grade 2 view, MAC 3, ETT 8. Hx of arthroscopy of shoulder L, 2003; R, 1999 History of carpal tunnel release of both wrists 1994 L, 1997 R Hx of repair of rotator cuff R, likely 2000 History of total right hip arthroplasty (~2000) Hx of foot surgery (~2015) rt foot reconstruction Hx of total shoulder replacement RIGHT 2014 LEFT 2022 Hx of cystoscopy Hx of tonsillectomy H/O hernia repair left 1995, right 1997 Family History Mother Tuberculosis Sister Breast cancer Father Cardiac disorder Myocardial infarction Brother Dementia Denies family history of Ovarian cancer Prostate cancer Colorectal cancer Social History Smoking Status: Former smoker Tobacco Type: Cigarettes Age Started Using Tobacco: 17; Age Quit Using Tobacco: 30; packs per day: 2; Cigarettes Per Day: 1 PPD; Second Hand Exposure: No; Do You Dip or Chew Tobacco: No; Hx Alcohol Use: No Hx Substance Use: No Preferred Language: Moroccan Communication Ability: Effective Visual Impairment: Limited Hearing Ability: Normal Dressing Machine Operator Required: No Beliefs That Will Affect Care: None marital status: Current Living Situation: Spouse Current Living Situation Comment: Spouse and Legal guardian of 2 grandsons current occupational status: retired 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 Feels Safe at Home: Yes Childhood Exposure to Second-Hand Smoke: Yes Diet: regular caffeine: Yes (one cup of coffee each day) during the past year weight has: decreased > 10 lbs Dental Care, Regularly: No Physical Activity Frequency: Daily Seatbelt Use: always Sunscreen Use: Yes (sometimes ) Assistive Devices: Walker Allergies Allergies Allergy/AdvReac Type Severity Reaction Status Date / Time No Known Drug Allergies Allergy Verified 01/03/24 10:49 Home Meds Home Medications Medication Instructions Recorded Confirmed multivitamin 1 cap PO QAM ##0 02/16/09 01/31/24 glucosamine 375 fq-jiiaswbdg-ttd 2 tab PO QPM ##0 10/11/14 01/31/24 no1 500 mg-C 15 mg-ana 0.5 mg tablet (Zgaylkosnlj-Ijjbnjuknwo-BPX Complex) docusate sodium 100 mg tablet 100 mg PO QPM ##0 01/17/18 01/31/24 polyethylene glycol 3350 17 1 dose PO QPM ##0 01/17/18 01/31/24 gram/dose oral powder (Miralax) brinzolamide 1 %-brimonidine 0.2 % 1 drp OPR TID 02/05/21 01/31/24 eye drops,suspension (Simbrinza) peg 400-propylene glycol 0.4 %-0.3 1 drp OPL BID PRN Dry Eyes #0 mL 03/08/22 01/31/24 % eye drops (Systane (propylene glycol)) acetaminophen 500 mg tablet 650 mg PO HS 02/07/23 01/31/24 (Tylenol Extra Strength) finasteride 5 mg tablet (Proscar) 5 mg PO QAM 02/07/23 01/31/24 simvastatin 20 mg tablet 20 mg PO QPM 02/10/23 01/31/24 hydrocortisone 2.5 % topical cream 1 applic topical DAILY PRN Itching 02/27/23 01/31/24 with perineal applicator sodium chloride 0.65 % nasal spray 1 spray intranasal Q4H PRN Cold 06/22/23 01/31/24 aerosol (Saline Mist) Symptoms gabapentin 100 mg capsule 100 mg PO DAILY 01/03/24 01/31/24 Previous Rx's Medication Instructions Recorded solifenacin 10 mg tablet (Vesicare) 10 mg PO QPM #90 tabs 09/29/22 metoprolol succinate 100 mg 100 mg PO QPM #90 tabs 02/04/23 tablet,extended release 24 hr hydrochlorothiazide 12.5 mg tablet 12.5 mg PO QAM #90 tabs 03/08/23 omeprazole 20 mg tablet,delayed 20 mg PO QAM #90 tabs 05/02/23 release calcitriol 0.25 mcg capsule 0.25 mcg PO 3XWK #36 caps 05/09/23 aspirin 81 mg tablet,delayed 81 mg PO BID #84 tabs 10/24/23 release (Adult Aspirin Regimen) oxycodone 5 mg tablet 5 mg PO Q6H PRN pain #30 tabs 11/07/23 nitrofurantoin 100 mg PO Q12H 7 days #14 caps 01/24/24 monohydrate/macrocrystals 100 mg capsule (Macrobid) Results & Data (ED) Vital Signs Vital Signs - 24 hr 01/31/24 09:06 01/31/24 09:14 01/31/24 09:14 Temperature 36.5 C Temperature Source Temporal Artery Scan Pulse Rate 93 H Pulse Rate [Apical] Pulse Rate from SpO2 Sensor Pulse Strength [Apical] Respiratory Rate 18 Respiratory Effort / Characteristics Non-Labored Non-Labored Spontaneous Respiratory Depth Normal Normal Respiratory Pattern Regular Blood Pressure 148/77 H Blood Pressure [Right Arm] Blood Pressure Mean 100 Blood Pressure Mean [Right Arm] Pulse Oximetry 95 92 Oxygen Delivery Method Room Air Room Air Oxygen Flow Rate 0 Sepsis Recent Fever Within 48 Hours No Sepsis New/Unexplained Change in Mental Status N/A Sepsis Action Taken by Nursing No Action Required Oxygen Flow Rate - Titration Pulse Oximetry Post Tiitration 01/31/24 09:14 01/31/24 09:30 01/31/24 09:33 Temperature Temperature Source Pulse Rate 85 Pulse Rate [Apical] Pulse Rate from SpO2 Sensor 85 Pulse Strength [Apical] Respiratory Rate 19 Respiratory Effort / Characteristics Respiratory Depth Respiratory Pattern Blood Pressure 127/88 Blood Pressure [Right Arm] Blood Pressure Mean 97 Blood Pressure Mean [Right Arm] Pulse Oximetry 92 93 Oxygen Delivery Method Room Air Oxygen Flow Rate Sepsis Recent Fever Within 48 Hours Sepsis New/Unexplained Change in Mental Status Sepsis Action Taken by Nursing Oxygen Flow Rate - Titration Pulse Oximetry Post Tiitration 01/31/24 09:34 01/31/24 09:48 01/31/24 10:00 Temperature Temperature Source Pulse Rate 87 83 Pulse Rate [Apical] Pulse Rate from SpO2 Sensor 83 Pulse Strength [Apical] Respiratory Rate 28 H Respiratory Effort / Characteristics Respiratory Depth Respiratory Pattern Blood Pressure 134/88 Blood Pressure [Right Arm] Blood Pressure Mean 115 Blood Pressure Mean [Right Arm] Pulse Oximetry 93 Oxygen Delivery Method Oxygen Flow Rate Sepsis Recent Fever Within 48 Hours Sepsis New/Unexplained Change in Mental Status Sepsis Action Taken by Nursing Oxygen Flow Rate - Titration Pulse Oximetry Post Tiitration 01/31/24 10:09 01/31/24 10:18 01/31/24 10:24 Temperature Temperature Source Pulse Rate 84 89 90 Pulse Rate [Apical] Pulse Rate from SpO2 Sensor 85 90 92 H Pulse Strength [Apical] Respiratory Rate 22 23 19 Respiratory Effort / Characteristics Respiratory Depth Respiratory Pattern Blood Pressure Blood Pressure [Right Arm] Blood Pressure Mean Blood Pressure Mean [Right Arm] Pulse Oximetry 99 93 93 Oxygen Delivery Method Oxygen Flow Rate Sepsis Recent Fever Within 48 Hours Sepsis New/Unexplained Change in Mental Status Sepsis Action Taken by Nursing Oxygen Flow Rate - Titration Pulse Oximetry Post Tiitration 01/31/24 10:30 01/31/24 10:30 01/31/24 10:30 Temperature Temperature Source Pulse Rate Pulse Rate [Apical] Pulse Rate from SpO2 Sensor Pulse Strength [Apical] Respiratory Rate Respiratory Effort / Characteristics Respiratory Depth Respiratory Pattern Blood Pressure 101/66 101/66 101/66 Blood Pressure [Right Arm] Blood Pressure Mean 82 82 82 Blood Pressure Mean [Right Arm] Pulse Oximetry Oxygen Delivery Method Oxygen Flow Rate Sepsis Recent Fever Within 48 Hours Sepsis New/Unexplained Change in Mental Status Sepsis Action Taken by Nursing Oxygen Flow Rate - Titration Pulse Oximetry Post Tiitration 01/31/24 10:30 01/31/24 10:33 01/31/24 10:42 Temperature Temperature Source Pulse Rate 94 H 96 H Pulse Rate [Apical] Pulse Rate from SpO2 Sensor 95 H 93 H Pulse Strength [Apical] Respiratory Rate 24 27 H Respiratory Effort / Characteristics Respiratory Depth Respiratory Pattern Blood Pressure 101/66 Blood Pressure [Right Arm] Blood Pressure Mean 82 Blood Pressure Mean [Right Arm] Pulse Oximetry 92 92 Oxygen Delivery Method Oxygen Flow Rate Sepsis Recent Fever Within 48 Hours Sepsis New/Unexplained Change in Mental Status Sepsis Action Taken by Nursing Oxygen Flow Rate - Titration Pulse Oximetry Post Tiitration 01/31/24 10:54 01/31/24 10:57 01/31/24 11:01 Temperature Temperature Source Pulse Rate 94 H 100 H Pulse Rate [Apical] Pulse Rate from SpO2 Sensor 95 H 98 H Pulse Strength [Apical] Respiratory Rate 28 H 25 H Respiratory Effort / Characteristics Respiratory Depth Respiratory Pattern Blood Pressure 111/57 L Blood Pressure [Right Arm] Blood Pressure Mean 70 Blood Pressure Mean [Right Arm] Pulse Oximetry 90 90 Oxygen Delivery Method Oxygen Flow Rate Sepsis Recent Fever Within 48 Hours Sepsis New/Unexplained Change in Mental Status Sepsis Action Taken by Nursing Oxygen Flow Rate - Titration Pulse Oximetry Post Tiitration 01/31/24 11:03 01/31/24 11:12 01/31/24 11:16 Temperature Temperature Source Pulse Rate 96 H 95 H Pulse Rate [Apical] 98 H Pulse Rate from SpO2 Sensor 93 H 94 H Pulse Strength [Apical] Respiratory Rate 32 H 28 H 20 Respiratory Effort / Characteristics Non-Labored Spontaneous Respiratory Depth Normal Respiratory Pattern Regular Blood Pressure Blood Pressure [Right Arm] 111/57 L Blood Pressure Mean Blood Pressure Mean [Right Arm] 75 Pulse Oximetry 90 92 92 Oxygen Delivery Method Nasal Cannula Oxygen Flow Rate 2 Sepsis Recent Fever Within 48 Hours Sepsis New/Unexplained Change in Mental Status Sepsis Action Taken by Nursing Oxygen Flow Rate - Titration Pulse Oximetry Post Tiitration 01/31/24 11:16 01/31/24 11:18 01/31/24 11:30 Temperature Temperature Source Pulse Rate 99 H Pulse Rate [Apical] Pulse Rate from SpO2 Sensor 84 Pulse Strength [Apical] Respiratory Rate 30 H Respiratory Effort / Characteristics Respiratory Depth Respiratory Pattern Blood Pressure 109/74 Blood Pressure [Right Arm] Blood Pressure Mean 98 Blood Pressure Mean [Right Arm] Pulse Oximetry 88 L 92 Oxygen Delivery Method Room Air Oxygen Flow Rate 0 Sepsis Recent Fever Within 48 Hours Sepsis New/Unexplained Change in Mental Status Sepsis Action Taken by Nursing Oxygen Flow Rate - Titration 2 Pulse Oximetry Post Tiitration 92 01/31/24 11:30 01/31/24 12:09 01/31/24 12:12 Temperature Temperature Source Pulse Rate 96 H 96 H Pulse Rate [Apical] Pulse Rate from SpO2 Sensor 97 H 90 Pulse Strength [Apical] Respiratory Rate 30 H 27 H Respiratory Effort / Characteristics Respiratory Depth Respiratory Pattern Blood Pressure 109/74 Blood Pressure [Right Arm] Blood Pressure Mean 98 Blood Pressure Mean [Right Arm] Pulse Oximetry 94 94 Oxygen Delivery Method Oxygen Flow Rate Sepsis Recent Fever Within 48 Hours Sepsis New/Unexplained Change in Mental Status Sepsis Action Taken by Nursing Oxygen Flow Rate - Titration Pulse Oximetry Post Tiitration 01/31/24 12:45 01/31/24 12:54 01/31/24 13:00 Temperature Temperature Source Pulse Rate 104 H Pulse Rate [Apical] 97 H Pulse Rate from SpO2 Sensor 96 H 105 H Pulse Strength [Apical] Normal Respiratory Rate 22 16 Respiratory Effort / Characteristics Non-Labored Spontaneous Respiratory Depth Normal Respiratory Pattern Regular Blood Pressure Blood Pressure [Right Arm] Blood Pressure Mean Blood Pressure Mean [Right Arm] Pulse Oximetry 95 94 93 Oxygen Delivery Method Room Air Oxygen Flow Rate Sepsis Recent Fever Within 48 Hours Sepsis New/Unexplained Change in Mental Status Sepsis Action Taken by Nursing Oxygen Flow Rate - Titration Pulse Oximetry Post Tiitration 01/31/24 13:24 01/31/24 13:36 01/31/24 13:40 Temperature Temperature Source Pulse Rate 97 H 92 H 94 H Pulse Rate [Apical] Pulse Rate from SpO2 Sensor 96 H 91 H Pulse Strength [Apical] Respiratory Rate 19 24 Respiratory Effort / Characteristics Respiratory Depth Respiratory Pattern Blood Pressure Blood Pressure [Right Arm] Blood Pressure Mean Blood Pressure Mean [Right Arm] Pulse Oximetry 93 93 Oxygen Delivery Method Oxygen Flow Rate Sepsis Recent Fever Within 48 Hours Sepsis New/Unexplained Change in Mental Status Sepsis Action Taken by Nursing Oxygen Flow Rate - Titration Pulse Oximetry Post Tiitration 01/31/24 13:42 01/31/24 13:51 01/31/24 14:00 Temperature Temperature Source Pulse Rate 91 H 98 H 95 H Pulse Rate [Apical] Pulse Rate from SpO2 Sensor 83 91 H 90 Pulse Strength [Apical] Respiratory Rate 19 22 29 H Respiratory Effort / Characteristics Respiratory Depth Respiratory Pattern Blood Pressure Blood Pressure [Right Arm] Blood Pressure Mean Blood Pressure Mean [Right Arm] Pulse Oximetry 94 93 93 Oxygen Delivery Method Oxygen Flow Rate Sepsis Recent Fever Within 48 Hours Sepsis New/Unexplained Change in Mental Status Sepsis Action Taken by Nursing Oxygen Flow Rate - Titration Pulse Oximetry Post Tiitration 01/31/24 14:18 01/31/24 14:27 01/31/24 14:30 Temperature Temperature Source Pulse Rate 94 H 94 H 93 H Pulse Rate [Apical] Pulse Rate from SpO2 Sensor Pulse Strength [Apical] Respiratory Rate 24 29 H 24 Respiratory Effort / Characteristics Respiratory Depth Respiratory Pattern Blood Pressure Blood Pressure [Right Arm] Blood Pressure Mean Blood Pressure Mean [Right Arm] Pulse Oximetry Oxygen Delivery Method Oxygen Flow Rate Sepsis Recent Fever Within 48 Hours Sepsis New/Unexplained Change in Mental Status Sepsis Action Taken by Nursing Oxygen Flow Rate - Titration Pulse Oximetry Post Tiitration 01/31/24 14:42 01/31/24 14:57 01/31/24 15:03 Temperature Temperature Source Pulse Rate 95 H 95 H 97 H Pulse Rate [Apical] Pulse Rate from SpO2 Sensor Pulse Strength [Apical] Respiratory Rate 34 H 26 H 30 H Respiratory Effort / Characteristics Respiratory Depth Respiratory Pattern Blood Pressure Blood Pressure [Right Arm] Blood Pressure Mean Blood Pressure Mean [Right Arm] Pulse Oximetry Oxygen Delivery Method Oxygen Flow Rate Sepsis Recent Fever Within 48 Hours Sepsis New/Unexplained Change in Mental Status Sepsis Action Taken by Nursing Oxygen Flow Rate - Titration Pulse Oximetry Post Tiitration 01/31/24 15:24 01/31/24 15:45 01/31/24 15:46 Temperature Temperature Source Pulse Rate 97 H 103 H Pulse Rate [Apical] Pulse Rate from SpO2 Sensor 102 H Pulse Strength [Apical] Respiratory Rate 30 H 30 H Respiratory Effort / Characteristics Respiratory Depth Respiratory Pattern Blood Pressure 137/87 Blood Pressure [Right Arm] Blood Pressure Mean 106 Blood Pressure Mean [Right Arm] Pulse Oximetry 91 Oxygen Delivery Method Oxygen Flow Rate Sepsis Recent Fever Within 48 Hours Sepsis New/Unexplained Change in Mental Status Sepsis Action Taken by Nursing Oxygen Flow Rate - Titration Pulse Oximetry Post Tiitration 01/31/24 15:46 01/31/24 15:46 01/31/24 15:46 Temperature Temperature Source Pulse Rate Pulse Rate [Apical] Pulse Rate from SpO2 Sensor Pulse Strength [Apical] Respiratory Rate Respiratory Effort / Characteristics Respiratory Depth Respiratory Pattern Blood Pressure 137/87 137/87 137/87 Blood Pressure [Right Arm] Blood Pressure Mean 106 106 106 Blood Pressure Mean [Right Arm] Pulse Oximetry Oxygen Delivery Method Oxygen Flow Rate Sepsis Recent Fever Within 48 Hours Sepsis New/Unexplained Change in Mental Status Sepsis Action Taken by Nursing Oxygen Flow Rate - Titration Pulse Oximetry Post Tiitration 01/31/24 15:46 01/31/24 15:48 01/31/24 16:00 Temperature Temperature Source Pulse Rate 98 H Pulse Rate [Apical] Pulse Rate from SpO2 Sensor 100 H Pulse Strength [Apical] Respiratory Rate 27 H Respiratory Effort / Characteristics Respiratory Depth Respiratory Pattern Blood Pressure 137/87 159/86 H Blood Pressure [Right Arm] Blood Pressure Mean 106 112 Blood Pressure Mean [Right Arm] Pulse Oximetry 94 Oxygen Delivery Method Oxygen Flow Rate Sepsis Recent Fever Within 48 Hours Sepsis New/Unexplained Change in Mental Status Sepsis Action Taken by Nursing Oxygen Flow Rate - Titration Pulse Oximetry Post Tiitration 01/31/24 16:00 01/31/24 16:03 01/31/24 16:21 Temperature Temperature Source Pulse Rate 99 H 96 H Pulse Rate [Apical] Pulse Rate from SpO2 Sensor 98 H 96 H Pulse Strength [Apical] Respiratory Rate 25 H 26 H Respiratory Effort / Characteristics Respiratory Depth Respiratory Pattern Blood Pressure 159/86 H Blood Pressure [Right Arm] Blood Pressure Mean 112 Blood Pressure Mean [Right Arm] Pulse Oximetry 92 93 Oxygen Delivery Method Oxygen Flow Rate Sepsis Recent Fever Within 48 Hours Sepsis New/Unexplained Change in Mental Status Sepsis Action Taken by Nursing Oxygen Flow Rate - Titration Pulse Oximetry Post Tiitration 01/31/24 16:30 01/31/24 16:36 01/31/24 17:00 Temperature Temperature Source Pulse Rate 98 H 100 H Pulse Rate [Apical] Pulse Rate from SpO2 Sensor 98 H Pulse Strength [Apical] Respiratory Rate 28 H 19 Respiratory Effort / Characteristics Respiratory Depth Respiratory Pattern Blood Pressure 140/107 H Blood Pressure [Right Arm] Blood Pressure Mean 120 Blood Pressure Mean [Right Arm] Pulse Oximetry 93 95 Oxygen Delivery Method Oxygen Flow Rate Sepsis Recent Fever Within 48 Hours Sepsis New/Unexplained Change in Mental Status Sepsis Action Taken by Nursing Oxygen Flow Rate - Titration Pulse Oximetry Post Tiitration 01/31/24 17:01 01/31/24 17:24 01/31/24 17:27 Temperature Temperature Source Pulse Rate 101 H 103 H Pulse Rate [Apical] Pulse Rate from SpO2 Sensor Pulse Strength [Apical] Respiratory Rate 27 H 25 H Respiratory Effort / Characteristics Respiratory Depth Respiratory Pattern Blood Pressure 155/85 H Blood Pressure [Right Arm] Blood Pressure Mean 120 Blood Pressure Mean [Right Arm] Pulse Oximetry 93 94 Oxygen Delivery Method Oxygen Flow Rate Sepsis Recent Fever Within 48 Hours Sepsis New/Unexplained Change in Mental Status Sepsis Action Taken by Nursing Oxygen Flow Rate - Titration Pulse Oximetry Post Tiitration 01/31/24 17:30 01/31/24 17:51 01/31/24 17:57 Temperature Temperature Source Pulse Rate 113 H 100 H Pulse Rate [Apical] Pulse Rate from SpO2 Sensor Pulse Strength [Apical] Respiratory Rate Respiratory Effort / Characteristics Respiratory Depth Respiratory Pattern Blood Pressure 158/105 H Blood Pressure [Right Arm] Blood Pressure Mean 114 Blood Pressure Mean [Right Arm] Pulse Oximetry 93 Oxygen Delivery Method Oxygen Flow Rate Sepsis Recent Fever Within 48 Hours Sepsis New/Unexplained Change in Mental Status Sepsis Action Taken by Nursing Oxygen Flow Rate - Titration Pulse Oximetry Post Tiitration 01/31/24 17:57 01/31/24 18:00 01/31/24 19:00 Temperature Temperature Source Pulse Rate 102 H 92 H Pulse Rate [Apical] Pulse Rate from SpO2 Sensor Pulse Strength [Apical] Respiratory Rate 23 22 Respiratory Effort / Characteristics Respiratory Depth Respiratory Pattern Blood Pressure 143/89 H 146/95 H Blood Pressure [Right Arm] Blood Pressure Mean 101 112 Blood Pressure Mean [Right Arm] Pulse Oximetry 92 90 Oxygen Delivery Method Room Air Oxygen Flow Rate Sepsis Recent Fever Within 48 Hours Sepsis New/Unexplained Change in Mental Status Sepsis Action Taken by Nursing Oxygen Flow Rate - Titration Pulse Oximetry Post Tiitration Laboratory Data Attestation: I reviewed the patient's lab results. 01/31/24 09:15 01/31/24 09:15 Lab Results 01/31/24 01/31/24 Range/Units 09:15 09:59 WBC 9.73 (4.8-10.8) K/ul RBC 4.81 (4.70-6.10) M/uL Hgb 13.8 L (14.0-18.0) g/dl Hct 42.1 (42.0-52.0) % MCV 87.5 (80.0-100.0) fL MCH 28.7 (25.0-34.0) pg MCHC 32.8 (32.0-36.0) g/dL RDW Std Deviation 44.5 (36.4-46.3) fL RDW Coeff of [place] 13.9 (11.5-14.5) % Plt Count 174 (130-400) K/uL MPV 8.9 L (9.4-12.4) fL Immature Gran % (Auto) 0.8 % Neut % (Auto) 88.1 % Lymph % (Auto) 2.9 % [place] % (Auto) 6.6 % Eos % (Auto) 1.3 % Baso % (Auto) 0.3 % Neut # (Auto) 8.57 H (1.40-6.50) K/uL Lymph # (Auto) 0.28 L (1.20-3.40) K/uL [place] # (Auto) 0.64 H (0.11-0.59) K/uL Eos # (Auto) 0.13 (0.00-0.50) K/uL Baso # (Auto) 0.03 (0.00-0.20) K/uL Immature Gran # (Auto) 0.08 (0.01-0.20) K/uL APTT 29 (21-31) Seconds PTT Ratio 1.1 Sodium 137 (136-145) mmol/L Potassium 4.1 (3.5-5.1) mmol/L Chloride 105 (98-107) mmol/L Carbon Dioxide 25 (21-32) mmol/L Anion Gap 7 (3-11) BUN 25 H (6-23) mg/dl Creatinine 1.22 (0.6-1.4) mg/dl Est Cr Clr Drug Dosing Not Reportable Est GFR ( Amer) 62.3 ml/min Est GFR (Non-Af Amer) 53.7 ml/min BUN/Creatinine Ratio 20.5 H (10-20) Glucose 138 H (70-99(Fasting)) mg/dl Calcium 9.6 (8.6-10.3) mg/dl Magnesium 1.9 (1.7-2.4) mg/dl Total Bilirubin 0.6 (0.2-1.0) mg/dl AST 12 L (13-39) U/L ALT 11 (7-52) U/L Alkaline Phosphatase 60 (34-104) U/L Troponin I High Sens 7.4 (0-20) pg/ml Total Protein 7.2 (6.0-8.3) gm/dl Albumin 4.0 (3.4-5.0) gm/dl Globulin 3.2 (2.5-4.0) gm/dl Albumin/Globulin Ratio 1.3 (0.9-2) Lipase 25 (11-82) U/L Adenovirus (PCR) Not Detected (NotDetected) B. pertussis DNA (PCR) Not Detected (NotDetected) B.parapertussis DNA PCR Not Detected (NotDetected) C. pneumoniae DNA (PCR) Not Detected (NotDetected) Coronavirus OC43 (PCR) Not Detected (NotDetected) Coronavirus HKU1 (PCR) Not Detected (NotDetected) Coronavirus 229E (PCR) Not Detected (NotDetected) SARS-CoV-2 (PCR) Not Detected (NotDetected) Coronavirus NL63 (PCR) Not Detected (NotDetected) Human Metapneumovir PCR Not Detected (NotDetected) Influenza Type A (PCR) Not Detected (NotDetected) Influenza Type B (PCR) Not Detected (NotDetected) M. pneumoniae (PCR) Not Detected (NotDetected) Parainfluenza 1 (PCR) Not Detected (NotDetected) Parainfluenza 2 (PCR) Not Detected (NotDetected) Parainfluenza 3 (PCR) Not Detected (NotDetected) Parainfluenza 4 (PCR) Not Detected (NotDetected) RSV (PCR) Not Detected (NotDetected) Entero/Rhino (PCR) Not Detected (NotDetected) Administered Medications Heparin Sodium/Dextrose (Heparin Sodium/Dextrose) 25,000 units in 500 mls @ 20 mls/hr IV .Q24H CAMERON; Protocol Stop: 03/01/24 15:44 Last Admin: 01/31/24 16:28 Dose: 1,000 units/hr, 20 mls/hr Documented By: MEL Co-signed By: AUDRA Discontinued Medications Albuterol (Albut/Ipratrop 3mg/0.5mg Neb 3 Ml Vial) 3 ml NEB NOW STA; Protocol Stop: 01/31/24 09:37 Last Admin: 01/31/24 09:54 Dose: 3 ml Documented By: JODIE Heparin Sodium (Porcine) (Heparin Sod (Porcine) 1000 Unit/Ml) 4,000 units IV NOW ONE Stop: 01/31/24 16:01 Last Admin: 01/31/24 16:29 Dose: 4,000 units Documented By: MEL Co-signed By: AUDRA Heparin Sodium/Dextrose (Heparin Iv Adult Wt-Based Low-Dose W/ Initial Bolus Protocol) 1 each IV NOW STA; Protocol Stop: 01/31/24 15:23 Last Admin: 01/31/24 16:29 Dose: Not Given Documented By: MEL Sodium Chloride (Nss) 500 mls @ 999 mls/hr IV .Q31M ONE Stop: 01/31/24 09:44 Last Infusion: 01/31/24 11:16 Dose: Infused Documented By: Admin: 01/31/24 09:55 Dose: 999 mls/hr Documented By: JODIE Ioversol (Optiray 320 125ml) 80 ml IV ONCE ONE Stop: 01/31/24 14:11 Last Admin: 01/31/24 14:11 Dose: 80 ml Documented By: VICTOR M Imaging Data Radiologist's Impression: Chest X-Ray 01/31/24 09:14 XR chest 1V portable CLINICAL HISTORY: Chest pain, nonspecific COMPARISON STUDY: Chest radiograph June 03, 2023. 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 There is no pneumothorax. Slight blunting of the left costophrenic angle is noted. This may reflect minimal atelectasis or a trace left pleural effusion. There is no evidence for pulmonary edema. There is no consolidation to suggest pne[place]. Cardiomediastinal silhouette is stable. IMPRESSION: Slight blunting of the left costophrenic angle. This may reflect subsegmental atelectasis or a trace left pleural effusion. ACT 112: Negative or not required by law. Electronically signed by: Tiago Guerra M.D. 01/31/2024 9:50 AM Chest CTA 01/31/24 13:30 CT ANGIOGRAPHY OF THE CHEST, PULMONARY EMBOLUS PROTOCOL CLINICAL HISTORY: Left-sided chest pain. Cough. Evaluate for pulmonary embolus. COMPARISON STUDY: Chest radiograph performed earlier today. TECHNIQUE: Following IV administration of 80 mL of Optiray, helical axial images of the chest were obtained utilizing the pulmonary embolus protocol. Maximal intensity projections and sagittal and coronal reformats were viewed on an independent 3D workstation. IV contrast was administered without complication. Automated exposure control was utilized for the study. A dose lowering technique was utilized adhering to the principles of ALARA. CT DOSE: 859.4 mGy.cm FINDINGS: There are multiple lobar, segmental and subsegmental pulmonary emboli within the bilateral lower lobes. There is no evidence for right heart strain. There is no pericardial effusion. No thoracic lymphadenopathy is present. There is no thoracic aortic dissection. There are trace bilateral pleural effusions. Interlobular septal thickening is noted. Subpleural airspace opacities are present. Numerous tiny pulmonary nodules measure up to 3 mm. These are indeterminate but likely benign. A nodular focus along the right hepatic lobe as shown on multiple prior abdominal CTs. This is benign given relative stability. There is a 1.8 cm segment 4 hepatic cyst. IMPRESSION: 1. Multiple lobar, segmental and subsegmental pulmonary emboli within the bilateral lower lobes. 2. Bilateral lower lobe airspace opacities suggestive of atelectasis with possible superimposed pulmonary infarcts. 3. Trace bilateral pleural effusions. 4. Mild interstitial pulmonary edema. ACT 112: Negative or not required by law. Electronically signed by: Tiago Guerra M.D. 01/31/2024 2:54 PM Discharge Plan Visit Data Chief Complaint: Chest Pain Stated Complaint: CHEST PAINS, SOB, WEAKNESS, FLANK PAIN ED Provider: Xu Buckley Discharge Problem: Pulmonary emboli, Pulmonary infarction, Left-sided chest pain Forms Stand Alone Forms: [employer]dex Prescriptions Prescriptions: No Action multivitamin Capsule 1 cap PO QAM Qty: 0 Rx Instructions: Unable to verify OTC meds at this date/time. Odmxzdarzkn-Smtmn-JUO Complex 241-211-09-0.5 mg Tablet 2 tab PO QPM Qty: 0 Rx Instructions: Unable to verify OTC meds at this date/time. polyethylene glycol 3350 [Miralax] 17 gram/dose Powder 1 dose PO QPM Qty: 0 Rx Instructions: Unable to verify OTC meds at this date/time. docusate sodium 100 mg Tablet 100 mg PO QPM Qty: 0 Rx Instructions: Unable to verify OTC meds at this date/time. Systane (propylene glycol) 0.4-0.3 % drops 1 drp OPL BID PRN (Reason: Dry Eyes) Qty: 0 Rx Instructions: Unable to verify OTC meds at this date/time. solifenacin [Vesicare] 10 mg tablet 10 mg PO QPM Qty: 90 3RF metoprolol succinate 100 mg tablet extended release 24 hr 100 mg PO QPM Qty: 90 3RF hydrochlorothiazide 12.5 mg tablet 12.5 mg PO QAM Qty: 90 3RF omeprazole 20 mg tablet,delayed release (DR/EC) 20 mg PO QAM Qty: 90 3RF calcitriol 0.25 mcg capsule 0.25 mcg PO 3XWK Qty: 36 3RF Rx Instructions: 0.25 mcg PO every tuesday, tuesday, tuesday; oxycodone 5 mg tablet 5 mg PO Q6H PRN (Reason: pain) Qty: 30 0RF nitrofurantoin monohyd/m-cryst [Macrobid] 100 mg capsule 100 mg PO Q12H 7 Days Qty: 14 0RF Rx Instructions: must administer with a meal/food. Start Date 01/24/24 x7 day supply Saline Mist 0.65 % aerosol,spray 1 spray intranasal Q4H PRN (Reason: Cold Symptoms) Rx Instructions: Unable to verify OTC meds at this date/time. Simbrinza 1-0.2 % drops,suspension 1 drp OPR TID gabapentin 100 mg capsule 100 mg PO DAILY acetaminophen [Tylenol Extra Strength] 500 mg Tablet 650 mg PO HS Rx Instructions: Unable to verify OTC meds at this date/time. finasteride [Proscar] 5 mg tablet 5 mg PO QAM Rx Instructions: TAKE 1 TABLET BY MOUTH DAILY IN THE MORNING simvastatin 20 mg tablet 20 mg PO QPM hydrocortisone 2.5 % cream with perineal applicator 1 applic topical DAILY PRN (Reason: Itching) Rx Instructions: APPLY RECTALLY DAILY NEEDED FOR HEMORRHOIDS DIRECTED aspirin [Adult Aspirin Regimen] 81 mg tablet,delayed release (DR/EC) 81 mg PO BID Qty: 84 0RF Rx Instructions: Unable to verify OTC meds at this date/time. Referrals Referrals: July Ordonez DO [Primary Care Provider] - Discharge Problem: Pulmonary emboli Qualifiers: Pulmonary embolism type: unspecified Chronicity: acute Acute cor pulmonale presence: without acute cor pulmonale Qualified Code(s): I26.99 - Other pulmonary embolism without acute cor pulmonale
[2024-01-31 09:39] LABS: Basophils # (auto) 0.03 K/uL (0.00-0.20); Basophils % (auto) 0.3 %; Eosinophils # (auto) 0.13 K/uL (0.00-0.50); Eosinophils % (auto) 1.3 %; Hematocrit (blood only) 42.1 % (42.0-52.0); Hemoglobin 13.8 g/dl (14.0-18.0); Immature Granulocytes # (auto) 0.08 K/uL (0.01-0.20); Immature Granulocytes % (auto) 0.8 %; Lymphocytes # (auto) 0.28 K/uL (1.20-3.40); Lymphocytes % (auto) 2.9 %; Mean Corpuscular Hemoglobin 28.7 pg (25.0-34.0); Mean Corpuscular Hgb Conc 32.8 g/dL (32.0-36.0); Mean Corpuscular Volume 87.5 fL (80.0-100.0); Mean Platelet Volume 8.9 fL (9.4-12.4); Monocytes # (auto) 0.64 K/uL (0.11-0.59); Monocytes % (auto) 6.6 %; Neutrophils # (auto) 8.57 K/uL (1.40-6.50); Neutrophils % (auto) 88.1 %; Platelet Count 174 K/uL (130-400); RDW Coefficient of Variation 13.9 % (11.5-14.5); RDW Standard Deviation 44.5 fL (36.4-46.3); Red Blood Count 4.81 M/uL (4.70-6.10); White Blood Count 9.73 K/ul (4.8-10.8)
--- NOTE | 2024-01-31 09:51 | XRay Report ---
XR chest 1V portable CLINICAL HISTORY: Chest pain, nonspecific COMPARISON STUDY: Chest radiograph June 03, 2023. 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 There is no pneumothorax. Slight blunting of the left costophrenic angle is noted. This may reflect minimal atelectasis or a trace lef t pleural effusion. There is no evidence for pulmonary edema. There is no consolidation to suggest pn e[place]. Cardiomediastinal silhouette is stable. IMPRESSION: Slight blunting of the left costophrenic angle. This may reflect subsegmental atelectasi s or a trace left pleural effusion. ACT 112: Negative or not required by law. Electronically signed by: Tiago Guerra M.D. 01/31/2024 9:50 AM
[2024-01-31] MEDS: ALBUT/IPRATROP 3MG/0.5MG NEB 3 ML VIAL NEB STA (09:54)
[2024-01-31] MEDS: SODIUM CHLORIDE 0.9% 500 ML IV ONE (09:55)
[2024-01-31 09:56] LABS: Anion Gap 7 (3-11); Blood Urea Nitrogen 25 mg/dl (6-23); Carbon Dioxide 25 mmol/L (21-32); Chloride 105 mmol/L (98-107); Est GFR (African American) 62.3 ml/min; Est GFR (Non-African American) 53.7 ml/min; Potassium 4.1 mmol/L (3.5-5.1); Sodium 137 mmol/L (136-145)
[2024-01-31 09:57] LABS: Alanine Aminotransferase 11 U/L (7-52); Albumin Globulin Ratio 1.3 (0.9-2); Alkaline Phosphatase 60 U/L (34-104); Aspartate Aminotransferase 12 U/L (13-39); BUN Creatinine Ratio 20.5 (10-20); Bilirubin,Total 0.6 mg/dl (0.2-1.0); Calcium 9.6 mg/dl (8.6-10.3); Globulin 3.2 gm/dl (2.5-4.0); Glucose 138 mg/dl (70-99(Fasting)); Lipase 25 U/L (11-82); Magnesium 1.9 mg/dl (1.7-2.4); Total Protein 7.2 gm/dl (6.0-8.3)
[2024-01-31 10:02] LABS: Troponin I High Sensitivity 7.4 pg/ml (0-20)
[2024-01-31 11:21] LABS: Adenovirus PCR Not Detected (NotDetected); Bordetella parapertussis PCR Not Detected (NotDetected); Bordetella pertussis PCR Not Detected (NotDetected); Chlamydia pneumoniae PCR Not Detected (NotDetected); Coronavirus 229E PCR Not Detected (NotDetected); Coronavirus CoV-2 (COVID19)PCR Not Detected (NotDetected); Coronavirus HKU1 PCR Not Detected (NotDetected); Coronavirus NL63 PCR Not Detected (NotDetected); Coronavirus OC43PCR Not Detected (NotDetected); Human Metapneumovirus PCR Not Detected (NotDetected); Influenza A PCR Not Detected (NotDetected); Influenza B PCR Not Detected (NotDetected); Mycoplasma pneumoniae PCR Not Detected (NotDetected); Parainfluenza Virus 1 PCR Not Detected (NotDetected); Parainfluenza Virus 2 PCR Not Detected (NotDetected); Parainfluenza Virus 3 PCR Not Detected (NotDetected); Parainfluenza Virus 4 PCR Not Detected (NotDetected); Respiratory Syncytial VirusPCR Not Detected (NotDetected); Rhinovirus/Enterovirus PCR Not Detected (NotDetected)
[2024-01-31] MEDS: OPTIRAY 320 125ml IV ONE (14:11)
--- OUTSIDE RECORDS SUMMARY | 2024-01-31 14:53 | External Medical Summary | Continuity of Care Document ---
Author Name Unknown Organization [address] Address [address] [place] [phone] Care Team Providers Care Hand Folder Name Role Phone July Ordonez Primary Care P hysician [phone] Encounter [facility] [id number] Date(s): 01/18/24 - 01/18/[address], [address] [phone] Encounter Diagnosis Body mass index [BMI] 36.0-36.9, adult(Discharge Diagnosis) - 01/18/24 Vitamin D deficiency(Discharge Diagnosis) - 01/18/24 Vertigo(Discharge Diagnosis) - 01/18/24 HTN (hypertension)(Discharge Diagnosis) - 01/18/24 Physical exam(Discharge Diagnosis) - 01/18/24 BPH (benign prostatic hyperplasia)(Discharge Diagnosis) - 01/18/24 Hx of lower gastrointestinal bleeding(Discharge Diagnosis) - 01/18/24 Hyperlipidemia(Discharge Diagnosis) - 01/18/24 Balance problem(Discharge Diagnosis) - 01/18/24 Neuropathy of leg(Discharge Diagnosis) - 01/18/24 Discharge Disposition: Home or Self Care Attending Physician: Sidra Rodriguez DO, Mariana Annette Referring Physician: Sidra Rodriguez DO, Mariana Annette Allergies, Adverse Reactions, Alerts No Known Allergies Assessment and Plan Extracted from: Title:Office Visit Note Author:Sidra Rodriguez DO, Mariana Annette Date:01/18/24 1.Physical exam - encouraged diet and exercise regimen appropriate for patient age and condition - routine dental and eye care per continuity - vaccinations reviewed and up to date per EHR -screening labs ordered -following with urology for chronic prostate disease 2.HTN (hypertension) STATUS:Chronic stable. DATA:Labs reviewed. GOAL:Maintain stability. PLAN:Cont HCTZ and metoprolol. 3.Hx of lower gastrointestinal bleeding Continue avoidance of NSAIDs no further bleeding check CBC 4.BPH (benign prostatic hyperplasia) STATUS:Chronic stable. DATA:specilist notereviewed. GOAL:Maintain stability. PLAN:Cont current monitoring. . 5.Hyperlipidemia STATUS:Chronic stable. DATA: labs reviewed GOAL:Maintain stability. PLAN:Cont simvastatin, check lipid panel 6.Balance problem Acute on chronic will place referral for PT for gait training and vestibular therapy 7.Neuropathy of leg STATUS:Chronic stable. DATA:Labs reviewed. GOAL:Maintain stability. PLAN:Cont gabapentin and vicks lotion f/u 6 months Immunizations Given and Recorded Vaccine Date Status Refusal Reason RSV vaccine preF3, recombinant 04/22/23 Recorded SARS-CoV-2 (COVID-19) mRNA-vacc - [id number] 03/23/23 Recorded pneumococcal 20-valent conjugate vaccine 03/16/23 Recorded SARS-CoV-2 mRNA (Pfizer 12+) bivalent 03/23/22 Rec orded SARS-CoV-2 (COVID-19) mRNA BNT-162b2 vax 03/30/21 Recorded SARS-CoV-2 (COVID-19) mRNA BNT-162b2 vax 08/01/20 Recorded SARS-CoV-2 (COVID-19) mRNA BNT-162b2 vax 07/11/20 Recorded tetanus/diphtheria/pertuss, acel (Tdap) 01/15/21 R ecorded zoster vaccine, inactivated 04/25/20 Recorded Zoster Vaccine Unspecified 02/13/20 Recorded pneumococcal 23-valent vaccine 12/08/05 Recorded Medications calcitriol 0.25 mcg oral capsule Start: 07/20/23 10:59:00 AM EST, 1 cap, PO, Daily Start Date: 07/20/23 Status: Ordered docusate sodium 100 mg oral capsule Start: 07/20/23 11:00:00 AM EST, 1 cap, PO, Daily, PRN: as needed for constipation Start Date: 07/20/23 Status: Ordered finasteride 5 mg oral tablet Start: 11/07/23 11:51:00 AM EDT, 1 tab, PO, Daily, Disp# 90 tab, Refills: 3, Pharmacy: [facility] Start Date: 11/07/23 Status: Ordered gabapentin 100 mg oral capsule Start: 01/04/24 5:46:00 PM EDT, 1 cap, PO, Daily, Disp# 30 cap, Refills: 1, Pharmacy: [facility] [id number] Start Date: 01/04/24 Status: Ordered glucosamine Start: 10/19/16 12:11:00 PM EDT, 1,500 mg = Start Date: 10/19/16 Status: Ordered hydroCHLOROthiazide Start: 10/19/16 12:09:00 PM EDT, 12.5 mg =, PO, Daily Start Date: 10/19/16 Status: Ordered ibuprofen Start: 07/20/23 10:59:00 AM EST Start Date: 07/20/23 Status: Ordered ketoconazole 2% topical cream Start: 01/18/24 10:35:00 AM EDT Start Date: 01/18/24 Status: Ordered metoprolol succinate 100 mg oral tablet, extended release Start: 07/20/23 11:00:00 AM EST, 0.5 tab, PO, Daily Start Date: 07/20/23 Status: Ordered MiraLax oral powder for reconstitution Start: 07/20/23 11:01:00 AM EST, 17 g =, PO, Daily Start Date: 07/20/23 Status: Ordered MVI-12 Start: 01/01/16 1:08:00 PM EDT Start Date: 01/01/16 Status: Ordered omeprazole Start: 10/19/16 12:07:00 PM EDT, 20 mg =, PO, Daily Start Date: 10/19/16 Status: Ordered Preparation H Start: 07/20/23 11:02:00 AM EST Start Date: 07/20/23 Status: Ordered Proctozone HC Start: 10/19/16 12:10:00 PM EDT, 1 appl, topical, Daily, PRN Start Date: 10/19/16 Status: Ordered Simbrinza 1%- 0.2% ophthalmic suspension Start: 07/20/23 11:01:00 AM EST Start Date: 07/20/23 Status: Ordered simvastatin 20 mg oral tablet Start: 10/10/23 5:58:00 PM EDT, 20 mg =, PO, qhs, Disp# 90 tab, Refills: 3, Pharmacy: [facility] Start Date: 10/10/23 Status: Ordered Systane Start: 10/19/16 12:10:00 PM EDT, Daily Start Date: 10/19/16 Status: Ordered Tylenol Start: 07/20/23 10:59:00 AM EST, i Start Date: 07/20/23 Status: Ordered VESIcare 10 mg oral tablet Start: 01/16/24 1:44:00 PM EDT, 1 tab, PO, Daily, Disp# 90 tab, Refills: 0, Pharmacy: [facility] Start Date: 01/16/24 Status: Ordered Vitamin C Start: 10/19/16 12:10:00 PM EDT, 500 mg =, PO, Daily Start Date: 10/19/16 Status: Ordered Mental Status 01/18/24 Barriers to Learning one year None evide nt Mandatory Health Literacy Documentation Yes Health Literacy Communication Barriers N ever Primary Language Citizen Of [place] Problem List Condition Confirmation Course Effective Dates Status H ealth Status Informant BPH (benign prostatic hyperplasia) Confirmed Active Former smoker Confirmed Active GERD (gastroesophageal reflux disease) Confirmed Active Hearing loss Confirmed Active Hx of lower gastrointestinal bleeding Confirmed Active Hyperlipidemia Confirmed Active HTN (hypertension) Confirmed Active Nephrolithiasis Confirmed Active Neuropathy of leg Confirmed Active Spinal stenosis Confirmed Active Weight disorder Confirmed Active Diagnosis Diagnosis Type Effective Dates Health Status Clinical Service Informant Hx of lower gastrointestinal bleeding Discharge Diagnosis 01/18/24 Non-Specified Hyperlipidemia Discharge Diagnosis 01/18/24 Non-Specified Balance problem Discharge Diagnosis 01/18/24 Non-Specified Vertigo Discharge Diagnosis 01/18/24 Non-Specified Body mass index [BMI] 36.0-36.9, adult Discharge Diagnosis 01/18/24 Non-Specified Vitamin D deficiency Discharge Diagnosis 01/18/24 Non-Specified HTN (hypertension) Discharge Diagnosis 01/18/24 Non-Specified BPH (benign prostatic hyperplasia) Discharge Diagnosis 01/18/24 Non-Specified Physical exam Discharge Diagnosis 01/18/24 Non-Specified Neuropathy of leg Discharge Diagnosis 01/18/24 Non-Specified Procedures Procedure Date Related Diagnosis Body Site Status RT TKA 10/24/23 Completed EGD (esophagogastroduodenosc opic) electrohydraulic lithotripsy of bezoar in stomach 02/17/23 Completed Colonoscopy 02/14/23 Completed Shoulder replacement 1 01/03/23 Co mpleted Spinal stenosis 02/09/18 Completed Cataract 2 11/19/16 Completed Cataract 3 10/26/16 Completed Tibia and fibula X-ray 4 01/01/16 Completed X-ray of right ankle 5 01/01/16 Co mpleted Foot 6 2015 Completed Shoulder 7 2014 Completed Hip bone 8 2000 Completed Hernia 9 1995 Completed Carpal tunnel release 10 1994 Completed CTS (carpal tunnel syndrome) 11 Completed Hernia Completed Hip 12 Completed Mandible Completed 1left 2left 3right 4No acute fractures identified 5Soft tissue swelling and chronic arthritic and post traumatic change. No acute fractures are visualized. The ankle mortise appears intact. 6right 7right 8right replacement 9left 10left 11bilateral 12right replacement Results Most recent to oldest [Reference Range]: 1 AST Outside 19 unit/L (06/16/23 2:22 PM) ALT Outside 14 unit/L (06/16/23 2:22 PM) Na Outside Ref Range 136-145 (06/16/23 2:22 PM) BUN Outside Ref Range 6-23 (06/16/23 2:22 PM) Cret Outside Ref Range 0.6-1.4 (06/16/23 2:22 PM) K Outside Ref Range 3.5-5.1 (06/16/23 2:22 PM) ALT Outside Ref Range 7-52 (06/16/23 2:22 PM) AST Outside Ref Range 13-39 (06/16/23 2:22 PM) Chol Outside Ref Range <200 (06/16/23 2:22 PM) HDL Outside Ref Range >50 (06/16/23 2:22 PM) TG Outside Ref Range <150 (06/16/23 2:22 PM) Non-HDL Chol Outside 140 (06/16/23 2:22 PM) Est GFR, non-Black Race Outside 46.6 (06/16/23 2:22 PM) Na Outside 140 (06/16/23 2:22 PM) K Outside 4.1 (06/16/23 2:22 PM) BUN Outside 28 (06/16/23 2:22 PM) Cret Outside 1.38 (06/16/23 2:22 PM) Chol Outside 185 (06/16/23 2:22 PM) HDL Outside 45 (06/16/23 2:22 PM) Triglycerides Outside 315 (06/16/23 2:22 PM) Vital Signs Most recent to oldest [Reference Range]: 1 Height 180 cm (01/18/24 10:37 AM) Patient Weight 117.5 kg (01/18/24 10:37 AM) Body Mass Index 36.27 kg/m2 (01/18/24 10:37 AM) Temperature [36.5-37.9 DegC] 35.9 DegC *LOW* (01/18/24 10:37 AM) Heart Rate 76 bpm (01/18/24 10:37 AM) Blood Pressure 128/80mmHg (01/18/24 10:37 AM) Cuff Pulse Pressure 48 mmHg (01/18/24 10:37 AM) Social History Social History Type Response Smoking Status Never smoked cigaret enrique Sex Male Sex Representation Male (finding) [facility]CM Outpt Note * Sidra Rodriguez DO, Mariana Annette: PERFORM Event Display: [facility]CM Outpt Note Authored Date: [id number] Chief Complaint CPE History of Present Illness Pt presents for physical PMH: GIbleed (hospitalized 01/2023), kidney stones, spinal stenosis, BPH, HTN, GERD, HLD, hearing loss, hx of septic shock due to kidney infection, lipomas, CKD. HTN - does not check often. CKD- follows with nephrology. Stable. RLE neuropathy - on gapentin 100mg qhs,also using vicks ointment with improvement BPH - Follows with Dr. Robertson (urology). Hearing loss - recently got hearing aids. Recently went to podiatry for toe nail care. Sometimes gets a "nerve pain" on the right chest by breast, he can pinpoint with his finger, betterafter massage. Feels like vertigo acting up more than usual, does note some balance issues. No falls. No hospitalizations in the last 12 months nor severe acute injuries not accounted for in chart. Routine dental care without complaint Routine eye care without issue presently,+veglasses/contacts Vaccination schedule reviewed in EHR Histories updated and reviewed with patient with changes reflected. Feeling safe at home and in relationships without concern. Health Maintenance: - Colon CA screening: colonoscopy at [facility] 02/14/23 - Hep C screening: unknown - DEXA scan: never done - Immunizations:unknown, willget records 10 system ROS completed and negative except as noted above. Physical Exam Vitals & Measurements T:35.9C HR:76(Monitored) BP:128/80 SpO2:96% HT:180cm WT:117.5kg WT:117.500kg(Dosing) BMI:36.27 PHQ2 Data(Data Documented on:01/18/2024 10:35) Emotional health assessment NEGATIVE General: _Alert and oriented, No acute distress HEENT: _ Normocephalic, Nl gross hearing, moist oral mucosa _ Cardiovascular: _Normal rate, Regular rhythm, No murmur, No gallop. Respiratory: _Lungs are clear to auscultation, Respirations are non-labored, Breath sounds are equal Gastrointestinal: _Soft, Non-tender, Non-distended, Normal bowel sounds. Musculoskeletal: _Normal range of motion,normal strength. Neurologic:Normal sensory, Normal motor function, CN II-XII grossly intact. Integumentary: _Warm, Dry, [place]. Psych: Mood-affect congruence. Reports no SI/HI. Speech is of normal pace and content Assessment/Plan 1.Physical exam - encouraged diet and exercise regimen appropriate for patient age and condition - routine dental and eye care per continuity -vaccinations reviewed and up to date per EHR -screening labs ordered -following with urology for chronic prostate disease 2.HTN (hypertension) STATUS:Chronic stable. DATA:Labs reviewed. GOAL:Maintain stability. PLAN:Cont HCTZ and metoprolol. 3.Hx of lower gastrointestinal bleeding Continue avoidance of NSAIDs no further bleeding check CBC 4.BPH (benign prostatic hyperplasia) STATUS:Chronic stable. DATA:specilist notereviewed. GOAL:Maintain stability. PLAN:Cont current monitoring. . 5.Hyperlipidemia STATUS:Chronic stable. DATA: labs reviewed GOAL:Maintain stability. PLAN:Cont simvastatin, check lipid panel 6.Balance problem Acute on chronic will place referral for PT for gait training and vestibular therapy 7.Neuropathy of leg STATUS:Chronic stable. DATA:Labs reviewed. GOAL:Maintain stability. PLAN:Cont gabapentin and vicks lotion f/u 6 months Problem List/Past Medical History Ongoing BPH (benign prostatic hyperplasia) Former smoker GERD (gastroesophageal reflux disease) Hearing loss HTN (hypertension) Hx of lower gastrointestinal bleeding Hyperlipidemia Nephrolithiasis Neuropathy of leg Spinal stenosis Weight disorder Procedure/Surgical History RT TKA| Service Date: 10/24/2023EGD (esophagogastroduodenoscopic) electrohydraulic lithotripsy of bezoar in stomach| Service Date: 02/17/2023olonoscopy| Service Date: 02/14/2023Shoulder replacement| Service Date: 01/03/2023Spinal stenosis| Service Date: 02/09/2018Cataract| Service Date: 11/19/2016Cataract| Service Date: 10/26/2016Tibia and fibula X-ray| Service Date: 01/01/2016X-ray of right ankle| Service Date: 01/01/2016Foot| Service Date: 2015Shoulder| Service Date: 2014Hip bone| Service Date: 2000Hernia| Service Date: 1995Carpal tunnel release| Service Date: 1994MandibleCTS (carpal tunnel syndrome)HerniaHip Medications acetaminophen(Tylenol), i ascorbic acid(Vitamin C), 500 mg, PO, Daily brimonidine-brinzolamide ophthalmic(Simbrinza 1%- 0.2% ophthalmic suspension) calcitriol(calcitriol 0.25 mcg oral capsule), 0.25 mcg= 1 cap, PO, Daily docusate(docusate sodium 100 mg oral capsule), 100 mg= 1 cap, PO, Daily, PRN finasteride(finasteride 5 mg oral tablet), 5 mg= 1 tab, PO, Daily, 3 refills gabapentin(gabapentin 100 mg oral capsule), 1 cap, PO, Daily glucosamine, 1500 mg hydroCHLOROthiazide, 12.5 mg, PO, Daily hydrocortisone topical(Proctozone HC), 1 appl, topical, Daily ibuprofen ketoconazole topical(ketoconazole 2% topical cream) metoprolol(metoprolol succinate 100 mg oral tablet, extended release), 50 mg= 0.5 tab, PO, Daily mineral oil/petrolatum/phenylephrine topical(Preparation H) multivitamin(MVI-12) ocular lubricant(Systane), Daily omeprazole, 20 mg, PO, Daily polyethylene glycol 3350(MiraLax oral powder for reconstitution), 17 g, PO, Daily simvastatin(simvastatin 20 mg oral tablet), 20 mg, PO, qhs, 3 refills solifenacin(VESIcare 10 mg oral tablet), 10 mg= 1 tab, PO, Daily Allergies NKA Social History Smoking Status Never smoked cigarettes Immunizations Vaccine Date Status RSV vaccine preF3, recombinant 04/22/2023 Recorded SARS-CoV-2 (COVID-19) mRNA-vacc - [id number] 03/23/2023 Recorded pneumococcal 20-valent conjugate vaccine 03/16/2023 Recorded SARS-CoV-2 mRNA (Pfizer 12+) bivalent 03/23/2022 Recorded SARS-CoV-2 (COVID-19) mRNA BNT-162b2 vax 03/30/2021 Recorded tetanus/diphtheria/pertuss, acel (Tdap) 01/15/2021 Recorded SARS-CoV-2 (COVID-19) mRNA BNT-162b2 vax 08/01/2020 Recorded SARS-CoV-2 (COVID-19) mRNA BNT-162b2 vax 07/11/2020 Recorded zoster vaccine, inactivated 04/25/2020 Recorded Zoster Vaccine Unspecified 02/13/2020 Recorded pneumococcal 23-valent vaccine 12/08/2005 Recorded Recommendations Health Maintenance Pending(in the next year) OverDue Adult Influenza Vaccine due12/04/23and every 1year Due Adult COVID-19 Vaccination due01/18/24Unknown Frequency Adult Social Determinants of Health Screening due01/18/24Unknown Frequency Medicare Annual Wellness Visit due01/18/24and every 1year Satisfied(in the past 1 year) Satisfied Body Mass Index on01/18/24.Satisfied by JOVON Ball Angela Lipid Screening on12/16/23.Satisfied by Contributor_system, [employer] Electronic Signature on File Electronically Reviewed/Signed by: July Rodriguez DO Author Signature Dt/Tm:01/18/2024 12:22 PM Department of Family Medicine [facility] Patient Care team information Care Team Personnel Name: Sidra Rodriguez DO, Mariana Annette Position: Physician - Family Med Member Role: Primary Care Provider Address: [address] [place] [address]
--- NOTE | 2024-01-31 14:55 | CT Scan Report ---
CT ANGIOGRAPHY OF THE CHEST, PULMONARY EMBOLUS PROTOCOL CLINICAL HISTORY: Left-sided chest pain. Cough. Evaluate for pulmonary embolus. COMPARISON STUDY: Chest radiograph performed earlier today. TECHNIQUE: Following IV administration of 80 mL of Optiray, helical axial images of the chest were ob tained utilizing the pulmonary embolus protocol. Maximal intensity projections and sagittal and ric nal reformats were viewed on an independent 3D workstation. IV contrast was administered without com plication. Automated exposure control was utilized for the study. A dose lowering technique was uti lized adhering to the principles of ALARA. CT DOSE: 859.4 mGy.cm FINDINGS: There are multiple lobar, segmental and subsegmental pulmonary emboli within the bilateral lower lobes. There is no evidence for right heart strain. There is no pericardial effusion. No thora cic lymphadenopathy is present. There is no thoracic aortic dissection. There are trace bilateral ple ural effusions. Interlobular septal thickening is noted. Subpleural airspace opacities are present. N umerous tiny pulmonary nodules measure up to 3 mm. These are indeterminate but likely benign. A nodul ar focus along the right hepatic lobe as shown on multiple prior abdominal CTs. This is benign given relative stability. There is a 1.8 cm segment 4 hepatic cyst. IMPRESSION: 1. Multiple lobar, segmental and subsegmental pulmonary emboli within the bilateral lower lobes. 2. Bilateral lower lobe airspace opacities suggestive of atelectasis with possible superimposed pulmo nary infarcts. 3. Trace bilateral pleural effusions. 4. Mild interstitial pulmonary edema. ACT 112: Negative or not required by law. Electronically signed by: Tiago Guerra M.D. 01/31/2024 2:54 PM
[2024-01-31] MEDS ORDERED: HEPARIN SOD (PORCINE) 1000 UNIT/ML IV ONE (15:37)
[2024-01-31] MEDS ORDERED: Heparin IV Adult Wt-Based Low-Dose w/ INITIAL Bolus Protocol IV SCH (15:45)
[2024-01-31 16:00] LABS: Partial Thromboplastin Ratio 1.1; Partial Thromboplastin Time 29 Seconds (21-31)
[2024-01-31] MEDS: HEPARIN SODIUM/DEXTROSE 25,000 UNITS/500 ML BAG IV SCH (16:28)
[2024-01-31] MEDS: HEPARIN SOD (PORCINE) 1000 UNIT/ML IV ONE (16:29)
[2024-01-31] MEDS: Heparin IV Adult Wt-Based Low-Dose w/ INITIAL Bolus Protocol IV STA (16:29)
--- NOTE | 2024-01-31 17:27 | History & Physical Report ---
Date of Service January 31, 2024 Assessment & Plan (1) Pulmonary emboli: Plan: - patient presented with left sided chest pain and sob - s/p right knee replacement in October 2023, discontinued post-op Aspirin in late November 2023 - Patient has had sedentary lifestyle recently due to ongoing fatigue - CXR showed slight blunting of left costophrenic angle possibly due to atelectasis or trace pleural effusion. - CTA demonstrated multiple lobar, segmental pulmonary emboli in B/L lower lobes with trace b/l pleural effusions. Mild pulmonary edema. - mildly tachycardic 102, BP elevated, O2 92% on RA - PTT within normal range - IV heparin drip (standard protocol) - bilateral doppler u/s pending (2) Chronic kidney disease: Plan: - stage II-III - avoid nephrotoxic drugs - Cr at baseline, 1.22 (3) Hypertension: Plan: - with hyperlipidemia - continue home metoprolol, HCTZ, and statin - monitor for hypotension with diagnosis of PE (4) BPH (benign prostatic hyperplasia): Plan: - continue home finasteride and solifenacin (5) Hx of glaucoma: Plan: - continue with home eye drops (6) GERD (gastroesophageal reflux disease): Plan: - continue home omeprazole Plan VTE ppx: Heparin Diet: heart healthy Code status: DNR/DNI PCU for further montioring. Admission and Anticipated Discharge Date Admission Date: 01/31/2024 History of Present Illness Chief Complaint: Chest pain Primary Care Provider: July Rodriguez DO Patient is an pleasant 83 year old male seen at bedside in the ED. He has a history of stage II CKD, hypertension, HLD, BPH, Osteoarthritis, DJD, glaucoma, GI bleed (02/26), neuropathy, and vertigo. He had his right knee replaced in October of this year in which he was prescribed aspirin post-operatively. He stopped this during the last week of November. He also use compression socks for 3 to 4 months post operatively and recently stopped wearing them due to them being too difficult to put on. He stated he began having lower left-sided chest pain and a dry cough that began last night. He chest pain has improved since ED visit, currently a 0/10 on pain scale. He stated that he has had fatigue and no strength for the past few months. He feels like he just cannot get up and do anything. Because of this he has been sedentary recently. He also stated that he was actually less of breath for the past few weeks on exertion, although has been improving recently. He occasionally shortness of breath at rest when sitting in his chair. He denies orthopnea. The patient stated that he has had bilateral calf pain for the past few days. He denies swelling and bruising of his lower extremities. He denies recent travel, history of malignancy, and history of clotting disorders, PE, or DVT. Patient was a former smoker but quit over 30 years ago. The patient stated that he did have difficulty urinating with dysuria today, wit h a history of BPH. He stated he did not yet have his medications for this today. The patient currently complains of a headache, although alludes it to being hungry. He denies dizziness and lightheadedness, although does have a history of vertigo. He denies blurry vision, double vision, sore throat, rhinorrhea, sputum production, hemoptysis, abdominal pain, nausea, vomiting, diarrhea, numbness, and tingling. The patient does not use oxygen at home. Patient's POA is his , Jennifer. He wishes to be DNR/DNI at this time. Allergies Allergy/AdvReac Type Severity Reaction Status Date / Time No Known Drug Allergies Allergy Verified 01/03/24 10:49 Home Medications Medication Instructions Recorded Confirmed Type multivitamin 1 cap PO QAM ##0 02/16/09 01/31/24 History glucosamine 375 dh-qjkfwlwvx-nui 2 tab PO QPM ##0 10/11/14 01/31/24 History no1 500 mg-C 15 mg-ana 0.5 mg tablet (Ouknewrjawc-Gkldqrwwluw-YPO Complex) docusate sodium 100 mg tablet 100 mg PO QPM ##0 01/17/18 01/31/24 History polyethylene glycol 3350 17 1 dose PO QPM ##0 01/17/18 01/31/24 History gram/dose oral powder (Miralax) brinzolamide 1 %-brimonidine 0.2 % 1 drp OPR TID 02/05/21 01/31/24 History eye drops,suspension (Simbrinza) peg 400-propylene glycol 0.4 %-0.3 1 drp OPL BID PRN Dry Eyes #0 mL 10/03/22 08/27/24 History % eye drops (Systane (propylene glycol)) solifenacin 10 mg tablet (Vesicare) 10 mg PO QPM #90 tabs 09/29/22 01/31/24 Rx metoprolol succinate 100 mg 100 mg PO QPM #90 tabs 02/04/23 01/31/24 Rx tablet,extended release 24 hr acetaminophen 500 mg tablet 650 mg PO HS 02/07/23 01/31/24 History (Tylenol Extra Strength) finasteride 5 mg tablet (Proscar) 5 mg PO QAM 02/07/23 01/31/24 History simvastatin 20 mg tablet 20 mg PO QPM 02/10/23 01/31/24 History hydrocortisone 2.5 % topical cream 1 applic topical DAILY PRN Itching 02/27/23 01/31/24 History with perineal applicator hydrochlorothiazide 12.5 mg tablet 12.5 mg PO QAM #90 tabs 03/08/23 01/31/24 Rx omeprazole 20 mg tablet,delayed 20 mg PO QAM #90 tabs 05/02/23 01/31/24 Rx release calcitriol 0.25 mcg capsule 0.25 mcg PO 3XWK #36 caps 05/09/23 01/31/24 Rx sodium chloride 0.65 % nasal spray 1 spray intranasal Q4H PRN Cold 06/22/23 01/31/24 History aerosol (Saline Mist) Symptoms aspirin 81 mg tablet,delayed 81 mg PO BID #84 tabs 10/24/23 01/31/24 Rx release (Adult Aspirin Regimen) oxycodone 5 mg tablet 5 mg PO Q6H PRN pain #30 tabs 11/07/23 01/31/24 Rx gabapentin 100 mg capsule 100 mg PO DAILY 01/03/24 01/31/24 History nitrofurantoin 100 mg PO Q12H 7 days #14 caps 01/24/24 01/31/24 Rx monohydrate/macrocrystals 100 mg capsule (Macrobid) Past Med/Surg History Problem List (Updated 01/31/24 @ 20:39 by Xu Buckley MD) Left-sided chest pain (Acute) Pulmonary infarction (Acute) Pulmonary emboli (Acute) Status post right knee replacement (~10/2023) Osteoarthritis of right knee Lower extremity edema Trigger finger of left hand BPH with obstruction/lower urinary tract symptoms (Acute) Degenerative joint disease, multiple joints on both sides of body (Acute) Disc degeneration, lumbar (Acute) Glaucoma (Acute) s/p surgical intervention bilat Insomnia (Acute) Nephrolithiasis (Acute) Solitary thyroid nodule (Acute) Osteoarthritis Hypertension controlled, stable per pt Chronic kidney disease (Acute) follows w/ Dr Sawyer Stable per patient Obesity Hyperlipidemia Medical History Hx of intestinal obstruction (~2006) no surgical intervention per pt. Hx of glaucoma s/p surgical intervention bilaterally no current issues Hx of upper gastrointestinal hemorrhage (~02/2023) admit to [facility], EGD & Colon, per pt. source not found no current issues Hx of septic shock (~2016) admit to [facility] x 6 days, kidney stone History of blood transfusion (~2000) left hip replacement H/O degenerative disc disease cervical spine, has full ROM BPH (benign prostatic hyperplasia) GERD (gastroesophageal reflux disease) controlled, stable per pt Surgical History Hx of bilateral cataract extraction Hx of colonoscopy with polypectomy History of esophagogastroduodenoscopy (EGD) History of reverse total replacement of left shoulder joint (~01/03/23) H/O removal of cyst (~1974) mandibular History of laminectomy L2-L4 02/09/1818 Grade 2 view, MAC 3, ETT 8. Hx of arthroscopy of shoulder L, 2003; R, 1999 History of carpal tunnel release of both wrists 1994 L, 1996 R Hx of repair of rotator cuff R, likely 1999 History of total right hip arthroplasty (~2000) Hx of foot surgery (~2015) rt foot reconstruction Hx of total shoulder replacement RIGHT 2014 LEFT 2022 Hx of cystoscopy Hx of tonsillectomy H/O hernia repair left 1995, right 1997 Family History Mother Tuberculosis Sister Breast cancer Father Cardiac disorder Myocardial infarction Brother Dementia Denies family history of Ovarian cancer Prostate cancer Colorectal cancer Social History Smoking Status: Former smoker Tobacco Type: Cigarettes Age Started Using Tobacco: 17; Age Quit Using Tobacco: 30; packs per day: 2; Cigarettes Per Day: 1 PPD; Second Hand Exposure: No; Do You Dip or Chew Tobacco: No; Hx Alcohol Use: No Hx Substance Use: No Preferred Language: Romansh Communication Ability: Effective Visual Impairment: Limited Hearing Ability: Normal Motion Picture Film Examiner Required: No Beliefs That Will Affect Care: None marital status: Current Living Situation: Spouse Current Living Situation Comment: Spouse and Legal guardian of 2 grandsons current occupational status: retired 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 Feels Safe at Home: Yes Childhood Exposure to Second-Hand Smoke: Yes Diet: regular caffeine: Yes (one cup of coffee each day) during the past year weight has: decreased > 10 lbs Dental Care, Regularly: No Physical Activity Frequency: Daily Seatbelt Use: always Sunscreen Use: Yes (sometimes ) Assistive Devices: Walker Review of Systems Review of Systems: see above Physical Exam Physical Exam: The patient is awake, alert and oriented 3, well developed and well nourished, normocephalic and atraumatic, lying in bed and in no acute distress. Non-toxic appearing. HEENT- mucous membranes and oropharynx moist. Atraumatic, normocephalic. Hearing grossly intact. Heart-normal S1 and S2. No murmurs, rubs or gallops. Lungs-clear bilaterally, no respiratory distress, no accessory muscle use. Abdomen-normal bowel sounds and soft. No bruising or ascites noted. Non-tender. Extremities-no cyanosis or clubbing. No edema. Scar noted on patients right knee. Dermatologic-normal skin turgor, normal color, no abnormal lymph nodes, no rash. Rheumatologic-normal range of motion. Psychiatric-normal affect. Results & Data Results & Data Vital Signs (Past 12 Hours) Vital Signs Temp Pulse Pulse Resp BP BP Pulse Ox 01/31/24 16:36 98 H 28 H 93 01/31/24 16:30 140/107 H 01/31/24 16:21 96 H 26 H 93 01/31/24 16:03 99 H 25 H 92 01/31/24 16:00 159/86 H 01/31/24 16:00 159/86 H 01/31/24 15:48 98 H 27 H 94 01/31/24 15:46 137/87 01/31/24 15:46 137/87 01/31/24 15:46 137/87 01/31/24 15:46 137/87 01/31/24 15:46 137/87 01/31/24 15:45 103 H 30 H 91 01/31/24 15:24 97 H 30 H 01/31/24 15:03 97 H 30 H 01/31/24 14:57 95 H 26 H 01/31/24 14:42 95 H 34 H 01/31/24 14:30 93 H 24 01/31/24 14:27 94 H 29 H 01/31/24 14:18 94 H 24 01/31/24 14:00 95 H 29 H 93 01/31/24 13:51 98 H 22 93 01/31/24 13:42 91 H 19 94 01/31/24 13:40 94 H 01/31/24 13:36 92 H 24 93 01/31/24 13:24 97 H 19 93 01/31/24 13:00 97 H 16 93 01/31/24 12:54 94 01/31/24 12:45 104 H 22 95 01/31/24 12:12 96 H 27 H 94 01/31/24 12:09 96 H 30 H 94 01/31/24 11:30 109/74 01/31/24 11:30 109/74 01/31/24 11:18 99 H 30 H 92 01/31/24 11:16 88 L 01/31/24 11:16 98 H 20 111/57 L 92 01/31/24 11:12 95 H 28 H 92 01/31/24 11:03 96 H 32 H 90 01/31/24 11:01 111/57 L 01/31/24 10:57 100 H 25 H 90 01/31/24 10:54 94 H 28 H 90 01/31/24 10:42 96 H 27 H 92 01/31/24 10:33 94 H 24 92 01/31/24 10:30 101/66 01/31/24 10:30 101/66 01/31/24 10:30 101/66 01/31/24 10:30 101/66 01/31/24 10:24 90 19 93 01/31/24 10:18 89 23 93 01/31/24 10:09 84 22 99 01/31/24 10:00 134/88 01/31/24 09:48 83 28 H 93 01/31/24 09:34 87 01/31/24 09:33 85 19 93 01/31/24 09:30 127/88 01/31/24 09:14 92 01/31/24 09:14 92 01/31/24 09:06 36.5 C 93 H 18 148/77 H 95 O2 Del Method O2 Flow Rate 01/31/24 16:36 01/31/24 16:30 01/31/24 16:21 01/31/24 16:03 01/31/24 16:00 01/31/24 16:00 01/31/24 15:48 01/31/24 15:46 01/31/24 15:46 01/31/24 15:46 01/31/24 15:46 01/31/24 15:46 01/31/24 15:45 01/31/24 15:24 01/31/24 15:03 01/31/24 14:57 01/31/24 14:42 01/31/24 14:30 01/31/24 14:27 01/31/24 14:18 01/31/24 14:00 01/31/24 13:51 01/31/24 13:42 01/31/24 13:40 01/31/24 13:36 01/31/24 13:24 01/31/24 13:00 Room Air 01/31/24 12:54 01/31/24 12:45 01/31/24 12:12 01/31/24 12:09 01/31/24 11:30 01/31/24 11:30 01/31/24 11:18 01/31/24 11:16 Room Air 0 01/31/24 11:16 Nasal Cannula 2 01/31/24 11:12 01/31/24 11:03 01/31/24 11:01 01/31/24 10:57 01/31/24 10:54 01/31/24 10:42 01/31/24 10:33 01/31/24 10:30 01/31/24 10:30 01/31/24 10:30 01/31/24 10:30 01/31/24 10:24 01/31/24 10:18 01/31/24 10:09 01/31/24 10:00 01/31/24 09:48 01/31/24 09:34 01/31/24 09:33 01/31/24 09:30 01/31/24 09:14 Room Air 01/31/24 09:14 Room Air 0 01/31/24 09:06 Room Air Laboratory Results Abnormal lab results 01/31/24 Range/Units 09:15 Hgb 13.8 L (14.0-18.0) g/dl MPV 8.9 L (9.4-12.4) fL Neut # (Auto) 8.57 H (1.40-6.50) K/uL Lymph # (Auto) 0.28 L (1.20-3.40) K/uL Ada # (Auto) 0.64 H (0.11-0.59) K/uL BUN 25 H (6-23) mg/dl BUN/Creatinine Ratio 20.5 H (10-20) Glucose 138 H (70-99(Fasting)) mg/dl AST 12 L (13-39) U/L Diagnostic Findings Chest X-Ray 01/31/24 09:14 XR chest 1V portable CLINICAL HISTORY: Chest pain, nonspecific COMPARISON STUDY: Chest radiograph June 03, 2023. 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 There is no pneumothorax. Slight blunting of the left costophrenic angle is noted. This may reflect minimal atelectasis or a trace left pleural effusion. There is no evidence for pulmonary edema. There is no consolidation to suggest pne[place]. Cardiomediastinal silhouette is stable. IMPRESSION: Slight blunting of the left costophrenic angle. This may reflect subsegmental atelectasis or a trace left pleural effusion. ACT 112: Negative or not required by law. Electronically signed by: Tiago Guerra M.D. 01/31/2024 9:50 AM Chest CTA 01/31/24 13:30 CT ANGIOGRAPHY OF THE CHEST, PULMONARY EMBOLUS PROTOCOL CLINICAL HISTORY: Left-sided chest pain. Cough. Evaluate for pulmonary embolus. COMPARISON STUDY: Chest radiograph performed earlier today. TECHNIQUE: Following IV administration of 80 mL of Optiray, helical axial images of the chest were obtained utilizing the pulmonary embolus protocol. Maximal intensity projections and sagittal and coronal reformats were viewed on an independent 3D workstation. IV contrast was administered without complication. Automated exposure control was utilized for the study. A dose lowering technique was utilized adhering to the principles of ALARA. CT DOSE: 859.4 mGy.cm FINDINGS: There are multiple lobar, segmental and subsegmental pulmonary emboli within the bilateral lower lobes. There is no evidence for right heart strain. There is no pericardial effusion. No thoracic lymphadenopathy is present. There is no thoracic aortic dissection. There are trace bilateral pleural effusions. Interlobular septal thickening is noted. Subpleural airspace opacities are present. Numerous tiny pulmonary nodules measure up to 3 mm. These are indeterminate but likely benign. A nodular focus along the right hepatic lobe as shown on multiple prior abdominal CTs. This is benign given relative stability. There is a 1.8 cm segment 4 hepatic cyst. IMPRESSION: 1. Multiple lobar, segmental and subsegmental pulmonary emboli within the bilateral lower lobes. 2. Bilateral lower lobe airspace opacities suggestive of atelectasis with possible superimposed pulmonary infarcts. 3. Trace bilateral pleural effusions. 4. Mild interstitial pulmonary edema. ACT 112: Negative or not required by law. Electronically signed by: Tiago Guerra M.D. 01/31/2024 2:54 PM Code Status & VTE Plan Code Status DNR/DNI VTE Prophylaxis Plan VTE Prophylaxis will be ordered: Yes Supervising Physician Co-Signing Physician Notes I personally saw and examined the patient. I independently reviewed the labs, EKG, imaging, problem list, medication list, past medical history and family history. I verified all crawford points and agree with Birdie Valdivia PA-C with the following exceptions and/or additions: 83 year old male presents to the ER with fatigue for 2 months and 2 days of shortness of breath. O/E HS RRR, no murmurs, Chest CTAB, Abdo SNT, Right calf > left with mild calf tenderness A/P Pulmonary emboli with right DVT - provoked from recent immobility and knee operation in October. IV heparin started. Recommend anticoagulation for 3-6 months but can be stopped after this time. Unclear if fatigue due to this as longer standing but plan on treating and seeing if fatigue resolves. No current infection suspected from history/exam/imaging. PG Care Time/CCT Total # of Minutes Spent Total Time Spent with Patient: Total time spent is greater than 50% in coordination of care (as documented) at patient's floor/unit and/or counseling patient: Coding Level of Care Code None Diagnoses Pulmonary emboli I26.99 Chronic kidney disease N18.9 Hypertension I10 BPH (benign prostatic hyperplasia) N40.0 Hx of glaucoma Z86.69 GERD (gastroesophageal reflux disease) K21.9
[2024-01-31] MEDS ORDERED: oxyCODONE HCL IR 5 MG TAB (IMMEDIATE RELEASE) PO PRN (20:50)
[2024-01-31] MEDS ORDERED: ARTIFICIAL TEARS OP PRN (22:12)
[2024-01-31] MEDS: DOCUSATE SODIUM 100 MG CAP PO SCH (23:00)
[2024-01-31] MEDS: METOPROLOL SUCC 50MG EXT REL TAB PO SCH (23:00)
[2024-01-31] MEDS: OXYBUTYNIN CHLORIDE XL 5 MG TABCR PO SCH (23:00)
[2024-01-31] MEDS: BRINZOLAMIDE (AZOPT) OPS 10 ML BTL OP SCH (23:01)
[2024-01-31] MEDS: ACETAMINOPHEN 325 MG TAB PO PRN (23:02)
[2024-01-31] MEDS: SIMVASTATIN 20 MG TAB PO SCH (23:14)
[2024-01-31] MEDS: POLYETHYLENE (MIRALAX) 17 GM PACK PO SCH (23:14)
--- NOTE | 2024-01-31 23:20 | Ultrasound Report ---
Exam(s): US VENOUS BILATERAL LOWER EXTREMITIES EXAM: US Duplex Bilateral Lower Extremities Veins CLINICAL HISTORY: PE. TECHNIQUE: Real-time duplex ultrasound scan of the bilateral lower extremity veins integrating B-mode two-dimensional vascular structure, Doppler spectral analysis, color flow Doppler imaging and compression. COMPARISON: No relevant prior studies available. FINDINGS: Right deep veins: Occlusive deep vein thrombosis of the right popliteal vein. No Deep vein thrombosis in the left common femoral, femoral or proximal deep femoral veins. Right superficial veins: Unremarkable. No thrombus in the visualized right great saphenous vein. Left deep veins: Unremarkable. No Deep vein thrombosis in the left common femoral, femoral, proximal deep femoral or popliteal veins. The veins demonstrate normal color flow, are normally compressible, with normal phasic flow and/or augmentation response. Left superficial veins: Unremarkable. No thrombus in the visualized left great saphenous vein. Soft tissues: No acute findings. No popliteal cyst. IMPRESSION: 1. Occlusive deep vein thrombosis of the right popliteal vein. 2. No deep vein thrombosis of the left lower extremity. Communications: Verify Receipt Electronically signed by: Sara Freedman MD 01/31/24 23:19 PM
[2024-01-31 23:32] LABS: ANTI-Xa, UFH(UnfractionatedHep 0.17 IU/ml (0.3-0.7)
[2024-01-31] MEDS ORDERED: Nursing to Pharmacy Communication SCH (23:45)
[2024-02-01] MEDS: HEPARIN SOD (PORCINE) 1000 UNIT/ML IV ONE (00:31)
[2024-02-01] MEDS: BRIMONIDINE TARTRATE 0.2% 5ML OP SCH (00:43)
[2024-02-01] MEDS ORDERED: Nursing to Pharmacy Communication SCH ×4 (00:45→15:15)
[2024-02-01 07:20] LABS: Basophils # (auto) 0.02 K/uL (0.00-0.20); Basophils % (auto) 0.3 %; Eosinophils # (auto) 0.26 K/uL (0.00-0.50); Eosinophils % (auto) 3.8 %; Hematocrit (blood only) 35.7 % (42.0-52.0); Hemoglobin 11.7 g/dl (14.0-18.0); Immature Granulocytes # (auto) 0.08 K/uL (0.01-0.20); Immature Granulocytes % (auto) 1.2 %; Lymphocytes # (auto) 0.55 K/uL (1.20-3.40); Mean Corpuscular Hemoglobin 28.7 pg (25.0-34.0); Mean Corpuscular Hgb Conc 32.8 g/dL (32.0-36.0); Mean Corpuscular Volume 87.7 fL (80.0-100.0); Mean Platelet Volume 9.2 fL (9.4-12.4); Monocytes # (auto) 0.81 K/uL (0.11-0.59); Monocytes % (auto) 11.7 %; Neutrophils # (auto) 5.18 K/uL (1.40-6.50); Platelet Count 161 K/uL (130-400); RDW Coefficient of Variation 14.3 % (11.5-14.5); RDW Standard Deviation 46.2 fL (36.4-46.3); Red Blood Count 4.07 M/uL (4.70-6.10)
[2024-02-01 07:38] LABS: BUN Creatinine Ratio 19.1 (10-20); Calcium 8.5 mg/dl (8.6-10.3); Creatinine Clr Calc Pharmacy 59.9 ml/min; Est GFR (African American) 66.9 ml/min; Est GFR (Non-African American) 57.7 ml/min; Potassium 3.5 mmol/L (3.5-5.1)
[2024-02-01 07:57] LABS: ANTI-Xa, UFH(UnfractionatedHep 0.26 IU/ml (0.3-0.7)
[2024-02-01] MEDS: PANTOprazole 40 MG TAB PO SCH (09:43)
[2024-02-01] MEDS: hydroCHLOROthiazide 25 MG TAB PO SCH (09:43)
[2024-02-01] MEDS: SIMVASTATIN 20 MG TAB PO SCH (09:43)
[2024-02-01] MEDS: GABAPENTIN 100 MG CAP PO SCH (09:44)
[2024-02-01] MEDS: CALCITRIOL 0.25 MCG CAPSULE PO SCH (09:44)
[2024-02-01] MEDS: FINASTERIDE 5 MG TAB PO SCH (09:44)
--- NOTE | 2024-02-01 10:19 | Billing Data ---
Date of Service January 31, 2024 Coding Level of Care Code 35439 INT INP/OBS CARE
[2024-02-01] MEDS: APIXABAN 5 MG TABLET PO SCH (11:17)
[2024-02-01] MEDS: APIXABAN 5 MG TABLET PO ONE (12:22)
[2024-02-01] MEDS: POLYETHYLENE (MIRALAX) 17 GM PACK PO SCH ×2 (12:23→20:06)
--- NOTE | 2024-02-01 12:52 | Hospitalist Progress Note ---
Date of Service February 01, 2024 Assessment & Plan (1) Pulmonary emboli: Plan: - patient presented with left sided chest pain and sob - s/p right knee replacement in October 2023, discontinued post-op Aspirin in late November 2023 - Patient has had sedentary lifestyle recently due to ongoing fatigue - CXR showed slight blunting of left costophrenic angle possibly due to atelectasis or trace pleural effusion. - CTA demonstrated multiple lobar, segmental pulmonary emboli in B/L lower lobes with trace b/l pleural effusions. Mild pulmonary edema. - mildly tachycardic 102, BP elevated, O2 92% on RA - Initially started on heparin by weight -Transitioned to PO Eliquis -Hopefully d/c home tomorrow (2) Chronic kidney disease: Plan: - stage II-III - avoid nephrotoxic drugs - Cr at baseline, 1.22 (3) Hypertension: Plan: - with hyperlipidemia - continue home metoprolol, HCTZ, and statin - monitor for hypotension with diagnosis of PE (4) BPH (benign prostatic hyperplasia): Plan: - continue home finasteride and solifenacin (5) Hx of glaucoma: Plan: - continue with home eye drops (6) GERD (gastroesophageal reflux disease): Plan: - continue home omeprazole Plan VTE ppx: Heparin Diet: heart healthy Code status: DNR/DNI PCU for further montioring. Admission and Anticipated Discharge Date Admission Date: January 31, 2024 Subjective patient seen and examined, denies chest pain, but has some sob, on oxygen Review of Systems Review of Systems: All systems reviewed are negative, apart from the ones contained in the history. Physical Exam Physical Exam: The patient is awake, alert and oriented 3, well developed and well nourished, normocephalic and atraumatic, lying in bed and in no acute distress. HEENT--PERRL, EOMI, mucous membranes and oropharynx mildly dry Neck--supple. No JVD. No bruits. Thyroid normal, trachea midline, no adenopathy. Heart--normal S1 and S2. No murmurs, rubs or gallops. Lungs--clear bilaterally, no respiratory distress, no accessory muscle use. Abdomen--normal bowel sounds and soft. Extremities--no cyanosis or clubbing. No edema. Dermatologic--normal skin turgor, normal color, no abnormal lymph nodes, no rash. Neurologic--cranial nerves II through XII grossly intact. Rheumatologic--normal range of motion. Psychiatric--normal affect. Results & Data Results & Data Vital Signs (Past 12 Hours) Vital Signs Temp Pulse Pulse Resp BP Pulse Ox O2 Del Method 02/01/24 11:15 97.7 F 68 19 118/75 96 Nasal Cannula 02/01/24 09:00 Nasal Cannula 02/01/24 07:31 81 02/01/24 07:19 98.6 F 75 19 134/81 95 Nasal Cannula 02/01/24 02:35 98.1 F 75 18 142/79 H 94 Nasal Cannula O2 Flow Rate 02/01/24 11:15 2 02/01/24 09:00 2 02/01/24 07:31 02/01/24 07:19 2 02/01/24 02:35 2 PG Care Time/CCT Total # of Minutes Spent Total Time Spent with Patient: Total time spent is greater than 50% in coordination of care (as documented) at patient's floor/unit and/or counseling patient: Coding Level of Care Code 02200 SUB INP/OBS CARE 2/35MIN Diagnoses Pulmonary emboli I26.99 Acute cor pulmonale presence: without acute cor pulmonale Chronicity: acute Pulmonary embolism type: unspecified Chronic kidney disease N18.9 Hypertension I10 BPH (benign prostatic hyperplasia) N40.0 Hx of glaucoma Z86.69 GERD (gastroesophageal reflux disease) K21.9 Time Spent (min) 35 (1) Pulmonary emboli Acute cor pulmonale presence: without acute cor pulmonale Chronicity: acute Pulmonary embolism type: unspecified Qualified Code(s): I26.99 - Other pulmonary embolism without acute cor pulmonale
[2024-02-01] MEDS: BRIMONIDINE TART OP SCH (14:43)
[2024-02-01] MEDS: BRINZOLAMIDE OP SCH (14:43)
--- NOTE | 2024-02-02 06:34 | Electrocardiogram Report ---
Test Reason : Blood Pressure : */* mmHG Vent. Rate : 88 BPM Atrial Rate : 88 BPM P-R Int : 132 ms QRS Dur : 142 ms QT Int : 388 ms P-R-T Axes : 8 -67 21 degrees QTcB Int : 469 ms Normal sinus rhythm Right bundle branch block Left anterior fascicular block Bifascicular block Abnormal ECG When compared with ECG of 28-Sep-2023 11:44, No significant change was found Confirmed by Charlie Rouse ([id number]) on 02/02/2024 6:33:58 AM Referred By: Confirmed By: Charlie Rouse
[2024-02-02 07:13] VITALS: BP 146/78; TEMP 97.7
[2024-02-02 07:25] LABS: Basophils # (auto) 0.02 K/uL (0.00-0.20); Basophils % (auto) 0.4 %; Eosinophils # (auto) 0.31 K/uL (0.00-0.50); Eosinophils % (auto) 5.8 %; Hematocrit (blood only) 35.6 % (42.0-52.0); Hemoglobin 11.8 g/dl (14.0-18.0); Immature Granulocytes # (auto) 0.08 K/uL (0.01-0.20); Immature Granulocytes % (auto) 1.5 %; Lymphocytes # (auto) 0.82 K/uL (1.20-3.40); Lymphocytes % (auto) 15.4 %; Mean Corpuscular Hemoglobin 29.1 pg (25.0-34.0); Mean Corpuscular Hgb Conc 33.1 g/dL (32.0-36.0); Mean Corpuscular Volume 87.7 fL (80.0-100.0); Mean Platelet Volume 9.3 fL (9.4-12.4); Monocytes # (auto) 0.74 K/uL (0.11-0.59); Monocytes % (auto) 13.9 %; Neutrophils # (auto) 3.36 K/uL (1.40-6.50); Platelet Count 168 K/uL (130-400); RDW Coefficient of Variation 14.4 % (11.5-14.5); RDW Standard Deviation 46.3 fL (36.4-46.3); Red Blood Count 4.06 M/uL (4.70-6.10); White Blood Count 5.33 K/ul (4.8-10.8)
[2024-02-02 08:05] LABS: BUN Creatinine Ratio 18.8 (10-20); Calcium 8.7 mg/dl (8.6-10.3); Creatinine Clr Calc Pharmacy 53.8 ml/min; Est GFR (African American) 58.8 ml/min; Est GFR (Non-African American) 50.7 ml/min; Potassium 3.9 mmol/L (3.5-5.1)
[2024-02-02 11:07] VITALS: PULSE 77; RESP 19; O2SAT 94
[2024-02-02] MEDS: PNEUMOCOCCAL VACCINE (PCV20) 20-VAL CONJ-DIP CRM/PF 0.5 ML SYR IM ONE (11:12)
--- NOTE | 2024-02-02 12:15 | Discharge Summary ---
Date of Service February 02, 2024 Admission HPI Per Admitting Provider Patient is an pleasant 83 year old male seen at bedside in the ED. He has a history of stage II CKD, hypertension, HLD, BPH, Osteoarthritis, DJD, glaucoma, GI bleed (02/26), neuropathy, and vertigo. He had his right knee replaced in October of this year in which he was prescribed aspirin post-operatively. He stopped this during the last week of November. He also use compression socks for 3 to 4 months post operatively and recently stopped wearing them due to them being too difficult to put on. He stated he began having lower left-sided chest pain and a dry cough that began last night. He chest pain has improved since ED visit, currently a 0/10 on pain scale. He stated that he has had fatigue and no strength for the past few months. He feels like he just cannot get up and do anything. Because of this he has been sedentary recently. He also stated that he was actually less of breath for the past few weeks on exertion, although has been improving recently. He occasionally shortness of breath at rest when sitting in his chair. He denies orthopnea. The patient stated that he has had bilateral calf pain for the past few days. He denies swelling and bruising of his lower extremities. He denies recent travel, history of malignancy, and history of clotting disorders, PE, or DVT. Patient was a former smoker but quit over 30 years ago. The patient stated that he did have difficulty urinating with dysuria today, with a history of BPH. He stated he did not yet have his medications for this today. The patient currently complains of a headache, although alludes it to being hungry. He denies dizziness and lightheadedness, although does have a history of vertigo. He denies blurry vision, double vision, sore throat, rhinorrhea, sputum production, hemoptysis, abdominal pain, nausea, vomiting, diarrhea, numbness, and tingling. The patient does not use oxygen at home. Patient's POA is his , Jennifer. He wishes to be DNR/DNI at this time. Admission Exam (Per Admitting) Constitutional The patient is awake, alert and oriented 3, well developed and well nourished, normocephalic and atraumatic, lying in bed and in no acute distress. HEENT--PERRL, EOMI, mucous membranes and oropharynx mildly dry Neck--supple. No JVD. No bruits. Thyroid normal, trachea midline, no adenopathy. Heart--normal S1 and S2. No murmurs, rubs or gallops. Lungs--clear bilaterally, no respiratory distress, no accessory muscle use. Abdomen--normal bowel sounds and soft. Extremities--no cyanosis or clubbing. No edema. Dermatologic--normal skin turgor, normal color, no abnormal lymph nodes, no rash. Neurologic--cranial nerves II through XII grossly intact. Rheumatologic--normal range of motion. Psychiatric--normal affect. Discharge Data Consultations 01/31/24 16:59 ED Decision to Admit Stat Hospital Course (1) Pulmonary emboli: - patient presented with left sided chest pain and sob - s/p right knee replacement in October 2023, discontinued post-op Aspirin in late November 2023 - Patient has had sedentary lifestyle recently due to ongoing fatigue - CXR showed slight blunting of left costophrenic angle possibly due to atelectasis or trace pleural effusion. - CTA demonstrated multiple lobar, segmental pulmonary emboli in B/L lower lobes with trace b/l pleural effusions. Mild pulmonary edema. - mildly tachycardic 102, BP elevated, O2 92% on RA - Initially started on heparin by weight -Transitioned to PO Eliquis 10mg bid for 7 days, then 5mg bid (2) Chronic kidney disease: - stage II-III - avoid nephrotoxic drugs - Cr at baseline, 1.22 (3) Hypertension: - with hyperlipidemia - continue home metoprolol, HCTZ, and statin - monitor for hypotension with diagnosis of PE (4) BPH (benign prostatic hyperplasia): - continue home finasteride and solifenacin (5) Hx of glaucoma: - continue with home eye drops (6) GERD (gastroesophageal reflux disease): - continue home omeprazole Plan VTE ppx: Heparin Diet: heart healthy Code status: DNR/DNI d/c home Coding Level of Care Code 77442 INP/OBS DISCH >30 MIN Diagnoses Pulmonary emboli I26.99 Acute cor pulmonale presence: without acute cor pulmonale Chronicity: acute Pulmonary embolism type: unspecified Chronic kidney disease N18.9 Hypertension I10 BPH (benign prostatic hyperplasia) N40.0 Hx of glaucoma Z86.69 GERD (gastroesophageal reflux disease) K21.9 Time Spent (min) 35
== END 2024-02-02 12:12 | disposition home or self-care (01) | DRG 176 ==
LOC: ED 09:03 → EDINP 17:48 → SUATTDRO 17:48 → 4W 20:50

== ENCOUNTER 2024-03-23 09:13 | Inpatient (IN) ==
[2024-03-23] MEDS ORDERED: PANTOprazole 40 MG/10 ML SYR IV ONE (09:28)
[2024-03-23] MEDS ORDERED: SODIUM CHLORIDE 0.9% 250 ML IV PRN (09:29)
--- NOTE | 2024-03-23 09:44 | XRay Report ---
XR chest 1V portable HISTORY: 83 years-old Male gi bleed acute gastrointestinal hemorrhage COMPARISON: 01/31/2024 TECHNIQUE: AP view of the chest FINDINGS: Cardiomediastinal and hilar silhouettes are unchanged. Mild subsegmental bibasilar atelectasis versus scarring. No pneumothorax, pleural effusion or pulmonary edema. Chronic right distal clavicular defo rmity. Bilateral shoulder arthroplasties. IMPRESSION: No acute process. ACT 112: Negative or not required by law. The above report was generated using voice recognition software. It may contain grammatical, syntax o r spelling errors. Electronically signed by: Jose Cr M.D. 03/23/2024 9:43 AM
[2024-03-23] MEDS: FAMOTIDINE 20MG IV PUSH 20 MG/5 ML SYR IV STA (09:51)
[2024-03-23 10:14] LABS: Basophils # (auto) 0.03 K/uL (0.00-0.20); Basophils % (auto) 0.8 %; Eosinophils # (auto) 0.12 K/uL (0.00-0.50); Eosinophils % (auto) 3.2 %; Hemoglobin 9.1 g/dl (14.0-18.0); Immature Granulocytes # (auto) 0.05 K/uL (0.01-0.20); Immature Granulocytes % (auto) 1.3 %; Lymphocytes # (auto) 0.63 K/uL (1.20-3.40); Lymphocytes % (auto) 16.6 %; Mean Corpuscular Hemoglobin 29.7 pg (25.0-34.0); Mean Corpuscular Hgb Conc 32.5 g/dL (32.0-36.0); Mean Corpuscular Volume 91.5 fL (80.0-100.0); Mean Platelet Volume 9.5 fL (9.4-12.4); Monocytes # (auto) 0.37 K/uL (0.11-0.59); Monocytes % (auto) 9.8 %; Neutrophils # (auto) 2.59 K/uL (1.40-6.50); Neutrophils % (auto) 68.3 %; Platelet Count 163 K/uL (130-400); RDW Coefficient of Variation 16.4 % (11.5-14.5); RDW Standard Deviation 53.1 fL (36.4-46.3); Red Blood Count 3.06 M/uL (4.70-6.10); White Blood Count 3.79 K/ul (4.8-10.8)
[2024-03-23 10:39] LABS: Albumin Level 3.8 gm/dl (3.4-5.0); Bilirubin,Total 0.2 mg/dl (0.2-1.0); Potassium 4.2 mmol/L (3.5-5.1)
[2024-03-23] MEDS: PANTOprazole 80 MG in DEXTROSE 5% 100 ML IV STA (10:40)
[2024-03-23 10:45] LABS: Albumin Globulin Ratio 1.7 (0.9-2); BUN Creatinine Ratio 23.5 (10-20); Creatinine Clr Calc Pharmacy 37.3 ml/min; Globulin 2.3 gm/dl (2.5-4.0); Total Protein 6.1 gm/dl (6.0-8.3)
[2024-03-23 10:51] LABS: Troponin I High Sensitivity 8.3 pg/ml (0-20)
[2024-03-23 11:02] LABS: Partial Thromboplastin Time 28 Seconds (21-31); Prothrombin Time 11.2 Seconds (9.0-12.0)
--- NOTE | 2024-03-23 12:22 | History & Physical Report ---
Date of Service March 23, 2024 Assessment & Plan (1) Upper GI bleed: Plan: Acute in setting of DOAC use for recently diagnosed PE/DVT - Admit to med tele - VS per unit protocol - Regular diet but NPO after MN - FOBT ordered - H/H q8 hours - Typed and crossmatched for 4u pRBCs-hold - Continue Protonix 40mg IV BID - Consult GI, appreciate assistance, consider EGD - CBC in AM ordered (2) Acute blood loss anemia: Plan: Acute in setting of UGI bleed - H/H monitoring as outlined above - Transfuse for hgb <8 given he is symptomatic - 4u pRBCs on hold (3) Acute kidney injury superimposed on chronic kidney disease: Plan: CKD stage II with baseline creatinine 1.3 - Suspect elevation in serum creatinine secondary to an extended course of Bactrim DS which was started 03/06 for E. coli UTI - Stop Bactrim, no current urinary complaints - d/w Dr. Sawyer who is in agreement - IVF hydration with NSS @ 100 ml/hr x1 L - Hold HCTZ - Continue calcitriol - Repeat BMP in AM - Avoid nephrotoxic meds (4) Pulmonary emboli: Plan: Subacute dx'd in 01/2024, provoked following R TKA in October 2023 - Hold Xarelto in setting of UGI bleed/ABLA - Had a lengthy discussion with patient regarding risk v benefit of holding DOAC, he verbalizes understanding - SCDs will be ordered for VTE ppx and he will be encouraged to ambulate w/ assistance Plan Chronic stable medical conditions: - Glaucoma - continue eye drops - BPH - continue proscar - Neuropathy - continue gabapentin - HTN - hold HCTZ d/t LINDA as above, continue Toprol XL SCDs have been ordered for VTE ppx as noted above. PT/OT eval and treat. AM labs ordered including cbc, bmp, and mag level. Above plan of care has been d/w Dr. Osman Ibrahim, further orders will be implemented as clinically warranted. History of Present Illness Chief Complaint: Abnormal labs Primary Care Provider: July Rodriguez DO Babar is an 83 yo M with a pmhx of CKD stage 2, HTN, GI bleed (02/2023), and bilateral PE and RLE DVT (01/2024) who presents to the ER today due to abnormal labs. He endorses a history of progressive fatigue, dyspnea worse with exertion over the past month and on Tuesday, he began experiencing black tarry stools. He contacted his PCP's office, was given a cup to provide stool samples to test for presence of blood and bloodwork was ordered. He had a CBC on 03/19 that showed a hgb of 11.9 and a repeat CBC on 03/22 that showed a hgb of 9.8. He was contacted by his PCP's office and told to go to the ER for further work up. He does report a h/o GI bleeding in Feb 2023 for which he underwent upper and lower endoscopy without any bleeding source clearly identified. In October 2023, he had an elective right TKA which was later complicated by acute bilateral PEs and a RLE DVT that were diagnosed in January 2024. At that time, he was started on DOAC for treatment. He denies taking any additional blood thinning medications including aspirin/plavix or excessive amounts of NSAIDs. His work up here demonstrates a hgb of 9.1. His HR and BP are stable. CXR was negative for an acute process. He is noted to have a creatinine of 1.87 that is above his baseline of 1.3. He denies stella abd pain, n/v/d, f/c, headache, or gu symptoms. He was given a Protonix bolus of 80mg IV x1 in the ER, was typed and crossmatched for 4 units of PRBCs which have been placed on hold. He has been referred to the hospital medicine team for admission. Allergies Allergy/AdvReac Type Severity Reaction Status Date / Time No Known Drug Allergies Allergy Verified 03/23/24 11:05 Home Medications Medication Instructions Recorded Confirmed Type multivitamin 1 cap PO QAM ##0 02/16/09 03/23/24 History glucosamine 375 zw-vmdbshaxn-avq 2 tab PO QPM ##0 10/11/14 03/23/24 History no1 500 mg-C 15 mg-ana 0.5 mg tablet (Owllhrnjxap-Slgirbrrrbw-IXI Complex) docusate sodium 100 mg tablet 100 mg PO QPM ##0 01/17/18 03/23/24 History polyethylene glycol 3350 17 1 dose PO QPM ##0 01/17/18 03/23/24 History gram/dose oral powder (Miralax) brinzolamide 1 %-brimonidine 0.2 % 1 drp OPR TID 02/05/21 03/23/24 History eye drops,suspension (Simbrinza) peg 400-propylene glycol 0.4 %-0.3 1 drp OPL BID PRN Dry Eyes #0 mL 03/08/22 03/23/24 History % eye drops (Systane (propylene glycol)) solifenacin 10 mg tablet (Vesicare) 10 mg PO QPM #90 tabs 09/29/22 03/23/24 Rx metoprolol succinate 100 mg 100 mg PO QPM #90 tabs 02/04/23 03/23/24 Rx tablet,extended release 24 hr acetaminophen 500 mg tablet 650 mg PO HS 02/07/23 03/23/24 History (Tylenol Extra Strength) finasteride 5 mg tablet (Proscar) 5 mg PO QAM 02/07/23 03/23/24 History simvastatin 20 mg tablet 20 mg PO QPM 02/10/23 03/23/24 History hydrocortisone 2.5 % topical cream 1 applic topical DAILY PRN Itching 02/27/23 03/23/24 History with perineal applicator hydrochlorothiazide 12.5 mg tablet 12.5 mg PO QAM #90 tabs 03/08/23 03/23/24 Rx omeprazole 20 mg tablet,delayed 20 mg PO QAM #90 tabs 05/02/23 03/23/24 Rx release calcitriol 0.25 mcg capsule 0.25 mcg PO 3XWK #36 caps 05/09/23 03/23/24 Rx gabapentin 100 mg capsule 100 mg PO DAILY 01/03/24 03/23/24 History apixaban 5 mg (74 tabs) tablets in 5 mg PO BID #74 ea 02/02/24 03/23/24 Rx a dose pack (Eliquis) prednisolone acetate 1 % eye 1 drp ophthalmic (eye) Q OTHER DAY 03/23/24 03/23/24 History drops,suspension rivaroxaban 20 mg tablet (Xarelto) 20 mg PO QPM 03/23/24 03/23/24 History Past Med/Surg History Problem List (Updated 03/23/24 @ 12:33 by Vidhya Goff PA-C) Acute kidney injury superimposed on chronic kidney disease Acute blood loss anemia Upper GI bleed Left-sided chest pain (Acute) Pulmonary infarction (Acute) Pulmonary emboli (Acute) Status post right knee replacement (~10/2023) Osteoarthritis of right knee Lower extremity edema Trigger finger of left hand BPH with obstruction/lower urinary tract symptoms (Acute) Degenerative joint disease, multiple joints on both sides of body (Acute) Disc degeneration, lumbar (Acute) Glaucoma (Acute) s/p surgical intervention bilat Insomnia (Acute) Nephrolithiasis (Acute) Solitary thyroid nodule (Acute) Osteoarthritis Hypertension controlled, stable per pt Chronic kidney disease (Acute) follows w/ Dr Sawyer Stable per patient Obesity Hyperlipidemia Medical History Hx of intestinal obstruction (~2006) no surgical intervention per pt. Hx of glaucoma s/p surgical intervention bilaterally no current issues Hx of upper gastrointestinal hemorrhage (~02/2023) admit to [facility], EGD & Colon, per pt. source not found no current issues Hx of septic shock (~2016) admit to [facility] x 6 days, kidney stone History of blood transfusion (~2000) left hip replacement H/O degenerative disc disease cervical spine, has full ROM BPH (benign prostatic hyperplasia) GERD (gastroesophageal reflux disease) controlled, stable per pt Surgical History Hx of bilateral cataract extraction Hx of colonoscopy with polypectomy History of esophagogastroduodenoscopy (EGD) History of reverse total replacement of left shoulder joint (~01/03/23) H/O removal of cyst (~1974) mandibular History of laminectomy L2-L4 02/09/1818 Grade 2 view, MAC 3, ETT 8. Hx of arthroscopy of shoulder L, 2003; R, 2000 History of carpal tunnel release of both wrists 1994 L, 1996 R Hx of repair of rotator cuff R, likely 2000 History of total right hip arthroplasty (~2000) Hx of foot surgery (~2015) rt foot reconstruction Hx of total shoulder replacement RIGHT 2014 LEFT 2022 Hx of cystoscopy Hx of tonsillectomy H/O hernia repair left 1995, right 1997 Family History Mother Tuberculosis Sister Breast cancer Father Cardiac disorder Myocardial infarction Brother Dementia Denies family history of Ovarian cancer Prostate cancer Colorectal cancer Social History Smoking Status: Former smoker Tobacco Type: Cigarettes Age Started Using Tobacco: 17; Age Quit Using Tobacco: 30; packs per day: 2; Cigarettes Per Day: 1 PPD; Second Hand Exposure: No; Do You Dip or Chew Tobacco: No; Hx Alcohol Use: No Hx Substance Use: No Preferred Language: Turkmen Communication Ability: Effective Visual Impairment: Limited Hearing Ability: Normal Entry Rep Required: No Beliefs That Will Affect Care: None marital status: Current Living Situation: Spouse Current Living Situation Comment: Spouse and Legal guardian of 2 grandsons current occupational status: retired 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 Feels Safe at Home: Yes Childhood Exposure to Second-Hand Smoke: Yes Diet: regular caffeine: Yes (one cup of coffee each day) during the past year weight has: decreased > 10 lbs Dental Care, Regularly: No Physical Activity Frequency: Daily Seatbelt Use: always Sunscreen Use: Yes (sometimes ) Assistive Devices: None Review of Systems 2 Review of Systems: All systems reviewed and are unremarkable except as noted in HPI and below. Denies fever, chills, fatigue, headache, nasal congestion, sore throat, cough, chest pain, shortness of breath, palpitations, orthopnea, PND, abdominal pain, n/v/d, constipation, dysuria, hematuria, frequency, back pain, joint pain or swelling, easy bruising or bleeding, skin lesions or rashes. Physical Exam 2 Physical Exam: GENERAL: 83 yo well-nourished elderly WM. NAD. EYES: EOMI. PERRLA. Anicteric. HENT: Moist mucous membranes. No cervical lymphadenopathy. LUNGS: Clear to auscultation bilaterally. No W/R/R. CARDIOVASCULAR: Regular rate and rhythm. ABDOMEN: Soft, non-tender and non-distended. No palpable masses. BS normoactive x 4 quad. EXTREMITIES: Trace b/l LE edema. Non-tender. Peripheral pulses +2/4. NEUROLOGIC: A&O x3. No focal neurological deficits. CN II-XII grossly intact. PSYCHIATRIC: Cooperative. Appropriate mood and affect. SKIN: Warm, dry, intact. No rashes or lesions. Results & Data Results & Data Vital Signs (Past 12 Hours) Vital Signs Temp Pulse Pulse Resp BP BP Pulse Ox 03/23/24 10:01 03/23/24 10:01 73 20 108/79 95 03/23/24 09:53 72 03/23/24 09:21 36.3 C L 80 20 126/68 97 O2 Del Method 03/23/24 10:01 Room Air 03/23/24 10:01 Room Air 03/23/24 09:53 03/23/24 09:21 Room Air Laboratory Results 03/23/24 09:52 03/23/24 09:52 Diagnostic Findings Chest X-Ray 03/23/24 09:28 XR chest 1V portable HISTORY: 83 years-old Male gi bleed acute gastrointestinal hemorrhage COMPARISON: 01/31/2024 TECHNIQUE: AP view of the chest FINDINGS: Cardiomediastinal and hilar silhouettes are unchanged. Mild subsegmental bibasilar atelectasis versus scarring. No pneumothorax, pleural effusion or pulmonary edema. Chronic right distal clavicular deformity. Bilateral shoulder arthroplasties. IMPRESSION: No acute process. ACT 112: Negative or not required by law. The above report was generated using voice recognition software. It may contain grammatical, syntax or spelling errors. Electronically signed by: Jose Cr M.D. 03/23/2024 9:43 AM Code Status & VTE Plan Code Status DNR/DNI - confirmed with patient and VTE Prophylaxis Plan VTE Prophylaxis will be ordered: No Supervising Physician Co-Signing Physician Notes I personally saw and examined the patient. I independently reviewed the labs, EKG, imaging, problem list, medication list, past medical history and family history. I verified all crawford points and agree with Vidhya Goff PA-C with the following exceptions and/or additions: PG Care Time/CCT Total # of Minutes Spent Total Time Spent with Patient: Total time spent is greater than 50% in coordination of care (as documented) at patient's floor/unit and/or counseling patient: 77 minutes Coding Level of Care Code 95949 INT INP/OBS CARE 3/75MIN Diagnoses Upper GI bleed K92.2 Acute blood loss anemia D62 Acute kidney injury superimposed on chronic kidney disease N17.9; N18.9 Pulmonary emboli I26.99 Acute cor pulmonale presence: without acute cor pulmonale Chronicity: acute Pulmonary embolism type: unspecified (4) Pulmonary emboli Acute cor pulmonale presence: without acute cor pulmonale Chronicity: acute Pulmonary embolism type: unspecified Qualified Code(s): I26.99 - Other pulmonary embolism without acute cor pulmonale
[2024-03-23] MEDS ORDERED: ALUMINUM/MAGNESIUM SUSP 30 ML UDC PO PRN (15:37)
[2024-03-23] MEDS ORDERED: ONDANSETRON INJ 2 MG/ML 2 ML VIAL IV PRN (15:37)
[2024-03-23] MEDS ORDERED: MAGNESIUM HYDROXIDE SUSP 30 ML UDC PO PRN (15:37)
[2024-03-23] MEDS ORDERED: ARTIFICIAL TEARS OP PRN (16:02)
[2024-03-23] MEDS: SODIUM CHLORIDE 0.9% 1,000 ML IV SCH (17:28)
[2024-03-23] MEDS: INFLUENZA VACC TS2024-25(65y+)/PF (IIV3) 0.5mL Syr IM ONE (17:29)
[2024-03-23] MEDS: CALCITRIOL 0.25 MCG CAPSULE PO SCH (17:30)
[2024-03-23] MEDS: prednisoLONE acetate 1% OP SUSP 5 ML BTL OP SCH (17:30)
--- NOTE | 2024-03-23 17:35 | Emergency Department Note ---
Impression & Plan Acute upper GI bleed ED Provider Note NAME: ARNULFO MONTANO AGE: 83 SEX: Male INFORMANT: Patient ED PROVIDER(S): Amanuel Hartman MD CHIEF COMPLAINT: Low hemoglobin, black stools PLAN: Disposition: Admitted Outpatient prescription management: none Referral: None MEDICAL DECISION MAKING: Patient presented because of concerns for GI bleed. He had blood work obtained. He was given Protonix and Pepcid due to his history. Patient was found to have a hemoglobin of 9. Last hemoglobin was 13. Hemodynamically he is stable. He has no abdominal pain. CT imaging was deferred. Remainder blood work was unremarkable. Transfusion was considered but held due to his current hemoglobin. Further management in the hospital will be necessary. Consultation was made with Dr. Ibrahim of the [facility]. Case discussed and diagnostics were reviewed. Patient was evaluated in the ER and admitted for further management. Care/management discussed with: manager retirement Level of care consideration(s): After review of the information above and other included data, I feel the patient requires escalation of care to admission Triage Nursing notes: reviewed and agree them. Vital Signs: reviewed and remarkable for no significant abnormalities Additional History obtained from: none Chronic Medical/Social Conditions affecting care: Anticoagulation Prior/ Outside/ External records reviewed: none Differential Diagnosis: Diverticulosis, AVM, coagulopathy, colitis, inflammatory bowel disease, malignancy, Lucy-Black tear, esophagitis, peptic ulcer disease, variceal bleed, gastritis, epistaxis, fissure, hemorrhoids, as well as other pathologies. Diagnostics, independently interpreted by me: ECG: Sinus rhythm with PVCs at 76 bpm. Right bundle branch block. Left anterior fascicular block. No ST elevation or depression. Cardiac Monitoring: Cardiac monitoring ordered by me: The patient was placed on continuous cardiac monitoring and observed. It revealed a normal sinus rhythm at 72 beats per minute without ectopy or evidence of dysrhythmia. Medical decision rules: none Imaging studies: Chest x-ray. Findings: A chest x-ray was performed and revealed no pneumothorax, effusion, infiltrate, pulmonary edema, free air under the diaphragm, or wide mediastinum. Impression: No acute disease. HPI: 83 year old Male arrives for evaluation of low hemoglobin and black stool. This started over the last week and was found by his primary care office. Patient notes his hemoglobin was 9 as an outpatient. He is anticoagulated.. The patient also notes the following associated symptoms, generalized weakness and fatigue, especially with exertion.. The patient has found no relieving factors. Current pain is rated as 0/10. Patient does have a history of GI bleed. Patient states he had endoscopy and colonoscopy performed and source was not found. Pt denies LOC, headache, fevers, chills, diaphoresis, visual changes, neck pain, chest pain, breathing difficulties, nausea, vomiting, abdominal pain, back pain, hematochezia, urinary symptoms, numbness, weakness, lymphadenopathy, rash, or other complaints.. PAST MEDICAL HISTORY: See Below, DVT, anticoagulation, hypertension PAST SURGICAL HISTORY: See Below, SOCIAL HISTORY: See Below, HOME MEDICATIONS: See Below ALLERGIES: See Below VITALS: See Below PHYSICAL EXAMINATION: GENERAL: Awake, alert, well-appearing, in no distress HENT: Normocephalic, atraumatic. Oropharynx unremarkable. EYES: Mildly pale conjunctiva. Sclera non-icteric. NECK: Inspection normal. Non-tender. Supple. No nuchal rigidity. FROM. No masses. RESPIRATORY: Clear to auscultation. No wheezes. No rales. Normal respiratory effort. CARDIAC: Normal rate. Normal rhythm. No murmurs. No rubs. Extremities warm and well perfused. Pulses equal. No JVD. GI: Soft, non-distended. No tenderness to palpation. No rebound or guarding. No masses. RECTAL: Deferred. MUSCULOSKELETAL: Atraumatic. Chest examination reveals no tenderness. The back is symmetrical on inspection without obvious abnormality. There is no CVA tenderness to palpation. No joint edema. LOWER EXTREMITIES: Calves are equal size bilaterally and non-tender. 1-2+ edema. No discoloration. NEURO: Normal sensorium. No sensory or motor deficits noted. SKIN: No rash or jaundice noted. 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 Hx of glaucoma s/p surgical intervention bilaterally no current issues Hx of upper gastrointestinal hemorrhage (~02/2023) admit to [facility], EGD & Colon, per pt. source not found no current issues Hx of septic shock (~2016) admit to [facility] x 6 days, kidney stone History of blood transfusion (~2000) left hip replacement H/O degenerative disc disease cervical spine, has full ROM BPH (benign prostatic hyperplasia) GERD (gastroesophageal reflux disease) controlled, stable per pt Surgical History Hx of bilateral cataract extraction Hx of colonoscopy with polypectomy History of esophagogastroduodenoscopy (EGD) History of reverse total replacement of left shoulder joint (~01/03/23) H/O removal of cyst (~1974) mandibular History of laminectomy L2-L4 02/09/1818 Grade 2 view, MAC 3, ETT 8. Hx of arthroscopy of shoulder L, 2003; R, 1999 History of carpal tunnel release of both wrists 1994 L, 1996 R Hx of repair of rotator cuff R, likely 1999 History of total right hip arthroplasty (~2000) Hx of foot surgery (~2015) rt foot reconstruction Hx of total shoulder replacement RIGHT 2014 LEFT 2022 Hx of cystoscopy Hx of tonsillectomy H/O hernia repair left 1995, right 1997 Family History Mother Tuberculosis Sister Breast cancer Father Cardiac disorder Myocardial infarction Brother Dementia Denies family history of Ovarian cancer Prostate cancer Colorectal cancer Social History Smoking Status: Former smoker Tobacco Type: Cigarettes Age Started Using Tobacco: 17; Age Quit Using Tobacco: 30; packs per day: 2; Cigarettes Per Day: 1 1/2 packs per day 50 years ago; Second Hand Exposure: No; Do You Dip or Chew Tobacco: No; Hx Alcohol Use: No Hx Substance Use: No Preferred Language: Lao Communication Ability: Effective Visual Impairment: Limited Hearing Ability: Normal Grinder Outside Diameter Required: No Beliefs That Will Affect Care: None marital status: Current Living Situation: Spouse Current Living Situation Comment: Spouse and Legal guardian of 2 grandsons current occupational status: retired 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 How many Children do You have: 3 How many Children do You have Comment: daughter . Other Information That Helps Us Care for You: No Feels Safe at Home: Yes Safety Concerns: Feels Safe At This Time Childhood Exposure to Second-Hand Smoke: Yes Diet: regular caffeine: Yes (one cup of coffee each day) during the past year weight has: decreased > 10 lbs Dental Care, Regularly: No Physical Activity Frequency: Daily Seatbelt Use: always Sunscreen Use: Yes (sometimes ) Assistive Devices: Denture - Upper, Denture - Lower, Glasses and Hearing Aid - Bilateral Allergies Allergies Allergy/AdvReac Type Severity Reaction Status Date / Time No Known Drug Allergies Allergy Verified 03/23/24 11:05 Home Meds Home Medications Medication Instructions Recorded Confirmed multivitamin 1 cap PO QAM ##0 02/16/09 03/23/24 glucosamine 375 jk-pjhngjnjz-wpb 2 tab PO QPM ##0 10/11/14 03/23/24 no1 500 mg-C 15 mg-ana 0.5 mg tablet (Kxhwekwcogq-Ontkjtstvuv-ODC Complex) docusate sodium 100 mg tablet 100 mg PO QPM ##0 01/17/18 03/23/24 polyethylene glycol 3350 17 1 dose PO QPM ##0 01/17/18 03/23/24 gram/dose oral powder (Miralax) brinzolamide 1 %-brimonidine 0.2 % 1 drp OPR TID 02/05/21 03/23/24 eye drops,suspension (Simbrinza) peg 400-propylene glycol 0.4 %-0.3 1 drp OPL BID PRN Dry Eyes #0 mL 03/08/22 03/23/24 % eye drops (Systane (propylene glycol)) acetaminophen 500 mg tablet 650 mg PO HS 02/07/23 03/23/24 (Tylenol Extra Strength) finasteride 5 mg tablet (Proscar) 5 mg PO QAM 02/07/23 03/23/24 simvastatin 20 mg tablet 20 mg PO QPM 02/10/23 03/23/24 hydrocortisone 2.5 % topical cream 1 applic topical DAILY PRN Itching 02/27/23 03/23/24 with perineal applicator gabapentin 100 mg capsule 100 mg PO DAILY 01/03/24 03/23/24 prednisolone acetate 1 % eye 1 drp ophthalmic (eye) Q OTHER DAY 03/23/24 03/23/24 drops,suspension rivaroxaban 20 mg tablet (Xarelto) 20 mg PO QPM 03/23/24 03/23/24 Previous Rx's Medication Instructions Recorded solifenacin 10 mg tablet (Vesicare) 10 mg PO QPM #90 tabs 09/29/22 metoprolol succinate 100 mg 100 mg PO QPM #90 tabs 02/04/23 tablet,extended release 24 hr hydrochlorothiazide 12.5 mg tablet 12.5 mg PO QAM #90 tabs 03/08/23 omeprazole 20 mg tablet,delayed 20 mg PO QAM #90 tabs 05/02/23 release calcitriol 0.25 mcg capsule 0.25 mcg PO 3XWK #36 caps 05/09/23 apixaban 5 mg (74 tabs) tablets in 5 mg PO BID #74 ea 02/02/24 a dose pack (Eliquis) Results & Data (ED) Vital Signs Vital Signs - 24 hr 03/23/24 09:21 03/23/24 09:53 03/23/24 10:01 Temperature 36.3 C L Temperature Source Temporal Artery Scan Pulse Rate 80 72 Pulse Rate [Apical] 73 Pulse Rhythm [Apical] Pulse Strength [Apical] Respiratory Rate 20 20 Respiratory Effort / Characteristics Non-Labored Spontaneous Non-Labored Respiratory Depth Normal Normal Respiratory Pattern Regular Blood Pressure 126/68 Blood Pressure [Right Arm] 108/79 Blood Pressure Mean 87 Blood Pressure Mean [Right Arm] 88 Blood Pressure Position [Right Arm] Pulse Oximetry 97 95 Oxygen Delivery Method Room Air Room Air Sepsis Recent Fever Within 48 Hours No Sepsis New/Unexplained Change in Mental Status N/A Sepsis Action Taken by Nursing No Action Required 03/23/24 10:01 03/23/24 12:00 Temperature Temperature Source Pulse Rate Pulse Rate [Apical] 70 Pulse Rhythm [Apical] Regular Pulse Strength [Apical] Normal Respiratory Rate 20 Respiratory Effort / Characteristics Non-Labored Respiratory Depth Normal Respiratory Pattern Regular Blood Pressure Blood Pressure [Right Arm] 138/73 Blood Pressure Mean Blood Pressure Mean [Right Arm] 94 Blood Pressure Position [Right Arm] Lying Pulse Oximetry 96 Oxygen Delivery Method Room Air Room Air Sepsis Recent Fever Within 48 Hours Sepsis New/Unexplained Change in Mental Status Sepsis Action Taken by Nursing Laboratory Data 03/23/24 09:52 03/23/24 09:52 Lab Results 03/23/24 03/23/24 Range/Units 09:42 09:52 WBC 3.79 L (4.8-10.8) K/ul RBC 3.06 L (4.70-6.10) M/uL Hgb 9.1 L (14.0-18.0) g/dl Hct 28.0 L (42.0-52.0) % MCV 91.5 (80.0-100.0) fL MCH 29.7 (25.0-34.0) pg MCHC 32.5 (32.0-36.0) g/dL RDW Std Deviation 53.1 H (36.4-46.3) fL RDW Coeff of Sharon 16.4 H (11.5-14.5) % Plt Count 163 (130-400) K/uL MPV 9.5 (9.4-12.4) fL Immature Gran % (Auto) 1.3 % Neut % (Auto) 68.3 % Lymph % (Auto) 16.6 % Phillips % (Auto) 9.8 % Eos % (Auto) 3.2 % Baso % (Auto) 0.8 % Neut # (Auto) 2.59 (1.40-6.50) K/uL Lymph # (Auto) 0.63 L (1.20-3.40) K/uL Phillips # (Auto) 0.37 (0.11-0.59) K/uL Eos # (Auto) 0.12 (0.00-0.50) K/uL Baso # (Auto) 0.03 (0.00-0.20) K/uL Immature Gran # (Auto) 0.05 (0.01-0.20) K/uL PT 11.2 (9.0-12.0) Seconds INR 1.0 (0.9-1.1) APTT 28 (21-31) Seconds PTT Ratio 1.0 Sodium 138 (136-145) mmol/L Potassium 4.2 (3.5-5.1) mmol/L Chloride 109 H (98-107) mmol/L Carbon Dioxide 22 (21-32) mmol/L Anion Gap 7 (3-11) BUN 44 H (6-23) mg/dl Creatinine 1.87 H (0.6-1.4) mg/dl Est Cr Clr Drug Dosing 37.3 ml/min eGFR 34.80 BUN/Creatinine Ratio 23.5 H (10-20) Glucose 114 H (70-99(Fasting)) mg/dl Calcium 9.0 (8.6-10.3) mg/dl Total Bilirubin 0.2 (0.2-1.0) mg/dl AST 21 (13-39) U/L ALT 17 (7-52) U/L Alkaline Phosphatase 52 (34-104) U/L Troponin I High Sens 8.3 (0-20) pg/ml Total Protein 6.1 (6.0-8.3) gm/dl Albumin 3.8 (3.4-5.0) gm/dl Globulin 2.3 L (2.5-4.0) gm/dl Albumin/Globulin Ratio 1.7 (0.9-2) Blood Type AB Positive Antibody Screen NEGATIVE Crossmatch See Detail Administered Medications Discontinued Medications Famotidine (Pepcid 20mg Iv Push) 20 mg in 5 mls @ 2.5 mls/min IV NOW STA Stop: 03/23/24 09:29 Last Admin: 03/23/24 09:51 Dose: 2.5 mls/min Documented By: MELLISSA Pantoprazole Sodium 80 mg/ (Dextrose) 120 mls @ 480 mls/hr IV NOW STA Stop: 03/23/24 09:45 Last Infusion: 03/23/24 11:11 Dose: Infused Documented By: Admin: 03/23/24 10:40 Dose: 480 mls/hr Documented By: MELLISSA Imaging Data Radiologist's Impression: Chest X-Ray 03/23/24 09:28 XR chest 1V portable HISTORY: 83 years-old Male gi bleed acute gastrointestinal hemorrhage COMPARISON: 01/31/2024 TECHNIQUE: AP view of the chest FINDINGS: Cardiomediastinal and hilar silhouettes are unchanged. Mild subsegmental bibasilar atelectasis versus scarring. No pneumothorax, pleural effusion or pulmonary edema. Chronic right distal clavicular deformity. Bilateral shoulder arthroplasties. IMPRESSION: No acute process. ACT 112: Negative or not required by law. The above report was generated using voice recognition software. It may contain grammatical, syntax or spelling errors. Electronically signed by: Jose Cr M.D. 03/23/2024 9:43 AM Discharge Plan Visit Data Chief Complaint: Abnormal Labs/Diagnostic Testing Stated Complaint: HEMGLOBIN LOW ED Provider: Amanuel Hartman Discharge Problem: Acute upper GI bleed Patient Disposition: Admitted As Inpatient Discharge Instructions Interventions: ED Discharge Assessment Last Done: 03/23/24 14:40
[2024-03-23 18:07] LABS: Hematocrit (blood only) 27.7 % (42.0-52.0); Hemoglobin 9.1 g/dl (14.0-18.0)
--- OUTSIDE RECORDS SUMMARY | 2024-03-23 18:25 | External Medical Summary | Continuity of Care Document ---
Author Name Unknown Organization [address] Address [address] [place] [phone] Care Team Providers Care Communication Signals Intelligence Name Role Phone July Ordonez [facility] P ashley [phone] Encounter [facility] [id number] Date(s): 03/19/24 - 03/19/[address] Jann [address], [facility] [address] [place] [address] [place] [phone] Encounter Diagnosis Pulmonary embolus(Discharge Diagnosis) - 03/19/24 Dark stools(Discharge Diagnosis) - 03/19/24 SOB (shortness of breath)(Discharge Diagnosis) - 03/19/24 Other fecal abnormalities(Final) - NSVT (nonsustained ventricular tachycardia)(Discharge Diagnosis) - 03/21/24 Discharge Disposition: Home or Self Care Attending Physician: DO Glover Kristen M Referring Physician: DO Glover Kristen M Allergies, Adverse Reactions, Alerts No Known Allergies Assessment and Plan Extracted from: Title:PE f/u Author:DO Ponce Sophia El izabeth Date:03/19/24 1.Pulmonary embolus - chronic, not at goal - goal: reduce pain, prevent recurrence - unclear if truly provoked vs. unprovoked as pt's knee replacement surgery in October and discovering of clots in January ; pt does have fam hx including 2 daughters with clot hx but no personal hx - pt currently anticoagulated with xarelto;would recommend continuation of anticoagulation despite dark stools d/t time proximity to PEs (~1.5 mths ago) - discussed r/b/se of anticoagulation at length including possible IVC filter - referral placed for hematology to discuss further 2.Dark stools - acute, complicated - goal: diagnostic clarity, reduce bleeding - as above, would still recommend anticoagulation d/t recent diagnosis of PE - will check CBC to ensure no clinically significant anemia - pt may be candidate for another colonoscopy if bleeding continues or worsens 3.SOB (shortness of breath) - acute, complicated - goal: diagnostic clarity - unclear etiology; suspect possibly secondary to PE and/or possibly worsening anemia - EKG in office showing infrequent PVCs, rate ~70, and RBBB unchanged from prior EKGs - blood work and plan as above Immunizations Given and Recorded Vaccine Date Status Refusal Reason RSV vaccine preF3, recombinant 04/22/23 Recorded SARS-CoV-2 (COVID-19) mRNA-vacc - [id number] 03/23/23 Recorded pneumococcal 20-valent conjugate vaccine 03/16/23 [...] Daily, Disp# 90 tab, Refills: 3, Pharmacy: [facility] Start Date: 11/07/23 Status: Ordered gabapentin 100 mg oral capsule Start: 01/04/24 5:46:00 PM EDT, 1 cap, PO, Daily, Disp# 30 cap, Refills: 1, Pharmacy: [id number] Start Date: 01/04/24 Status: Ordered glucosamine Start: 10/19/16 12:11:00 PM EDT, 1,500 mg = Start Date: 10/19/16 Status: Ordered hydroCHLOROthiazide 12.5 mg oral tablet Start: 03/20/24 12:04:00 PM EDT, 12.5 mg =, PO, Daily, Disp# 90 tab, Refills: 3, Pharmacy: [facility] Start Date: 03/20/24 Status: Ordered ketoconazole 2% topical cream Start: 01/18/24 10:35:00 AM EDT Start Date: 01/18/24 Status: Ordered metoprolol succinate 100 mg oral tablet, extended release Start: 01/30/24 2:25:00 PM EDT, 0.5 tab, PO, Daily, Disp# 45 tab, Refills: 3, Pharmacy: [facility] Start Date: 01/30/24 Status: Ordered MiraLax oral powder for reconstitution Start: 07/20/23 11:01:00 AM EST, 17 g =, PO, Daily Start Date: 07/20/23 Status: Ordered MVI-12 Start: 01/01/16 1:08:00 PM EDT Start Date: 01/01/16 Status: Ordered omeprazole 20 mg oral delayed release capsule Start: 01/30/24 2:24:00 PM EDT, 20 mg =, PO, Daily, Disp# 90 cap, Refills: 3, Pharmacy: [facility] Start Date: 01/30/24 Status: Ordered Preparation H Start: 07/20/23 11:02:00 [...] qhs, Disp# 90 tab, Refills: 3, Pharmacy: [facility] Start Date: 10/10/23 Status: Ordered sulfamethoxazole-trimethoprim 800 mg-160 mg oral tablet Start: 03/19/24 1:53:00 PM EDT, trimethoprim 1 tab, PO, bid Start Date: 03/19/24 Status: Ordered Systane Start: 10/19/16 12:10:00 PM EDT, Daily Start Date: 10/19/16 Status: Ordered triamcinolone 0.025% topical cream Start: 02/10/24 11:35:00 AM EDT, 1 appl, topical, bid, Disp# 60 g, Apply a thin film to affected areas, [id number] Start Date: 02/10/24 Status: Ordered VESIcare 10 mg oral tablet Start: 01/16/24 1:44:00 PM EDT, 1 tab, PO, Daily, Disp# 90 tab, Refills: 0, Pharmacy: [facility] Start Date: 01/16/24 Status: Ordered Vitamin C Start: 10/19/16 12:10:00 PM EDT, 500 mg =, PO, Daily Start Date: 10/19/16 Status: Ordered Xarelto 20 mg oral tablet Start: 02/10/24 11:45:00 AM EDT, 1 tab, PO, qPM, Disp# 90 tab, [id number] Start Date: 02/10/24 Status: Ordered ZyrTEC 10 mg oral tablet Start: 02/10/24 11:35:00 AM EDT, 1 tab, PO, Daily, Disp# 90 tab, Refills: 3, PRN: as needed for allergy symptoms, [id number] Start Date: 02/10/24 Status: Ordered Mental Status 03/19/24 Barriers to Learning one year None evide nt Mandatory Health Literacy Documentation Yes Health Literacy Communication Barriers N ever Primary Language Turkish Problem List Condition Confirmation Course Effective Dates Status H ealth Status Informant BPH (benign prostatic hyperplasia) Confirmed Active Former smoker Confirmed Active GERD (gastroesophageal reflux disease) Confirmed Active Hearing loss Confirmed Active Hx of lower gastrointestinal bleeding Confirmed Active Hyperlipidemia Confirmed Active HTN (hypertension) Confirmed Active Nephrolithiasis Confirmed Active Neuropathy of leg Confirmed Active Pulmonary embolus Confirmed Active Spinal stenosis Confirmed Active Diagnosis Diagnosis Type Effective Dates Health Status Clinical Service Informant SOB (shortness of breath) Discharge Diagnosis 03/19/24 Non-Specified Dark stools Discharge Diagnosis 03/19/24 Non-Specified Pulmonary embolus Discharge Diagnosis 03/19/24 Non-Specified NSVT (nonsustained ventricular tachycardia) Discharge Diagnosis 03/21/24 Non-Specified Procedures Procedure Date Related Diagnosis Body [...] replacement 9left 10left 11bilateral 12right replacement Results Laboratory List Name Date Complete Blood Count (CBC) 03/19/24 Extra Green ([place] Heparin) (EXTRA GRE EN (LIHEP)) 03/19/24 Most recent to oldest [Reference Range]: 1 Green ([place] Heparin) REQUISITION ERRO R *Unknown* (03/19/24 4:10 PM) MPV [9.0-12.2 fL] 10.1 fL (03/19/24 4:10 PM) RDW [11.5-14.2 %] 16.1 % *HI* (03/19/24 4:10 PM) Hct [39-48 %] 35.4 % *LOW* (03/19/24 4:10 PM) Hgb [13.0-17.0 g/dL] 11.5 g/dL *LOW* (03/19/24 4:10 PM) MCH [28-33 pg] 29.6 pg (03/19/24 4:10 PM) MCHC [32-36 g/dL] 32.5 g/dL (03/19/24 4:10 PM) MCV [81-96 fL] 91.2 fL (03/19/24 4:10 PM) Plts [150-350 K/uL] 181 K/uL (03/19/24 4:10 PM) RBC [4.40-5.60 M/uL] 3.88 M/uL *LOW* (03/19/24 4:10 PM) WBC [4.0-10.4 K/uL] 5.79 K/uL (03/19/24 4:10 PM) Vital Signs Most recent to oldest [Reference Range]: 1 Patient Weight 121.9 kg (03/19/24 1:59 PM) Temperature [36.5-37.9 DegC] 36.1 DegC *LOW* (03/19/24 1:59 PM) Blood Pressure 100/70mmHg (03/19/24 2:03 PM) Social History Social History Type Response Smoking Status Never smoked cigaret enrique Sex Male Sex Representation Male (finding) EKG study * Contributor_system, MUSE01: VERIFY, PERFORM Event Display: EKG Authored Date: [id number] Please click on link to see image. * Contributor_system, MUSE01: VERIFY, PERFORM Event Display: EKG Authored Date: [id number] Please click on link to see image. FCM Outpt Note * DO Glover Kristen M: MODIFY DO Glover Kristen M: MODIFY Event Display: FCM Outpt Note Authored Date: [id number] Chief Complaint Pt here for f/u from prior PE. PT states he has been feeling SOB and fatigue and some pains in chest History of Present Illness Pt is a 83 yo male with PMH of BPH, GERD, HTN, HLD, and GI bleeding presenting for a f/u. Pt was found to have PEsin 01/2024 of this year. He did have a knee replacement surgery in October for which he was prophylaxed with aspirin until November- secondary to the surgery, pt was more sedentary than usual. His 2 daughters also havea hx of DVT. Pt now on xarelto(previously on eliquisbut thought to have an allergic reaction). Pt notes ~1 year ago he was noted to have GI bleeding. He had an EGD/colonoscopy in Feb 2023 which revealed multiple tubular adenomas that were removed. Review of Systems As per HPI Physical Exam Vitals & Measurements T:36.1C BP:100/70 SpO2:94% WT:121.9kg WT:121.900kg(Dosing) PHQ2 Data(Data Documented on:03/19/2024 13:55) Emotional health assessment NEGATIVE General:well appearing, alert and oriented, no acute distress Cardiovascular: RRR, no murmur noted. No LE edema. Respiratory:clear to auscultation bilaterally, respirations are non-labored, breath sounds are equal withappropriate air entry. No rhonchi, crackles, or wheezing. Psych: Mood and affect congruent and appropriate. Speech is of normal pace and content. Assessment/Plan 1.Pulmonary embolus - chronic, not at goal - goal: reduce pain, prevent recurrence - unclear if truly provoked vs. unprovoked as pt's knee replacement surgery in October and discovering of clots in January; pt does have fam hx including 2 daughters with clot hx but no personal hx - pt currently anticoagulated with xarelto;would recommend continuation of anticoagulation despite dark stools d/t time proximity to PEs (~1.5 mths ago) - discussed r/b/se of anticoagulation at length including possible IVC filter - referral placed for hematology to discuss further 2.Dark stools - acute, complicated - goal: diagnostic clarity, reduce bleeding - as above, would still recommend anticoagulation d/t recent diagnosis of PE - will check CBC to ensure no clinically significant anemia - pt may be candidate for another colonoscopy if bleeding continues or worsens 3.SOB (shortness of breath) - acute, complicated - goal: diagnostic clarity - unclear etiology; suspect possibly secondary to PE and/or possibly worsening anemia - EKG in office showing infrequent PVCs, rate ~70, and RBBB unchanged from prior EKGs - blood work and plan as above Attestation I saw the patient and confirmed the crawford portions of the history and physical exam and agree with the impression and plan above Problem List/Past Medical History Ongoing BPH (benign prostatic hyperplasia) Former smoker GERD (gastroesophageal reflux disease) Hearing loss HTN (hypertension) Hx of lower gastrointestinal bleeding Hyperlipidemia Nephrolithiasis Neuropathy of leg Pulmonary embolus Spinal stenosis Procedure/Surgical History RT TKA| Service Date: 10/24/2023EGD [...] Service Date: 1994MandibleCTS (carpal tunnel syndrome)HerniaHip Medications ascorbic acid(Vitamin C), 500 mg, PO, Daily brimonidine-brinzolamide ophthalmic(Simbrinza 1%- 0.2% ophthalmic suspension) calcitriol(calcitriol 0.25 mcg oral capsule), 0.25 mcg= 1 cap, PO, Daily cetirizine(ZyrTEC 10 mg oral tablet), 10 mg= 1 tab, PO, Daily, PRN, 3 refills docusate(docusate sodium 100 mg oral capsule), 100 mg= 1 cap, PO, Daily, PRN finasteride(finasteride 5 mg oral tablet), 5 mg= 1 tab, PO, Daily, 3 refills gabapentin(gabapentin 100 mg oral capsule), 1 cap, PO, Daily glucosamine, 1500 mg hydroCHLOROthiazide, 12.5 mg, PO, Daily hydrocortisone topical(Proctozone HC), 1 appl, topical, Daily ketoconazole topical(ketoconazole 2% topical cream) metoprolol(metoprolol succinate 100 mg oral tablet, extended release), 50 mg= 0.5 tab, PO, Daily, 3refills mineral oil/petrolatum/phenylephrine topical(Preparation H) multivitamin(MVI-12) ocular lubricant(Systane), Daily omeprazole(omeprazole 20 mg oral delayed release capsule), 20 mg, PO, Daily, 3 refills polyethylene glycol 3350(MiraLax oral powder for reconstitution), 17 g, PO, Daily rivaroxaban(Xarelto 20 mg oral tablet), 20 mg= 1 tab, PO, qPM simvastatin(simvastatin 20 mg oral tablet), 20 mg, PO, qhs, 3 refills solifenacin(VESIcare 10 mg oral tablet), 10 mg= 1 tab, PO, Daily sulfamethoxazole-trimethoprim(sulfamethoxazole-trimethoprim 800 mg-160 mg oral tablet), 1 tab, PO, bid triamcinolone topical(triamcinolone 0.025% topical cream), 1 appl, topical, bid Allergies NKA Social History Smoking Status Never smoked cigarettes Immunizations Vaccine Date Status RSV vaccine preF3, recombinant 04/22/2023 Recorded SARS-CoV-2 (COVID-19) mRNA-vacc - [id number] 03/23/2023 Recorded pneumococcal 20-valent conjugate vaccine 03/16/2023 [...] due12/04/23and every 1year Due Adult COVID-19 Vaccination due03/19/24Unknown Frequency Adult Social Determinants of Health Screening due03/19/24Unknown Frequency Medicare Annual Wellness Visit due03/19/24and every 1year Satisfied(in the past 1 year) Satisfied Body Mass Index on01/18/24.Satisfied by JOVON Ball Angela Lipid Screening on12/16/23.Satisfied by Contributor_system, WHOOP Electronic Signature on File Electronically Reviewed/Signed by: Tara Ponce DO Author Signature Dt/Tm:03/19/2024 03:26 PM Resident Department of Family Medicine Electronically Reviewed/Signed by: Zaira Glover DO Cosigner Signature Dt/Tm: 03/19/2024 04:23 PM Department of Family Medicine SES Patient Care team information Care Team Personnel Name: Sidra Rodriguez DO, Mariana Annette Position: Physician - Family Med Member Role: Primary Care Provider Address: [address] [place] [phone]"
[2024-03-23] MEDS: METOPROLOL SUCC 50MG EXT REL TAB PO SCH (20:35)
[2024-03-23] MEDS: SIMVASTATIN 20 MG TAB PO SCH (20:35)
[2024-03-23] MEDS: OXYBUTYNIN CHLORIDE XL 5 MG TABCR PO SCH (20:35)
[2024-03-23] MEDS: DOCUSATE SODIUM 100 MG CAP PO SCH (20:35)
[2024-03-23] MEDS: LACTATED RINGER'S 1,000 ML IV SCH (20:37)
[2024-03-23] MEDS: PANTOprazole 40 MG/10 ML SYR IV SCH (20:40)
[2024-03-24 02:52] LABS: Basophils # (auto) 0.03 K/uL (0.00-0.20); Basophils % (auto) 0.7 %; Eosinophils # (auto) 0.13 K/uL (0.00-0.50); Eosinophils % (auto) 3.1 %; Hematocrit (blood only) 26.1 % (42.0-52.0); Hemoglobin 8.4 g/dl (14.0-18.0); Immature Granulocytes # (auto) 0.03 K/uL (0.01-0.20); Immature Granulocytes % (auto) 0.7 %; Lymphocytes # (auto) 0.81 K/uL (1.20-3.40); Lymphocytes % (auto) 19.2 %; Mean Corpuscular Hemoglobin 29.2 pg (25.0-34.0); Mean Corpuscular Hgb Conc 32.2 g/dL (32.0-36.0); Mean Corpuscular Volume 90.6 fL (80.0-100.0); Mean Platelet Volume 9.4 fL (9.4-12.4); Monocytes # (auto) 0.43 K/uL (0.11-0.59); Monocytes % (auto) 10.2 %; Neutrophils # (auto) 2.78 K/uL (1.40-6.50); Neutrophils % (auto) 66.1 %; Platelet Count 152 K/uL (130-400); RDW Coefficient of Variation 16.4 % (11.5-14.5); RDW Standard Deviation 53.6 fL (36.4-46.3); Red Blood Count 2.88 M/uL (4.70-6.10); White Blood Count 4.21 K/ul (4.8-10.8)
[2024-03-24 03:09] LABS: BUN Creatinine Ratio 18.4 (10-20); Calcium 8.7 mg/dl (8.6-10.3); Creatinine Clr Calc Pharmacy 37.8 ml/min; Potassium 4.1 mmol/L (3.5-5.1)
[2024-03-24] MEDS: ACETAMINOPHEN 325 MG TAB PO PRN (03:50)
--- NOTE | 2024-03-24 07:06 | Hospitalist Progress Note ---
Date of Service March 24, 2024 Assessment & Plan (1) Upper GI bleed: Plan: Acute upper GI bleed with likely exacerbation d/t DOAC therapy: - FOBT positive - AM Hgb 8.4, repeat 8.9, next H/H recheck @ 1800 - Typed and crossmatched for 4u pRBCs-hold, blood consent obtained - Asymptomatic anemia, transfusion threshold Hgb<7 or if symptomatic - Continue Protonix 40mg IV BID - Consult GI: - EGD 03/25 - if negative, consider capsule endoscopy - Clear liquid diet, NPO @ midnight - CBC in AM (2) Acute blood loss anemia: Plan: Acute in setting of UGI bleed - AM Hgb 8.4, repeat 8.9, next H/H recheck @ 1800 - Typed and crossmatched for 4u pRBCs-hold, blood consent obtained - Asymptomatic anemia, transfusion threshold Hgb<7 or if symptomatic - AM CBC (3) Acute kidney injury superimposed on chronic kidney disease: Plan: CKD stage II with baseline creatinine ~1.3 - Could be prerenal in the setting of volume contraction d/t GI bleed and diuretic therapy vs intrarenal d/t Bactrim DS extended course for E. coli UTI - Bactrim discontinued, no current urinary complaints - okay per nephrology - IVF hydration with NSS @ 100 ml/hr x2L - Hold HCTZ - Continue calcitriol - Repeat BMP in AM - Avoid nephrotoxic meds (4) Pulmonary emboli: Plan: Subacute dx'd in 01/2024, provoked following R TKA in October 2023 - Hold Xarelto in setting of UGI bleed/ABLA - SCDs for VTE ppx, encourage ambulation w/ assistance Plan Chronic stable medical conditions: - Glaucoma - continue eye drops - BPH - continue proscar - Neuropathy - continue gabapentin - HTN - hold HCTZ d/t LINDA as above, continue Toprol XL VTE ppx: xarelto held, SCDs FEN/GI LR @100mL/hr (stop time: 03/24 @1600), clear liquid diet, NPO @ midnight Admission and Anticipated Discharge Date Admission Date: March 23, 2024 Supervising Physician Co-Signing Physician Notes Attending Physician Supervision Note: I independently interviewed and examined the patient and verified the crawford history and physical, reviewed labs and image studies and agree with findings and care plan noted above. Subjective No acute overnight events, vitals stable. Patient denies acute changes that would suggest symptomatic anemia, notes that his SOB is chronic (6+ months) and is currently working up with outpatient cardiology. Also reports h/o vertigo, no change in dizziness/lightheadedness compared to baseline. Denies abdominal pain, N/V. No further bowel movements since admission. Denies significant NSAID use, denies recent tx with steroids. Also reports h/o GI bleed in 02/26, underwent EGD and colonoscopy, no source of bleeding identified. Review of Systems Review of Systems: as per HPI Physical Exam Physical Exam: General: Alert and oriented. No acute distress Cardiac: Regular rate and rhythm, no murmurs appreciated Respiratory: Lungs clear to auscultation bilaterally, No increased work of breathing Abdominal: Soft, non-tender, non-distended. Bowel sounds present. Results & Data Results & Data Vital Signs (Past 12 Hours) Vital Signs Temp Pulse Pulse Pulse Resp BP BP 03/24/24 03:44 36.7 C 73 18 03/24/24 03:39 71 111/72 03/24/24 00:18 36.5 C 68 18 92/56 L 03/23/24 21:48 85 03/23/24 19:54 36.4 C L 85 19 118/75 03/23/24 19:20 Pulse Ox O2 Del Method 03/24/24 03:44 95 Room Air 03/24/24 03:39 03/24/24 00:18 97 Room Air 03/23/24 21:48 03/23/24 19:54 93 Room Air 03/23/24 19:20 Room Air Resident Activity Tracking Resident Involvement: Resident Care Provided Care Provided: Adult Hospital Medicine (4) Pulmonary emboli Acute cor pulmonale presence: without acute cor pulmonale Chronicity: acute Pulmonary embolism type: unspecified Qualified Code(s): I26.99 - Other pulmonary embolism without acute cor pulmonale
[2024-03-24] MEDS: FINASTERIDE 5 MG TAB PO SCH (08:01)
[2024-03-24] MEDS: GABAPENTIN 100 MG CAP PO SCH (08:01)
--- NOTE | 2024-03-24 09:55 | Gastrointestinal Consultation ---
Date of Consultation March 24, 2024 Assessment & Plan (1) Acute blood loss anemia: He is not bleeding of major significance as his stools are solid and normal frequency, just black. He has had evaluation last year so I am not thinking we will see anything with EGD. It is possible he has a small bowel lesion causing his bleeding. I do plan to do EGD--will do in am. I do not plan to repeat colonoscopy. If EGD is negative then I would consider capsule endoscopy History of Present Illness Reason for Consultation: melena, anemia Attending Physician: Jessica Brown MD History of Present Illness 83 year old man who was in the hospital last year for melena. He had an EGD and a colonoscopy by Dr. Hernandez which was non revealing as to source for bleeding. He had right TKA in January and had clots after that. He was maintained on anticoagulants but recently started feeling weak. He says on Tuesday his bowel movements turned black. There was no change in the frequency of his stooling, they were just black. He continues to have one solid black stool daily. He denies abdominal pain. He has no nausea or vomiting. He denies NSAID usage. Allergies Allergy/AdvReac Type Severity Reaction Status Date / Time No Known Drug Allergies Allergy Verified 03/23/24 11:05 Home Medications Medication Instructions Recorded Confirmed Type multivitamin 1 cap PO QAM ##0 02/16/09 03/23/24 History glucosamine 375 aa-bucedtzlg-ppm 2 tab PO QPM ##0 10/11/14 03/23/24 History no1 500 mg-C 15 mg-ana 0.5 mg tablet (Kntawztfiwn-Jtimdkicsue-EEA Complex) docusate sodium 100 mg tablet 100 mg PO QPM ##0 01/17/18 03/23/24 History polyethylene glycol 3350 17 1 dose PO QPM ##0 01/17/18 03/23/24 History gram/dose oral powder (Miralax) brinzolamide 1 %-brimonidine 0.2 % 1 drp OPR TID 02/05/21 03/23/24 History eye drops,suspension (Simbrinza) peg 400-propylene glycol 0.4 %-0.3 1 drp OPL BID PRN Dry Eyes #0 mL 03/08/22 03/23/24 History % eye drops (Systane (propylene glycol)) solifenacin 10 mg tablet (Vesicare) 10 mg PO QPM #90 tabs 09/29/22 03/23/24 Rx metoprolol succinate 100 mg 100 mg PO QPM #90 tabs 02/04/23 03/23/24 Rx tablet,extended release 24 hr acetaminophen 500 mg tablet 650 mg PO HS 02/07/23 03/23/24 History (Tylenol Extra Strength) finasteride 5 mg tablet (Proscar) 5 mg PO QAM 02/07/23 03/23/24 History simvastatin 20 mg tablet 20 mg PO QPM 02/10/23 03/23/24 History hydrocortisone 2.5 % topical cream 1 applic topical DAILY PRN Itching 02/27/23 03/23/24 History with perineal applicator hydrochlorothiazide 12.5 mg tablet 12.5 mg PO QAM #90 tabs 03/08/23 03/23/24 Rx omeprazole 20 mg tablet,delayed 20 mg PO QAM #90 tabs 05/02/23 03/23/24 Rx release calcitriol 0.25 mcg capsule 0.25 mcg PO 3XWK #36 caps 05/09/23 03/23/24 Rx gabapentin 100 mg capsule 100 mg PO DAILY 01/03/24 03/23/24 History apixaban 5 mg (74 tabs) tablets in 5 mg PO BID #74 ea 02/02/24 03/23/24 Rx a dose pack (Eliquis) prednisolone acetate 1 % eye 1 drp ophthalmic (eye) Q OTHER DAY 03/23/24 03/23/24 History drops,suspension rivaroxaban 20 mg tablet (Xarelto) 20 mg PO QPM 03/23/24 03/23/24 History Patient History Medical History Hx of intestinal obstruction (~2006) no surgical intervention per pt. Hx of glaucoma s/p surgical intervention bilaterally no current issues Hx of upper gastrointestinal hemorrhage (~02/2023) admit to [facility], [place], EGD & Colon, per pt. source not found no current issues Hx of septic shock (~2016) admit to [facility] [place] x 6 days, kidney stone History of blood transfusion (~2000) left hip replacement H/O degenerative disc disease cervical spine, has full ROM BPH (benign prostatic hyperplasia) GERD (gastroesophageal reflux disease) controlled, stable per pt Surgical History Hx of bilateral cataract extraction Hx of colonoscopy with polypectomy History of esophagogastroduodenoscopy (EGD) History of reverse total replacement of left shoulder joint (~01/03/23) H/O removal of cyst (~1974) mandibular History of laminectomy L2-L4 02/09/1818 Grade 2 view, MAC 3, ETT 8. Hx of arthroscopy of shoulder L, 2003; R, 2000 History of carpal tunnel release of both wrists 1994 L, 1996 R Hx of repair of rotator cuff R, likely 1999 History of total right hip arthroplasty (~2000) Hx of foot surgery (~2015) rt foot reconstruction Hx of total shoulder replacement RIGHT 2014 LEFT 2022 Hx of cystoscopy Hx of tonsillectomy H/O hernia repair left 1995, right 1997 Family History Mother Tuberculosis Sister Breast cancer Father Cardiac disorder Myocardial infarction Brother Dementia Denies family history of Ovarian cancer Prostate cancer Colorectal cancer Social History Smoking Status: Former smoker Tobacco Type: Cigarettes Age Started Using Tobacco: 17; Age Quit Using Tobacco: 30; packs per day: 2; Cigarettes Per Day: 1 1/2 packs per day 50 years ago; Second Hand Exposure: No; Do You Dip or Chew Tobacco: No; Hx Alcohol Use: No Hx Substance Use: No Preferred Language: Lithuanian Communication Ability: Effective Visual Impairment: Limited Hearing Ability: Normal Water Leak Repairer Required: No Beliefs That Will Affect Care: None marital status: Current Living Situation: Spouse Current Living Situation Comment: Spouse and Legal guardian of 2 grandsons current occupational status: retired 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 Other Information That Helps Us Care for You: No Feels Safe at Home: Yes Safety Concerns: Feels Safe At This Time Childhood Exposure to Second-Hand Smoke: Yes Diet: regular caffeine: Yes (one cup of coffee each day) during the past year weight has: decreased > 10 lbs Dental Care, Regularly: No Physical Activity Frequency: Daily Seatbelt Use: always Sunscreen Use: Yes (sometimes ) Assistive Devices: Denture - Upper, Denture - Lower, Glasses and Hearing Aid - Bilateral Review of Systems Review of Systems: All systems reviewed & are unremarkable except as noted in HPI & below Physical Exam Physical Exam: Pleasant man in no distress Constitutional: WD/WN, vitals as above Neck: trachea midline, no thyromegaly Respiratory: normal respiratory effort, lungs clear to auscultation Cardiovascular: RRR, no murmur, no edema Gastrointestinal (Abdomen): normal bowel sounds, soft, nontender, no hepatosplenomegaly Musculoskeletal: Extremities: extremities normal to inspection Results & Data Vital Signs (Past 12 Hours) Vital Signs Temp Pulse Pulse Resp BP Pulse Ox O2 Del Method 03/24/24 07:29 36.7 C 69 18 121/71 94 Room Air 03/24/24 07:13 68 03/24/24 03:44 36.7 C 73 18 95 Room Air 03/24/24 03:39 71 111/72 03/24/24 00:18 36.5 C 68 18 92/56 L 97 Room Air Laboratory Results 03/24/24 03/24/24 03/23/24 Range/Units 06:00 02:30 17:48 WBC 4.21 L (4.8-10.8) K/ul RBC 2.88 L (4.70-6.10) M/uL Hgb 8.4 L 9.1 L (14.0-18.0) g/dl Hct 26.1 L 27.7 L (42.0-52.0) % MCV 90.6 (80.0-100.0) fL MCH 29.2 (25.0-34.0) pg MCHC 32.2 (32.0-36.0) g/dL RDW Std Deviation 53.6 H (36.4-46.3) fL RDW Coeff of Sharon 16.4 H (11.5-14.5) % Plt Count 152 (130-400) K/uL MPV 9.4 (9.4-12.4) fL Immature Gran % (Auto) 0.7 % Neut % (Auto) 66.1 % Lymph % (Auto) 19.2 % [place] % (Auto) 10.2 % Eos % (Auto) 3.1 % Baso % (Auto) 0.7 % Neut # (Auto) 2.78 (1.40-6.50) K/uL Lymph # (Auto) 0.81 L (1.20-3.40) K/uL [place] # (Auto) 0.43 (0.11-0.59) K/uL Eos # (Auto) 0.13 (0.00-0.50) K/uL Baso # (Auto) 0.03 (0.00-0.20) K/uL Immature Gran # (Auto) 0.03 (0.01-0.20) K/uL PT (9.0-12.0) Seconds INR (0.9-1.1) APTT (21-31) Seconds PTT Ratio Sodium 139 (136-145) mmol/L Potassium 4.1 (3.5-5.1) mmol/L Chloride 110 H (98-107) mmol/L Carbon Dioxide 23 (21-32) mmol/L Anion Gap 6 (3-11) BUN 34 H (6-23) mg/dl Creatinine 1.85 H (0.6-1.4) mg/dl Est Cr Clr Drug Dosing 37.8 ml/min eGFR 35.25 BUN/Creatinine Ratio 18.4 (10-20) Glucose 104 H (70-99(Fasting)) mg/dl Calcium 8.7 (8.6-10.3) mg/dl Magnesium 2.0 (1.7-2.4) mg/dl Total Bilirubin (0.2-1.0) mg/dl AST (13-39) U/L ALT (7-52) U/L Alkaline Phosphatase (34-104) U/L Troponin I High Sens (0-20) pg/ml Total Protein (6.0-8.3) gm/dl Albumin (3.4-5.0) gm/dl Globulin (2.5-4.0) gm/dl Albumin/Globulin Ratio (0.9-2) Stool Occult Bld Scrn Positive A (Negative) POC Stool Occult Blood Cancelled Blood Type Antibody Screen Crossmatch 03/23/24 03/23/24 Range/Units 09:52 09:42 WBC 3.79 L (4.8-10.8) K/ul RBC 3.06 L (4.70-6.10) M/uL Hgb 9.1 L (14.0-18.0) g/dl Hct 28.0 L (42.0-52.0) % MCV 91.5 (80.0-100.0) fL MCH 29.7 (25.0-34.0) pg MCHC 32.5 (32.0-36.0) g/dL RDW Std Deviation 53.1 H (36.4-46.3) fL RDW Coeff of Sharon 16.4 H (11.5-14.5) % Plt Count 163 (130-400) K/uL MPV 9.5 (9.4-12.4) fL Immature Gran % (Auto) 1.3 % Neut % (Auto) 68.3 % Lymph % (Auto) 16.6 % [place] % (Auto) 9.8 % Eos % (Auto) 3.2 % Baso % (Auto) 0.8 % Neut # (Auto) 2.59 (1.40-6.50) K/uL Lymph # (Auto) 0.63 L (1.20-3.40) K/uL [place] # (Auto) 0.37 (0.11-0.59) K/uL Eos # (Auto) 0.12 (0.00-0.50) K/uL Baso # (Auto) 0.03 (0.00-0.20) K/uL Immature Gran # (Auto) 0.05 (0.01-0.20) K/uL PT 11.2 (9.0-12.0) Seconds INR 1.0 (0.9-1.1) APTT 28 (21-31) Seconds PTT Ratio 1.0 Sodium 138 (136-145) mmol/L Potassium 4.2 (3.5-5.1) mmol/L Chloride 109 H (98-107) mmol/L Carbon Dioxide 22 (21-32) mmol/L Anion Gap 7 (3-11) BUN 44 H (6-23) mg/dl Creatinine 1.87 H (0.6-1.4) mg/dl Est Cr Clr Drug Dosing 37.3 ml/min eGFR 34.80 BUN/Creatinine Ratio 23.5 H (10-20) Glucose 114 H (70-99(Fasting)) mg/dl Calcium 9.0 (8.6-10.3) mg/dl Magnesium (1.7-2.4) mg/dl Total Bilirubin 0.2 (0.2-1.0) mg/dl AST 21 (13-39) U/L ALT 17 (7-52) U/L Alkaline Phosphatase 52 (34-104) U/L Troponin I High Sens 8.3 (0-20) pg/ml Total Protein 6.1 (6.0-8.3) gm/dl Albumin 3.8 (3.4-5.0) gm/dl Globulin 2.3 L (2.5-4.0) gm/dl Albumin/Globulin Ratio 1.7 (0.9-2) Stool Occult Bld Scrn (Negative) POC Stool Occult Blood Blood Type AB Positive Antibody Screen NEGATIVE Crossmatch See Detail Diagnostic Findings Chest X-Ray 03/23/24 09:28 XR chest 1V portable HISTORY: 83 years-old Male gi bleed acute gastrointestinal hemorrhage COMPARISON: 01/31/2024 TECHNIQUE: AP view of the chest FINDINGS: Cardiomediastinal and hilar silhouettes are unchanged. Mild subsegmental bibasilar atelectasis versus scarring. No pneumothorax, pleural effusion or pulmonary edema. Chronic right distal clavicular deformity. Bilateral shoulder arthroplasties. IMPRESSION: No acute process. ACT 112: Negative or not required by law. The above report was generated using voice recognition software. It may contain grammatical, syntax or spelling errors. Electronically signed by: Jose Cr M.D. 03/23/2024 9:43 AM
[2024-03-24 10:20] LABS: Hemoglobin 8.9 g/dl (14.0-18.0)
[2024-03-24] MEDS: BRINZOLAMIDE/BRIMONIDINE TART 119 DROPS/8 ML BTL OPR SCH (13:22)
[2024-03-24 18:15] LABS: Hematocrit (blood only) 28.6 % (42.0-52.0); Hemoglobin 9.1 g/dl (14.0-18.0)
[2024-03-24] MEDS: MELATONIN 3 MG TAB PO PRN (20:51)
[2024-03-25 06:22] LABS: Hematocrit (blood only) 25.5 % (42.0-52.0); Hemoglobin 8.4 g/dl (14.0-18.0); Mean Corpuscular Hemoglobin 29.7 pg (25.0-34.0); Mean Corpuscular Hgb Conc 32.9 g/dL (32.0-36.0); Mean Corpuscular Volume 90.1 fL (80.0-100.0); Mean Platelet Volume 9.4 fL (9.4-12.4); Platelet Count 152 K/uL (130-400); RDW Coefficient of Variation 15.9 % (11.5-14.5); RDW Standard Deviation 52.1 fL (36.4-46.3); Red Blood Count 2.83 M/uL (4.70-6.10); White Blood Count 3.39 K/ul (4.8-10.8)
[2024-03-25 06:53] LABS: BUN Creatinine Ratio 13.6 (10-20); Calcium 8.6 mg/dl (8.6-10.3); Creatinine Clr Calc Pharmacy 41.2 ml/min
--- NOTE | 2024-03-25 07:09 | Anesthesiology Consultation ---
Date of Service March 25, 2024 Assessment & Plan (1) Encounter for pre-operative examination: Chart Review Chart Review: Acceptable Risk for Surgery History Surgery Operation Date: 03/25/24 07:30 Proposed Procedures p EGD Hemostasis - Rachell Peralta Jr, MD Height/Weight Height: 5 ft 10 in Weight: 118.1 kg Allergies Allergy/AdvReac Type Severity Reaction Status Date / Time No Known Drug Allergies Allergy Verified 03/23/24 11:05 Medications Home Medications Medication Instructions Recorded Confirmed Last Taken multivitamin 1 cap PO QAM ##0 02/16/09 03/23/24 10/17/23 glucosamine 375 eh-gcjxpneem-ysr 2 tab PO QPM ##0 10/11/14 03/23/24 10/10/23 no1 500 mg-C 15 mg-ana 0.5 mg tablet (Tbedaxmoqak-Pzhjoeeumyc-MHO Complex) docusate sodium 100 mg tablet 100 mg PO QPM ##0 01/17/18 03/23/24 10/23/23 20:00 polyethylene glycol 3350 17 1 dose PO QPM ##0 01/17/18 03/23/24 10/23/23 21:00 gram/dose oral powder (Miralax) brinzolamide 1 %-brimonidine 0.2 % 1 drp OPR TID 02/05/21 03/23/24 10/24/23 07:30 eye drops,suspension (Simbrinza) peg 400-propylene glycol 0.4 %-0.3 1 drp OPL BID PRN Dry Eyes #0 mL 03/08/22 03/23/24 10/24/23 07:30 % eye drops (Systane (propylene glycol)) solifenacin 10 mg tablet (Vesicare) 10 mg PO QPM #90 tabs 09/29/22 03/23/24 02/26/23 metoprolol succinate 100 mg 100 mg PO QPM #90 tabs 02/04/23 03/23/24 10/24/23 07:30 tablet,extended release 24 hr acetaminophen 500 mg tablet 650 mg PO HS 02/07/23 03/23/24 10/23/23 22:00 (Tylenol Extra Strength) finasteride 5 mg tablet (Proscar) 5 mg PO QAM 02/07/23 03/23/24 10/24/23 07:30 simvastatin 20 mg tablet 20 mg PO QPM 02/10/23 03/23/24 10/23/23 hydrocortisone 2.5 % topical cream 1 applic topical DAILY PRN Itching 02/27/23 03/23/24 10/10/23 with perineal applicator hydrochlorothiazide 12.5 mg tablet 12.5 mg PO QAM #90 tabs 03/08/23 03/23/24 10/17/23 omeprazole 20 mg tablet,delayed 20 mg PO QAM #90 tabs 05/02/23 03/23/24 10/17/23 release calcitriol 0.25 mcg capsule 0.25 mcg PO 3XWK #36 caps 05/09/23 03/23/24 10/23/23 08:00 gabapentin 100 mg capsule 100 mg PO DAILY 01/03/24 03/23/24 Unknown apixaban 5 mg (74 tabs) tablets in 5 mg PO BID #74 ea 02/02/24 03/23/24 Unknown a dose pack ([employer] prednisolone acetate 1 % eye 1 drp ophthalmic (eye) Q OTHER DAY 03/23/24 03/23/24 Unknown drops,suspension rivaroxaban 20 mg tablet (Xarelto) 20 mg PO QPM 03/23/24 03/23/24 Unknown Active Medications Generic Name Dose Route Start Last Admin Trade Name Freq PRN Reason Stop Dose Admin Acetaminophen 650 mg 03/23/24 15:37 03/24/24 03:50 Acetaminophen 325 Mg Tab PO 04/22/24 15:36 650 mg Q4H PRN Administration pain/fever Brinzolamide/Brimonidine Tartrate 1 drops 03/24/24 14:00 03/24/24 20:51 Brinzolamide/Brimonidine Tart 119 Drops/8 Ml Btl OPR 04/23/24 13:59 1 drops TID CAMERON Administration Calcitriol 0.25 mcg 03/23/24 16:00 03/23/24 17:37 Calcitriol 0.25 Mcg Capsule PO 04/22/24 15:59 Not Given [id number] CAMERON Docusate Sodium 100 mg 03/23/24 21:00 03/24/24 20:51 Docusate Sodium 100 Mg Cap PO 04/22/24 20:59 100 mg QPM CAMERON Administration Finasteride 5 mg 03/24/24 09:00 03/24/24 08:01 Finasteride 5 Mg Tab PO 04/23/24 08:59 5 mg QAM CAMERON Administration Gabapentin 100 mg 03/24/24 09:00 03/24/24 08:01 Gabapentin 100 Mg Cap PO 04/23/24 08:59 100 mg DAILY CAMERON Administration Pantoprazole Sodium 40 mg in 10 mls @ 5 mls/min 03/23/24 21:00 03/24/24 20:51 Protonix IV 04/22/24 20:59 5 mls/min BID CAMERON Administration Melatonin 3 mg 03/23/24 15:37 03/24/24 20:51 Melatonin 3 Mg Tab PO 04/22/24 15:36 3 mg HS PRN Administration Insomnia Metoprolol Succinate 100 mg 03/23/24 21:00 03/24/24 20:50 Metoprolol Succ 50mg Ext Rel Tab PO 04/22/24 20:59 100 mg QPM CAMERON Administration Oxybutynin Chloride 10 mg 03/23/24 21:00 03/24/24 20:50 Oxybutynin Chloride Xl 5 Mg Tabcr PO 04/22/24 20:59 10 mg QPM CAMERON Administration Prednisolone Acetate 1 drops 03/23/24 16:15 03/23/24 17:30 Prednisolone Acetate 1% Op Susp 5 Ml Btl OP 04/22/24 16:14 1 drops Q48H CAMERON Administration Simvastatin 20 mg 03/23/24 21:00 03/24/24 20:50 Simvastatin 20 Mg Tab PO 04/22/24 20:59 20 mg QPM CAMERON Administration Past Medical History Medical History (Updated 03/25/24 @ 07:08 by Ascencion Clifford MD) Acute kidney injury superimposed on chronic kidney disease Pulmonary emboli Hypertension controlled, stable per pt Obesity Hx of intestinal obstruction (~2006) no surgical intervention per pt. Hx of glaucoma s/p surgical intervention bilaterally no current issues Hx of upper gastrointestinal hemorrhage (~02/2023) admit to [facility], EGD & Colon, per pt. source not found no current issues Hx of septic shock (~2016) admit to [facility] x 6 days, kidney stone History of blood transfusion (~2000) left hip replacement H/O degenerative disc disease cervical spine, has full ROM BPH (benign prostatic hyperplasia) GERD (gastroesophageal reflux disease) controlled, stable per pt Past Family History Family History Mother Tuberculosis Sister Breast cancer Father Cardiac disorder Myocardial infarction Brother Dementia Denies family history of Ovarian cancer Prostate cancer Colorectal cancer Past Surgical History Surgical History Hx of bilateral cataract extraction Hx of colonoscopy with polypectomy History of esophagogastroduodenoscopy (EGD) History of reverse total replacement of left shoulder joint (~01/03/23) H/O removal of cyst (~1974) mandibular History of laminectomy L2-L4 02/09/1818 Grade 2 view, MAC 3, ETT 8. Hx of arthroscopy of shoulder L, 2003; R, 1999 History of carpal tunnel release of both wrists 1994 L, 1996 R Hx of repair of rotator cuff R, likely 1999 History of total right hip arthroplasty (~2000) Hx of foot surgery (~2015) rt foot reconstruction Hx of total shoulder replacement RIGHT 2014 LEFT 2022 Hx of cystoscopy Hx of tonsillectomy H/O hernia repair left 1995, right 1997 Social History Smoking Status: Former smoker Smoking cigarettes per day: 1 1/2 packs per day 50 years ago Do You Dip or Chew Tobacco: No Hx Alcohol Use: No Hx Substance Use: No substance use type: does not use Physical Exam Vital Signs Last Vital Signs Temp 36.6 C 03/25/24 03:51 Pulse 70 03/25/24 03:51 Resp 18 03/25/24 03:51 BP 113/71 03/25/24 03:51 Pulse Ox 95 03/25/24 03:51 O2 Del Method Room Air 03/25/24 03:51 Testing Laboratory Results 03/25/24 05:38 03/25/24 05:38 PT 11.2 Seconds (9.0-12.0) 03/23/24 09:52 INR 1.0 (0.9-1.1) 03/23/24 09:52 APTT 28 Seconds (21-31) 03/23/24 09:52 Blood Type AB Positive 03/23/24 09:42 Antibody Screen NEGATIVE 03/23/24 09:42 Electrocardiogram Date: 03/23/24 Findings: + NSR @ (76) and + RBBB (and left ant fasc block) occasional PVC
[2024-03-25] MEDS ORDERED: ONDANSETRON INJ 2 MG/ML 2 ML VIAL ONE (07:15)
[2024-03-25] MEDS ORDERED: PROPOFOL IV EMULSION 10 MG/ML 20 ML VIAL IV ONE (07:15)
[2024-03-25] MEDS ORDERED: fentaNYL citrate PF 100 MCG/2 ML VIAL ONE (07:15)
[2024-03-25] MEDS ORDERED: LIDOCAINE 2% 2 ML VIAL/AMP(20MG/ML) INFIL ONE ×2 (07:15→07:36)
--- NOTE | 2024-03-25 07:21 | History & Physical Report ---
Date of Service March 25, 2024 Assessment & Plan (1) Acute blood loss anemia: Plan: Pleasant man with anemia. Procedure and risks for EGD discussed. He agrees. Admission and Anticipated Discharge Date Admission Date: March 23, 2024 History of Present Illness Chief Complaint: melena Primary Care Provider: July Rodriguez DO 83 year old man with anemia and melenic stools. He is here for EGD Allergies Allergy/AdvReac Type Severity Reaction Status Date / Time No Known Drug Allergies Allergy Verified 03/23/24 11:05 Home Medications Medication Instructions Recorded Confirmed Type multivitamin 1 cap PO QAM ##0 02/16/09 03/23/24 History glucosamine 375 lo-dyrgynvux-kql 2 tab PO QPM ##0 10/11/14 03/23/24 History no1 500 mg-C 15 mg-ana 0.5 mg tablet (Chbyoyppnig-Jboxjarbsik-GSZ Complex) docusate sodium 100 mg tablet 100 mg PO QPM ##0 01/17/18 03/23/24 History polyethylene glycol 3350 17 1 dose PO QPM ##0 01/17/18 03/23/24 History gram/dose oral powder (Miralax) brinzolamide 1 %-brimonidine 0.2 % 1 drp OPR TID 02/05/21 03/23/24 History eye drops,suspension (Simbrinza) peg 400-propylene glycol 0.4 %-0.3 1 drp OPL BID PRN Dry Eyes #0 mL 03/08/22 03/23/24 History % eye drops (Systane (propylene glycol)) solifenacin 10 mg tablet (Vesicare) 10 mg PO QPM #90 tabs 09/29/22 03/23/24 Rx metoprolol succinate 100 mg 100 mg PO QPM #90 tabs 02/04/23 03/23/24 Rx tablet,extended release 24 hr acetaminophen 500 mg tablet 650 mg PO HS 02/07/23 03/23/24 History (Tylenol Extra Strength) finasteride 5 mg tablet (Proscar) 5 mg PO QAM 02/07/23 03/23/24 History simvastatin 20 mg tablet 20 mg PO QPM 02/10/23 03/23/24 History hydrocortisone 2.5 % topical cream 1 applic topical DAILY PRN Itching 02/27/23 03/23/24 History with perineal applicator hydrochlorothiazide 12.5 mg tablet 12.5 mg PO QAM #90 tabs 03/08/23 03/23/24 Rx omeprazole 20 mg tablet,delayed 20 mg PO QAM #90 tabs 05/02/23 03/23/24 Rx release calcitriol 0.25 mcg capsule 0.25 mcg PO 3XWK #36 caps 05/09/23 03/23/24 Rx gabapentin 100 mg capsule 100 mg PO DAILY 01/03/24 03/23/24 History apixaban 5 mg (74 tabs) tablets in 5 mg PO BID #74 ea 02/02/24 03/23/24 Rx a dose pack (Eliquis) prednisolone acetate 1 % eye 1 drp ophthalmic (eye) Q OTHER DAY 03/23/24 03/23/24 History drops,suspension rivaroxaban 20 mg tablet (Xarelto) 20 mg PO QPM 03/23/24 03/23/24 History Past Med/Surg History Problem List Acute upper GI bleed (Acute) Acute blood loss anemia Upper GI bleed Left-sided chest pain (Acute) Pulmonary infarction (Acute) Status post right knee replacement (~10/2023) Osteoarthritis of right knee Lower extremity edema Trigger finger of left hand BPH with obstruction/lower urinary tract symptoms (Acute) Degenerative joint disease, multiple joints on both sides of body (Acute) Disc degeneration, lumbar (Acute) Glaucoma (Acute) s/p surgical intervention bilat Insomnia (Acute) Nephrolithiasis (Acute) Solitary thyroid nodule (Acute) Osteoarthritis Chronic kidney disease (Acute) follows w/ Dr Sawyer Stable per patient Hyperlipidemia Medical History Acute kidney injury superimposed on chronic kidney disease Pulmonary emboli Hypertension controlled, stable per pt Obesity Hx of intestinal obstruction (~2006) no surgical intervention per pt. Hx of glaucoma s/p surgical intervention bilaterally no current issues Hx of upper gastrointestinal hemorrhage (~02/2023) admit to [facility], EGD & Colon, per pt. source not found no current issues Hx of septic shock (~2016) admit to [facility] x 6 days, kidney stone History of blood transfusion (~2000) left hip replacement H/O degenerative disc disease cervical spine, has full ROM BPH (benign prostatic hyperplasia) GERD (gastroesophageal reflux disease) controlled, stable per pt Surgical History Hx of bilateral cataract extraction Hx of colonoscopy with polypectomy History of esophagogastroduodenoscopy (EGD) History of reverse total replacement of left shoulder joint (~01/03/23) H/O removal of cyst (~1974) mandibular History of laminectomy L2-L4 02/09/1818 Grade 2 view, MAC 3, ETT 8. Hx of arthroscopy of shoulder L, 2003; R, 2000 History of carpal tunnel release of both wrists 1994 L, 1996 R Hx of repair of rotator cuff R, likely 1999 History of total right hip arthroplasty (~2000) Hx of foot surgery (~2015) rt foot reconstruction Hx of total shoulder replacement RIGHT 2014 LEFT 2022 Hx of cystoscopy Hx of tonsillectomy H/O hernia repair left 1995, right 1997 Family History Mother Tuberculosis Sister Breast cancer Father Cardiac disorder Myocardial infarction Brother Dementia Denies family history of Ovarian cancer Prostate cancer Colorectal cancer Social History Smoking Status: Former smoker Tobacco Type: Cigarettes Age Started Using Tobacco: 17; Age Quit Using Tobacco: 30; packs per day: 2; Cigarettes Per Day: 1 1/2 packs per day 50 years ago; Second Hand Exposure: No; Do You Dip or Chew Tobacco: No; Hx Alcohol Use: No Hx Substance Use: No Preferred Language: Burkinan Communication Ability: Effective Visual Impairment: Limited Hearing Ability: Normal Operations Dispatcher Required: No Beliefs That Will Affect Care: None marital status: Current Living Situation: Spouse Current Living Situation Comment: Spouse and Legal guardian of 2 grandsons current occupational status: retired 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 Other Information That Helps Us Care for You: No Feels Safe at Home: Yes Safety Concerns: Feels Safe At This Time Childhood Exposure to Second-Hand Smoke: Yes Diet: regular caffeine: Yes (one cup of coffee each day) during the past year weight has: decreased > 10 lbs Dental Care, Regularly: No Physical Activity Frequency: Daily Seatbelt Use: always Sunscreen Use: Yes (sometimes ) Assistive Devices: Denture - Upper, Denture - Lower, Glasses and Hearing Aid - Bilateral Review of Systems All systems reviewed & are unremarkable except as noted in HPI & below Physical Exam Constitutional: WD/WN, vitals as above Neck: trachea midline, no thyromegaly Respiratory: normal respiratory effort, lungs clear to auscultation Cardiovascular: RRR, no murmur, no edema Gastrointestinal (Abdomen): normal bowel sounds, soft, nontender, no hepatosplenomegaly ASA Classification ASA ASA3 Results & Data Vital Signs (Past 12 Hours) Vital Signs Temp Pulse Pulse Resp BP BP Pulse Ox 03/25/24 03:51 36.6 C 70 18 113/71 95 03/24/24 23:25 36.6 C 65 18 134/84 98 03/24/24 21:43 64 03/24/24 19:30 O2 Del Method 03/25/24 03:51 Room Air 03/24/24 23:25 Room Air 03/24/24 21:43 03/24/24 19:30 Room Air Code Status & VTE Plan VTE Prophylaxis Plan VTE Prophylaxis will be ordered: No
[2024-03-25] MEDS ORDERED: ONDANSETRON INJ 2 MG/ML 2 ML VIAL IV PRN (07:25)
[2024-03-25] MEDS ORDERED: ATROPINE SULFATE 0.1 MG/ML 10ML SYR IV PRN (07:25)
--- NOTE | 2024-03-25 07:25 | Hospitalist Progress Note ---
Date of Service March 25, 2024 Assessment & Plan (1) Upper GI bleed: Plan: Acute upper GI bleed with likely exacerbation d/t DOAC therapy: - FOBT positive at time of admission - AM Hgb 8.4, stable - Typed and crossmatched for 4u pRBCs-hold, blood consent obtained - Asymptomatic anemia, transfusion threshold Hgb<7 or if symptomatic - Continue Protonix 40mg IV BID - Consult GI: - EGD 03/25, significant for: - Normal esophagus. 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 Treated with bipolar cautery. Treatment not successful. Injected. Clips were placed. - Normal examined duodenum. - No specimens collected. - Resume clear liquid diet - Recommended holding Xarelto x1 week - CBC in AM, if hemoglobin stable and tolerating PO intake, likely discharge 03/26 (2) Acute blood loss anemia: Plan: Acute in setting of UGI bleed - AM Hgb 8.4 - Typed and crossmatched for 4u pRBCs-hold, blood consent obtained - Asymptomatic anemia, transfusion threshold Hgb<7 or if symptomatic - AM CBC (3) Acute kidney injury superimposed on chronic kidney disease: Plan: CKD stage II with baseline creatinine ~1.3 - Could be prerenal in the setting of volume contraction d/t GI bleed and diuretic therapy vs intrarenal d/t Bactrim DS extended course for E. 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 - Hold Xarelto in setting of UGI bleed/ABLA, hold until 04/01 per GI recommendation - SCDs for VTE ppx, encourage ambulation w/ assistance Plan Chronic stable medical conditions: - Glaucoma - continue eye drops - BPH - continue proscar - Neuropathy - continue gabapentin - HTN - hold HCTZ d/t LINDA as above, continue Toprol XL VTE ppx: xarelto held, SCDs FEN/GI LR clear liquid diet Admission and Anticipated Discharge Date Admission Date: March 23, 2024 Supervising Physician Co-Signing Physician Notes Attending Physician Supervision Note: I independently interviewed and examined the patient and verified the crawford histor y and physical, reviewed labs and image studies and agree with findings and care plan noted above. Subjective No acute overnight events, vitals stable. Patient denies acute changes that would suggest symptomatic anemia. Denies abdominal pain, N/V. Review of Systems Review of Systems: as per HPI Physical Exam Physical Exam: General: Alert and oriented. No acute distress Cardiac: Regular rate and rhythm, no murmurs appreciated Respiratory: Lungs clear to auscultation bilaterally, No increased work of breathing Abdominal: Soft, non-tender, non-distended. Bowel sounds present. Results & Data Results & Data Vital Signs (Past 12 Hours) Vital Signs Temp Pulse Pulse Resp BP BP Pulse Ox 03/25/24 03:51 36.6 C 70 18 113/71 95 03/24/24 23:25 36.6 C 65 18 134/84 98 03/24/24 21:43 64 03/24/24 19:30 O2 Del Method 03/25/24 03:51 Room Air 03/24/24 23:25 Room Air 03/24/24 21:43 03/24/24 19:30 Room Air Resident Activity Tracking Resident Involvement: Resident Care Provided Care Provided: Adult Hospital Medicine (4) Pulmonary emboli Acute cor pulmonale presence: without acute cor pulmonale Chronicity: acute Pulmonary embolism type: unspecified Qualified Code(s): I26.99 - Other pulmonary embolism without acute cor pulmonale
--- NOTE | 2024-03-25 08:07 | GI REPORT ---
[facility] Patient: ARNULFO MONTANO : 1940 Sex at : Male Age: 83 Years Procedure: Upper GI endoscopy Date: 03/25/2024 Attending Physician: Rachell Peralta MD Referring MD: Referred Self Indications: - Active gastrointestinal bleeding Medications: - Monitored Anesthesia Care - Propofol per Anesthesia - See the Anesthesia note for documentation of the administered medications Complications: - No immediate complications. Estimated Blood Loss: - Estimated blood loss was minimal. Procedure: - ASA Grade Assessment: III - A patient with severe systemic disease. - The egd scope was introduced through the mouth and advanced to the second part of the duodenum. - The upper GI endoscopy was accomplished without difficulty. - The patient tolerated the procedure well. Findings: - The examined esophagus was normal. - A single medium angiodysplastic lesions with stigmata of recent bleeding were found on the posterior wall of the stomach and in the gastric body. Coagulation for bleeding prevention using bipolar probe was unsuccessful. Area was successfully injected with 7 mL of a 0.1 mg/mL solution of epinephrine for hemostasis. For hemostasis, two hemostatic clips were successfully placed. There was no bleeding at the end of the procedure. - The exam of the stomach was otherwise normal. - The examined duodenum was normal. Impression: - Normal esophagus. 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 Treated with bipolar cautery. Treatment not successful. Injected. Clips were placed. - Normal examined duodenum. - No specimens collected. Recommendation: - Return patient to [facility] for ongoing care. Procedure Code(s): - 22472, Esophagogastroduodenoscopy, flexible, transoral; with control of bleeding, any method Diagnosis Code(s): - K92.2, Gastrointestinal hemorrhage, unspecified - K31.811, Angiodysplasia of stomach and duodenum with bleeding CPT(R) - 2023 copyright [employer]. All Rights Reserved. The CPT codes, CCI edits and ICD codes generated are intended as suggestions and were generated based on input data. These codes are preliminary and upon medical records coder review may be revised to meet current compliance and payer requirements. The provider is responsible for the final determination of appropriate codes, and modifiers. Dr. Rachell Peralta MD This document has been electronically signed. Note Initiated:03/25/2024 Note Completed:03/25/2024 8:07 AM \\[email or web address]\Provation\Results\[email or web address]\[id number]
[2024-03-25] MEDS: fentaNYL citrate PF 100 MCG/2 ML VIAL IV PRN (08:18)
--- NOTE | 2024-03-25 08:49 | Anesthesiology Progress Note ---
Date of Service March 25, 2024 Anesthesia Post Procedure Vital Signs Vital Signs: Temp Pulse Pulse Pulse Resp BP BP 03/25/24 08:40 74 18 145/88 H 03/25/24 08:30 76 22 158/92 H 03/25/24 08:20 82 22 165/90 H 03/25/24 08:10 80 27 H 164/88 H 03/25/24 08:02 36 C L 88 20 155/87 H 03/25/24 07:19 03/25/24 03:51 36.6 C 70 18 113/71 03/24/24 23:25 36.6 C 65 18 134/84 03/24/24 21:43 64 03/24/24 19:30 03/24/24 19:00 36.8 C 76 18 133/84 03/24/24 16:05 36.6 C 57 L 18 114/74 03/24/24 11:49 36.6 C 72 18 115/73 Pulse Ox O2 Del Method O2 Flow Rate 03/25/24 08:40 97 Room Air 03/25/24 08:30 99 Room Air 03/25/24 08:20 99 Room Air 03/25/24 08:10 96 Room Air 03/25/24 08:02 93 Oxymask 6 03/25/24 07:19 Room Air 03/25/24 03:51 95 Room Air 03/24/24 23:25 98 Room Air 03/24/24 21:43 03/24/24 19:30 Room Air 03/24/24 19:00 97 Room Air 03/24/24 16:05 95 Room Air 03/24/24 11:49 97 Room Air Pain Intensity Right Foot: Pain Intensity: 5 Midsternal: Pain Intensity: 7 Upper Abdomen: Pain Intensity: 4 Transfer of Care Handoff Completed per policy Notes Mental Status: alert / awake / arousable Patient Amnestic to Procedure: Yes Nausea / Vomiting: adequately controlled Pain: adequately controlled Airway Patency, RR, SpO2: stable & adequate BP & HR: stable & adequate Hydration State: stable & adequate Anesthetic Complications: no major complications apparent Notes: pt immediately post op was wretching and complaining of epigastric pain - had cautery and epi injected in stomach - ecg basically unchanged - through course in pacu with some pain medicine much improved symptoms. vitals stable thr oughout.
[2024-03-25] MEDS: fentaNYL citrate PF 100 MCG/2 ML VIAL ONE (09:53)
[2024-03-26 06:59] LABS: Hematocrit (blood only) 26.2 % (42.0-52.0); Hemoglobin 8.5 g/dl (14.0-18.0); Mean Corpuscular Hemoglobin 29.3 pg (25.0-34.0); Mean Corpuscular Hgb Conc 32.4 g/dL (32.0-36.0); Mean Corpuscular Volume 90.3 fL (80.0-100.0); Mean Platelet Volume 9.5 fL (9.4-12.4); Platelet Count 163 K/uL (130-400); RDW Coefficient of Variation 15.7 % (11.5-14.5); RDW Standard Deviation 52.3 fL (36.4-46.3); White Blood Count 4.24 K/ul (4.8-10.8)
[2024-03-26 07:14] LABS: BUN Creatinine Ratio 11.5 (10-20); Calcium 8.5 mg/dl (8.6-10.3); Creatinine Clr Calc Pharmacy 44.3 ml/min; Potassium 3.9 mmol/L (3.5-5.1)
[2024-03-26 08:11] VITALS: RESP 16
--- NOTE | 2024-03-26 10:08 | Discharge Summary ---
Date of Service March 26, 2024 Admission HPI Per Admitting Provider 83 year old man with anemia and melenic stools. He is here for EGD Admission Exam Per Admitting Provider Constitutional: WD/WN, vitals as above Neck: trachea midline, no thyromegaly Respiratory: normal respiratory effort, lungs clear to auscultation Cardiovascular: RRR, no murmur, no edema Gastrointestinal (Abdomen): normal bowel sounds, soft, nontender, no hepatosplenomegaly Principal Diagnosis upper GI bleed Discharge Exam General: Alert and oriented. No acute distress Cardiac: Regular rate and rhythm, no murmurs appreciated Respiratory: Lungs clear to auscultation bilaterally, No increased work of breathing Abdominal: Soft, non-tender, non-distended. Bowel sounds present. Discharge Data Allergies Allergy/AdvReac Type Severity Reaction Status Date / Time No Known Drug Allergies Allergy Verified 03/23/24 11:05 Consultations 03/23/24 15:37 Consult Gastroenterology Routine Procedures Performed Operation Date: 03/25/24 07:30 Actual Procedures p EGD Hemostasis(Not Applicable) - Rachell Peralta Jr, MD p EGD Hemostasis(Not Applicable) - Rachell Peralta Jr, MD Hospital Course (1) Upper GI bleed: Acute upper GI bleed with likely exacerbation d/t DOAC therapy: - FOBT positive at time of admission - GI consulted : - EGD 03/25, significant for: - Normal esophagus. 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 Treated with bipolar cautery. Treatment not successful. Injected. Clips were placed. - Normal examined duodenum. - No specimens collected. - Recommended holding Xarelto x1 week, may resume 04/01/2024 - AM Hgb 8.5 and stable at time of discharge - recommend outpatient follow up with repeat labs. - Continue Protonix 40mg PO BID x30 days (2) Acute blood loss anemia: Acute in setting of UGI bleed - AM Hgb 8.5 and stable at time of discharge - recommend outpatient follow up with repeat labs. (3) Acute kidney injury superimposed on chronic kidney disease: CKD stage II with baseline creatinine ~1.3 - Could be prerenal in the setting of volume contraction d/t GI bleed and diuretic therapy vs intrarenal d/t Bactrim DS extended course for E. 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 - Hold Xarelto in setting of UGI bleed/ABLA, hold until 04/01 per GI recommendation Plan Chronic stable medical conditions: - Glaucoma - continue eye drops - BPH - continue proscar - Neuropathy - continue gabapentin - HTN - hold HCTZ d/t LINDA as above, continue Toprol XL VTE ppx: xarelto held, SCDs FEN/GI LR clear liquid diet Total Time Total Time Spent Total Time Spent (In Minutes): see attending attestation Discharge Plan Discharge Items Patient Disposition: Home - Self-Care Reason For Visit: UGI BLEED, ACUTE BLOOD LOSS ANEMIA Discharge Diagnosis: UGI bleed, LINDA Activity: Resume your previous activity Non-emergency contact: Primary Care Provider Call non-emergency contact if: you have any medication questions and your symptoms worsen Follow-up/Referrals: July Ordonez DO [Primary Care Provider] - 03/29/24 10:10 am (With Dr. Banegas, arrived by 09:45AM) Diet: Heart Healthy Addtl Attending Provider Instructions: You were admitted to the hospital due to an upper GI bleed. This was treated during your upper endoscopy. Following discharge, please continue to take Protonix 40mg twice daily for the next month. This is an acid-reducing medicat ion to allow the stomach lining to heal. This medication has been sent to your pharmacy. Please coordinate with your PCP to determine when this can ultimately be discontinued. Please hold your blood thinner, Xarelto, for one week from the endoscopy - you may resume this medication 04/01/2024. Please try to follow up with your PCP as soon as possible, ideally some time this week. We recommend obtaining repeat lab work to ensure that your hemoglobin is stable and that your kidney function numbers continue to trend towards baseline. Until you follow up with your PCP, please hold the Hydroch lorothiazide. Pending Studies at Discharge: No Stand-Alone Forms: [employer], Smoking Cessation Medications and DC Order Prescriptions: New pantoprazole [Protonix] 40 mg tablet,delayed release (DR/EC) 40 mg PO BID 30 Days Qty: 60 0RF Continued multivitamin Capsule 1 cap PO QAM Qty: 0 [id number] Complex [id number] mg Tablet 2 tab PO QPM Qty: 0 polyethylene glycol 3350 [Miralax] 17 gram/dose Powder 1 dose PO QPM Qty: 0 docusate sodium 100 mg Tablet 100 mg PO QPM Qty: 0 Systane (propylene glycol) 0.4-0.3 % drops 1 drp OPL BID PRN (Reason: Dry Eyes) Qty: 0 solifenacin [Vesicare] 10 mg tablet 10 mg PO QPM Qty: 90 3RF metoprolol succinate 100 mg tablet extended release 24 hr 100 mg PO QPM Qty: 90 3RF calcitriol 0.25 mcg capsule 0.25 mcg PO 3XWK Qty: 36 3RF Rx Instructions: 0.25 mcg PO every tuesday, tuesday, tuesday; Simbrinza 1-0.2 % drops,suspension 1 drp OPR TID gabapentin 100 mg capsule 100 mg PO DAILY acetaminophen [Tylenol Extra Strength] 500 mg Tablet 650 mg PO HS Rx Instructions: Unable to verify OTC meds at this date/time. finasteride [Proscar] 5 mg tablet 5 mg PO QAM Rx Instructions: TAKE 1 TABLET BY MOUTH DAILY IN THE MORNING simvastatin 20 mg tablet 20 mg PO QPM hydrocortisone 2.5 % cream with perineal applicator 1 applic topical DAILY PRN (Reason: Itching) Rx Instructions: APPLY RECTALLY DAILY NEEDED FOR HEMORRHOIDS DIRECTED prednisolone acetate 1 % drops,suspension 1 drp ophthalmic (eye) Q OTHER DAY Held hydrochlorothiazide 12.5 mg tablet 12.5 mg PO QAM Qty: 90 3RF Hold Instructions: Resume on 04/02/24. Please hold until you follow up with your PCP Xarelto 20 mg tablet 20 mg PO QPM Hold Instructions: Resume on 04/01/24. Discontinued omeprazole 20 mg tablet,delayed release (DR/EC) 20 mg PO QAM Qty: 90 3RF Eliquis 5 mg (74 tabs) tablets,dose pack 5 mg PO BID Qty: 74 0RF Rx Instructions: Please take 10mg Twice daily for 6 days, then thereafter 5mg twice daily Discharge Orders: Discharge Order (Routine); Ordered 03/26/24 Ordered By: Tian Brown Admission Data Admit Date/Time: 03/23/24 12:12 Attending Provider: Froylan Aquino Admit Provider: Osman Ibrahim Primary Care Provider: July Ordonez Other Providers: Osman Ibrahim; Efrain Snowden Other Interventions: Discharge Summary Assessment (RN) Last Done: 03/26/24 10:46 Supervising Physician Co-Signing Physician Notes I personally examined the patient and verified all crawford points of history and exam, discussed case, and agree with decision making with Dr Brown feels well feels up to going home vitals noted nad heent nc at mmm breathing unlabored no accessory muscles good effort skin no rashes no pallor or icterus GI bleed w acute blood loss anemia - s/p EGD intervention for hemostasis. continue PPI for now. holding DOAC for about a week. safe/stable for home, otherwise as above recent PE - ~2 months ago, but GI bleed, visible vessel, required intervention for hemostasis - will need to interrupt anticoagulation briefly - resume around 04/01 as long as stable close and ongoing PCP f/u, but stable for home
[2024-03-26 11:33] VITALS: BP 101/68; PULSE 66; TEMP 98.2; O2SAT 95
--- NOTE | 2024-03-26 12:14 | Billing Data ---
Date of Service March 26, 2024 Coding Level of Care Code 35992 IN/OBS DISCH 30 MIN/LESS
== END 2024-03-26 13:34 | disposition home or self-care (01) | DRG 377 ==
LOC: ED 09:13 → SUATTDRO 12:12 → EDINP 12:12 → 2N 14:40

== ENCOUNTER 2025-02-08 19:15 | Observation (INO) ==
[2025-02-08 19:53] LABS: Hematocrit (blood only) 42.4 % (42.0-52.0); Hemoglobin 14.4 g/dl (14.0-18.0); Immature Granulocytes # (auto) 0.03 K/uL (0.01-0.20); Immature Granulocytes % (auto) 0.6 %; Mean Corpuscular Hemoglobin 30.9 pg (25.0-34.0); Mean Corpuscular Volume 91.0 fL (80.0-100.0); Platelet Count 176 K/uL (130-400); RDW Standard Deviation 45.2 fL (36.4-46.3); Red Blood Count 4.66 M/uL (4.70-6.10); White Blood Count 5.43 K/ul (4.8-10.8)
[2025-02-08] MEDS: OPTIRAY 320 125ml IV ONE (20:01)
[2025-02-08 20:10] LABS: Alanine Aminotransferase 13.0 U/L (7-52); Albumin Globulin Ratio 1.3 (0.9-2); Alkaline Phosphatase 50.0 U/L (34-104); Anion Gap 8.0 (3-11); Bilirubin,Total 0.4 mg/dl (0.2-1.0); Blood Urea Nitrogen 26.0 mg/dl (6-23); Calcium 9.8 mg/dl (8.6-10.3); Carbon Dioxide 25.0 mmol/L (21-32); Chloride 105.0 mmol/L (98-107); Creatinine Clr Calc Pharmacy 52.1 ml/min; Globulin 3.0 gm/dl (2.5-4.0); Glucose 135.0 mg/dl (70-99(Fasting)); Lipase 33.0 U/L (11-82); Magnesium 2.2 mg/dl (1.7-2.4); Potassium 3.8 mmol/L (3.5-5.1); Sodium 138.0 mmol/L (136-145); Total Protein 6.8 gm/dl (6.0-8.3)
[2025-02-08] MEDS: SODIUM CHLORIDE 0.9% 250 ML IV ONE (20:14)
[2025-02-08 20:36] LABS: INR 0.9 (0.9-1.1); Partial Thromboplastin Time 27 Seconds (21-31); Prothrombin Time 10.3 Seconds (9.0-12.0)
--- NOTE | 2025-02-08 21:06 | Emergency Department Note ---
History of Present Illness General Chief complaint: Weakness Stated complaint: LIGHTHEADEDNESS, LOSS OF BALANCE Time Seen by Provider: 02/08/25 19:24 History of Present Illness 84 yo M with a pmhx of CKD stage 2, HTN, GI bleed (02/2023), and bilateral PE and RLE DVT (01/2024) no longer on antiplatelet or anticoagulation medicine presents to ER complaining of not feeling right foggy in the head since this morning. Patient states he also has difficulty ambulating which is new for him. He does walk with a cane but now he feels more off balance. Patient denies chest pain, dyspnea, fever, chills, numbness, tingling, localized weakness, vision changes. Home Medications Medication Instructions Recorded Confirmed Type glucosamine 375 vl-pfzyzxrlj-roo 2 tab PO QPM ##0 10/11/14 02/08/25 History no1 500 mg-C 15 mg-ana 0.5 mg tablet (Aesfboisvdj-Ekijravhdcf-GSC Complex) docusate sodium 100 mg tablet 100 mg PO QPM ##0 01/17/18 02/08/25 History polyethylene glycol 3350 17 1 dose PO QPM ##0 01/17/18 02/08/25 History gram/dose oral powder (Miralax) brinzolamide 1 %-brimonidine 0.2 % 1 drp OPR TID 02/05/21 02/08/25 History eye drops,suspension (Simbrinza) peg 400-propylene glycol 0.4 %-0.3 1 drp OPL BID PRN Dry Eyes #0 mL 03/08/22 02/08/25 History % eye drops (Systane (propylene glycol)) metoprolol succinate 100 mg 100 mg PO QPM #90 tabs 02/04/23 02/08/25 Rx tablet,extended release 24 hr acetaminophen 500 mg tablet 650 mg PO HS 02/07/23 02/08/25 History (Tylenol Extra Strength) finasteride 5 mg tablet (Proscar) 5 mg PO QAM 02/07/23 02/08/25 History simvastatin 20 mg tablet 20 mg PO QPM 02/10/23 02/08/25 History hydrocortisone 2.5 % topical cream 1 applic topical DAILY PRN Itching 02/27/23 02/08/25 History with perineal applicator hydrochlorothiazide 12.5 mg tablet 12.5 mg PO QAM #90 tabs 03/08/23 02/08/25 Rx prednisolone acetate 1 % eye 1 drp ophthalmic (eye) Q OTHER DAY 03/23/24 02/08/25 History drops,suspension rivaroxaban 20 mg tablet (Xarelto) 20 mg PO QPM 03/23/24 02/08/25 History calcitriol 0.25 mcg capsule 0.25 mcg PO 3XWK #36 caps 04/12/24 02/08/25 Rx oxybutynin chloride 5 mg 5 mg PO DAILY #90 tabs 07/31/24 02/08/25 Rx tablet,extended release 24 hr netarsudil 0.02 % eye drops 1 drp ophthalmic (eye) QPM 01/09/25 02/08/25 History (Rhopressa) ascorbic acid (vitamin C) 500 mg 500 mg PO QPM 02/08/25 02/08/25 History tablet (Vitamin C) cholecalciferol (vitamin D3) 25 25 mcg PO QPM 02/08/25 02/08/25 History mcg (1,000 unit) capsule (Vitamin D3) cyanocobalamin (vitamin B-12) 1,000 mcg PO QPM 02/08/25 02/08/25 History 1,000 mcg tablet (Vitamin B-12) diclofenac sodium 1 % topical gel 2 g topical QID PRN Pain 02/08/25 02/08/25 History (Voltaren Arthritis Pain) gabapentin 100 mg capsule 300 mg PO DAILY 02/08/25 02/08/25 History multivitamin 1 tab PO DAILY 02/08/25 02/08/25 History Allergies Allergy/AdvReac Type Severity Reaction Status Date / Time No Known Allergies Allergy Verified 02/08/25 21:01 Past Med/Surg History Problem List (Updated 02/08/25 @ 21:56 by María Velazquez PA-C) Light-headed (Acute) Ambulatory dysfunction (Acute) Acute blood loss anemia Left-sided chest pain (Acute) Pulmonary infarction (Acute) Status post right knee replacement (~10/2023) Osteoarthritis of right knee Lower extremity edema Trigger finger of left hand BPH with obstruction/lower urinary tract symptoms (Acute) Degenerative joint disease, multiple joints on both sides of body (Acute) Disc degeneration, lumbar (Acute) Glaucoma (Acute) s/p surgical intervention bilat Insomnia (Acute) Nephrolithiasis (Acute) Solitary thyroid nodule (Acute) Osteoarthritis Chronic kidney disease (Acute) follows w/ Dr Silverio Solorio per patient Hyperlipidemia Medical History Acute upper GI bleed Acute kidney injury superimposed on chronic kidney disease Pulmonary emboli Hypertension Obesity Hx of intestinal obstruction (~2006) Hx of glaucoma Hx of upper gastrointestinal hemorrhage (~02/2023) Hx of septic shock (~2016) History of blood transfusion (~2000) H/O degenerative disc disease BPH (benign prostatic hyperplasia) GERD (gastroesophageal reflux disease) Surgical History Hx of bilateral cataract extraction Hx of colonoscopy with polypectomy History of esophagogastroduodenoscopy (EGD) History of reverse total replacement of left shoulder joint (~01/03/23) H/O removal of cyst (~1974) History of laminectomy Hx of arthroscopy of shoulder History of carpal tunnel release of both wrists Hx of repair of rotator cuff History of total right hip arthroplasty (~2000) Hx of foot surgery (~2015) Hx of total shoulder replacement Hx of cystoscopy Hx of tonsillectomy H/O hernia repair Family History Mother Tuberculosis Sister Breast cancer Father Cardiac disorder Myocardial infarction Brother Dementia Denies family history of Ovarian cancer Prostate cancer Colorectal cancer Social History Smoking Status: Former smoker Tobacco Type: Cigarettes Age Started Using Tobacco: 17; Age Quit Using Tobacco: 30; packs per day: 2; Cigarettes Per Day: 1 1/2 packs per day 50 years ago; Second Hand Exposure: No; Do You Dip or Chew Tobacco: No; Hx Alcohol Use: No Hx Substance Use: No Preferred Language: Tamazight Communication Ability: Effective Visual Impairment: Limited Hearing Ability: Normal Inspector Toys Required: No Beliefs That Will Affect Care: None marital status: Current Living Situation: Spouse Current Living Situation Comment: Spouse and Legal guardian of 2 grandsons current occupational status: retired 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 Feels Safe at Home: Yes Childhood Exposure to Second-Hand Smoke: Yes Diet: regular caffeine: Yes (one cup of coffee each day) during the past year weight has: decreased > 10 lbs Dental Care, Regularly: No Physical Activity Frequency: Daily Seatbelt Use: always Sunscreen Use: Yes (sometimes ) Assistive Devices: Denture - Upper, Denture - Lower, Glasses and Hearing Aid - Bilateral Review of Systems A total of 10 systems reviewed and were otherwise negative Physical Exam Vital Signs Vital Signs - 24 hr 02/08/25 19:19 02/08/25 20:19 02/08/25 20:35 Temperature 36.6 C Temperature Source Temporal Artery Scan Pulse Rate 91 H 83 Pulse Rate [Apical] 81 Pulse Rhythm [Apical] Regular Pulse Strength [Apical] Normal Respiratory Rate 18 20 Respiratory Effort / Characteristics Non-Labored Spontaneous Non-Labored Spontaneous Respiratory Depth Normal Normal Respiratory Pattern Regular Blood Pressure 146/87 H Blood Pressure [Right Arm] 121/73 Blood Pressure Mean 106 Blood Pressure Mean [Right Arm] 89 Blood Pressure Position [Right Arm] Lying Pulse Oximetry 95 94 Oxygen Delivery Method Room Air Room Air Sepsis Recent Fever Within 48 Hours No Sepsis New/Unexplained Change in Mental Status No Sepsis Action Taken by Nursing No Action Required 02/08/25 22:02 Temperature Temperature Source Pulse Rate Pulse Rate [Apical] 84 Pulse Rhythm [Apical] Regular Pulse Strength [Apical] Normal Respiratory Rate 20 Respiratory Effort / Characteristics Non-Labored Spontaneous Respiratory Depth Normal Respiratory Pattern Regular Blood Pressure Blood Pressure [Right Arm] 131/79 Blood Pressure Mean Blood Pressure Mean [Right Arm] 96 Blood Pressure Position [Right Arm] Lying Pulse Oximetry 95 Oxygen Delivery Method Room Air Sepsis Recent Fever Within 48 Hours Sepsis New/Unexplained Change in Mental Status Sepsis Action Taken by Nursing VITALS: Vitals are noted on the nurse's note and reviewed by myself. Vital signs stable. GENERAL: Pleasant gentleman following commands, in no acute distress, nondiaphoretic, well-developed well-nourished. SKIN: The skin was without rashes, erythema, edema, or bruising. There is no tenting of the skin. Capillary reflex less than 2 seconds. HEAD: Normocephalic atraumatic. EARS: External auditory canals clear EYES: Pupils equal round and reactive to light and accommodation. Conjunctivae without injection, sclerae without icterus. Extraocular movements intact. NOSE: Patent, no discharge. MOUTH: Mucous membranes moist. Pharynx without erythema or exudate. Uvula midline. Airway patent. Tongue does not deviate. NECK: Supple without nuchal rigidity. No lymphadenopathy. No thyromegaly. Cervical spine is nontender. No JVD. HEART: Regular rate and rhythm LUNGS: Clear to auscultation bilaterally without wheezes, rales or rhonchi. No retractions or accessory muscle use. ABDOMEN: Positive bowel sounds x 4. Normal tympanic percussion. Soft, nontender, without masses or organomegaly. Walker sign negative. No guarding or rebound tenderness. No CVA tenderness MUSCULOSKELETAL: No muscle atrophy, erythema, or edema noted. NEURO: Patient was alert and oriented to person place and time. Normal sensation to light and sharp touch. Cranial nerves II through XII grossly intact. No pronator drift. Cerebellar exam intact. No focal neurological deficits. Course Administered Medications Discontinued Medications Sodium Chloride (Nss) 250 mls @ 999 mls/hr IV .Q16M ONE Stop: 02/08/25 20:00 Last Infusion: 02/08/25 20:53 Dose: Infused Documented By: Admin: 02/08/25 20:14 Dose: 999 mls/hr Documented By: AKOSUA Ioversol (Optiray 320 125ml) 115 ml IV ONCE ONE Stop: 02/08/25 20:01 Last Admin: 02/08/25 20:01 Dose: 115 ml Documented By: JED Medical Decision Making Medical Records Attestation: I reviewed the patient's medical records. Home Medications Current Medication List: was personally reviewed by me Laboratory Data Attestation: I reviewed the patient's lab results. 02/08/25 19:35 02/08/25 19:35 Lab Results 02/08/25 02/08/25 Range/Units 19:35 19:44 WBC 5.43 (4.8-10.8) K/ul RBC 4.66 L (4.70-6.10) M/uL Hgb 14.4 (14.0-18.0) g/dl POC Hgb 14.3 (14.0-18.0) g/dl Hct 42.4 (42.0-52.0) % POC Hct 42 (42-52) % MCV 91.0 (80.0-100.0) fL MCH 30.9 (25.0-34.0) pg MCHC 34.0 (32.0-36.0) g/dL RDW Std Deviation 45.2 (36.4-46.3) fL RDW Coeff of Sharon 13.5 (11.5-14.5) % Plt Count 176 (130-400) K/uL MPV 9.3 L (9.4-12.4) fL Immature Gran % (Auto) 0.6 % Neut % (Auto) 66.2 % Lymph % (Auto) 18.2 % [place] % (Auto) 11.0 % Eos % (Auto) 3.3 % Baso % (Auto) 0.7 % Neut # (Auto) 3.59 (1.40-6.50) K/uL Lymph # (Auto) 0.99 L (1.20-3.40) K/uL [place] # (Auto) 0.60 H (0.11-0.59) K/uL Eos # (Auto) 0.18 (0.00-0.50) K/uL Baso # (Auto) 0.04 (0.00-0.20) K/uL Immature Gran # (Auto) 0.03 (0.01-0.20) K/uL PT 10.3 (9.0-12.0) Seconds INR 0.9 (0.9-1.1) APTT 27 (21-31) Seconds PTT Ratio 1.0 POC Sodium 139 (135-144) mmol/L Sodium 138 (136-145) mmol/L POC Potassium 3.8 (3.3-5.0) mmol/L Potassium 3.8 (3.5-5.1) mmol/L POC Chloride 105 (101-112) mmol/L Chloride 105 (98-107) mmol/L Carbon Dioxide 25 (21-32) mmol/L POC Total CO2 21 L (24-31) mmol/L Anion Gap 8 (3-11) POC Anion Gap 18.0 (16-25) mmol/L POC BUN 25 H (7-18) mg/dl BUN 26 H (6-23) mg/dl Creatinine 1.32 (0.6-1.4) mg/dl POC Creatinine 1.4 H (0.6-1.3) mg/dl Est Cr Clr Drug Dosing 52.1 ml/min eGFR 52.53 BUN/Creatinine Ratio 19.7 (10-20) Glucose 135 H (70-99(Fasting)) mg/dl POC Glucose (other) 133 H (70-99) mg/dl Calcium 9.8 (8.6-10.3) mg/dl POC Ioniz Calcium Erasmo 1.26 (1.12-1.32) mmol/l Magnesium 2.2 (1.7-2.4) mg/dl Total Bilirubin 0.4 (0.2-1.0) mg/dl AST 18 (13-39) U/L ALT 13 (7-52) U/L Alkaline Phosphatase 50 (34-104) U/L Troponin I High Sens 5.8 (0-20) pg/ml Total Protein 6.8 (6.0-8.3) gm/dl Albumin 3.8 (3.4-5.0) gm/dl Globulin 3.0 (2.5-4.0) gm/dl Albumin/Globulin Ratio 1.3 (0.9-2) Lipase 33 (11-82) U/L Imaging Data Attestation: I personally reviewed and interpreted this imaging study as follows: Radiologist's Impression: Chest X-Ray 02/08/25 19:45 Exam(s): XR CXR 1 VIEW EXAM: XR Chest, 1 View CLINICAL HISTORY: Reason for exam: neuro deficit, acute stroke suspected. TECHNIQUE: Frontal view of the chest. COMPARISON: None FINDINGS: Hardware: None. Lungs/pleura: Bilateral lower lung opacities. No pleural effusion or pneumothorax. Heart/mediastinum: Normal. No cardiomegaly. Soft tissues: Unremarkable. Bones: No acute fracture. Bilateral shoulder arthroplasties. Upper abdomen: Normal. IMPRESSION: Bilateral lower lung opacities probably represent atelectasis. Electronically signed by: Ricardo Bruce M.D. 02/08/25 21:[address] 02/08/25 19:45 CR Exam(s): CT HEAD Without Contrast EXAM: CT Head Without Intravenous Contrast CLINICAL HISTORY: Reason for exam: neuro deficit, acute stroke suspected. TECHNIQUE: Axial computed tomography images of the head/brain without intravenous contrast. CTDI is 34.62 mGy and DLP is 624.41 mGy-cm. Automated exposure control was utilized for the study. A dose lowering technique was utilized adhering to the principles of ALARA. COMPARISON: CT head on 04/13/2024 FINDINGS: Brain: No acute infarct or hemorrhage identified. No extra-axial fluid collection. No mass effect or midline shift. Scattered areas of hypoattenuation in the supratentorial white matter likely represent chronic small vessel ischemic changes. Stable nonspecific small round 5 mm hyperdense structure along the right aspect of the interhemispheric falx. Question small meningioma. Ventricles and sulci: Prominence of the ventricles and sulci is likely secondary to cerebral volume loss. Bones: Normal. No bony lesion or acute fracture. Subcutaneous tissues: Normal. Sinuses: Normal. No air-fluid levels or mucosal thickening. Mastoid air cells: Normal. Orbits: Bilateral lens implants. Other: Atherosclerotic calcifications in the intracranial vasculature. IMPRESSION: 1. No acute intracranial abnormality. Further evaluation could be performed with MRI if clinically indicated. 2. Chronic small vessel ischemic changes and cerebral volume loss. Communications: Call Doctor Stroke Electronically signed by: Ricardo Bruce M.D. 02/08/25 21:13 PM Head CTA 02/08/25 19:45 CR Exam(s): CTA HEAD With Contrast IV Amt: 115cc opti 320 EXAM: CT Angiography Head With Intravenous Contrast CLINICAL HISTORY: Reason for exam: neuro deficit, acute stroke suspected. TECHNIQUE: Axial computed tomographic angiography images of the head with intravenous contrast. CTDI is 34.62 mGy and DLP is 624.41 mGy-cm. Automated exposure control was utilized for the study. A dose lowering technique was utilized adhering to the principles of ALARA. MIP reconstructed images were created and reviewed. CONTRAST: Patient received 115cc opti 320 of IV contrast COMPARISON: None FINDINGS: Right internal carotid artery: Atherosclerotic calcifications in the distal right ICA. No significant stenosis. No aneurysm. Right anterior cerebral artery: Unremarkable. No occlusion or significant stenosis. No aneurysm. Right middle cerebral artery: Unremarkable. No occlusion or significant stenosis. No aneurysm. Right posterior cerebral artery: Unremarkable. No occlusion or significant stenosis. No aneurysm. Right vertebral artery: Diminutive V4 segment of the right vertebral artery. Left internal carotid artery: Atherosclerotic calcifications in the distal left ICA. No significant stenosis. No aneurysm. Left anterior cerebral artery: Unremarkable. No occlusion or significant stenosis. No aneurysm. Left middle cerebral artery: Unremarkable. No occlusion or significant stenosis. No aneurysm. Left posterior cerebral artery: Unremarkable. No occlusion or significant stenosis. No aneurysm. Left vertebral artery: Mild atherosclerotic calcification in the V4 segment of the left vertebral artery. No significant stenosis. Basilar artery: Unremarkable. No occlusion or significant stenosis. No aneurysm. IMPRESSION: No significant stenosis, occlusion, or aneurysm in the central or large intracranial arteries. Communications: Call Doctor Stroke Electronically signed by: Ricardo Bruce M.D. 02/08/25 21:18 PM Neck CTA 02/08/25 19:45 CR Exam(s): CTA NECK With Contrast IV Amt: 115cc opti 320 EXAM: CT Angiography Neck With Intravenous Contrast CLINICAL HISTORY: Reason for exam: neuro deficit, acute stroke suspected. TECHNIQUE: Routine carotid CT angiography protocol was performed with intravenous contrast. NASCET criteria using the distal ICAs for comparison were used for evaluation of stenoses. CTDI is 34.62 mGy and DLP is 624.41 mGy-cm. Automated exposure control was utilized for the study. A dose lowering technique was utilized adhering to the principles of ALARA. MIP reconstructed images were created and reviewed. CONTRAST: Patient received 115cc opti 320 of IV contrast COMPARISON: None FINDINGS: VASCULATURE: Right common carotid artery: Unremarkable. No occlusion or significant stenosis. No dissection. Right internal carotid artery: Atherosclerotic changes in the right carotid bulb and proximal right ICA. No significant stenosis. No dissection. Right external carotid artery: Unremarkable. No occlusion. 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 Reconstituted flow distally. Left common carotid artery: Unremarkable. No occlusion or significant stenosis. No dissection. Left internal carotid artery: Atherosclerotic changes in the left carotid bulb and proximal left ICA. No significant stenosis. No dissection. Left external carotid artery: Unremarkable. No occlusion. Left vertebral artery: Dominant left vertebral artery. No occlusion or significant stenosis. No dissection. Aorta: Atherosclerotic changes in the aorta. NECK: Bones/joints: Unremarkable. No acute fracture. Soft tissues: Unremarkable. Lung apices: Clear. CAROTID STENOSIS REFERENCE USING NASCET CRITERIA: % ICA stenosis = (1 - narrowest ICA diameter/diameter of distal cervical ICA) x 100. Mild - <50% stenosis. Moderate - 50-69% stenosis. Severe - 70-94% stenosis. Near occlusion - 95-99% stenosis. Occluded - 100% stenosis. 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 Reconstituted flow distally. Communications: Call Doctor Stroke Electronically signed by: Ricardo Bruce M.D. 02/08/25 21:16 PM MDM Narrative Prior records/ancillary studies reviewed and summarized above. Nursing notes reviewed. Additional history obtained from family. The patient's history was concerning for increased difficulty with balance and feeling lightheaded and off balance. Differential diagnosis: Etiologies such as metabolic, infection, hypo/hyperglycemia, electrolyte abnormalities, cardiac sources, intracerebral event, toxicologic, neurologic, as well as others were entertained. Physical examination: As above. ER treatment provided: IV Lock An order was placed for continuous cardiac monitoring. The monitor shows a rate of 60-100 with a sinus rhythm per my interpretation. IV fluid On reassessment the patient felt better. Diagnostics interpretation by me: ECG: Ordered for weakness EKG: Right bundle branch block, left anterior fascicular block, no acute ST-T wave changes, rate 81. Impression normal sinus rhythm with a right bundle branch block and a left anterior fascicular block independently interpreted by myself The labs Independently Interpreted by myself revealed no worrisome leukocytosis, stable H&H, mild hyperglycemia without DKA. Negative troponin Imaging studies: Imaging was reviewed and read by radiology Consultation: A consultation was placed with the hospitalist. The case was discussed and diagnostics were reviewed. The patient was evaluated in the ER for further treatment. Exam and history seem consistent with feeling off balance and difficulty ambulating who felt lightheaded since this morning. Patient could not ambulate because he felt so unsteady with his gait. Imaging was reviewed and MRI was ordered. Patient is agreeable treatment plan of admission. Medicine was consulted case discussed. He will be evaluated for admission. By the evaluation outlined above emergent etiologies such as infection, electrolyte abnormalities, cardiac sources, toxologic, abnormalities blood glucose, metabolic, as well as others were deemed relatively unlikely. The pt informed about the findings as listed above. All questions were answered and pleased with the treatment. The chart was completed utilizing [employer] voice recognition software. Grammatical errors, random word insertions, pronoun errors, and incomplete sentences are an occassional consequence of this system due to software limitations, ambient noise, and hardware issues. Any formal questions or concerns about the content, text, or information contained within the body of this dictation should be directly addressed to the physician foundation assistant for clarification. Impression & Plan Ambulatory dysfunction, Light-headed Discharge Plan Visit Data Chief Complaint: Weakness Stated Complaint: LIGHTHEADEDNESS, LOSS OF BALANCE ED Provider: Dimitri Field ED Midlevel Provider: María Velazquez Discharge Problem: Ambulatory dysfunction, Light-headed Patient Disposition: Admitted As Inpatient Condition: Good Forms Stand Alone Forms: My [facility] [place] [employer] [place] Prescriptions Prescriptions: No Action Uasboivuvri-Jlmbw-GNO Complex 560-300-37-0.5 mg Tablet 2 tab PO QPM Qty: 0 polyethylene glycol 3350 [Miralax] 17 gram/dose Powder 1 dose PO QPM Qty: 0 docusate sodium 100 mg Tablet 100 mg PO QPM Qty: 0 Systane (propylene glycol) 0.4-0.3 % drops 1 drp OPL BID PRN (Reason: Dry Eyes) Qty: 0 metoprolol succinate 100 mg tablet extended release 24 hr 100 mg PO QPM Qty: 90 3RF hydrochlorothiazide 12.5 mg tablet 12.5 mg PO QAM Qty: 90 3RF Hold Instructions: Resume on 04/02/24. Please hold until you follow up with your PCP calcitriol 0.25 mcg capsule 0.25 mcg PO 3XWK Qty: 36 3RF Rx Instructions: 0.25 mcg PO every tuesday, tuesday, tuesday; oxybutynin chloride 5 mg tablet extended release 24hr 5 mg PO DAILY Qty: 90 2RF Simbrinza 1-0.2 % drops,suspension 1 drp OPR TID Rhopressa 0.02 % drops 1 drp ophthalmic (eye) QPM acetaminophen [Tylenol Extra Strength] 500 mg Tablet 650 mg PO HS finasteride [Proscar] 5 mg tablet 5 mg PO QAM Rx Instructions: TAKE 1 TABLET BY MOUTH DAILY IN THE MORNING simvastatin 20 mg tablet 20 mg PO QPM hydrocortisone 2.5 % cream with perineal applicator 1 applic topical DAILY PRN (Reason: Itching) Rx Instructions: APPLY RECTALLY DAILY NEEDED FOR HEMORRHOIDS DIRECTED prednisolone acetate 1 % drops,suspension 1 drp ophthalmic (eye) Q OTHER DAY Xarelto 20 mg tablet 20 mg PO QPM Hold Instructions: Resume on 04/01/24. multivitamin Tablet 1 tab PO DAILY cyanocobalamin (vitamin B-12) [Vitamin B-12] 1,000 mcg Tablet 1,000 mcg PO QPM ascorbic acid (vitamin C) [Vitamin C] 500 mg Tablet 500 mg PO QPM gabapentin 100 mg capsule 300 mg PO DAILY cholecalciferol (vitamin D3) [Vitamin D3] 25 mcg (1,000 unit) Capsule 25 mcg PO QPM diclofenac sodium [Voltaren Arthritis Pain] 1 % gel 2 g topical QID PRN (Reason: Pain) Referrals Referrals: July Ordonez DO [Primary Care Provider] -
--- NOTE | 2025-02-08 21:14 | CT Scan Report ---
Exam(s): CT HEAD Without Contrast EXAM: CT Head Without Intravenous Contrast CLINICAL HISTORY: Reason for exam: neuro deficit, acute stroke suspected. TECHNIQUE: Axial computed tomography images of the head/brain without intravenous contrast. CTDI is 34.62 mGy and DLP is 624.41 mGy-cm. Automated exposure control was utilized for the study. A dose lowering technique was utilized adhering to the principles of ALARA. COMPARISON: CT head on 04/13/2024 FINDINGS: Brain: No acute infarct or hemorrhage identified. No extra-axial fluid collection. No mass effect or midline shift. Scattered areas of hypoattenuation in the supratentorial white matter likely represent chronic small vessel ischemic changes. Stable nonspecific small round 5 mm hyperdense structure along the right aspect of the interhemispheric falx. Question small meningioma. Ventricles and sulci: Prominence of the ventricles and sulci is likely secondary to cerebral volume loss. Bones: Normal. No bony lesion or acute fracture. Subcutaneous tissues: Normal. Sinuses: Normal. No air-fluid levels or mucosal thickening. Mastoid air cells: Normal. Orbits: Bilateral lens implants. Other: Atherosclerotic calcifications in the intracranial vasculature. IMPRESSION: 1. No acute intracranial abnormality. Further evaluation could be performed with MRI if clinically indicated. 2. Chronic small vessel ischemic changes and cerebral volume loss. Communications: Call Doctor Stroke Electronically signed by: Ricardo Bruce M.D. 02/08/25 21:13 PM
--- NOTE | 2025-02-08 21:17 | CT Scan Report ---
Exam(s): CTA NECK With Contrast IV Amt: 115cc opti 320 EXAM: CT Angiography Neck With Intravenous Contrast CLINICAL HISTORY: Reason for exam: neuro deficit, acute stroke suspected. TECHNIQUE: Routine carotid CT angiography protocol was performed with intravenous contrast. NASCET criteria using the distal ICAs for comparison were used for evaluation of stenoses. CTDI is 34.62 mGy and DLP is 624.41 mGy-cm. Automated exposure control was utilized for the study. A dose lowering technique was utilized adhering to the principles of ALARA. MIP reconstructed images were created and reviewed. CONTRAST: Patient received 115cc opti 320 of IV contrast COMPARISON: None FINDINGS: VASCULATURE: Right common carotid artery: Unremarkable. No occlusion or significant stenosis. No dissection. Right internal carotid artery: Atherosclerotic changes in the right carotid bulb and proximal right ICA. No significant stenosis. No dissection. Right external carotid artery: Unremarkable. No occlusion. 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 Reconstituted flow distally. Left common carotid artery: Unremarkable. No occlusion or significant stenosis. No dissection. Left internal carotid artery: Atherosclerotic changes in the left carotid bulb and proximal left ICA. No significant stenosis. No dissection. Left external carotid artery: Unremarkable. No occlusion. Left vertebral artery: Dominant left vertebral artery. No occlusion or significant stenosis. No dissection. Aorta: Atherosclerotic changes in the aorta. NECK: Bones/joints: Unremarkable. No acute fracture. Soft tissues: Unremarkable. Lung apices: Clear. CAROTID STENOSIS REFERENCE USING NASCET CRITERIA: % ICA stenosis = (1 - narrowest ICA diameter/diameter of distal cervical ICA) x 100. Mild - <50% stenosis. Moderate - 50-69% stenosis. Severe - 70-94% stenosis. Near occlusion - 95-99% stenosis. Occluded - 100% stenosis. 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 Reconstituted flow distally. Communications: Call Doctor Stroke Electronically signed by: Ricardo Bruce M.D. 02/08/25 21:16 PM
--- NOTE | 2025-02-08 21:19 | CT Scan Report ---
Exam(s): CTA HEAD With Contrast IV Amt: 115cc opti 320 EXAM: CT Angiography Head With Intravenous Contrast CLINICAL HISTORY: Reason for exam: neuro deficit, acute stroke suspected. TECHNIQUE: Axial computed tomographic angiography images of the head with intravenous contrast. CTDI is 34.62 mGy and DLP is 624.41 mGy-cm. Automated exposure control was utilized for the study. A dose lowering technique was utilized adhering to the principles of ALARA. MIP reconstructed images were created and reviewed. CONTRAST: Patient received 115cc opti 320 of IV contrast COMPARISON: None FINDINGS: Right internal carotid artery: Atherosclerotic calcifications in the distal right ICA. No significant stenosis. No aneurysm. Right anterior cerebral artery: Unremarkable. No occlusion or significant stenosis. No aneurysm. Right middle cerebral artery: Unremarkable. No occlusion or significant stenosis. No aneurysm. Right posterior cerebral artery: Unremarkable. No occlusion or significant stenosis. No aneurysm. Right vertebral artery: Diminutive V4 segment of the right vertebral artery. Left internal carotid artery: Atherosclerotic calcifications in the distal left ICA. No significant stenosis. No aneurysm. Left anterior cerebral artery: Unremarkable. No occlusion or significant stenosis. No aneurysm. Left middle cerebral artery: Unremarkable. No occlusion or significant stenosis. No aneurysm. Left posterior cerebral artery: Unremarkable. No occlusion or significant stenosis. No aneurysm. Left vertebral artery: Mild atherosclerotic calcification in the V4 segment of the left vertebral artery. No significant stenosis. Basilar artery: Unremarkable. No occlusion or significant stenosis. No aneurysm. IMPRESSION: No significant stenosis, occlusion, or aneurysm in the central or large intracranial arteries. Communications: Call Doctor Stroke Electronically signed by: Ricardo Bruce M.D. 02/08/25 21:18 PM
--- NOTE | 2025-02-08 21:37 | XRay Report ---
Exam(s): XR CXR 1 VIEW EXAM: XR Chest, 1 View CLINICAL HISTORY: Reason for exam: neuro deficit, acute stroke suspected. TECHNIQUE: Frontal view of the chest. COMPARISON: None FINDINGS: Hardware: None. Lungs/pleura: Bilateral lower lung opacities. No pleural effusion or pneumothorax. Heart/mediastinum: Normal. No cardiomegaly. Soft tissues: Unremarkable. Bones: No acute fracture. Bilateral shoulder arthroplasties. Upper abdomen: Normal. IMPRESSION: Bilateral lower lung opacities probably represent atelectasis. Electronically signed by: Ricardo Bruce M.D. 02/08/25 21:36 PM
--- NOTE | 2025-02-08 22:12 | History & Physical Report ---
Date of Service February 08, 2025 Assessment & Plan (1) Light-headed: (2) Ambulatory dysfunction: (3) Hypertension: (4) Hyperlipidemia: (5) GERD (gastroesophageal reflux disease): (6) BPH (benign prostatic hyperplasia): (7) Chronic kidney disease: Plan 84yo male presenting with lightheadedness that started today. Also with mild palpitations and mild SOB. CTA with diminutive right vertebral artery with occlusion at C2-C3 with reconstituted flow. MRI suggestive of critical cervical stenosis. Bigeminy pattern present on monitor #Lightheaded - etiology unclear -Observation to medical with telemetry -Check orthostatic VS -Check MRI cervical spine -IVF - LR at 125mL/hr x 1L -Meclizine PRN #Ambulatory dysfunction -Fall precautions -PT/OT evaluation appreciated #Hypertension -Continue Metoprolol 100mg po qPM -Continue HCTZ -Monitor #Hyperlipidemia -Continue Simvastatin #History of VTE -Continue Xarelto #Viral infection of right eye -Patient to continue home eye drops - may need to bring them from home History of Present Illness Chief Complaint: dizziness Primary Care Provider: DO Babar William Kati is an 84yo male with history of HTN, CKD, PE in 2023 on Rivaroxaban anticoagulation presenting with feeling of dizziness throughout the day today. Patient reports he began to feel dizzy around 11:00 today. He was driving and began to feel that "something wasn't right". He felt like he might fall down. He denies chest pain - reports that he does feel some palpitations occasionally today as well as some mild SOB. No report of chest pain, nausea, vomiting, diarrhea. No vertigo. No syncope. In the ER patient is afebrile, HD stable ER Course: NSS Allergies Allergy/AdvReac Type Severity Reaction Status Date / Time No Known Allergies Allergy Verified 02/08/25 21:01 Home Medications Medication Instructions Recorded Confirmed Type glucosamine 375 rf-kythcnimb-ajl 2 tab PO QPM ##0 10/11/14 02/08/25 History no1 500 mg-C 15 mg-ana 0.5 mg tablet (Orpizjaqvmx-Boyokwgvgll-EJB Complex) docusate sodium 100 mg tablet 100 mg PO QPM ##0 01/17/18 02/08/25 History polyethylene glycol 3350 17 1 dose PO QPM ##0 01/17/18 02/08/25 History gram/dose oral powder (Miralax) brinzolamide 1 %-brimonidine 0.2 % 1 drp OPR TID 02/05/21 02/08/25 History eye drops,suspension (Simbrinza) peg 400-propylene glycol 0.4 %-0.3 1 drp OPL BID PRN Dry Eyes #0 mL 03/08/22 02/08/25 History % eye drops (Systane (propylene glycol)) metoprolol succinate 100 mg 100 mg PO QPM #90 tabs 02/04/23 02/08/25 Rx tablet,extended release 24 hr acetaminophen 500 mg tablet 650 mg PO HS 02/07/23 02/08/25 History (Tylenol Extra Strength) finasteride 5 mg tablet (Proscar) 5 mg PO QAM 02/07/23 02/08/25 History simvastatin 20 mg tablet 20 mg PO QPM 02/10/23 02/08/25 History hydrocortisone 2.5 % topical cream 1 applic topical DAILY PRN Itching 02/27/23 02/08/25 History with perineal applicator hydrochlorothiazide 12.5 mg tablet 12.5 mg PO QAM #90 tabs 03/08/23 02/08/25 Rx prednisolone acetate 1 % eye 1 drp ophthalmic (eye) Q OTHER DAY 03/23/24 02/08/25 History drops,suspension rivaroxaban 20 mg tablet (Xarelto) 20 mg PO QPM 03/23/24 02/08/25 History calcitriol 0.25 mcg capsule 0.25 mcg PO 3XWK #36 caps 04/12/24 02/08/25 Rx oxybutynin chloride 5 mg 5 mg PO DAILY #90 tabs 07/31/24 02/08/25 Rx tablet,extended release 24 hr netarsudil 0.02 % eye drops 1 drp ophthalmic (eye) QPM 01/09/25 02/08/25 History (Rhopressa) ascorbic acid (vitamin C) 500 mg 500 mg PO QPM 02/08/25 02/08/25 History tablet (Vitamin C) cholecalciferol (vitamin D3) 25 25 mcg PO QPM 02/08/25 02/08/25 History mcg (1,000 unit) capsule (Vitamin D3) cyanocobalamin (vitamin B-12) 1,000 mcg PO QPM 02/08/25 02/08/25 History 1,000 mcg tablet (Vitamin B-12) diclofenac sodium 1 % topical gel 2 g topical QID PRN Pain 02/08/25 02/08/25 History (Voltaren Arthritis Pain) gabapentin 100 mg capsule 300 mg PO DAILY 02/08/25 02/08/25 History multivitamin 1 tab PO DAILY 02/08/25 02/08/25 History Past Med/Surg History Problem List Light-headed (Acute) Ambulatory dysfunction (Acute) Acute blood loss anemia Left-sided chest pain (Acute) Pulmonary infarction (Acute) Status post right knee replacement (~10/2023) Osteoarthritis of right knee Lower extremity edema Trigger finger of left hand BPH with obstruction/lower urinary tract symptoms (Acute) Degenerative joint disease, 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 Hx of glaucoma s/p surgical intervention bilaterally no current issues Hx of upper gastrointestinal hemorrhage (~02/2023) admit to [facility], EGD & Colon, per pt. source not found no current issues Hx of septic shock (~2016) admit to [facility] x 6 days, kidney stone History of blood transfusion (~2000) left hip replacement H/O degenerative disc disease cervical spine, has full ROM BPH (benign prostatic hyperplasia) GERD (gastroesophageal reflux disease) controlled, stable per pt Surgical History Hx of bilateral cataract extraction Hx of colonoscopy with polypectomy History of esophagogastroduodenoscopy (EGD) History of reverse total replacement of left shoulder joint (~01/03/23) H/O removal of cyst (~1974) mandibular History of laminectomy L2-L4 02/09/1818 Grade 2 view, MAC 3, ETT 8. Hx of arthroscopy of shoulder L, 2003; R, 2000 History of carpal tunnel release of both wrists 1994 L, 1996 R Hx of repair of rotator cuff R, likely 2000 History of total right hip arthroplasty (~2000) Hx of foot surgery (~2015) rt foot reconstruction Hx of total shoulder replacement RIGHT 2014 LEFT 2022 Hx of cystoscopy Hx of tonsillectomy H/O hernia repair left 1995, right 1997 Family History Mother Tuberculosis Sister Breast cancer Father Cardiac disorder Myocardial infarction Brother Dementia Denies family history of Ovarian cancer Prostate cancer Colorectal cancer Social History Smoking Status: Former smoker Tobacco Type: Cigarettes Age Started Using Tobacco: 17; Age Quit Using Tobacco: 30; packs per day: 2; Cigarettes Per Day: 1 1/2 packs per day 50 years ago; Second Hand Exposure: No; Do You Dip or Chew Tobacco: No; Hx Alcohol Use: No Hx Substance Use: No Preferred Language: Yakut Communication Ability: Effective Visual Impairment: Limited Hearing Ability: Normal Audit Specialist Required: No Beliefs That Will Affect Care: None marital status: Current Living Situation: Spouse Current Living Situation Comment: Spouse and Legal guardian of 2 grandsons current occupational status: retired 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 Feels Safe at Home: Yes Childhood Exposure to Second-Hand Smoke: Yes Diet: regular caffeine: Yes (one cup of coffee each day) during the past year weight has: decreased > 10 lbs Dental Care, Regularly: No Physical Activity Frequency: Daily Seatbelt Use: always Sunscreen Use: Yes (sometimes ) Assistive Devices: Denture - Upper, Denture - Lower, Glasses and Hearing Aid - Bilateral Review of Systems Review of Systems: All systems reviewed & are unremarkable except as noted in HPI & below Physical Exam Physical Exam: General: patient resting comfortably, NAD, non-toxic in appearance, AA&O x 4 Skin: warm, dry, intact, no rashes or lesions HEENT: NC/AT, PERRL, EOMI, mild horizontal nystagmus present, anicteric sclera, right eye with conjunctival injection and clear drainage, external ear normal to inspection and nontender, nares patent, moist mucus membranes, dentition intact, no oropharyngeal lesions, neck supple, trachea midline, no LAD, no thyromegaly, no JVD Heart: +S1/S2, regularly irregular with bigeminy pattern noted on monitor and review of telemetry, no m/r/g Lungs: equal air entry bilaterally, no rales/rhonchi/wheezes Abd: +BS, soft, NT/ND, no masses/organomegaly/ascites Ext: warm, 2+ pulses in UE/LE bilaterally, no clubbing/cyanosis or edema Neuro: nonfocal, patient AA&O x 4, speech intact, no facial droop, moving all extremities on command with equal strength 5/5 Results & Data Results & Data Vital Signs (Past 12 Hours) Vital Signs Temp Pulse Pulse Resp BP BP Pulse Ox 02/08/25 22:02 84 20 131/79 95 02/08/25 20:35 83 02/08/25 20:19 81 20 121/73 94 02/08/25 19:19 36.6 C 91 H 18 146/87 H 95 O2 Del Method 02/08/25 22:02 Room Air 02/08/25 20:35 02/08/25 20:19 Room Air 02/08/25 19:19 Room Air Laboratory Results Laboratory Results WBC 5.43 K/ul (4.8-10.8) 02/08/25 19:35 RBC 4.66 M/uL (4.70-6.10) L 02/08/25 19:35 Hgb 14.4 g/dl (14.0-18.0) 02/08/25 19:35 POC Hgb 14.3 g/dl (14.0-18.0) 02/08/25 19:44 Hct 42.4 % (42.0-52.0) 02/08/25 19:35 POC Hct 42 % (42-52) 02/08/25 19:44 MCV 91.0 fL (80.0-100.0) 02/08/25 19:35 MCH 30.9 pg (25.0-34.0) 02/08/25 19:35 MCHC 34.0 g/dL (32.0-36.0) 02/08/25 19:35 RDW Std Deviation 45.2 fL (36.4-46.3) 02/08/25 19:35 RDW Coeff of [place] 13.5 % (11.5-14.5) 02/08/25 19:35 Plt Count 176 K/uL (130-400) 02/08/25 19:35 MPV 9.3 fL (9.4-12.4) L 02/08/25 19:35 Immature Gran % (Auto) 0.6 % 02/08/25 19:35 Neut % (Auto) 66.2 % 02/08/25 19:35 Lymph % (Auto) 18.2 % 02/08/25 19:35 [place] % (Auto) 11.0 % 02/08/25 19:35 Eos % (Auto) 3.3 % 02/08/25 19:35 Baso % (Auto) 0.7 % 02/08/25 19:35 Neut # (Auto) 3.59 K/uL (1.40-6.50) 02/08/25 19:35 Lymph # (Auto) 0.99 K/uL (1.20-3.40) L 02/08/25 19:35 [place] # (Auto) 0.60 K/uL (0.11-0.59) H 02/08/25 19:35 Eos # (Auto) 0.18 K/uL (0.00-0.50) 02/08/25 19:35 Baso # (Auto) 0.04 K/uL (0.00-0.20) 02/08/25 19:35 Immature Gran # (Auto) 0.03 K/uL (0.01-0.20) 02/08/25 19:35 PT 10.3 Seconds (9.0-12.0) 02/08/25 19:35 INR 0.9 (0.9-1.1) 02/08/25 19:35 APTT 27 Seconds (21-31) 02/08/25 19:35 PTT Ratio 1.0 02/08/25 19:35 POC Sodium 139 mmol/L (135-144) 02/08/25 19:44 Sodium 138 mmol/L (136-145) 02/08/25 19:35 POC Potassium 3.8 mmol/L (3.3-5.0) 02/08/25 19:44 Potassium 3.8 mmol/L (3.5-5.1) 02/08/25 19:35 POC Chloride 105 mmol/L (101-112) 02/08/25 19:44 Chloride 105 mmol/L (98-107) 02/08/25 19:35 Carbon Dioxide 25 mmol/L (21-32) 02/08/25 19:35 POC Total CO2 21 mmol/L (24-31) L 02/08/25 19:44 Anion Gap 8 (3-11) 02/08/25 19:35 POC Anion Gap 18.0 mmol/L (16-25) 02/08/25 19:44 POC BUN 25 mg/dl (7-18) H 02/08/25 19:44 BUN 26 mg/dl (6-23) H 02/08/25 19:35 Creatinine 1.32 mg/dl (0.6-1.4) 02/08/25 19:35 POC Creatinine 1.4 mg/dl (0.6-1.3) H 02/08/25 19:44 Est Cr Clr Drug Dosing 52.1 ml/min 02/08/25 19:35 eGFR 52.53 02/08/25 19:35 BUN/Creatinine Ratio 19.7 (10-20) 02/08/25 19:35 Glucose 135 mg/dl (70-99(Fasting)) H 02/08/25 19:35 POC Glucose (other) 133 mg/dl (70-99) H 02/08/25 19:44 Calcium 9.8 mg/dl (8.6-10.3) 02/08/25 19:35 POC Ioniz Calcium Erasmo 1.26 mmol/l (1.12-1.32) 02/08/25 19:44 Phosphorus 2.7 mg/dl (2.5-4.9) 02/08/25 19:35 Magnesium 2.2 mg/dl (1.7-2.4) 02/08/25 19:35 Total Bilirubin 0.4 mg/dl (0.2-1.0) 02/08/25 19:35 AST 18 U/L (13-39) 02/08/25 19:35 ALT 13 U/L (7-52) 02/08/25 19:35 Alkaline Phosphatase 50 U/L (34-104) 02/08/25 19:35 Troponin I High Sens 5.8 pg/ml (0-20) 02/08/25 19:35 Total Protein 6.8 gm/dl (6.0-8.3) 02/08/25 19:35 Albumin 3.8 gm/dl (3.4-5.0) 02/08/25 19:35 Globulin 3.0 gm/dl (2.5-4.0) 02/08/25 19:35 Albumin/Globulin Ratio 1.3 (0.9-2) 02/08/25 19:35 Lipase 33 U/L (11-82) 02/08/25 19:35 TSH 0.930 uIu/ml (0.300-4.500) 02/08/25 19:35 Impressions Chest X-Ray 02/08/25 19:45 Exam(s): XR CXR 1 VIEW EXAM: XR Chest, 1 View CLINICAL HISTORY: Reason for exam: neuro deficit, acute stroke suspected. TECHNIQUE: Frontal view of the chest. COMPARISON: None FINDINGS: Hardware: None. Lungs/pleura: Bilateral lower lung opacities. No pleural effusion or pneumothorax. Heart/mediastinum: Normal. No cardiomegaly. Soft tissues: Unremarkable. Bones: No acute fracture. Bilateral shoulder arthroplasties. Upper abdomen: Normal. IMPRESSION: Bilateral lower lung opacities probably represent atelectasis. Electronically signed by: Ricardo Bruce M.D. 02/08/25 21:[address] 02/08/25 19:45 CR Exam(s): CT HEAD Without Contrast EXAM: CT Head Without Intravenous Contrast CLINICAL HISTORY: Reason for exam: neuro deficit, acute stroke suspected. TECHNIQUE: Axial computed tomography images of the head/brain without intravenous contrast. CTDI is 34.62 mGy and DLP is 624.41 mGy-cm. Automated exposure control was utilized for the study. A dose lowering technique was utilized adhering to the principles of ALARA. COMPARISON: CT head on 04/13/2024 FINDINGS: Brain: No acute infarct or hemorrhage identified. No extra-axial fluid collection. No mass effect or midline shift. Scattered areas of hypoattenuation in the supratentorial white matter likely represent chronic small vessel ischemic changes. Stable nonspecific small round 5 mm hyperdense structure along the right aspect of the interhemispheric falx. Question small meningioma. Ventricles and sulci: Prominence of the ventricles and sulci is likely secondary to cerebral volume loss. Bones: Normal. No bony lesion or acute fracture. Subcutaneous tissues: Normal. Sinuses: Normal. No air-fluid levels or mucosal thickening. Mastoid air cells: Normal. Orbits: Bilateral lens implants. Other: Atherosclerotic calcifications in the intracranial vasculature. IMPRESSION: 1. No acute intracranial abnormality. Further evaluation could be performed with MRI if clinically indicated. 2. Chronic small vessel ischemic changes and cerebral volume loss. Communications: Call Doctor Stroke Electronically signed by: Ricardo Bruce M.D. 02/08/25 21:13 PM Head CTA 02/08/25 19:45 CR Exam(s): CTA HEAD With Contrast IV Amt: 115cc opti 320 EXAM: CT Angiography Head With Intravenous Contrast CLINICAL HISTORY: Reason for exam: neuro deficit, acute stroke suspected. TECHNIQUE: Axial computed tomographic angiography images of the head with intravenous contrast. CTDI is 34.62 mGy and DLP is 624.41 mGy-cm. Automated exposure control was utilized for the study. A dose lowering technique was utilized adhering to the principles of ALARA. MIP reconstructed images were created and reviewed. CONTRAST: Patient received 115cc opti 320 of IV contrast COMPARISON: None FINDINGS: Right internal carotid artery: Atherosclerotic calcifications in the distal right ICA. No significant stenosis. No aneurysm. Right anterior cerebral artery: Unremarkable. No occlusion or significant stenosis. No aneurysm. Right middle cerebral artery: Unremarkable. No occlusion or significant stenosis. No aneurysm. Right posterior cerebral artery: Unremarkable. No occlusion or significant stenosis. No aneurysm. Right vertebral artery: Diminutive V4 segment of the right vertebral artery. Left internal carotid artery: Atherosclerotic calcifications in the distal left ICA. No significant stenosis. No aneurysm. Left anterior cerebral artery: Unremarkable. No occlusion or significant stenosis. No aneurysm. Left middle cerebral artery: Unremarkable. No occlusion or significant stenosis. No aneurysm. Left posterior cerebral artery: Unremarkable. No occlusion or significant stenosis. No aneurysm. Left vertebral artery: Mild atherosclerotic calcification in the V4 segment of the left vertebral artery. No significant stenosis. Basilar artery: Unremarkable. No occlusion or significant stenosis. No aneurysm. IMPRESSION: No significant stenosis, occlusion, or aneurysm in the central or large intracranial arteries. Communications: Call Doctor Stroke Electronically signed by: Ricardo Bruce M.D. 02/08/25 21:18 PM Neck CTA 02/08/25 19:45 CR Exam(s): CTA NECK With Contrast IV Amt: 115cc opti 320 EXAM: CT Angiography Neck With Intravenous Contrast CLINICAL HISTORY: Reason for exam: neuro deficit, acute stroke suspected. TECHNIQUE: Routine carotid CT angiography protocol was performed with intravenous contrast. NASCET criteria using the distal ICAs for comparison were used for evaluation of stenoses. CTDI is 34.62 mGy and DLP is 624.41 mGy-cm. Automated exposure control was utilized for the study. A dose lowering technique was utilized adhering to the principles of ALARA. MIP reconstructed images were created and reviewed. CONTRAST: Patient received 115cc opti 320 of IV contrast COMPARISON: None FINDINGS: VASCULATURE: Right common carotid artery: Unremarkable. No occlusion or significant stenosis. No dissection. Right internal carotid artery: Atherosclerotic changes in the right carotid bulb and proximal right ICA. No significant stenosis. No dissection. Right external carotid artery: Unremarkable. No occlusion. 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 Reconstituted flow distally. Left common carotid artery: Unremarkable. No occlusion or significant stenosis. No dissection. Left internal carotid artery: Atherosclerotic changes in the left carotid bulb and proximal left ICA. No significant stenosis. No dissection. Left external carotid artery: Unremarkable. No occlusion. Left vertebral artery: Dominant left vertebral artery. No occlusion or significant stenosis. No dissection. Aorta: Atherosclerotic changes in the aorta. NECK: Bones/joints: Unremarkable. No acute fracture. Soft tissues: Unremarkable. Lung apices: Clear. CAROTID STENOSIS REFERENCE USING NASCET CRITERIA: % ICA stenosis = (1 - narrowest ICA diameter/diameter of distal cervical ICA) x 100. Mild - <50% stenosis. Moderate - 50-69% stenosis. Severe - 70-94% stenosis. Near occlusion - 95-99% stenosis. Occluded - 100% stenosis. 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 Reconstituted flow distally. Communications: Call Doctor Stroke Electronically signed by: Ricardo Bruce M.D. 02/08/25 21:16 PM Brain MRI 02/08/25 21:21 Exam(s): MRI HEAD Without Contrast EXAM: MR Head Without Intravenous Contrast CLINICAL HISTORY: Reason for exam: abnl CTA, off balance. TECHNIQUE: Magnetic resonance images of the head/brain without intravenous contrast in multiple planes. COMPARISON: Comparison made to prior head CT and CT angiogram of the neck from February 08. FINDINGS: Brain: Mild nonspecific white matter changes. There is a tiny meningioma along the right mid falx. No hemorrhage. No acute infarct. The flow voids at the base of the brain are intact. Ventricles: Mild ventriculomegaly. Bones/joints: There is a critical spinal canal stenosis at C5-6. No acute fracture. Sinuses: Chronic ethmoid sinusitis. No acute sinusitis. Mastoid air cells: Unremarkable as visualized. No mastoid effusion. Orbits: Bilateral lens replacements. IMPRESSION: No evidence of acute intracranial pathology. Critical spinal canal stenosis at C5-6. Recommend MRI of the cervical spine to evaluate for myelopathy. Electronically signed by: Paulette Chauhan MD 02/09/25 01:05 AM PG Care Time/CCT Total # of Minutes Spent Total Time Spent with Patient: Total time spent is greater than 50% in coordination of care (as documented) at patient's floor/unit and/or counseling patient: Coding Level of Care Code 86964 INT INP/OBS CARE 3/75MIN Diagnoses Light-headed R42 Ambulatory dysfunction R26.2 Hypertension I10 Hyperlipidemia E78.5 GERD (gastroesophageal reflux disease) K21.9 BPH (benign prostatic hyperplasia) N40.0 Chronic kidney disease N18.9
--- NOTE | 2025-02-08 22:47 | Emergency Department Note ---
ED Visit Note I was consulted by the Advanced Practice Provider, María Chaidez. I performed a substantive portion of the visit. This includes aspects of: History/MDM: This is an 84-year-old male who presents with vertiginous symptoms. Noted to have balance issues and ataxia. Ambulatory dysfunction noted. Labs show no significant electrolyte derangements or kidney dysfunction. No anemia or leukocytosis. Patient does have stroke risk factors including age, hypertension and hyperlipidemia. Underwent CTA imaging for further evaluation of stroke. Patient did have some stenoses of the vertebral artery but there was distal constitution. Patient's physical examination was not exactly consistent with peripheral vertigo. For these reasons, patient was admitted to the hospitalist team for further workup of his vertiginous symptoms including central etiologies with MRI. Dimitri Field DO Emergency Medicine .
[2025-02-09] MEDS ORDERED: DOCUSATE SODIUM 100 MG CAP PO PRN (00:33)
--- NOTE | 2025-02-09 01:06 | Magnetic Resonance Report ---
Exam(s): MRI HEAD Without Contrast EXAM: MR Head Without Intravenous Contrast CLINICAL HISTORY: Reason for exam: abnl CTA, off balance. TECHNIQUE: Magnetic resonance images of the head/brain without intravenous contrast in multiple planes. COMPARISON: Comparison made to prior head CT and CT angiogram of the neck from February 08. FINDINGS: Brain: Mild nonspecific white matter changes. There is a tiny meningioma along the right mid falx. No hemorrhage. No acute infarct. The flow voids at the base of the brain are intact. Ventricles: Mild ventriculomegaly. Bones/joints: There is a critical spinal canal stenosis at C5-6. No acute fracture. Sinuses: Chronic ethmoid sinusitis. No acute sinusitis. Mastoid air cells: Unremarkable as visualized. No mastoid effusion. Orbits: Bilateral lens replacements. IMPRESSION: No evidence of acute intracranial pathology. Critical spinal canal stenosis at C5-6. Recommend MRI of the cervical spine to evaluate for myelopathy. Electronically signed by: Paulette Chauhan MD 02/09/25 01:05 AM
[2025-02-09] MEDS: LACTATED RINGER'S 1,000 ML IV SCH (01:15)
[2025-02-09 01:30] LABS: Thyroid Stimulating Hormone 0.93 uIu/ml (0.300-4.500)
[2025-02-09 01:41] VITALS: TEMP 97.7
[2025-02-09] MEDS ORDERED: MECLIZINE HCL 25 MG TAB PO PRN (01:45)
[2025-02-09 01:58] LABS: Appearance Urine Clear (Clear); Glucose Urine UA Negative (Negative)
[2025-02-09 05:12] LABS: Hematocrit (blood only) 38.3 % (42.0-52.0); Hemoglobin 13.2 g/dl (14.0-18.0); Mean Corpuscular Hemoglobin 31.7 pg (25.0-34.0); Mean Corpuscular Volume 91.8 fL (80.0-100.0); Platelet Count 151 K/uL (130-400); RDW Standard Deviation 45.6 fL (36.4-46.3); Red Blood Count 4.17 M/uL (4.70-6.10); White Blood Count 5.05 K/ul (4.8-10.8)
[2025-02-09 05:37] LABS: Blood Urea Nitrogen 26 mg/dl (6-23); Calcium 9.3 mg/dl (8.6-10.3); Carbon Dioxide 25 mmol/L (21-32); Chloride 105 mmol/L (98-107); Creatinine Clr Calc Pharmacy 52.9 ml/min; Glucose 107 mg/dl (70-99(Fasting))
[2025-02-09] MEDS: ACETAMINOPHEN 325 MG TAB PO SCH (05:44)
[2025-02-09 07:30] LABS: Potassium 3.8 mmol/L (3.5-5.1); Sodium 138.0 mmol/L (136-145)
[2025-02-09] MEDS: BRINZOLAMIDE (AZOPT) OPS 10 ML BTL OPR SCH (08:25)
[2025-02-09] MEDS: hydroCHLOROthiazide 25 MG TAB PO SCH (08:26)
[2025-02-09] MEDS: OXYBUTYNIN CHLORIDE XL 5 MG TABCR PO SCH (08:26)
[2025-02-09] MEDS: BRIMONIDINE TARTRATE 0.2% 5ML OPR SCH (08:26)
[2025-02-09] MEDS: prednisoLONE acetate 1% OP SUSP 5 ML BTL OP SCH (08:26)
[2025-02-09] MEDS: GABAPENTIN 300 MG CAP PO SCH (08:26)
[2025-02-09] MEDS: FINASTERIDE 5 MG TAB PO SCH (08:26)
--- NOTE | 2025-02-09 11:04 | Magnetic Resonance Report ---
MRI OF THE CERVICAL SPINE WITHOUT CONTRAST CLINICAL HISTORY: Assess for cervical spine stenosis. COMPARISON: Cervical spine radiographs September 22, 2020. CTA of the neck February 08, 2025. TECHNIQUE: Utilizing a 1.5 Agnieszka magnet and dedicated coil, multiplanar, multiecho imaging of the ce rvical spine was performed without IV contrast. FINDINGS: There is mild reversal of the cervical lordosis. Vertebral body heights are maintained. No marrow magali ma or marrow replacement is present. Several Schmorl's nodes are present. Cervical cord signal and ca liber are normal. There is no intracanalicular mass or fluid collection. Paravertebral soft tissues a re unremarkable. C2-C3: There is moderate disc space narrowing with disc bulge. Associated osteophyte formation is pr esent. This effaces the ventral thecal sac with mild central canal stenosis. Facet arthrosis and unco vertebral hypertrophy result in mild right neural foraminal stenosis. The left neural foramen is mckeon nt. C3-C4: Mild disc space narrowing. Posterior disc osteophyte complex effaces the ventral thecal sac. There is mild to moderate central canal stenosis. Facet arthrosis and uncovertebral hypertrophy resul t in severe left and moderate to severe right neural foraminal stenosis. C4-C5: There is severe disc space narrowing. Posterior disc osteophyte complex effaces the ventral t hecal sac. There is mild to moderate central canal stenosis. Facet arthrosis in the vertebral hypertr ophy result in moderate left and mild right neural foraminal stenosis. C5-C6: There is moderate disc space narrowing. Posterior disc osteophyte complex effaces the ventral thecal sac. There is mild to moderate central canal stenosis. There is mild bilateral neural foramin al stenosis. C6-C7: Posterior disc osteophyte complex effaces the ventral thecal sac. There is mild central canal stenosis. No significant neural foraminal stenosis. There is moderate facet arthrosis. C7-T1: Grade one anterolisthesis is present. There is minimal disc bulge. The central canal is paten t. Neural foramen are patent. IMPRESSION: 1. No acute process within the cervical spine by MRI. 2. 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 Mild to moderate multilevel central canal stenosis. No severe central canal stenosis. 3. Normal cervical cord signal and caliber. 4. Multilevel neural foraminal stenosis, as detailed above. ACT 112: Negative or not required by law. Electronically signed by: Tiago Guerra M.D. 02/09/2025 11:02 AM
--- NOTE | 2025-02-09 12:34 | Electrocardiogram Report ---
Test Reason : Blood Pressure : */* mmHG Vent. Rate : 81 BPM Atrial Rate : 81 BPM P-R Int : 180 ms QRS Dur : 148 ms QT Int : 406 ms P-R-T Axes : 13 -67 27 degrees QTcB Int : 471 ms Normal sinus rhythm Right bundle branch block Left anterior fascicular block Bifascicular block Minimal voltage criteria for LVH, may be normal variant ( R in aVL ) Abnormal ECG When compared with ECG of 25-Mar-2024 08:17, Premature supraventricular complexes are no longer Present Nonspecific T wave abnormality has replaced inverted T waves in Inferior leads Confirmed by Andi Ortiz ([id number]) on 02/09/2025 12:34:12 PM Referred By: REFERRED SELF Confirmed By: Andi Ortiz
--- NOTE | 2025-02-09 14:42 | Discharge Summary ---
Discharge Summary Date of Service February 09, 2025 Principal Dx & Hospital Course #1 = Principal Diagnosis (1) Light-headed: (2) Ambulatory dysfunction: (3) Hypertension: (4) Hyperlipidemia: (5) GERD (gastroesophageal reflux disease): (6) BPH (benign prostatic hyperplasia): (7) Chronic kidney disease: Plan 84yo male presenting with lightheadedness that started today. Also with mild palpitations and mild SOB. CTA with diminutive right vertebral artery with occlusion at C2-C3 with reconstituted flow. MRI suggestive of critical cervical stenosis. Bigeminy pattern present on monitor #Lightheaded - etiology unclear -Observation to medical with telemetry -Check orthostatic VS -Check MRI cervical spine -IVF - LR at 125mL/hr x 1L -Meclizine PRN #Ambulatory dysfunction -Fall precautions -PT/OT evaluation appreciated #Hypertension -Continue Metoprolol 100mg po qPM -Continue HCTZ -Monitor #Hyperlipidemia -Continue Simvastatin #History of VTE -Continue Xarelto #Viral infection of right eye -Patient to continue home eye drops - may need to bring them from home Admission HPI Per Admitting Provider Babar Parikh is an 84yo male with history of HTN, CKD, PE in 2023 on Rivaro xaban anticoagulation presenting with feeling of dizziness throughout the day today. Patient reports he began to feel dizzy around 11:00 today. He was driving and began to feel that "something wasn't right". He felt like he might fall down. He denies chest pain - reports that he does feel some palpitations occasionally today as well as some mild SOB. No report of chest pain, nausea, vomiting, diarrhea. No vertigo. No syncope. In the ER patient is afebrile, HD stable ER Course: NSS Discharge Plan Discharge Items Reason For Visit: DIZZINESS Condition on Discharge: Good Follow-up/Referrals: July Ordonez DO [Primary Care Provider] - Medications and DC Order Prescriptions: No Action Lmovfzoehwr-Tohuu-ERP Complex [id number] mg Tablet 2 tab PO QPM Qty: 0 polyethylene glycol 3350 [Miralax] 17 gram/dose Powder 1 dose PO QPM Qty: 0 docusate sodium 100 mg Tablet 100 mg PO QPM Qty: 0 Systane (propylene glycol) 0.4-0.3 % drops 1 drp OPL BID PRN (Reason: Dry Eyes) Qty: 0 metoprolol succinate 100 mg tablet extended release 24 hr 100 mg PO QPM Qty: 90 3RF hydrochlorothiazide 12.5 mg tablet 12.5 mg PO QAM Qty: 90 3RF Hold Instructions: Resume on 04/02/24. Please hold until you follow up with your PCP calcitriol 0.25 mcg capsule 0.25 mcg PO 3XWK Qty: 36 3RF Rx Instructions: 0.25 mcg PO every tuesday, tuesday, tuesday; oxybutynin chloride 5 mg tablet extended release 24hr 5 mg PO DAILY Qty: 90 2RF Simbrinza 1-0.2 % drops,suspension 1 drp OPR TID Rhopressa 0.02 % drops 1 drp ophthalmic (eye) QPM acetaminophen [Tylenol Extra Strength] 500 mg Tablet 650 mg PO HS finasteride [Proscar] 5 mg tablet 5 mg PO QAM Rx Instructions: TAKE 1 TABLET BY MOUTH DAILY IN THE MORNING simvastatin 20 mg tablet 20 mg PO QPM hydrocortisone 2.5 % cream with perineal applicator 1 applic topical DAILY PRN (Reason: Itching) Rx Instructions: APPLY RECTALLY DAILY NEEDED FOR HEMORRHOIDS DIRECTED prednisolone acetate 1 % drops,suspension 1 drp ophthalmic (eye) Q OTHER DAY Xarelto 20 mg tablet 20 mg PO QPM Hold Instructions: Resume on 04/01/24. multivitamin Tablet 1 tab PO DAILY cyanocobalamin (vitamin B-12) [Vitamin B-12] 1,000 mcg Tablet 1,000 mcg PO QPM ascorbic acid (vitamin C) [Vitamin C] 500 mg Tablet 500 mg PO QPM gabapentin 100 mg capsule 300 mg PO DAILY cholecalciferol (vitamin D3) [Vitamin D3] 25 mcg (1,000 unit) Capsule 25 mcg PO QPM diclofenac sodium [Voltaren Arthritis Pain] 1 % gel 2 g topical QID PRN (Reason: Pain) Admission Data Admit Date/Time: 02/08/25 22:22 Attending Provider: Nick Masters Admit Provider: Casandra Valentine Primary Care Provider: July Ordonez Other Providers: Casandra Valentine Hospital Stay Data Consultations 02/08/25 21:20 ED Decision to Admit Stat Diagnostic Imagining Performed 02/08/25 19:45 CT angio head w con Stat CT angio neck with con Stat CT head/brain wo con Stat 02/08/25 21:21 MR brain wo con Stat 02/09/25 09:28 MRI Cervical [MR cervical spine wo con] Urgent Home Health Attestation I certify that this patient is under my care and that I, or a physicians bacteriology research assistant working with me, had a face to-face encounter that meets the home health [id number] encounter requirements with this patient. The encounter with the patient was in whole, or in part, for the following medical condition, which is the primary reason for home health care (list medical condition): I certify that, based on my findings, the following services are medically necessary home health services: My clinical findings support the need for the above services because: Further, I certify that my clinical findings support that this patient is homebound (i.e. absences from home require considerable and taxing effort and are for medical reasons or worship services or infrequently or of short duration when for other reasons) because: Certification for Home Health Services: Based on the above findings, I certify that this patient is confined to the home and needs intermittent group home care, physical therapy and/or speech therapy or continues to need occupational therapy. The patient is under my care, and I have initiated the establishment of the plan of care. This patient will be followed by a physician who will periodically review the plan of care. Coding Diagnoses Light-headed R42 Ambulatory dysfunction R26.2 Hypertension I10 Hyperlipidemia E78.5 GERD (gastroesophageal reflux disease) K21.9 BPH (benign prostatic hyperplasia) N40.0 Chronic kidney disease N18.9
--- NOTE | 2025-02-09 14:47 | Hospitalist Progress Note ---
Date of Service February 09, 2025 Assessment & Plan (1) Light-headed: (2) Ambulatory dysfunction: (3) Hypertension: (4) Hyperlipidemia: (5) GERD (gastroesophageal reflux disease): (6) BPH (benign prostatic hyperplasia): (7) Chronic kidney disease: Plan 84yo male with PMH Of PE, hypertension, HLD, presenting with lightheadedness that started on 02/08/2025; with dizziness, and weakneess. Also with mild palpitations and mild SOB. CTA with diminutive right vertebral artery with occlusion at C2-C3 with reconstituted flow. MRI suggestive of critical cervical stenosis. Bigeminy pattern present on monitor his brain MRI negative for stroke #Lightheaded - etiology unclear -Observation to medical with telemetry -Check orthostatic VS -Check MRI cervical spine s/p IV fluid -Meclizine PRN right vertebral artery occlusion at c2-c3 with reconstitute flow he's has no active lightheadness discussed that he will need to f/u with neurointerventional specialist he's prefer to see [facility] will switch from simvastatin to lipitor 40mg #Ambulatory dysfunction -Fall precautions -PT/OT evaluation appreciated #Hypertension -Continue Metoprolol 100mg po qPM -Continue HCTZ #Hyperlipidemia -Continue Simvastatin #History of VTE -Continue Xarelto #Viral infection of right eye -Patient to continue home eye drops - may need to bring them from home Admission and Anticipated Discharge Date Admission Date: February 08, 2025 Subjective he was having dizziness episode x 2 yesterday brain MRI is negative but carotid ultrasound found high grade vertebral artery stenosis he will prefer to be seen by subspecialist at [facility] syste no slurred speech; no blurry vision; no confusion he's stated head turning sensation does not worsening his dizziness Physical Exam Physical Exam: General: no acute distress neuro: CN 2-12 grossly intact; no pronator drift; 5/5 strength; no inluntary movement normal to nose test HEENT:AT/NC; EOMI heart: Normal s1; s2; rRR lung: CTA b/l; no wheezing; no rales abdomen: soft to touch; normoactive bowel sound Results & Data Results & Data Vital Signs (Past 12 Hours) Vital Signs Pulse Resp BP Pulse Ox O2 Del Method 02/09/25 13:09 101 H 26 H 177/96 H 94 02/09/25 11:15 77 27 H 145/93 H 95 02/09/25 09:00 74 20 146/98 H 02/09/25 08:00 79 16 156/93 H 02/09/25 06:00 72 24 164/97 H 93 Room Air 02/09/25 05:00 70 21 170/108 H 92 Room Air 02/09/25 04:01 70 19 154/93 H 94 Room Air 02/09/25 03:30 68 15 128/80 95 Room Air 02/09/25 03:00 70 18 115/85 92 Room Air Laboratory Results Laboratory Results - last 72 hr 02/08/25 02/08/25 02/09/25 19:35 19:44 01:30 WBC 5.43 RBC 4.66 L Hgb 14.4 POC Hgb 14.3 Hct 42.4 POC Hct 42 MCV 91.0 MCH 30.9 MCHC 34.0 RDW Std Deviation 45.2 RDW Coeff of Sharon 13.5 Plt Count 176 MPV 9.3 L Immature Gran % (Auto) 0.6 Neut % (Auto) 66.2 Lymph % (Auto) 18.2 Appling % (Auto) 11.0 Eos % (Auto) 3.3 Baso % (Auto) 0.7 Neut # (Auto) 3.59 Lymph # (Auto) 0.99 L Appling # (Auto) 0.60 H Eos # (Auto) 0.18 Baso # (Auto) 0.04 Immature Gran # (Auto) 0.03 PT 10.3 INR 0.9 APTT 27 PTT Ratio 1.0 POC Sodium 139 Sodium 138 POC Potassium 3.8 Potassium 3.8 POC Chloride 105 Chloride 105 Carbon Dioxide 25 POC Total CO2 21 L Anion Gap 8 POC Anion Gap 18.0 POC BUN 25 H BUN 26 H Creatinine 1.32 POC Creatinine 1.4 H Est Cr Clr Drug Dosing 52.1 eGFR 52.53 BUN/Creatinine Ratio 19.7 Glucose 135 H POC Glucose (other) 133 H Calcium 9.8 POC Ioniz Calcium Erasmo 1.26 Phosphorus 2.7 Magnesium 2.2 Total Bilirubin 0.4 AST 18 ALT 13 Alkaline Phosphatase 50 Troponin I High Sens 5.8 Total Protein 6.8 Albumin 3.8 Globulin 3.0 Albumin/Globulin Ratio 1.3 Lipase 33 TSH 0.930 Urine Color Yellow Urine Appearance Clear Urine pH 6.5 Ur Specific Fallon 1.042 H Urine Protein Negative Urine Glucose (UA) Negative Urine Ketones Negative Urine Blood Negative Urine Nitrite Negative Urine Bilirubin Negative Urine Urobilinogen Negative Ur Leukocyte Esterase Negative Urine Comment 02/09/25 02/09/25 04:27 06:28 WBC 5.05 RBC 4.17 L Hgb 13.2 L POC Hgb Hct 38.3 L POC Hct MCV 91.8 MCH 31.7 MCHC 34.5 RDW Std Deviation 45.6 RDW Coeff of Sharon 13.5 Plt Count 151 MPV 9.8 Immature Gran % (Auto) Neut % (Auto) Lymph % (Auto) Appling % (Auto) Eos % (Auto) Baso % (Auto) Neut # (Auto) Lymph # (Auto) Appling # (Auto) Eos # (Auto) Baso # (Auto) Immature Gran # (Auto) PT INR APTT PTT Ratio POC Sodium Sodium TNP 138 POC Potassium Potassium TNP 3.8 POC Chloride Chloride 105 Carbon Dioxide 25 POC Total CO2 Anion Gap TNP POC Anion Gap POC BUN BUN 26 H Creatinine 1.30 POC Creatinine Est Cr Clr Drug Dosing 52.9 eGFR 53.50 BUN/Creatinine Ratio 20.0 Glucose 107 H POC Glucose (other) Calcium 9.3 POC Ioniz Calcium Erasmo Phosphorus Magnesium Total Bilirubin AST ALT Alkaline Phosphatase Troponin I High Sens Total Protein Albumin Globulin Albumin/Globulin Ratio Lipase TSH Urine Color Urine Appearance Urine pH Ur Specific Fallon Urine Protein Urine Glucose (UA) Urine Ketones Urine Blood Urine Nitrite Urine Bilirubin Urine Urobilinogen Ur Leukocyte Esterase Urine Comment Medications Administered Current Inpatient Medications Acetaminophen (Acetaminophen 325 Mg Tab) 650 mg PO HS CAMERON Stop: 03/11/25 20:59 Last Admin: 02/09/25 05:44 Dose: 650 mg Acetaminophen (Acetaminophen 325 Mg Tab) 650 mg PO Q4H PRN PRN Reason: Pain or Fever Stop: 03/11/25 05:33 Brimonidine Tartrate (Brimonidine Tartrate 0.2% 5ml) 1 drops OPR TID CAMERON Stop: 03/11/25 08:59 Last Admin: 02/09/25 08:26 Dose: 1 drops Brinzolamide (Brinzolamide (Azopt) Ops 10 Ml Btl) 1 drops OPR TID CAMERON Stop: 03/11/25 08:59 Last Admin: 02/09/25 08:25 Dose: 1 drops Calcitriol (Calcitriol 0.25 Mcg Capsule) 0.25 mcg PO MoWeFr@0900 [facility] Stop: 03/13/25 08:59 Docusate Sodium (Docusate Sodium 100 Mg Cap) 100 mg PO BID PRN PRN Reason: Constipation Stop: 03/11/25 00:32 Finasteride (Finasteride 5 Mg Tab) 5 mg PO QAM [place] Stop: 03/11/25 08:59 Last Admin: 02/09/25 08:26 Dose: 5 mg Gabapentin (Gabapentin 300 Mg Cap) 300 mg PO DAILY [place] Stop: 03/11/25 08:59 Last Admin: 02/09/25 08:26 Dose: 300 mg Hydrochlorothiazide (Hydrochlorothiazide 25 Mg Tab) 12.5 mg PO QAM [place] Stop: 03/11/25 08:59 Last Admin: 02/09/25 08:26 Dose: 12.5 mg Meclizine HCl (Meclizine Hcl 25 Mg Tab) 25 mg PO TID PRN PRN Reason: Dizziness or Vertigo Stop: 03/11/25 01:44 Metoprolol Succinate (Metoprolol Succ 50mg Ext Rel Tab) 100 mg PO QPM CAM[place]ON Stop: 03/11/25 20:59 Miscellaneous (Rhopressa--Order Awaiting Action) 1 each N/A QS [facility] Stop: 03/11/25 07:59 Last Admin: 02/09/25 11:00 Dose: Not Given Oxybutynin Chloride (Oxybutynin Chloride Xl 5 Mg Tabcr) 5 mg PO DAILY [place] Stop: 03/11/25 08:59 Last Admin: 02/09/25 08:26 Dose: 5 mg Polyethylene Glycol (Polyethylene (Miralax) 17 Gm Pack) 17 gm PO QPM CAM[place] Stop: 03/11/25 20:59 Prednisolone Acetate (Prednisolone Acetate 1% Op Susp 5 Ml Btl) 1 drops OP Q2D@0900 [facility] Stop: 03/11/25 08:59 Last Admin: 02/09/25 08:26 Dose: 1 drops Rivaroxaban (Rivaroxaban 20 Mg Tab) 20 mg PO QDD [facility] Stop: 03/11/25 16:29 Simvastatin (Simvastatin 20 Mg Tab) 20 mg PO QPM [place] Stop: 03/11/25 20:59 PG Care Time/CCT Total # of Minutes Spent Total Time Spent with Patient: Total time spent is greater than 50% in coordination of care (as documented) at patient's floor/unit and/or counseling patient: Coding Level of Care Code 51373 SUB INP/OBS CARE 2/35MIN Diagnoses Light-headed R42 Ambulatory dysfunction R26.2 Hypertension I10 Hyperlipidemia E78.5 GERD (gastroesophageal reflux disease) K21.9 BPH (benign prostatic hyperplasia) N40.0 Chronic kidney disease N18.9 Time Spent (min) 35
[2025-02-09] MEDS: RIVAROXABAN 20 MG TAB PO SCH (16:57)
[2025-02-09] MEDS: ATORVASTATIN 40 MG TAB PO SCH (20:44)
[2025-02-09] MEDS: POLYETHYLENE (MIRALAX) 17 GM PACK PO SCH (20:44)
[2025-02-09] MEDS: METOPROLOL SUCC 50MG EXT REL TAB PO SCH (20:44)
[2025-02-09] MEDS ORDERED: SIMVASTATIN 20 MG TAB PO SCH (21:00)
[2025-02-10 05:44] VITALS: RESP 20
[2025-02-10] MEDS: ACETAMINOPHEN 325 MG TAB PO PRN (07:46)
[2025-02-10 07:54] VITALS: PULSE 75; O2SAT 95
--- NOTE | 2025-02-10 09:48 | Neurology Consultation ---
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 This finding is likely incidental in the context of his symptoms. There is no role for vertebral artery stenting or surgical treatment. Medical management is recommended, would suggest starting aspirin 81 mg/day. He may continue with simvastatin at his current dosage, his LDL from this past July was appropriate, less than 70. He also has multilevel degenerative spondylosis of the cervical spine with at worse moderate stenosis. Does not require surgical treatment. In terms of his recent nonspecific dizziness, I would recommend 30-day mobile cardiac outpatient telemetry and additional follow-up with Dr. Madison, his professional architect. Additional counseling given to the patient regarding the importance of maintaining adequate hydration and p.o. intake, as well as taking his time while standing. Please call with any questions. History of Present Illness Reason for Consultation: Dizziness, vertebral artery stenosis/occlusion Requesting Physician: Sonam Attending Physician: Nick Masters, History of Present Illness The patient is an 84-year-old male with a chief complaint of dizziness. He complains of intermittent brief episodes of lightheadedness, seems to be worse when upright, improved with lying down. No true vertigo, no diplopia, dysarthria, dysphagia, or focal weakness. Complains of some associated anxiety and chest fluttering at times. He is currently resting comfortably in bed and is without symptoms. No recent illness or injury. A CT of the head was negative for acute process. CTA of the head was unremarkable. CTA of the neck revealed a diminutive right vertebral artery with an age-indeterminate occlusion at the C2-3 level. Brain MRI negative for acute process, there is age-related involutional change and small vessel ischemic disease. Cervical spine MRI reveals moderate multilevel degenerative disc disease resulting in at worst moderate central canal stenosis, no myelopathic signal within the cervical spinal cord. I independently reviewed these images with radiology, Dr. Guerra. There is degenerative change and associated pannus of the atlan toaxial joint. An electrocardiogram revealed a normal sinus rhythm, right bundle branch block, left anterior fascicular block, 81 bpm. The patient informs me that he follows with [facility] cardiology, Dr. Madison, no significant known cardiac issues. Past medical history notable for chronic kidney disease, hypertension, GI bleed in 2022, pulmonary embolism, right lower extremity DVT, no longer on an anticoagulant, does not take an antiplatelet medication at this time either. He does take simvastatin. Allergies Allergy/AdvReac Type Severity Reaction Status Date / Time No Known Allergies Allergy Verified 02/08/25 21:01 Home Medications Medication Instructions Recorded Confirmed Type glucosamine 375 ul-dzyvhgsmn-bii 2 tab PO QPM ##0 10/11/14 02/08/25 History no1 500 mg-C 15 mg-ana 0.5 mg tablet (Jgsborscipf-Yztafaukyeu-GGJ Complex) docusate sodium 100 mg tablet 100 mg PO QPM ##0 01/17/18 02/08/25 History polyethylene glycol 3350 17 1 dose PO QPM ##0 01/17/18 02/08/25 History gram/dose oral powder (Miralax) brinzolamide 1 %-brimonidine 0.2 % 1 drp OPR TID 02/05/21 02/08/25 History eye drops,suspension (Simbrinza) peg 400-propylene glycol 0.4 %-0.3 1 drp OPL BID PRN Dry Eyes #0 mL 03/08/22 02/08/25 History % eye drops (Systane (propylene glycol)) metoprolol succinate 100 mg 100 mg PO QPM #90 tabs 02/04/23 02/08/25 Rx tablet,extended release 24 hr acetaminophen 500 mg tablet 650 mg PO HS 02/07/23 02/08/25 History (Tylenol Extra Strength) finasteride 5 mg tablet (Proscar) 5 mg PO QAM 02/07/23 02/08/25 History simvastatin 20 mg tablet 20 mg PO QPM 02/10/23 02/08/25 History hydrocortisone 2.5 % topical cream 1 applic topical DAILY PRN Itching 02/27/23 02/08/25 History with perineal applicator hydrochlorothiazide 12.5 mg tablet 12.5 mg PO QAM #90 tabs 03/08/23 02/08/25 Rx prednisolone acetate 1 % eye 1 drp ophthalmic (eye) Q OTHER DAY 03/23/24 02/08/25 History drops,suspension rivaroxaban 20 mg tablet (Xarelto) 20 mg PO QPM 03/23/24 02/08/25 History calcitriol 0.25 mcg capsule 0.25 mcg PO 3XWK #36 caps 04/12/24 02/08/25 Rx oxybutynin chloride 5 mg 5 mg PO DAILY #90 tabs 07/31/24 02/08/25 Rx tablet,extended release 24 hr netarsudil 0.02 % eye drops 1 drp ophthalmic (eye) QPM 01/09/25 02/08/25 History (Rhopressa) ascorbic acid (vitamin C) 500 mg 500 mg PO QPM 02/08/25 02/08/25 History tablet (Vitamin C) cholecalciferol (vitamin D3) 25 25 mcg PO QPM 02/08/25 02/08/25 History mcg (1,000 unit) capsule (Vitamin D3) cyanocobalamin (vitamin B-12) 1,000 mcg PO QPM 02/08/25 02/08/25 History 1,000 mcg tablet (Vitamin B-12) diclofenac sodium 1 % topical gel 2 g topical QID PRN Pain 02/08/25 02/08/25 History (Voltaren Arthritis Pain) gabapentin 100 mg capsule 300 mg PO DAILY 02/08/25 02/08/25 History multivitamin 1 tab PO DAILY 02/08/25 02/08/25 History Patient History Medical History Acute upper GI bleed Acute kidney injury superimposed on chronic kidney disease Pulmonary emboli Hypertension controlled, stable per pt Obesity Hx of intestinal obstruction (~2006) no surgical intervention per pt. Hx of glaucoma s/p surgical intervention bilaterally no current issues Hx of upper gastrointestinal hemorrhage (~02/2023) admit to [facility], EGD & Colon, per pt. source not found no current issues Hx of septic shock (~2016) admit to [facility] x 6 days, kidney stone History of blood transfusion (~2000) left hip replacement H/O degenerative disc disease cervical spine, has full ROM BPH (benign prostatic hyperplasia) GERD (gastroesophageal reflux disease) controlled, stable per pt Surgical History Hx of bilateral cataract extraction Hx of colonoscopy with polypectomy History of esophagogastroduodenoscopy (EGD) History of reverse total replacement of left shoulder joint (~01/03/23) H/O removal of cyst (~1974) mandibular History of laminectomy L2-L4 02/09/1818 Grade 2 view, MAC 3, ETT 8. Hx of arthroscopy of shoulder L, 2003; R, 2000 History of carpal tunnel release of both wrists 1994 L, 1996 R Hx of repair of rotator cuff R, likely 2000 History of total right hip arthroplasty (~2000) Hx of foot surgery (~2015) rt foot reconstruction Hx of total shoulder replacement RIGHT 2014 LEFT 2022 Hx of cystoscopy Hx of tonsillectomy H/O hernia repair left 1995, right 1997 Family History Mother Tuberculosis Sister Breast cancer Father Cardiac disorder Myocardial infarction Brother Dementia Denies family history of Ovarian cancer Prostate cancer Colorectal cancer Social History Smoking Status: Never smoker Tobacco Type: Cigarettes Age Started Using Tobacco: 17; Age Quit Using Tobacco: 30; packs per day: 2; Cigarettes Per Day: 1 1/2 packs per day 50 years ago; Second Hand Exposure: No; Do You Dip or Chew Tobacco: No; Hx Alcohol Use: No Hx Substance Use: No Preferred Language: [place]an Communication Ability: Effective Visual Impairment: Limited Hearing Ability: Normal Cake Batter Mixer Required: No Beliefs That Will Affect Care: None marital status: Current Living Situation: Spouse and Family Current Living Situation Comment: and grandson x2 current occupational status: retired 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 Other Information That Helps Us Care for You: No Feels Safe at Home: Yes Safety Concerns: Feels Safe At This Time Childhood Exposure to Second-Hand Smoke: Yes Diet: regular caffeine: Yes (one cup of coffee each day) during the past year weight has: decreased > 10 lbs Dental Care, Regularly: No Physical Activity Frequency: Daily Seatbelt Use: always Sunscreen Use: Yes (sometimes ) Assistive Devices: Cane and Hearing Aid - Bilateral Review of Systems Constitutional: no fever Eyes: no blind spots and no diplopia Ear, Nose, Mouth, Throat: no hearing loss Respiratory: no cough and no dyspnea Cardiovascular: no chest pain and no palpitations Gastrointestinal: no nausea and no vomiting Genitourinary: no dysuria Musculoskeletal: no myalgia Integumentary: no rash Neurologic: no localized weakness, no loss of sensation, no lack of coordination, no headache(s), no abnormal speech, no confusion and no memory loss Psychiatric: no depression and no anxiety Hematologic / Lymphatic: no easy bleeding and no easy bruising Exam (Neuro) Constitutional: well developed and well nourished; no acute distress Eyes: normal visual simeon by confrontation, PERRL, normal accommodation and EOM intact bilaterally; no fundoscopic abnormality Neurologic: Oriented to:: Person, Place and Time Memory: Short Term Intact and Remote Intact Attention: Span Intact and Concentration Intact Language: Naming Objects and Repeating Phrases Speech Fluency: negative Dysarthria Speech Aphasia: negative Aphasia Fund of Knowledge: Current Events, Past History and Vocabulary Cranial Nerves: Normal II (Visual simeon full to confrontation, visual acuity normal), III, IV, (Pupils equal round reactive to light and accommodation, eye movements normal), V (Facial sensation intact), VII (There is no facial droop or weakness), VIII (Hearing intact), IX, X (Palate elevates to midline), XI (Shoulder shrug intact) and XII (Tongue protrudes to midline) Motor Strength: Normal Lower Extremities and Normal Upper Extremities; negative Pronator Drift Motor Tone: Normal Lower Extremities and Normal Upper Extremities Muscle Bulk/Involuntary Movements: No Involuntary Movements; negative Muscle Atrophy Sensation: Light Touch Intact, Pain/Temperature Intact, Vibration Intact and Proprioception Intact Coordination: Normal; negative Limited Balance, Dysdiadochokinesia, Finger-Nose Abnormal or Heel-Barrera Abnormal Deep Tendon Reflexes: Rt Triceps: 2+, Lt Triceps: 2+, Rt Biceps: 2+, Lt Biceps: 2+, Rt Brachioradialis: 2+, Lt Brachioradialis: 2+, Rt Patellar: 2+, Lt Patellar: 2+, Rt Ankle: 2+ and Lt Ankle: 2+ Special Tests: negative Babinski Present Results & Data Vital Signs (Past 12 Hours) Vital Signs Pulse Pulse Resp BP BP Pulse Ox O2 Del Method 02/10/25 07:51 75 20 143/101 H 95 Room Air 02/10/25 05:00 61 20 128/67 02/10/25 04:00 62 19 02/10/25 03:00 70 19 02/10/25 02:45 68 16 02/10/25 01:12 79 17 02/10/25 00:00 68 16 02/09/25 23:00 67 18 02/09/25 22:00 78 23 Laboratory Results WBC 5.05, hemoglobin 13.2, hematocrit 38.3, platelet count 151, sodium 138, potassium 3.8, BUN 26, creatinine 1.30, glucose 107, calcium 9.3, magnesium 2.2. Lipid panel from this past July reviewed. Triglycerides 346, cholesterol 169, LDL 59, HDL 41 Coding Level of Care Code 11513 INT INP/OBS CARE 375MIN Diagnoses Light-headed R42 Vertebral artery stenosis I65.09 Time Spent (min) 90
[2025-02-10 12:01] VITALS: BP 142/90
--- NOTE | 2025-02-10 16:23 | Discharge Summary ---
Discharge Summary Date of Service February 10, 2025 Principal Dx & Hospital Course #1 = Principal Diagnosis (1) Light-headed: Babar Parikh is a 84 yo male with PMH of CKD, hypertension, on 02/08/2025, he was having dizziness episode x2 and came to our hospital for evaluation his CTA found diminuitive right vertebral artery occluded at the c2-c3 level. his brain MRI is negative he's s/p IV fluid for permissive hypertension. he denied any slurred speech, blurry vision, focal weakness he has no palpitation. he was seen by neurology and do not suspect the dizzy spell is related to vertebral artery stenosis we switched his simvastatin to lipitor he's was provided with meclizine. (2) Ambulatory dysfunction: (3) Hypertension: (4) Hyperlipidemia: (5) GERD (gastroesophageal reflux disease): (6) BPH (benign prostatic hyperplasia): (7) Chronic kidney disease: Notes For Next Care Provider Medication Changes From Visit switch from simvastatin to liptor Discharge Exam General: no acute distress neuro: CN 2-12 grossly intact; no pronator drift; 5/5 strength; no involuntary movement able to ambulate without limitation normal to nose test HEENT:AT/NC; EOMI heart: Normal s1; s2; rRR lung: CTA b/l; no wheezing; no rales abdomen: soft to touch; normoactive bowel sound Discharge Plan Discharge Items Patient Disposition: Home - Self-Care Reason For Visit: DIZZINESS Discharge Diagnosis: dizziness episode carotid stenosis Condition on Discharge: Good Activity: Per Instructions section Lifting: Gradually increase as tolerated Non-emergency contact: Primary Care Provider Call non-emergency contact if: your symptoms worsen and your rectal temperature is above 100.4 Follow-up/Referrals: July Ordonez DO [Primary Care Provider] - Diet: Low Sodium (2gm) Addtl Attending Provider Instructions: avoid driving or using heavy machinery for next 2-3 weeks follow up with physical therapy Pending Studies at Discharge: No Stand-Alone Forms: My [employer], Smoking Cessation Medications and DC Order Prescriptions: New atorvastatin 40 mg Tablet 40 mg PO PM 30 Days Qty: 30 0RF meclizine 25 mg Tablet 25 mg PO TID 10 Days Qty: 30 0RF Continued Luctfxhnwnn-Uzvpg-TPM Complex 525-355-86-0.5 mg Tablet 2 tab PO QPM Qty: 0 polyethylene glycol 3350 [Miralax] 17 gram/dose Powder 1 dose PO QPM Qty: 0 docusate sodium 100 mg Tablet 100 mg PO QPM Qty: 0 Systane (propylene glycol) 0.4-0.3 % drops 1 drp OPL BID PRN (Reason: Dry Eyes) Qty: 0 metoprolol succinate 100 mg tablet extended release 24 hr 100 mg PO QPM Qty: 90 3RF hydrochlorothiazide 12.5 mg tablet 12.5 mg PO QAM Qty: 90 3RF Hold Instructions: Resume on 04/02/24. Please hold until you follow up with your PCP calcitriol 0.25 mcg capsule 0.25 mcg PO 3XWK Qty: 36 3RF Rx Instructions: 0.25 mcg PO every tuesday, tuesday, tuesday; oxybutynin chloride 5 mg tablet extended release 24hr 5 mg PO DAILY Qty: 90 2RF Simbrinza 1-0.2 % drops,suspension 1 drp OPR TID Rhopressa 0.02 % drops 1 drp ophthalmic (eye) QPM acetaminophen [Tylenol Extra Strength] 500 mg Tablet 650 mg PO HS finasteride [Proscar] 5 mg tablet 5 mg PO QAM Rx Instructions: TAKE 1 TABLET BY MOUTH DAILY IN THE MORNING hydrocortisone 2.5 % cream with perineal applicator 1 applic topical DAILY PRN (Reason: Itching) Rx Instructions: APPLY RECTALLY DAILY NEEDED FOR HEMORRHOIDS DIRECTED prednisolone acetate 1 % drops,suspension 1 drp ophthalmic (eye) Q OTHER DAY Xarelto 20 mg tablet 20 mg PO QPM Hold Instructions: Resume on 04/01/24. multivitamin Tablet 1 tab PO DAILY cyanocobalamin (vitamin B-12) [Vitamin B-12] 1,000 mcg Tablet 1,000 mcg PO QPM ascorbic acid (vitamin C) [Vitamin C] 500 mg Tablet 500 mg PO QPM gabapentin 100 mg capsule 300 mg PO DAILY cholecalciferol (vitamin D3) [Vitamin D3] 25 mcg (1,000 unit) Capsule 25 mcg PO QPM diclofenac sodium [Voltaren Arthritis Pain] 1 % gel 2 g topical QID PRN (Reason: Pain) Discontinued simvastatin 20 mg tablet 20 mg PO QPM Discharge Orders: Discharge Order (Routine); Ordered 02/10/25 Ordered By: Nick Armstrong/Other Patient Handouts: Dizziness Fainting Causes, Dizziness Fainting Ch, Carotid Artery Disease Admission Data Admit Date/Time: 02/08/25 22:22 Attending Provider: Nick Masters Admit Provider: Casandra Valentine Primary Care Provider: July Ordonez Other Providers: Casanrda Valentine; Jose Luis Cleveland. Other Interventions: Discharge Summary Assessment (RN) Last Done: 02/10/25 11:54 Hospital Stay Data Consultations 02/08/25 21:20 ED Decision to Admit Stat 02/10/25 06:02 Consult Neurology Routine Diagnostic Imagining Performed 02/08/25 19:45 CT angio head w con Stat CT angio neck with con Stat CT head/brain wo con Stat 02/08/25 21:21 MR brain wo con Stat 02/09/25 09:28 MRI Cervical [MR cervical spine wo con] Urgent Pending Results Patient Have Any Pending Studies at Discharge: No Discharge Instructions Given to Patient (Per Discharging Provider) avoid driving or using heavy machinery for next 2-3 weeks follow up with physical therapy Total Time Total Time Spent Total Time Spent (In Minutes): 25 Coding Level of Care Code 54608 IN/OBS DISCH 30 MIN/LESS Diagnoses Light-headed R42 Ambulatory dysfunction R26.2 Hypertension I10 Hyperlipidemia E78.5 GERD (gastroesophageal reflux disease) K21.9 BPH (benign prostatic hyperplasia) N40.0 Chronic kidney disease N18.9 Time Spent (min) 25
[2025-02-11] MEDS ORDERED: CALCITRIOL 0.25 MCG CAPSULE PO SCH (09:00)
== END 2025-02-10 12:00 | disposition home or self-care (01) ==
LOC: ED 19:15 → EDINP 19:15 → SUATTDRO 22:22 → EDINP 02-10 00:34